=== PATIENT | female | born 1935 | race Caucasian/White ===

== ENCOUNTER → 2017-04-08 | Outpatient (CLI) | payer MEDICARE, BC ==
--- NOTE | 2017-04-08 15:00 | XR ---
EXAMINATION TYPE: 3 views left wrist 3 views left DATE OF EXAM: 04/08/2017 COMPARISON: NONE HISTORY: 81 year-old female left hand and wrist pain, swelling FINDINGS: Wrist: Prominent ulnar sided soft tissue swelling. Mild positive ulnar variance is noted. The radiocarpal an d distal radioulnar joint as well as the midcarpal compartment are intact. No acute fracture-dislocat ion. Hand: Small corticated ossific density dorsal carpus measuring 3 mm could represent a loose body or sequela of remote injury. Diffuse osteopenia. Scattered osteoarthritic changes within the DIP joints. No acu te fracture, subluxation, or dislocation. No marginal erosions. No soft tissue calcifications. IMPRESSION: 1. Wrist: Prominent ulnar sided soft tissue swelling could reflect ECU tendinopathy, injury to the TF CC, or injury to the ECU subsheath. 2. Wrist: Mild positive ulnar variance. No acute osseous evaluate seen. 3. Hand: Mild scattered osteoarthritic changes. Osteopenia without acute osseous abnormality seen.
== END | disposition home or self-care (01) ==
LOC: RADXRYALE 10:57
PROVIDERS: ATTEND Physician Assistant
DX: M19.042 Primary osteoarthritis, left hand (principal); M85.842 Other specified disorders of bone density and structure, left hand; M79.89 Other specified soft tissue disorders

== ENCOUNTER 2018-08-05 08:11 | Day surgery (SDC) | payer MEDICARE, BC ==
[2018-08-03 09:39] VITALS: BMI 26.6
[~2018-08-05 08:11] MED LIST: LACTATED RINGERS 1,000 ML IV SCH; LIDOCAINE 1% 20 ML VIAL (10MG/ML) FOR IV START INTRADERMA PRN; MOXIFLOXACIN HCL 0.5% DROPS 3 ML BTL OP ONE; ONDANSETRON 4 MG/2 ML VIAL IVP ONE; TETRACAINE 0.5% OPHTH (PF) DROPS 4 ML BTL OP ONE; TIMOLOL 0.5% OPHTH DROPS 5 ML BTL OP ONE
[2018-08-05 08:42] VITALS: RESP 16; TEMP 98.1
[2018-08-05] MEDS: PHENYLEPHRINE 2.5% OPHTH DRP 2ML OP NR ×3 (08:47→09:09)
[2018-08-05] MEDS: CYCLOPENTOLATE 1% OPHTH SOLN 2 ML BTL OP ONE ×3 (08:52→09:12)
[2018-08-05 08:59] LABS: Glucose,Whole Blood 126 mg/dL (75-99)
[2018-08-05] MEDS ORDERED: LIDOCAINE 1% (PF) 10MG/ML VIAL SQ ONE (09:26)
[2018-08-05] MEDS ORDERED: BALANCED SALT IRRIG SOLN COMB2 15 ML IRRIG.SOLN IRRIGATION ONE (09:26)
[2018-08-05] MEDS ORDERED: DUOVISC KIT (GREEN BOX) INTRAOCULA ONE (09:26)
[2018-08-05] MEDS ORDERED: TRYPAN BLUE 0.06% SYRINGE 0.5 ML SYRINGE INTRAOCULA ONE (09:26)
[2018-08-05] MEDS ORDERED: fentaNYL (PF) 50 MCG/ML 2 ML AMP ONE (09:27)
[2018-08-05] MEDS ORDERED: MIDAZOLAM 2 MG/2 ML VIAL ONE (09:27)
[2018-08-05] MEDS ORDERED: EPINEPHrine (PF) 0.3 ML in BALANCED SALT IRRIG SOLN COMB2 500 ML IRRIGATION ONE (09:49)
--- NOTE | 2018-08-05 10:04 | P.OP ---
Date of Procedure: 08/05/18 Preoperative Diagnosis: ns Postoperative Diagnosis: same Procedure(s) Performed: PIOL< OS Implants: PCB00 28.00 Anesthesia: MAC Surgeon: Gabriele Banuelos Estimated Blood Loss (ml): 0 Pathology: none sent Condition: stable Disposition: same day Indications for Procedure: Poor vision Operative Findings: No complications
[2018-08-05 10:09] VITALS: BP 182/83; PULSE 75
--- NOTE | 2018-08-05 18:50 | OP ---
OPERATIVE REPORT DATE OF SURGERY: August 05, 2018. PROCEDURE PERFORMED: Phacoemulsification of cataract and intraocular lens implant of the left eye. SURGEON: Gabriele Banuelos M.D. FLIGHT FOLLOWER:: PREOPERATIVE DIAGNOSIS:: Nuclear sclerosis. POSTOPERATIVE DIAGNOSIS:: Nuclear sclerosis. OPERATION:: Clear cornea phacoemulsification of cataract OS eye. ESTIMATED BLOOD LOSS:: Zero. SPECIMEN TAKEN:: None. NARRATIVE:: After obtaining the appropriate consent, the patient was brought to the Operating Room where the patient was placed under cardiac monitoring and prepped and draped in the usual sterile manner. At the 11 o'clock - position a 15 degree super sharp blade was used to create a paracentesis followed by instillation of 1% Xylocaine MPF 50:50 mix with BSS into the anterior chamber. This was followed by Duovisc to stabilize the anterior chamber. At the 9 o'clock position a self-sealing corneal flap incision was created using 2.8 mm ginna keratome. A cystatome was used to initiate a continuous tear capsulorrhexis which was completed with the Utrata forceps. A Binkhorst cannula was used to hydrodissect the lens nucleus followed by hydrodelineation. Phacoemulsification of the lens was performed utilizing phaco-chop in 40.54 seconds at 14% power. The remaining cortical material was removed using the irrigation aspiration mode followed by additional 1% Xylocaine MPF into the anterior chamber followed by viscoelastic to stabilize the capsular bag. An MARY PCB00 28.0 diopter posterior chamber lens was placed into the capsular bag without difficulty. The remaining viscoelastic material was removed from the anterior chamber with the irrigation/aspiration. Balanced salt solution was used to normalize the intraocular pressure. The incision was checked for watertight integrity. The patient then received two drops of 0.5% timolol followed by two drops Vigamox, was lightly patched and shielded in the usual manner. There were no complications from the procedure. The patient tolerated the procedure well and was returned to recovery in good condition. MMODL / IJN: [id number] / MTDD
== END 2018-08-05 10:36 | disposition home or self-care (01) ==
LOC: OR 08:11
PROVIDERS: ATTEND Ophthalmology
DX: E11.36 Type 2 diabetes mellitus with diabetic cataract (principal); I10 Essential (primary) hypertension; K21.9 Gastro-esophageal reflux disease without esophagitis; I25.10 Atherosclerotic heart disease of native coronary artery without angina pectoris; H40.009 Preglaucoma, unspecified, unspecified eye; Z79.82 Long term (current) use of aspirin; Z79.899 Other long term (current) drug therapy; Z79.84 Long term (current) use of oral hypoglycemic drugs; Z95.5 Presence of coronary angioplasty implant and graft; Z94.7 Corneal transplant status
CPT/HCPCS: 66984; C1780; J2250; J0171; J3010; J2001

== ENCOUNTER 2019-11-03 22:13 | Inpatient (IN) | payer MEDICARE, BC ==
--- NOTE | 2019-11-03 22:49 | ED ---
Chest Pain HPI - General Source: patient, family, RN notes reviewed Mode of arrival: ambulatory - History of Present Illness MD Complaint: chest pain <Vincent Lyle - Last Filed: 11/04/19 00:31> <Jose Robertson - Last Filed: 11/04/19 02:06> - General Chief Complaint: Chest Pain Stated Complaint: SOB,rapid HR Time Seen by Provider: 11/03/19 22:28 - History of Present Illness Initial Comments: This is a 84-year-old female history of prior cardiac disease with stents who states for the past several days she's had shortness of breath especially with exertion. No orthopnea no fevers chills nausea vomiting sweats no chest pain. She states she is concerned because her prior cardiac events had no chest pain associated with them. At rest she feels okay at this time. No complaints or modifying factors at this time (Vincent Lyle) - Related Data Home Medications Medication Instructions Recorded Confirmed Aspirin EC [Ecotrin] 81 mg PO DAILY 10/13/15 08/05/18 Omeprazole [PriLOSEC] 20 mg PO AC-BRKFST 10/14/15 08/05/18 metFORMIN HCL [Glucophage] 500 mg PO DAILY 10/14/15 08/05/18 amLODIPine [Norvasc] 5 mg PO BID 08/03/18 08/05/18 lisinopriL [Lisinopril] 20 mg PO BID 08/03/18 08/05/18 Previous Rx's Medication Instructions Recorded Metoprolol Tartrate [Lopressor] 12.5 mg PO BID #60 tab 10/16/15 Nitroglycerin Sl Tabs [Nitrostat] 0.4 mg SUBLINGUAL Q5M PRN #30 tab 10/16/15 Allergies Allergy/AdvReac Type Severity Reaction Status Date / Time No Known Allergies Allergy Verified 11/03/19 22:32 Review of Systems ROS Other: All systems not noted in ROS Statement are negative. <Vincent Lyle - Last Filed: 11/04/19 00:31> ROS Other: All systems not noted in ROS Statement are negative. <Jose Robertson - Last Filed: 11/04/19 02:06> ROS Statement: Those systems with pertinent positive or pertinent negative responses have been documented in the HPI. EKG Findings - EKG Results: EKG: interpreted by ERMD, sinus rhythm (Sinus rhythm 82. Interval 192 QRS duration 78 QT since QTC 372/4:30 for moderate voltage criteria for LVH nonspecific ST configuration this is compared with an EKG dated 10/14/15) <ValdoVincent Holly Filed: 11/04/19 00:31> Past Medical History Past Medical History: Coronary Artery Disease (CAD), Diabetes Mellitus, GERD/Reflux, Hypertension Additional Past Medical History / Comment(s): left cataracts,hiatal hernia History of Any Multi-Drug Resistant Organisms: None Reported Past Surgical History: Heart Catheterization With Stent Additional Past Surgical History / Comment(s): 3 stents with Cath. Lt hip femur bhaskar,cornea implant rt eye Past Anesthesia/Blood Transfusion Reactions: Postoperative Nausea & Vomiting (PONV) Date of Last Stent Placement:: 10/14/2015 Past Psychological History: No Psychological Hx Reported Smoking Status: Never smoker Past Alcohol Use History: None Reported Past Drug Use History: None Reported - Past Family History Mother Family Medical History: Diabetes Mellitus Father Family Medical History: Myocardial Infarction (HI) <ValdoVincent Murray Filed: 11/04/19 00:31> General Exam General appearance: alert, in no apparent distress Head exam: Present: atraumatic, normocephalic, normal inspection Eye exam: Present: normal appearance, PERRL, EOMI. Absent: scleral icterus, conjunctival injection, periorbital swelling ENT exam: Present: normal exam, mucous membranes moist Neck exam: Present: normal inspection. Absent: tenderness, meningismus, lym phadenopathy Respiratory exam: Present: normal lung sounds bilaterally. Absent: respiratory distress, wheezes, rales, rhonchi, stridor Cardiovascular Exam: Present: regular rate, normal rhythm, normal heart sounds. Absent: systolic murmur, diastolic murmur, rubs, gallop, clicks GI/Abdominal exam: Present: soft, normal bowel sounds. Absent: distended, tenderness, guarding, rebound, rigid Extremities exam: Present: normal inspection, full ROM, normal capillary refill. Absent: tenderness, pedal edema, joint swelling, calf tenderness Back exam: Present: normal inspection Neurological exam: Present: alert, oriented X3, CN II-XII intact Psychiatric exam: Present: normal affect, normal mood Skin exam: Present: warm, dry, intact, normal color. Absent: rash <Valdo,Vincent Murray Filed: 11/04/19 00:31> - General Exam Comments Initial Comments: This is a well-developed well-nourished awake alert oriented 3 female (Vincent Lyle) Course <Vincent Lyle - Last Filed: 11/04/19 00:31> Vital Signs 11/03/19 22:30 Temperature 98.3 F Pulse Rate 102 H Respiratory 16 Rate Blood Pressure 177/87 O2 Sat by Pulse 98 Oximetry - Reevaluation(s) Reevaluation #1: 11/04/19 00:31 The patient has been a difficult blood draw. It was just sent at this time. The case is endorsed to Dr. Robertson at our shift change. (Vincent Lyle) Chest Pain MDM <Jose Robertson - Last Filed: 11/04/19 02:06> - MDM I receive this patient has a sign out pending the results of some of her studies. The patient's workup does reveal minimally elevated troponin. The patient is however asymptomatic. Patient be admitted with cardiology consultation, serial cardiac enzymes and telemetry monitoring. (Jose Robertson) Critical Care Time Critical Care Time: Yes (30 minutes) <Jose Robertson - Last Filed: 11/04/19 02:06> Disposition <Vincent Lyle - Last Filed: 11/04/19 00:31> <Jose Robertson - Last Filed: 11/04/19 02:06> Clinical Impression: Acute non-ST elevation myocardial infarction (NSTEMI) Disposition: ADMITTED IP TO THIS [facility] Condition: Serious Referrals: Diomedes Akbar DO [Primary Care Provider] - 1-2 days
--- NOTE | 2019-11-04 00:42 | XR ---
EXAMINATION TYPE: XR chest 2V DATE OF EXAM: 11/04/2019 COMPARISON: 10/13/2015 HISTORY: Chest pain TECHNIQUE: FINDINGS: There is no heart failure nor confluent pneumonic infiltrate. Thoracic aorta is atheromatou s. There is no pleural effusion. There is some osteopenia and slight wedging of mid thoracic vertebra . IMPRESSION: No active cardiopulmonary disease. No significant change compared to old exam.
[2019-11-04 00:50] LABS: Albumin 4.4 g/dL (3.5-5.0); Calcium 10.1 mg/dL (8.4-10.2); Magnesium 1.9 mg/dL (1.6-2.3); Potassium 4.4 mmol/L (3.5-5.1); Total Bilirubin 0.3 mg/dL (0.2-1.3); Total Protein 7.7 g/dL (6.3-8.2)
[2019-11-04 00:51] LABS: Basophils # (A) 0.1 k/uL (0-0.2); Basophils % (A) 1 %; Eosinophils # (A) 0.2 k/uL (0-0.7); Eosinophils % (A) 2 %; HCT 42.5 % (34.0-46.0); HGB 12.9 gm/dL (11.4-16.0); Hypochromasia Moderate; Lymphocytes % (A) 19 %; MCH 25.6 pg (25.0-35.0); MCHC 30.5 g/dL (31.0-37.0); MCV 84.1 fL (80.0-100.0); Mean Platelet Volume 7.3; Monocytes # (A) 0.7 k/uL (0-1.0); Monocytes % (A) 6 %; Neutrophils # (A) 7.6 k/uL (1.3-7.7); Neutrophils % (A) 71 %; Platelet Count 421 k/uL (150-450); RBC 5.05 m/uL (3.80-5.40); RDW 13.7 % (11.5-15.5); WBC 10.7 k/uL (3.8-10.6)
[2019-11-04 00:54] LABS: INR 0.9 (<1.2); Prothrombin Time 9.7 sec (9.0-12.0)
[2019-11-04 01:05] LABS: D-Dimer 3.36 mg/L FEU (<0.60)
--- NOTE | 2019-11-04 01:38 | CT ---
EXAMINATION TYPE: CT chest angio for PE DATE OF EXAM: 11/04/2019 COMPARISON: HISTORY: SOB CT DLP: 276.4 mGycm Automated exposure control for dose reduction was used. CONTRAST: Performed with IV Contrast, patient injected with 62 mL of Isovue 370. Images were obtained from the thoracic inlet to the diaphragm with IV contrast and 3-D post processed images. FINDINGS: There is mild to moderate hiatal hernia. There is mild subsegmental atelectasis and interstitial dens ity at the lung bases. There is no evidence of a pulmonary mass. Thoracic aorta is intact. There is n o aneurysm or dissection. There is no mediastinal adenopathy. There are no hilar masses. There is nor mal contrast opacification of the pulmonary arteries. There are no filling defects. There is no pleural effusion. There is no pericardial effusion. There are some spondylotic changes in the lower thoracic spine. There is no significant compression deformity. Sternum appears intact. The ribs appear intact. There is calcified gallstone. IMPRESSION: No evidence of pulmonary embolism. Mild pulmonary fibrotic changes. Cholelithiasis.
[2019-11-04] MEDS ORDERED: HEPARIN SODIUM,PORCINE 5,000 UNIT/ML 1 ML VIAL IV PRN (01:58)
[2019-11-04] MEDS ORDERED: HEPARIN SODIUM,PORCINE 5,000 UNIT/ML 1 ML VIAL IV ONE (01:58)
[2019-11-04] MEDS ORDERED: NITROGLYCERIN SL TABS 0.4 MG TAB SUBLINGUAL PRN (02:02)
[2019-11-04] MEDS: HEPARIN SOD,PORK IN 0.45% NACL 25,000 UNIT in 0.45% NACL 1 250ML.BAG IV SCH (02:33)
[2019-11-04] MEDS ORDERED: metFORMIN 500 MG TAB PO SCH (09:00)
[2019-11-04] MEDS ORDERED: METOPROLOL TARTRATE 12.5 MG TAB PO SCH (09:00)
[2019-11-04] MEDS: ASPIRIN 81 MG PO SCH (09:03)
[2019-11-04] MEDS: amLODIPine 5 MG TAB PO SCH ×2 (09:03→20:36)
[2019-11-04] MEDS: PANTOPRAZOLE 40 MG TABLET PO SCH (09:04)
[2019-11-04] MEDS: lisinopriL 20 MG TAB PO SCH ×2 (09:04→20:36)
[2019-11-04 11:27] LABS: Glucose,Whole Blood 118 mg/dL (75-99)
[2019-11-04] MEDS: INSULIN ASPART (NovoLOG) 100 UNIT/ML VIAL SQ SCH ×3 (11:28→20:26)
[2019-11-04] MEDS ORDERED: ONDANSETRON 4 MG/2 ML VIAL IVP PRN (11:31)
[2019-11-04] MEDS ORDERED: METOPROLOL TARTRATE 12.5 MG TAB PO STA (14:24)
[2019-11-04] MEDS: NITROGLYCERIN OINT 1 INCH/GM PACKET TOPICAL SCH ×2 (14:38→20:26)
[2019-11-04] MEDS ORDERED: ATORVASTATIN 80 MG TAB PO STA (14:44)
--- NOTE | 2019-11-04 14:52 | P.HPIM ---
History of Present Illness This is a pleasant 84 years old female with past medical history of diabetes mellitus, hypertension, hyperlipidemia, coronary artery disease status post stent, hiatal hernia and osteoarthritis. She is a patient of Dr. Akbar and follow-up with Dr. Flores and outpatient setting Patient presents because of dyspnea of 3 days' duration, more with exertion. However she denies coughing or chest pain. She denies smoking, alcohol or illicit drugs Vital signs stable, blood pressure on the high side 183/84 and now is 163/82, afebrile. Labs showing mild leukocytosis of 10.7 K, rest of CBC is unremarkable, d-dimer is elevated at 3.3, BMP and liver enzymes unremarkable Troponin is elevated at 0.2, 0.32. EKG showing normal sinus rhythm at [address]-T changes. CT of the chest: No pulmonary embolism, no aneurysm or dissection In the emergency room patient was started on heparin drip Review of Systems CONSTITUTIONAL: No fever, no malaise, no fatigue. HEENT: No recent visual problems or hearing problems. Denied any sore throat. CARDIOVASCULAR: No orthopnea, PND, no palpitations, no syncope. PULMONARY: No shortness of breath, no cough, no hemoptysis. GASTROINTESTINAL: No diarrhea, no nausea, no vomiting, no abdominal pain. Normoactive bowel sounds. NEUROLOGICAL: No headaches, no weakness, no numbness. HEMATOLOGICAL: Denies any bleeding or petechiae. GENITOURINARY: Denies any burning micturition, frequency, or urgency. MUSCULOSKELETAL/RHEUMATOLOGICAL: Denies any joint pain, swelling, or any muscle pain. ENDOCRINE: Denies any polyuria or polydipsia. Past Medical History Past Medical History: Coronary Artery Disease (CAD), Diabetes Mellitus, Eye Disorder, GERD/Reflux, Hyperlipidemia, Hypertension, Myocardial Infarction (OR), Osteoarthritis (OA) Additional Past Medical History / Comment(s): NIDDM type II, R eye-sees shadows only, hiatal hernia, arthritis bilateral hands, insomnia. Last Myocardial Infarction Date:: 2015 History of Any Multi-Drug Resistant Organisms: None Reported Past Surgical History: Heart Catheterization With Stent, Orthopedic Surgery Additional Past Surgical History / Comment(s): PCIs with stents, L hip fracture with hemiarthroplasty, R foot fracture with bone graft, R eye corneal transplant, L eye cataract removal with lens implant. Past Anesthesia/Blood Transfusion Reactions: Postoperative Nausea & Vomiting (PONV) Date of Last Stent Placement:: 10/14/2015 Smoking Status: Never smoker - Past Family History Mother Family Medical History: Diabetes Mellitus Father Family Medical History: Myocardial Infarction (OR) Additional Family Medical History / Comment(s): Father from a OR at the age of 57yrs. Medications and Allergies Home Medications Medication Instructions Recorded Confirmed Type Aspirin EC [Ecotrin] 81 mg PO DAILY 10/13/15 11/04/19 History Omeprazole [PriLOSEC] 20 mg PO AC-BRKFST 10/14/15 11/04/19 History RX: metFORMIN HCL [Glucophage] 500 mg PO DAILY 10/14/15 11/04/19 History RX: Metoprolol Tartrate [Lopressor] 12.5 mg PO BID #60 tab 10/16/15 11/04/19 Rx RX: Nitroglycerin Sl Tabs 0.4 mg SUBLINGUAL Q5M PRN #30 tab 10/16/15 11/04/19 Rx [Nitrostat] RX: lisinopriL 20 mg PO BID 08/03/18 11/04/19 History amLODIPine [Norvasc] 5 mg PO BID 08/03/18 11/04/19 History Fluorometholone 0.1% Ophth Jazz 1 drop RIGHT EYE Q4H 11/04/19 11/04/19 History [Fml] Timolol 0.25% Ophth Soln [Timoptic 1 drop LEFT EYE BID 11/04/19 11/04/19 History 0.25% Ophth Soln] hydrALAZINE HCL [Apresoline] 25 mg PO BID 11/04/19 11/04/19 History Allergies Allergy/AdvReac Type Severity Reaction Status Date / Time No Known Allergies Allergy Verified 11/04/19 07:26 Physical Exam Vitals: Vital Signs Temp Pulse Pulse Resp BP BP Pulse Ox 11/04/19 13:06 163/82 11/04/19 11:29 97.9 F 88 20 183/84 94 L 11/04/19 08:00 97.8 F 88 20 179/84 97 11/04/19 05:30 82 17 149/90 97 11/04/19 04:15 96 17 189/91 97 11/04/19 03:05 100 18 167/80 97 11/03/19 22:30 98.3 F 102 H 16 177/87 98 Intake and Output 11/03/19 11/04/19 11/04/19 22:59 06:59 14:59 Other: Voiding Method Toilet # Voids 1 Weight 69.853 kg 69.853 kg GENERAL: The patient is alert and oriented x3, not in any acute distress. Well developed, well nourished. HEENT: Pupils are round and equally reacting to light. EOMI. No scleral icterus. No conjunctival pallor. Normocephalic, atraumatic. No pharyngeal erythema. No thyromegaly. CARDIOVASCULAR: S1 and S2 present. No murmurs, rubs, or gallops. PULMONARY: Chest is clear to auscultation, no wheezing or crackles. ABDOMEN: Soft, nontender, nondistended, normoactive bowel sounds. No palpable organomegaly. MUSCULOSKELETAL: No joint swelling or deformity. EXTREMITIES: No cyanosis, clubbing, or pedal edema. NEUROLOGICAL: Gross neurological examination did not reveal any focal deficits. SKIN: No rashes. No petechiae Results CBC & Chem 7: 11/04/19 00:20 11/04/19 00:20 Labs: Abnormal Lab Results - Last 24 Hours (Table) 11/04/19 11/04/19 11/04/19 Range/Units 00:20 00:20 00:20 WBC 10.7 H (3.8-10.6) k/uL MCHC 30.5 L (31.0-37.0) g/dL APTT (22.0-30.0) sec D-Dimer 3.36 H (<0.60) mg/L FEU Chloride 108 H (98-107) mmol/L Carbon Dioxide 21 L (22-30) mmol/L BUN 26 H (7-17) mg/dL Glucose 150 H (74-99) mg/dL POC Glucose (mg/dL) (75-99) mg/dL Troponin I (0.000-0.034) ng/mL 11/04/19 11/04/19 11/04/19 Range/Units 00:20 03:09 05:47 WBC (3.8-10.6) k/uL MCHC (31.0-37.0) g/dL APTT (22.0-30.0) sec D-Dimer (<0.60) mg/L FEU Chloride (98-107) mmol/L Carbon Dioxide (22-30) mmol/L BUN (7-17) mg/dL Glucose (74-99) mg/dL POC Glucose (mg/dL) (75-99) mg/dL Troponin I 0.264 H* 0.300 H* 0.314 H* (0.000-0.034) ng/mL 11/04/19 11/04/19 Range/Units 07:21 11:25 WBC (3.8-10.6) k/uL MCHC (31.0-37.0) g/dL APTT 45.8 H (22.0-30.0) sec D-Dimer (<0.60) mg/L FEU Chloride (98-107) mmol/L Carbon Dioxide (22-30) mmol/L BUN (7-17) mg/dL Glucose (74-99) mg/dL POC Glucose (mg/dL) 118 H (75-99) mg/dL Troponin I (0.000-0.034) ng/mL Thrombosis Risk Factor Assmnt - Choose All That Apply Any of the Below Risk Factors Present?: Yes Each Factor Represents 1 point: Acute OR, Obesity (BMI >25) Other Risk Factors: Yes Each Risk Factor Represents 3 Points: Age 75 years or older Other congenital or acquired thrombophilia - If yes, enter type in comment: No Thrombosis Risk Factor Assessment Total Risk Factor Score: 5 Thrombosis Risk Factor Assessment Level: High Risk Assessment and Plan Assessment: Elevated troponin suspicious for non-STEMI Diabetes mellitus Hypertension Hyperlipidemia Coronary artery disease status post stenting Osteoarthritis Hiatal hernia Plan: This is a pleasant 84 years old female who presents with non-STEMI. Continue with aspirin and heparin drip, cardiology consult Labs and medication were reviewed.. Continue same treatment. Continue with symptomatic treatment. Resume home medication. Monitor lytes and vitals. DVT and GI prophylaxis. Further recommendations of the clinical course of the patient DVT prophylaxis: heparin GI Prophylaxis: Pepcid PT/OT: Pending Prognosis is guarded
[2019-11-04] MEDS ORDERED: ASPIRIN 325 MG TAB PO STA (15:15)
[2019-11-04] MEDS ORDERED: ALPRAZolam 0.5 MG TAB PO PRN (15:15)
[2019-11-04] MEDS ORDERED: ALPRAZolam 0.25 MG TAB PO PRN (15:15)
[2019-11-04] MEDS ORDERED: SODIUM CHLORIDE 0.9% 1,000 ML in EMPTY BAG 1 BAG IV ONE (15:15)
--- NOTE | 2019-11-04 15:15 | P.CRDCN ---
History of Present Illness History of present illness: This is Melody Patel PA-C dictating a consult on this patient The patient was interviewed and examined by me as well as by Dr. Zhang Case discussed with Dr. Zhang and he agrees with the plan of care HPI Patient is an 84-year-old female with a history significant for CAD status post stenting, most recently stenting of the RCA and PLV in 2016, diabetes, hypertension, dyslipidemia who presented with complaints of dyspnea. She follows regularly with Dr. Flores in the office. She states that for the last few days she has been more short of breath and has been having chest tightness. It was initially exertional. It has become constant over the last day. She also notes diaphoresis and nausea. She did take 2 aspirins with some relief. Some symptoms reminded her of symptoms she had before previous stenting. Because the discomfort was ongoing and constant she came in for evaluation. EKG upon arrival shows sinus mechanism with PACs, nonspecific changes inferiorly. Chest x-ray showed no acute process. Chest CT showed no evidence of PE. Troponins are abnormal. Patient seen and examined in the emergency room. States she does not have any chest tightness currently but she does develop it with minimal exertion such as getting out of bed and taking a few steps. ROS: No fevers, chills or rigors, no cough, phlegm or expectoration, no nausea, vomiting or diarrhea, no hematuria, dysuria, no musculoskeletal complaints, no strokes or seizures, no skin lesions. EXAMINATION: Patient is afebrile, pulse in the 80s, respirations 20, blood pressure 183/84, oxygen saturation 94% on room air Patient seen and examined sitting in bed, in no acute distress Lungs are clear to auscultation bilaterally, no wheezing rhonchi or crackles Heart is regular, no audible murmurs No JVD No lower extremity edema Abdomen is soft and nontender to palpation REVIEW OF LABS, ECG & MEDICAL DATA WBC 10.7, hemoglobin 12.9, platelets 421, potassium 4.4, BUN 26, creatinine 1.04 Troponin 0.264, 0.3-0.314 Repeat EKG again demonstrates nonspecific ST segment changes inferiorly, unchanged from previous EKG IMPRESSION / ASSESSMENT: #1 exertional chest tightness and shortness of breath, abnormal troponins, likely non-Q-wave [place] #2 history of CAD status post stenting #3 hypertension #4 diabetes #5 dyslipidemia, history of statin intolerance PLAN: Increase metoprolol to 25 mg twice a day Start atorvastatin 80 mg Start Nitropaste Continue aspirin Dr. Zhang discussed the case with Dr. Flores, he will take the patient for cardiac catheterization Obtain 2-D echocardiogram and Doppler studies Past Medical History Past Medical History: Coronary Artery Disease (CAD), Diabetes Mellitus, Eye Disorder, GERD/Reflux, Hyperlipidemia, Hypertension, Myocardial Infarction (LA), Osteoarthritis (OA) Additional Past Medical History / Comment(s): NIDDM type II, R eye-sees shadows only, hiatal hernia, arthritis bilateral hands, insomnia. Last Myocardial Infarction Date:: 2015 History of Any Multi-Drug Resistant Organisms: None Reported Past Surgical History: Heart Catheterization With Stent, Orthopedic Surgery Additional Past Surgical History / Comment(s): PCIs with stents, L hip fracture with hemiarthroplasty, R foot fracture with bone graft, R eye corneal transplant, L eye cataract removal with lens implant. Past Anesthesia/Blood Transfusion Reactions: Postoperative Nausea & Vomiting (PONV) Date of Last Stent Placement:: 10/14/2015 Smoking Status: Never smoker - Past Family History Mother Family Medical History: Diabetes Mellitus Father Family Medical History: Myocardial Infarction (LA) Additional Family Medical History / Comment(s): Father from a LA at the age of 57yrs. Medications and Allergies Home Medications Medication Instructions Recorded Confirmed Type Aspirin EC [Ecotrin] 81 mg PO DAILY 10/13/15 11/04/19 History Omeprazole [PriLOSEC] 20 mg PO AC-BRKFST 10/14/15 11/04/19 History metFORMIN HCL [Glucophage] 500 mg PO DAILY 10/14/15 11/04/19 History Metoprolol Tartrate [Lopressor] 12.5 mg PO BID #60 tab 10/16/15 11/04/19 Rx Nitroglycerin Sl Tabs [Nitrostat] 0.4 mg SUBLINGUAL Q5M PRN #30 tab 10/16/15 11/04/19 Rx amLODIPine [Norvasc] 5 mg PO BID 08/03/18 11/04/19 History lisinopriL 20 mg PO BID 08/03/18 11/04/19 History Fluorometholone 0.1% Ophth Jazz 1 drop RIGHT EYE Q4H 11/04/19 11/04/19 History [Fml] Timolol 0.25% Ophth Soln [Timoptic 1 drop LEFT EYE BID 11/04/19 11/04/19 History 0.25% Ophth Soln] hydrALAZINE HCL [Apresoline] 25 mg PO BID 11/04/19 11/04/19 History Allergies Allergy/AdvReac Type Severity Reaction Status Date / Time No Known Allergies Allergy Verified 11/04/19 07:26 Physical Exam Vitals: Vital Signs Temp Pulse Pulse Resp BP BP Pulse Ox 11/04/19 13:06 163/82 11/04/19 11:29 97.9 F 88 20 183/84 94 L 11/04/19 08:00 97.8 F 88 20 179/84 97 11/04/19 05:30 82 17 149/90 97 11/04/19 04:15 96 17 189/91 97 11/04/19 03:05 100 18 167/80 97 11/03/19 22:30 98.3 F 102 H 16 177/87 98 Intake and Output 11/04/19 11/04/19 11/04/19 06:59 14:59 22:59 Other: Voiding Method Toilet # Voids 1 Weight 69.853 kg Results 11/04/19 00:20 11/04/19 00:20 Cardiac Enzymes 11/04/19 11/04/19 11/04/19 Range/Units 00:20 00:20 03:09 AST 24 (14-36) U/L Troponin I 0.264 H* 0.300 H* (0.000-0.034) ng/mL 11/04/19 Range/Units 05:47 AST (14-36) U/L Troponin I 0.314 H* (0.000-0.034) ng/mL Coagulation 11/04/19 11/04/19 Range/Units 00:20 07:21 PT 9.7 (9.0-12.0) sec APTT 24.0 45.8 H (22.0-30.0) sec CBC 11/04/19 Range/Units 00:20 WBC 10.7 H (3.8-10.6) k/uL RBC 5.05 (3.80-5.40) m/uL Hgb 12.9 (11.4-16.0) gm/dL Hct 42.5 (34.0-46.0) % Plt Count 421 (150-450) k/uL Comprehensive Metabolic Panel 11/04/19 Range/Units 00:20 Sodium 139 (137-145) mmol/L Potassium 4.4 (3.5-5.1) mmol/L Chloride 108 H (98-107) mmol/L Carbon Dioxide 21 L (22-30) mmol/L BUN 26 H (7-17) mg/dL Creatinine 1.04 (0.52-1.04) mg/dL Glucose 150 H (74-99) mg/dL Calcium 10.1 (8.4-10.2) mg/dL AST 24 (14-36) U/L ALT 16 (4-34) U/L Alkaline Phosphatase 114 (38-126) U/L Total Protein 7.7 (6.3-8.2) g/dL Albumin 4.4 (3.5-5.0) g/dL Current Medications Generic Name Dose Route Start Last Admin Trade Name Kulwinderq PRN Reason Stop Dose Admin Amlodipine Besylate 5 mg 11/04/19 09:00 11/04/19 09:03 Norvasc PO 5 mg BID [facility] Administration Aspirin 81 mg 11/04/19 09:00 11/04/19 09:03 Aspirin PO 81 mg DAILY [facility] Administration Atorvastatin Calcium 80 mg 11/04/19 21:00 Lipitor PO HS [facility] Famotidine 20 mg 11/04/19 21:00 Pepcid IV Q12HR [facility] Heparin Sodium (Porcine) 0 unit 11/04/19 01:58 Heparin IV PER PROTOCOL PRN Low PTT Protocol Heparin Sodium/Sodium Chloride 250 mls @ 8.382 mls/hr 11/04/19 02:00 11/04/19 02:33 25,000 unit/ Sodium Chloride IV 12 units/kg/hr .Q24H ELEANOR 8.382 mls/hr Administration Protocol 12 UNITS/KG/HR Insulin Aspart 0 unit 11/04/19 12:30 11/04/19 11:28 Novolog SQ Not Given ACHS [facility] Protocol Lisinopril 20 mg 11/04/19 09:00 11/04/19 09:04 Zestril PO 20 mg BID ELEANOR Administration Metformin HCl 500 mg 11/04/19 09:00 11/04/19 09:05 Glucophage PO Not Given DAILY [facility] Metoprolol Tartrate 25 mg 11/04/19 21:00 Lopressor PO BID ELEANOR Nitroglycerin 0.4 mg 11/04/19 02:02 Nitrostat SUBLINGUAL Q5M PRN Chest Pain Nitroglycerin 0.5 inch 11/04/19 14:45 11/04/19 14:38 Nitro-Bid Oint TOPICAL 0.5 inch Q6HR [facility] Administration Ondansetron HCl 4 mg 11/04/19 11:31 Zofran IVP Q6HR PRN Nausea And Vomiting Pantoprazole Sodium 40 mg 11/04/19 07:30 11/04/19 09:04 Protonix PO 40 mg AC-BRKFST [facility] Administration Intake and Output 11/04/19 11/04/19 11/04/19 06:59 14:59 22:59 Other: Voiding Method Toilet # Voids 1 Weight 69.853 kg Patient Weight 11/05/19 06:59 Weight 69.853 kg 11/04/19 00:20 11/04/19 00:20
[2019-11-04] MEDS ORDERED: fentaNYL (PF) 50 MCG/ML 2 ML AMP ONE (15:33)
[2019-11-04] MEDS ORDERED: VERAPAMIL 2.5 MG/ML 2 ML AMP ONE ×2 (15:33→18:21)
[2019-11-04] MEDS ORDERED: LIDOCAINE 1% INJ 10MG/ML (20 ML MDV) ONE (15:33)
[2019-11-04] MEDS ORDERED: HEPARIN SODIUM 1,000 UN/ML (10ML VL) ONE (15:33)
[2019-11-04] MEDS ORDERED: MIDAZOLAM 2 MG/2 ML VIAL IVP ONE (15:59)
[2019-11-04] MEDS ORDERED: IV FLUID CONTINUATION 250 ML IV ONE (15:59)
[2019-11-04] MEDS ORDERED: LIDOCAINE 1% INJ 10MG/ML (20 ML MDV) SQ ONE (15:59)
[2019-11-04] MEDS ORDERED: fentaNYL (PF) 50 MCG/ML 2 ML AMP IV ONE ×2 (15:59)
[2019-11-04] MEDS ORDERED: VERAPAMIL SYRINGE (5 MG/10 ML) INTRAARTER ONE (16:01)
[2019-11-04] MEDS ORDERED: HEPARIN SODIUM 1,000 UN/ML (10ML VL) IV ONE (16:04)
--- NOTE | 2019-11-04 16:22 | P.CARDCATH ---
Date of Procedure: 11/04/19 Preoperative Diagnosis: Unstable angina Postoperative Diagnosis: Critical lesion involving the RCA and also proximal LAD Description of Procedure: HISTORY: This is a 84-year-old female with history of hypertension, ischemic heart disease and previous multiple stent placements was admitted to the hospital with acute onset of chest pain with borderline positive troponins. Patient is advised to have cardiac catheterization for definite diagnosis CONSENT:I have discussed the risks, benefits and alternative therapies for the above-mentioned procedure and for both sedation/analgesia as well as necessary blood product administration, if indicated, as they pertain to this patient. The patient has indicated understanding and acceptance of the risks and procedures discussed. PROCEDURE: Patient was brought to the lab in a fasting state. Patient was given some IV sedation. The right wrist is infiltrated with lidocaine and right radial artery was entered using Seldinger technique. A 6-Upper Sorbian catheter was left in place and selective coronary arteriography was performed. Patient tolerated the procedure well. Patient is found to have critical lesion involving the RCA and also LAD. Waiting to have stent placement by Dr. WAI Martinez No immediate complications were noted . Conscious Sedation: Versed 1mg Fentanyl 25 g, 4000 of heparin Duration 16minutes HEMODYNAMICS: 125/75 SELECTIVE CORONARY ARTERIOGRAPHY: LEFT MAIN: Short and free of occlusive disease THE LEFT ANTERIOR DESCENDING CORONARY ARTERY:. This is a good caliber vessel with about 70% stenosis involving the proximal portion before the first diagonal branch. The rest of the LAD is free of any significant focal lesions THE LEFT CIRCUMFLEX AND IS CORONARY ARTERY:. This is a fair caliber vessel with mild to moderate disease involving the distal circumflex. No critical lesions THE RIGHT CORONARY ARTERY:. His is a good caliber vessel with a critical lesion of 95% involving the distal portion. There is also about 70-80% stenosis of the PLV branchat the previous stent placements site LEFT VENTRICULOGRAPHY: Not performed FINAL IMPRESSION: Critical lesion involving the RCA in the distal portion with moderate to severe disease involving the PLV branch and also proximal LAD PLAN: And placement of the distal RCA and also PLV branch. The stent placement of the LAD to be considered PROGNOSIS: Guarded
[2019-11-04] MEDS ORDERED: IOPAMIDOL-370 100ML BTL INJ ONE ×2 (16:48→19:20)
[2019-11-04] MEDS ORDERED: IV FLUID CONTINUATION 1,000 ML IV ONE (18:30)
[2019-11-04] MEDS ORDERED: BIVALIRUDIN BOLUS 250 MG/50 ML IV ONE (18:56)
[2019-11-04] MEDS ORDERED: BIVALIRUDIN 250 MG in SODIUM CHLORIDE 0.9% 50 ML IV ONE (18:57)
[2019-11-04] MEDS ORDERED: CLOPIDOGREL 75 MG TAB ONE (19:04)
[2019-11-04] MEDS ORDERED: NITROGLYCERIN 1000MCG/10ML SYRINGE INTRACORON ONE (19:08)
[2019-11-04] MEDS ORDERED: CLOPIDOGREL 75 MG TAB PO ONE (19:20)
[2019-11-04 20:29] LABS: Glucose,Whole Blood 139 mg/dL (75-99)
[2019-11-04] MEDS: FAMOTIDINE 20 MG/2 ML VIAL IV SCH (20:37)
[2019-11-04] MEDS: METOPROLOL TARTRATE 25 MG TAB PO SCH (20:37)
[2019-11-04] MEDS: SODIUM CHLORIDE 0.9% 1,000 ML IV SCH (21:45)
[2019-11-05] MEDS: NITROGLYCERIN OINT 1 INCH/GM PACKET TOPICAL SCH ×3 (01:06→12:04)
--- NOTE | 2019-11-05 02:51 | PTCA ---
PERCUTANEOUSTRANS CORORONARY ANGIOGRAPHY DATE OF SERVICE: 11/04/2019 PROCEDURE: PTCA and stenting of a dominant mid RCA 90% stenosis with a drug-eluting stent. PERFORMED BY: Dr. Amanda Martinez. CLINICAL INFORMATION: Mrs. Patino is an 84-year-old lady with a history of multivessel PCI. I performed stenting of a RCA stenosis in the setting of an acute inferior SC in 2015. She presented with chest pain and had a non-ST elevation SC. Her right coronary stent that was placed in 2016 was patent, but distal to the stent there was a new area of 95% stenosis. Additionally, there was progression of disease in LAD and diagonal. Circumflex had minor irregularities. She was advised PCI with was performed on the same day. She already had a sheath in her right radial artery. Moderate conscious sedation time was 31 minutes. Patient was administered Versed. Oxygen saturation, hemodynamics and EKG were monitored closely. PROCEDURE NOTE: The existing 6-Burkinan introducer in the right radial artery was used to perform procedure. There was a lot of tortuosity. I used a Glidewire and used a standard right Daniela guide catheter and I was able to cannulate the right coronary artery. A whisper straight wire was used to cross the lesion. A 3.0 caliber 12 mm NC Trek balloon was used to pre-dilate the lesion and I then deployed an 18 mm long 3.5 caliber Xience stent and this was deployed at 12 atmospheres. Patient had chest pain and inferior ST elevation. Proximal to it in the previous stent also, I used the same balloon and dilated it up to 12 atmospheres. Excellent angiographic result was achieved. I gave 150 mcg of intracoronary nitroglycerin. Patient became transiently hypotensive. Subsequently, the pressure came back to 118/70. Excellent angiographic result was achieved without complication. The sheath was taken out and TR band applied as per protocol. Results were discussed with the patient and family. She received Angiomax bolus and infusion and also 600 mg of Plavix orally. Excellent angiographic result without complication was achieved. I expect the patient should do well. She was sent to the room in a stable condition. MMODL / IJN: [id number] /
[2019-11-05] MEDS: HEPARIN SOD,PORK IN 0.45% NACL 25,000 UNIT in 0.45% NACL 1 250ML.BAG IV SCH (05:37)
[2019-11-05] MEDS: SODIUM CHLORIDE 0.9% 1,000 ML IV SCH (05:37)
[2019-11-05 06:07] LABS: Glucose,Whole Blood 101 mg/dL (75-99)
[2019-11-05] MEDS: INSULIN ASPART (NovoLOG) 100 UNIT/ML VIAL SQ SCH ×2 (06:16→12:05)
[2019-11-05] MEDS: PANTOPRAZOLE 40 MG TABLET PO SCH (06:23)
[2019-11-05 07:27] LABS: Calcium 9.4 mg/dL (8.4-10.2); Potassium 4.6 mmol/L (3.5-5.1)
[2019-11-05 07:37] LABS: Basophils % (A) 0 %; Eosinophils # (A) 0.1 k/uL (0-0.7); Eosinophils % (A) 2 %; HCT 37.8 % (34.0-46.0); HGB 11.5 gm/dL (11.4-16.0); Hypochromasia Slight; Lymphocytes # (A) 1.2 k/uL (1.0-4.8); Lymphocytes % (A) 16 %; MCH 24.9 pg (25.0-35.0); MCHC 30.3 g/dL (31.0-37.0); MCV 82.3 fL (80.0-100.0); Mean Platelet Volume 7.8; Monocytes # (A) 0.6 k/uL (0-1.0); Monocytes % (A) 8 %; Neutrophils # (A) 5.5 k/uL (1.3-7.7); Neutrophils % (A) 72 %; Platelet Count 369 k/uL (150-450); RDW 14.1 % (11.5-15.5); WBC 7.6 k/uL (3.8-10.6)
[2019-11-05] MEDS ORDERED: FLUOROMETHOLONE 0.1% OPHTH DROPS 5 ML BTL RIGHT EYE SCH (09:00)
[2019-11-05] MEDS ORDERED: TIMOLOL 0.25% OPHTH DROPS 5 ML BTL LEFT EYE SCH (09:00)
[2019-11-05] MEDS ORDERED: CLOPIDOGREL 75 MG TAB PO SCH (09:00)
[2019-11-05] MEDS ORDERED: ASPIRIN 325 MG TAB PO SCH (09:00)
[2019-11-05] MEDS: amLODIPine 5 MG TAB PO SCH (09:44)
[2019-11-05] MEDS: METOPROLOL TARTRATE 25 MG TAB PO SCH (09:44)
[2019-11-05] MEDS: ASPIRIN 81 MG PO SCH (09:44)
[2019-11-05] MEDS: FAMOTIDINE 20 MG/2 ML VIAL IV SCH (09:44)
[2019-11-05] MEDS: lisinopriL 20 MG TAB PO SCH (09:44)
--- NOTE | 2019-11-05 10:55 | ECHOF ---
Referral Reason:cp MEASUREMENTS -------- HEIGHT: 162.6 cm WEIGHT: 68.9 kg BP: IVSd: 1.4 cm (0.6 - 1.1) LVIDd: 4.1 cm (3.9 - 5.3) LVPWd: 1.4 cm (0.6 - 1.1) IVSs: 1.5 cm LVIDs: 3.3 cm LVPWs: 1.4 cm LA Diam: 4.8 cm (2.7 - 3.8) LAESV Index (A-L): 39.43 ml/m Ao Diam: 2.8 cm (2.0 - 3.7) AV Cusp: 1.4 cm (1.5 - 2.6) LA Diam: 4.1 cm (2.7 - 3.8) MV EXCURSION: 15.965 mm (> 18.000) MV EF SLOPE: 79 mm/s (70 - 150) EPSS: 0.3 cm MV E Shakeel: 0.70 m/s MV A Shakeel: 1.23 m/s MV E/A Ratio: 0.57 RAP: 5.00 mmHg RVSP: 33.57 mmHg FINDINGS -------- Sinus rhythm. This was a technically good study. The left ventricular size is normal. There is mild concentric left ventricular hypertrophy. Overa ll left ventricular systolic function is low-normal with, an EF between 50 - 55 %. The right ventricle is normal in size. The left atrium is moderately dilated. LA is moderately dilated 34-39 ml/m2 The right atrial size is normal. There is mild aortic valve sclerosis. There is no evidence of aortic regurgitation. Mild mitral annular calcification present. Mild mitral regurgitation is present. Mild tricuspid regurgitation present. Right ventricular systolic pressure is normal at < 35 mmHg. There is no pulmonic regurgitation present. The aortic root size is normal. There is no pericardial effusion. CONCLUSIONS -------- 1. Sinus rhythm. 2. This was a technically good study. 3. The left ventricular size is normal. 4. There is mild concentric left ventricular hypertrophy. 5. Overall left ventricular systolic function is low-normal with, an EF between 50 - 55 %. 6. The right ventricle is normal in size. 7. The left atrium is moderately dilated. 8. LA is moderately dilated 34-39 ml/m2 9. The right atrial size is normal. 10. There is mild aortic valve sclerosis. 11. Mild mitral annular calcification present. 12. Mild mitral regurgitation is present. 13. Mild tricuspid regurgitation present. 14. Right ventricular systolic pressure is normal at < 35 mmHg. [employer]: Aziza Chauhan RDCS
[2019-11-05 11:34] VITALS: BP 135/61; PULSE 84; RESP 18; TEMP 98
[2019-11-05 12:05] LABS: Glucose,Whole Blood 103 mg/dL (75-99)
[2019-11-05] MEDS ORDERED: METOPROLOL TARTRATE 25 MG TAB PO STA (12:14)
--- NOTE | 2019-11-05 16:50 | P.PN ---
Subjective This is Melody Patel PA-C dictating a progress note on this patient The patient was interviewed and examined by me as well as by Dr. Zhang Case discussed with Dr. Zhang and he agrees with the plan of care HPI/interval history Patient is an 84-year-old female with a history significant for CAD status post stenting, most recently stenting of the RCA and PLV in 2016, diabetes, hypertension, dyslipidemia who presented with complaints of dyspnea and chest tightness. She was found to have abnormal troponins and underwent coronary malika ogram showing patent stent to the RCA, 195% stenosis distal to the stent in the RCA, and progression of disease in the LAD and diagonal. She underwent PCI of the mid RCA. Patient seen and examined resting in bed. States her chest pain has resolved. Still has some exertional shortness of breath but has improved. No dizziness. EXAMINATION Patient is afebrile, pulse in the 80s, respirations 18, blood pressure 135/61, oxygen saturation 86% on room air Patient seen and examined resting in bed in no acute distress Lungs are clear to auscultation bilaterally Heart is regular, soft systolic murmur audible Right radial access site clean dry and intact, right radial pulse palpable, no palpable hematoma REVIEW OF LABS, ECG WBC 7.6, hemoglobin 11.5, platelets 369, potassium 4.6, BUN 23, creatinine 0.93 LDL 82 Echocardiogram shows EF 50-55% IMPRESSION / ASSESSMENT: #1 non-Q-wave [place] status post stenting to the RCA #2 history of CAD status post stenting #3 hypertension #4 diabetes #5 dyslipidemia, history of statin intolerance with statin myopathies PLAN: Increase metoprolol to 50 mg twice a day Try Pravachol 10 mg daily Discussed the importance of statins to prevent future heart attack and progression of CAD Continue Marc inhibitors and antihypertensive therapy Discussed the importance of dual antiplatelet therapy She will follow-up with Dr. Flores as an outpatient Objective - Vital Signs Vital signs: Vital Signs Temp 98.0 F 11/05/19 08:00 Pulse 84 11/05/19 11:35 Resp 18 11/05/19 11:35 BP 135/61 11/05/19 08:00 Pulse Ox 96 11/05/19 08:00 Intake & Output 11/04/19 11/05/19 11/05/19 18:59 06:59 18:59 Intake Total 273 222 480 Balance 273 222 480 Weight 69.853 kg 69 kg Intake: IV 273 Oral 222 480 Other: Voiding Method Toilet Toilet Toilet # Voids 1 2 1 - Labs CBC & Chem 7: 11/05/19 05:56 11/05/19 05:56 Labs: Abnormal Lab Results - Last 24 Hours (Table) 11/04/19 11/05/19 11/05/19 Range/Units 20:23 05:56 05:56 MCH 24.9 L (25.0-35.0) pg MCHC 30.3 L (31.0-37.0) g/dL Chloride 110 H (98-107) mmol/L Carbon Dioxide 21 L (22-30) mmol/L BUN 23 H (7-17) mg/dL POC Glucose (mg/dL) 139 H (75-99) mg/dL HDL Cholesterol 32 L (40-60) mg/dL 11/05/19 11/05/19 Range/Units 06:05 11:42 MCH (25.0-35.0) pg MCHC (31.0-37.0) g/dL Chloride (98-107) mmol/L Carbon Dioxide (22-30) mmol/L BUN (7-17) mg/dL POC Glucose (mg/dL) 101 H 103 H (75-99) mg/dL HDL Cholesterol (40-60) mg/dL
[2019-11-05] MEDS ORDERED: METOPROLOL TARTRATE 50 MG TAB PO SCH (21:00)
[2019-11-05] MEDS ORDERED: ATORVASTATIN 80 MG TAB PO SCH (21:00)
[2019-11-05] MEDS ORDERED: PRAVASTATIN SODIUM 20 MG TAB PO SCH (21:00)
[2019-11-06] MEDS ORDERED: FAMOTIDINE 20 MG/2 ML VIAL IV SCH (09:00)
--- NOTE | 2019-11-07 04:06 | P.DS ---
Providers Date of admission: 11/04/19 02:02 Attending physician: Saulo Degroot MD Consults: 11/04/19 02:02 Consult Physician Urgent Consulting Provider: Ned Flores Consult Reason/Comments: NSTEMI Do you want consulting provider notified?: Yes Primary care physician: Diomedes Akbar Hospital Course: Diagnoses: Elevated troponin suspicious for non-STEMI, status post stenting to the RCA Diabetes mellitus Hypertension Hyperlipidemia Coronary artery disease status post stenting Osteoarthritis Hiatal hernia Hospital course: This is a pleasant 84 years old female with past medical history of diabetes mellitus, hypertension, hyperlipidemia, coronary artery disease status post stent, hiatal hernia and osteoarthritis. She is a patient of Dr. Akbar and follow-up with Dr. Flores and outpatient setting Patient presents because of dyspnea of 3 days' duration, more with exertion. However she denies coughing or chest pain. Found to have elevated troponin, skiver sock linings evaluated the patient, she underwent cardiac cath and PCI with stent placement to the RCA. Postprocedure her dyspnea is completely resolved, no other symptoms CT of the chest: No pulmonary embolism, no aneurysm or dissection Patient was cleared for discharge by cardiology team Patient will be discharged on dual antiplatelet therapy and alert medication Problems and management plan were discussed with the patient and he verbalized understanding and acceptance Patient was found stable and can be discharged home however he needs follow-up as an outpatient. Patient was instructed to follow up with PCP within one week and patient agrees Gen: patient is a AAOx3, no distress CVS: S1-S2, RRR, no murmur Lungs: B/L CTA, no wheezing Abdomen: soft, no distention, no tenderness, positive bowel sounds Extremity: no leg edema or induration Time spent more than 35 minutes Patient Condition at Discharge: Serious Plan - Discharge Summary Discharge Rx Participant: No New Discharge Prescriptions: New Aspirin 81 mg PO DAILY #30 chew Nitroglycerin Sl Tabs [Nitrostat] 0.4 mg SUBLINGUAL Q5M PRN #20 tab PRN Reason: Chest Pain Clopidogrel [Plavix] 75 mg PO DAILY #30 tab Metoprolol Tartrate [Lopressor] 50 mg PO BID tab Pravastatin Sodium [Pravachol] 10 mg PO HS tab Continue Omeprazole [PriLOSEC] 20 mg PO AC-BRKFST Nitroglycerin Sl Tabs [Nitrostat] 0.4 mg SUBLINGUAL Q5M PRN #30 tab PRN Reason: Chest Pain amLODIPine [Norvasc] 5 mg PO BID lisinopriL 20 mg PO BID Timolol 0.25% Ophth Soln [Timoptic 0.25% Ophth Soln] 1 drop LEFT EYE BID Fluorometholone 0.1% Ophth Jazz [Fml] 1 drop RIGHT EYE Q4H hydrALAZINE HCL [Apresoline] 25 mg PO BID Discontinued Aspirin EC [Ecotrin] 81 mg PO DAILY metFORMIN HCL [Glucophage] 500 mg PO DAILY Metoprolol Tartrate [Lopressor] 12.5 mg PO BID #60 tab Discharge Medication List Omeprazole [PriLOSEC] 20 mg PO AC-BRKFST 10/14/15 [History] Nitroglycerin Sl Tabs [Nitrostat] 0.4 mg SUBLINGUAL Q5M PRN #30 tab 10/16/15 [Rx] amLODIPine [Norvasc] 5 mg PO BID 08/03/18 [History] lisinopriL 20 mg PO BID 08/03/18 [History] Fluorometholone 0.1% Ophth Jazz [Fml] 1 drop RIGHT EYE Q4H 11/04/19 [History] Timolol 0.25% Ophth Soln [Timoptic 0.25% Ophth Soln] 1 drop LEFT EYE BID 11/04/19 [History] hydrALAZINE HCL [Apresoline] 25 mg PO BID 11/04/19 [History] Aspirin 81 mg PO DAILY #30 chew 11/05/19 [Rx] Clopidogrel [Plavix] 75 mg PO DAILY #30 tab 11/05/19 [Rx] Metoprolol Tartrate [Lopressor] 50 mg PO BID tab 11/05/19 [Rx] Nitroglycerin Sl Tabs [Nitrostat] 0.4 mg SUBLINGUAL Q5M PRN #20 tab 11/05/19 [Rx] Pravastatin Sodium [Pravachol] 10 mg PO HS tab 11/05/19 [Rx] Follow up Appointment(s)/Referral(s): Ned Flores MD [STAFF PHYSICIAN] - 11/16/19 1:45 pm Diomedes Akbar DO [Primary Care Provider] - 11/10/19 10:05 am (Appointment with Kendra GONZALES) Patient Instructions/Handouts: Left Heart Catheterization (DC) Activity/Diet/Wound Care/Special Instructions: Cardiac diet Activity is limited till see your doctor Discharge Disposition: HOME SELF-CARE
== END 2019-11-05 15:46 | disposition home or self-care (01) | DRG 247 ==
LOC: EC 22:13 → 3SCARD 11-04 02:02
PROVIDERS: ADMIT Internal Medicine; ATTEND Internal Medicine
PROC: B2111ZZ Fluoroscopy of Multiple Coronary Arteries using Low Osmolar Contrast (ICD-10-PCS; 2019-11-04)
PROC: 027034Z Dilation of Coronary Artery, One Artery with Drug-eluting Intraluminal Device, Percutaneous Approach (ICD-10-PCS; principal; 2019-11-04 15:30)
DX: I21.4 Non-ST elevation (NSTEMI) myocardial infarction (principal); I25.10 Atherosclerotic heart disease of native coronary artery without angina pectoris; I10 Essential (primary) hypertension; E11.9 Type 2 diabetes mellitus without complications; K21.9 Gastro-esophageal reflux disease without esophagitis; K44.9 Diaphragmatic hernia without obstruction or gangrene; Z96.1 Presence of intraocular lens; E78.5 Hyperlipidemia, unspecified; M19.042 Primary osteoarthritis, left hand; M19.041 Primary osteoarthritis, right hand; G47.00 Insomnia, unspecified; Z11.59 Encounter for screening for other viral diseases; Z95.5 Presence of coronary angioplasty implant and graft; Z98.42 Cataract extraction status, left eye; Z79.82 Long term (current) use of aspirin; Z79.84 Long term (current) use of oral hypoglycemic drugs; Z79.899 Other long term (current) drug therapy; Z83.3 Family history of diabetes mellitus; Z82.49 Family history of ischemic heart disease and other diseases of the circulatory system; Z94.7 Corneal transplant status; I25.2 Old myocardial infarction
CPT/HCPCS: 36415; 71046; 71275; 80048; 80053; 80061; 82550; 83735; 83880; 84484; 85025; 85379; 85610; 85730; 93005; 93306; 93454; 96365; 96366; 96376; 99291

== ENCOUNTER 2020-01-04 07:14 | Day surgery (SDC) | payer MEDICARE, BC ==
[2019-12-30 15:09] VITALS: BMI 26.4
[~2020-01-04 07:14] MED LIST changes: +ALPRAZolam 0.25 MG TAB PO PRN; +ALPRAZolam 0.5 MG TAB PO PRN; +ASPIRIN 325 MG TAB PO STA; -LACTATED RINGERS 1,000 ML IV SCH; -LIDOCAINE 1% 20 ML VIAL (10MG/ML) FOR IV START INTRADERMA PRN; -MOXIFLOXACIN HCL 0.5% DROPS 3 ML BTL OP ONE; +NITROGLYCERIN SL TABS 0.4 MG TAB SUBLINGUAL PRN; -ONDANSETRON 4 MG/2 ML VIAL IVP ONE; +SODIUM CHLORIDE 0.9% 1,000 ML in EMPTY BAG 1 BAG IV ONE; -TETRACAINE 0.5% OPHTH (PF) DROPS 4 ML BTL OP ONE; -TIMOLOL 0.5% OPHTH DROPS 5 ML BTL OP ONE
[2020-01-04] MEDS ORDERED: ASPIRIN 81 MG ONE (07:24)
[2020-01-04] MEDS ORDERED: SODIUM CHLORIDE 0.9% 1,000 ML IV ONE (07:33)
[2020-01-04 07:40] LABS: Glucose,Whole Blood 122 mg/dL (75-99)
[2020-01-04 07:45] VITALS: BP 160/77; PULSE 68; RESP 16; TEMP 99.1
== END 2020-01-04 09:46 | disposition home or self-care (01) ==
LOC: CATHCVL 07:14
PROVIDERS: ATTEND Internal Medicine Interventional Cardiology
DX: I25.10 Atherosclerotic heart disease of native coronary artery without angina pectoris (principal); I10 Essential (primary) hypertension; E78.5 Hyperlipidemia, unspecified; Z95.5 Presence of coronary angioplasty implant and graft; E78.00 Pure hypercholesterolemia, unspecified; I25.2 Old myocardial infarction; R06.09 Other forms of dyspnea; Z79.84 Long term (current) use of oral hypoglycemic drugs; Z79.02 Long term (current) use of antithrombotics/antiplatelets; Z79.82 Long term (current) use of aspirin; Z79.899 Other long term (current) drug therapy; Z53.9 Procedure and treatment not carried out, unspecified reason

== ENCOUNTER 2020-01-06 06:44 | Day surgery (SDC) | payer MEDICARE, BC ==
[2020-01-05 09:37] VITALS: BMI 26.6
[~2020-01-06 06:44] MED LIST changes: +ATORVASTATIN 80 MG TAB PO STA
[2020-01-06] MEDS ORDERED: ASPIRIN 81 MG ONE (07:05)
[2020-01-06 07:22] LABS: Glucose,Whole Blood 127 mg/dL (75-99)
[2020-01-06] MEDS ORDERED: SODIUM CHLORIDE 0.9% 1,000 ML IV ONE (07:36)
[2020-01-06] MEDS: MIDAZOLAM 2 MG/2 ML VIAL IV ONE ×3 (11:16→13:15)
[2020-01-06] MEDS ORDERED: LIDOCAINE 1% INJ 10MG/ML (20 ML MDV) SQ ONE (11:23)
[2020-01-06] MEDS ORDERED: NITROGLYCERIN SL TABS 0.4 MG TAB SUBLINGUAL ONE (11:24)
[2020-01-06] MEDS ORDERED: NOREPINEPHRINE 4 MG in SODIUM CHLORIDE 0.9% 250 ML IV ONE (11:40)
[2020-01-06] MEDS ORDERED: BIVALIRUDIN 250 MG in SODIUM CHLORIDE 0.9% 50 ML IV ONE ×2 (11:47→13:13)
[2020-01-06] MEDS ORDERED: BIVALIRUDIN BOLUS 250 MG/50 ML IV ONE (11:49)
[2020-01-06] MEDS ORDERED: IOPAMIDOL-370 100ML BTL INJ ONE ×2 (11:54→13:26)
[2020-01-06] MEDS ORDERED: CLOPIDOGREL 75 MG TAB PO ONE (13:19)
[2020-01-06] MEDS ORDERED: NITROGLYCERIN 1000MCG/10ML SYRINGE INTRACORON ONE (13:27)
[2020-01-06] MEDS ORDERED: ATROPINE SULFATE 0.1 MG/ML 10ML SYRINGE IV PRN (13:44)
[2020-01-06] MEDS ORDERED: MAG HYDROX/AL HYDROX/SIMETH 30 ML CUP PO PRN (13:44)
[2020-01-06] MEDS ORDERED: ZOLPIDEM 5 MG TAB PO PRN (13:44)
[2020-01-06] MEDS ORDERED: RX INFO: IV CONTRAST WAS GIVEN 1 EACH MISC MISCELLANE PRN (13:44)
[2020-01-06] MEDS: SODIUM CHLORIDE 0.9% 1,000 ML IV SCH (14:29)
[2020-01-06 17:00] LABS: Glucose,Whole Blood 202 mg/dL (75-99)
[2020-01-06 20:21] LABS: Glucose,Whole Blood 150 mg/dL (75-99)
[2020-01-06] MEDS: hydrALAZINE HCL 25 MG TAB PO SCH (20:59)
[2020-01-06] MEDS: lisinopriL 20 MG TAB PO SCH (20:59)
[2020-01-06] MEDS ORDERED: ATORVASTATIN 40 MG TAB PO SCH (21:00)
[2020-01-06] MEDS: METOPROLOL TARTRATE 50 MG TAB PO SCH (21:00)
[2020-01-06] MEDS: amLODIPine 5 MG TAB PO SCH (21:01)
[2020-01-07] MEDS: SODIUM CHLORIDE 0.9% 1,000 ML IV SCH (06:12)
[2020-01-07 06:17] LABS: Glucose,Whole Blood 138 mg/dL (75-99)
[2020-01-07] MEDS ORDERED: PANTOPRAZOLE 40 MG TABLET PO SCH (07:30)
[2020-01-07 08:04] VITALS: BP 158/70; PULSE 89; RESP 20; TEMP 98.5
[2020-01-07] MEDS: lisinopriL 20 MG TAB PO SCH (08:19)
[2020-01-07] MEDS: amLODIPine 5 MG TAB PO SCH (08:19)
[2020-01-07] MEDS: METOPROLOL TARTRATE 50 MG TAB PO SCH (08:19)
[2020-01-07 08:20] LABS: Basophils % (A) 0 %; Eosinophils # (A) 0.1 k/uL (0-0.7); Eosinophils % (A) 1 %; HCT 36.6 % (34.0-46.0); HGB 11.1 gm/dL (11.4-16.0); Hypochromasia Moderate; Lymphocytes # (A) 1.6 k/uL (1.0-4.8); Lymphocytes % (A) 17 %; MCH 24.5 pg (25.0-35.0); MCHC 30.4 g/dL (31.0-37.0); MCV 80.6 fL (80.0-100.0); Mean Platelet Volume 7.5; Monocytes # (A) 0.6 k/uL (0-1.0); Monocytes % (A) 6 %; Neutrophils # (A) 6.8 k/uL (1.3-7.7); Neutrophils % (A) 74 %; Platelet Count 351 k/uL (150-450); RBC 4.54 m/uL (3.80-5.40); RDW 13.8 % (11.5-15.5); WBC 9.1 k/uL (3.8-10.6)
[2020-01-07] MEDS: hydrALAZINE HCL 25 MG TAB PO SCH (08:20)
[2020-01-07 08:34] LABS: Calcium 9.7 mg/dL (8.4-10.2); Potassium 4.2 mmol/L (3.5-5.1)
[2020-01-07] MEDS ORDERED: ASPIRIN 81 MG PO SCH (09:00)
[2020-01-07] MEDS ORDERED: TIMOLOL 0.25% OPHTH DROPS 5 ML BTL LEFT EYE SCH (09:00)
[2020-01-07] MEDS ORDERED: FLUOROMETHOLONE 0.1% OPHTH DROPS 5 ML BTL RIGHT EYE SCH (09:00)
--- NOTE | 2020-01-07 11:00 | CC ---
CARDIAC CATHETERIZATION REPORT PTCA PROCEDURE NOTE: DATE OF SERVICE: 01/06/2020 PROCEDURE: 1. PTCA and stenting of the proximal left anterior descending coronary artery at a bifurcation with a drug-eluting stent. 2. PTCA and stenting of a major diagonal branch of LAD, a bifurcation lesion. 3. A provisional stenting off both LAD and diagonal performed with crush technique and kissing balloon technique. PERFORMED BY: Dr. Amanda Martinez . Moderate conscious sedation time was 2 hours and 20 minutes. Patient was administered Versed. Oxygen saturation, hemodynamics and EKG were monitored closely. CLINICAL INFORMATION: Mrs. Gilda Patino is an 84-year-old lady with a known history of hypertension, hyperlipidemia and CAD. In 1993, she had stenting of RCA performed. In November of this year I performed restenting of this lesion which was an in-stent restenosis and also distal to it with a drug-eluting stent. Sometime in 2004, she presented with inferior IN and had stenting of proximal nondominant circumflex performed. She was found to have significant disease in the LAD and diagonal with a positive stress test. Was advised intervention of a bifurcation lesion which was thought to be quite high risk. I had a long discussion with the patient and family members and explained to them that this was a complex bifurcation lesion of the very dominant and large LAD and the lesion was located very proximally. The patient and family understood all details and wished to proceed with the procedure. PROCEDURE NOTE: Under local anesthesia and strict aseptic precautions, a 7-Gabonese introducer was placed in the right femoral artery. I used a JL3.5 guide catheter to cannulate the left coronary artery. Before this, I performed selective injection of the [place] RCA with a diagnostic right Daniela catheter and noted that the RCA was widely patent with remarkably good flow. This was stented about a month ago. For the left coronary artery, a 3.5 left Daniela guide catheter of 7-Gabonese caliber was used to cannulate the left coronary artery. I used a run-through wire and with this run-through wire, I advanced it into the major diagonal branch and kept it distally. This was a long run- through wire. I then took a long Whisper wire, with this I was able to advance and positioned in the distal LAD. I used a 2.25 caliber 12 mm NC balloon. With this I dilated the LAD into the diagonal and the LAD beyond the septal branch. Two separate inflations were given with high-pressure 2.25 caliber 12 mm NC Trek balloon. I then decided to deploy a stent in the diagonal, which was almost as large as the LAD. A 2.75 caliber 12 mm Xience stent was deployed into the major diagonal branch and the proximal end of the stent was kept at the ostium of the LAD. Excellent angiographic result was achieved. I then used a 2.0 12 mm balloon and with some difficulty, I went back over the Whisper wire into the LAD and crushed this stent at high pressures. I had some difficulty because of the calcification and tortuosity. I then advanced an 18 mm long 2.75 caliber Xience stent and deployed this across the diagonal stent and the distal end of this LAD stent was beyond the septal branch and proximal was just after the origin of the left main. Following this, I used an 8 mm long 3.25 caliber NC Trek balloon and did proximal vessel optimization with the distal end of this balloon kept right at the origin of the diagonal branch. I then used a new run-through wire and with this new run-through wire, I tried to advance into the diagonal branch. I had considerable difficulty, but after some manipulation, I was able to advance the wire and kept it distally. I tried to advance a 1.5 balloon with great difficulty into the diagonal vessel. However, I took it out since the balloon was buckling and switched over to a longer 12 mm long 1.5 mini trek balloon. With this, I was able to gain access into the diagonal and I gave high pressure inflation up to 13 atmospheres. I then went with a 2.0 NC balloon and gave another high-pressure inflation. At this point, I decided to use a new 12 mm long 2.5 balloon to advance into the diagonal branch. An NC 2.5 12 balloon was kept in the major diagonal branch distally and I then advanced another 2.75, 12 mm NC balloon into the LAD. Both the balloons were pulled back into the LAD and the distal end of each balloon extended well into the diagonal and LAD vessels respectively. A kissing balloon inflation was then performed at 12 atmospheres. The patient had chest pain and hypotension. Excellent angiographic result was achieved without complication. Final angiograms were performed. The sheath was taken out and a Perclose device used to secure hemostasis and she was sent to the room in a stable condition. She received Angiomax bolus and infusion as per protocol. She also received additional 300 mg of Plavix. She was already on aspirin and Plavix combination. Results were then discussed in detail with the patient as well as her family members. CAMI / DELBERT: [id number] /
--- NOTE | 2020-01-07 11:24 | DS ---
DISCHARGE SUMMARY DATE OF ADMISSION: 01/06/2020. DATE OF DISCHARGE: 01/07/2020 DIAGNOSES: 1. Unstable angina. 2. Hypertension. 3. Hypercholesterolemia. PROCEDURES PERFORMED: 1. Selective coronary angiography of right coronary artery to check patency. 2. PTCA and stenting of a complex calcified tortuous bifurcation lesion involving the LAD and diagonal with 2 drug-eluting stents. Mrs Gilda Patino was brought in the elective PCI after due discussion regarding risks, benefits, and options. Procedure was performed yesterday uneventfully a long procedure with excellent results. Her right groin is clean and dry, blood pressure is 140/70, pulse rate is 70 per minute. EKG is unremarkable. Labs are pending. Her right groin is clean and dry. S1, S2 heard normally short systolic murmur is audible at the base. Lungs are clear. Abdomen and lower extremity exam unchanged. The patient will be discharged today after she ambulates and we check her labs. She will be taking Lipitor 40 mg daily intro pravastatin. She will take aspirin and Plavix as advised and will see Dr. Flores at 2:15 p.m. on January 11, 2020, Friday. Discharge instructions regarding activity, diet, and medications were given. MMODL / IJN: [id number] /
[2020-01-07] MEDS ORDERED: CLOPIDOGREL 75 MG TAB PO SCH (13:46)
== END 2020-01-07 10:29 | disposition home or self-care (01) ==
LOC: CATHCVL 06:44 → 3SCARD 13:37 → CATHCVL 01-07 10:29
PROVIDERS: ATTEND Internal Medicine Interventional Cardiology
DX: I25.110 Atherosclerotic heart disease of native coronary artery with unstable angina pectoris (principal); I10 Essential (primary) hypertension; E78.00 Pure hypercholesterolemia, unspecified; Z79.899 Other long term (current) drug therapy; Z95.5 Presence of coronary angioplasty implant and graft
CPT/HCPCS: 94760; 80048; 85025; C9600; C9601; C1769 ×6; C1725 ×6; C1894; C1760; C1874; J2250; J2001; J0583; Q9967

== ENCOUNTER 2020-04-08 07:57 | Inpatient (IN) | payer MEDICARE, BC ==
[2020-04-08] MEDS ORDERED: ALBUTEROL HFA INHALER INHALATION STA (08:10)
--- NOTE | 2020-04-08 08:14 | ED ---
General Adult HPI - General Chief complaint: Shortness of Breath Stated complaint: YAHAIRA Time Seen by Provider: 04/08/20 08:01 Source: EMS, RN notes reviewed Mode of arrival: EMS Limitations: no limitations - History of Present Illness Initial comments: 84-year-old female with a past medical history of CAD with 2 stents placed 2 months ago, diabetes mellitus, GERD, hyperlipidemia, hypertension presents to the emergency room for a chief complaint of shortness of breath. Patient reports several days ago she had rib pain and went to her primary care doctor. States that that time they gave her pain pills for a pulled muscle and she did feel better. However the past couple days her shortness of breath has worsened to the point where she is having difficulty walking around at home. States she does have a slight dry cough. She denies fevers. Denies nausea vomiting diarrhea. Patient reports she lives at home. She does not have a history of COPD or asthma. She does not have a smoking history.Patient has no other complaints at this time including chest pain, abdominal pain, nausea or vomiting, headache, or visual changes. - Related Data Home Medications Medication Instructions Recorded Confirmed Omeprazole [PriLOSEC] 20 mg PO AC-BRKFST 10/14/15 01/06/20 amLODIPine [Norvasc] 5 mg PO BID 08/03/18 01/06/20 lisinopriL 40 mg PO BID 08/03/18 01/06/20 Fluorometholone 0.1% Ophth Jazz 1 drop RIGHT EYE DAILY 11/04/19 01/06/20 [Fml] Timolol 0.25% Ophth Soln [Timoptic 1 drop LEFT EYE DAILY 11/04/19 01/06/20 0.25% Ophth Soln] hydrALAZINE HCL [Apresoline] 25 mg PO BID 11/04/19 01/06/20 Pravastatin Sodium [Pravachol] 10 mg PO DAILY 12/30/19 01/06/20 metFORMIN HCL [Glucophage] 500 mg PO QAM 12/30/19 01/06/20 Previous Rx's Medication Instructions Recorded Aspirin 81 mg PO DAILY #30 chew 11/05/19 Clopidogrel [Plavix] 75 mg PO DAILY #30 tab 11/05/19 Metoprolol Tartrate [Lopressor] 50 mg PO BID tab 11/05/19 Nitroglycerin Sl Tabs [Nitrostat] 0.4 mg SUBLINGUAL Q5M PRN #20 tab 11/05/19 Allergies Allergy/AdvReac Type Severity Reaction Status Date / Time No Known Allergies Allergy Verified 01/06/20 10:44 Review of Systems ROS Statement: Those systems with pertinent positive or pertinent negative responses have been documented in the HPI. ROS Other: All systems not noted in ROS Statement are negative. Past Medical History Past Medical History: Coronary Artery Disease (CAD), Diabetes Mellitus, Eye Disorder, GERD/Reflux, Hyperlipidemia, Hypertension, Myocardial Infarction (PA), Osteoarthritis (OA) Additional Past Medical History / Comment(s): NIDDM type II, R eye-sees shadows only, hiatal hernia, arthritis bilateral hands, insomnia. Last Myocardial Infarction Date:: 2015 History of Any Multi-Drug Resistant Organisms: None Reported Past Surgical History: Heart Catheterization With Stent, Orthopedic Surgery Additional Past Surgical History / Comment(s): PCIs with stents, L hip fracture with hemiarthroplasty, R foot fracture with bone graft, R eye corneal transpla nt, L eye cataract removal with lens implant. Past Anesthesia/Blood Transfusion Reactions: Postoperative Nausea & Vomiting (PONV) Date of Last Stent Placement:: 10/14/2015 Past Psychological History: No Psychological Hx Reported Smoking Status: Never smoker Past Alcohol Use History: None Reported Past Drug Use History: None Reported - Past Family History Mother Family Medical History: Cancer Father Family Medical History: Myocardial Infarction (PA) Additional Family Medical History / Comment(s): Father from a PA at the age of 57yrs. General Exam Limitations: no limitations General appearance: alert, in no apparent distress Head exam: Present: atraumatic, normocephalic, normal inspection Eye exam: Present: normal appearance, PERRL, EOMI. Absent: scleral icterus, conjunctival injection, periorbital swelling ENT exam: Present: normal exam, mucous membranes moist Neck exam: Present: normal inspection, full ROM. Absent: tenderness, meningismus, lymphadenopathy Respiratory exam: Present: normal lung sounds bilaterally. Absent: respiratory distress, wheezes, rales, rhonchi, stridor Cardiovascular Exam: Present: regular rate, normal rhythm, normal heart sounds. Absent: systolic murmur, diastolic murmur, rubs, gallop, clicks GI/Abdominal exam: Present: soft, normal bowel sounds. Absent: distended, tenderness, guarding, rebound, rigid Neurological exam: Present: alert Course Vital Signs 04/08/20 04/08/20 04/08/20 07:59 08:03 08:04 Temperature 98.5 F Pulse Rate 76 Respiratory 18 26 H Rate Blood Pressure 186/86 O2 Sat by Pulse 91 L 96 Oximetry EKG Findings - EKG Comments: EKG Findings:: Normal sinus rhythm, ventricular rate 73, MS interval 162, QTc 427 Medical Decision Making - Medical Decision Making Patient presents slightly to With 91% O2 on room air. She was given 2 L oxygen nasal cannula which did increase her saturation to 96%. CBC shows minimal leukocytosis. CMP unremarkable possibly some slight dehydration. BNP is elevated at [address] did confirm early interstitial pulmonary edema consistent with patient's symptoms. D-dimer was elevated however no definite PE. Recommending follow-up scan given some nodularity. At this time patient remains short of breath. She was given Lasix. She will be admitted for CHF exacerbation. Dr. Hugo spoke with Dr. Nagy who accepts this admission - Lab Data Result diagrams: 04/08/20 08:21 04/08/20 08:21 Lab Results 04/08/20 04/08/20 04/08/20 Range/Units 08:21 08:21 08:21 WBC 13.2 H (3.8-10.6) k/uL RBC 4.97 (3.80-5.40) m/uL Hgb 11.9 (11.4-16.0) gm/dL Hct 37.6 (34.0-46.0) % MCV 75.7 L (80.0-100.0) fL MCH 24.0 L (25.0-35.0) pg MCHC 31.6 (31.0-37.0) g/dL RDW 14.7 (11.5-15.5) % Plt Count 390 (150-450) k/uL MPV 6.5 Neutrophils % 84 % Lymphocytes % 9 % Monocytes % 5 % Eosinophils % 0 % Basophils % 1 % Neutrophils # 11.1 H (1.3-7.7) k/uL Lymphocytes # 1.2 (1.0-4.8) k/uL Monocytes # 0.6 (0-1.0) k/uL Eosinophils # 0.0 (0-0.7) k/uL Basophils # 0.1 (0-0.2) k/uL Hypochromasia Moderate Microcytosis Slight PT 10.5 (9.0-12.0) sec INR 1.0 (<1.2) APTT 24.6 (22.0-30.0) sec D-Dimer 0.92 H (<0.60) mg/L FEU Sodium 137 (137-145) mmol/L Potassium 4.6 (3.5-5.1) mmol/L Chloride 105 (98-107) mmol/L Carbon Dioxide 21 L (22-30) mmol/L Anion Gap 11 mmol/L BUN 19 H (7-17) mg/dL Creatinine 0.91 (0.52-1.04) mg/dL Est GFR (CKD-EPI)AfAm 67 (>60 ml/min/1.73 sqM) Est GFR (CKD-EPI)NonAf 58 (>60 ml/min/1.73 sqM) Glucose 154 H (74-99) mg/dL Plasma Lactic Acid Spike (0.7-2.0) mmol/L Calcium 9.9 (8.4-10.2) mg/dL Total Bilirubin 1.1 (0.2-1.3) mg/dL AST 30 (14-36) U/L ALT 29 (4-34) U/L Alkaline Phosphatase 92 (38-126) U/L Troponin I (0.000-0.034) ng/mL NT-Pro-B Natriuret Pep pg/mL Total Protein 8.2 (6.3-8.2) g/dL Albumin 4.5 (3.5-5.0) g/dL Coronavirus (PCR) (Not Detectd) 04/08/20 04/08/20 04/08/20 Range/Units 08:21 08:21 08:21 WBC (3.8-10.6) k/uL RBC (3.80-5.40) m/uL Hgb (11.4-16.0) gm/dL Hct (34.0-46.0) % MCV (80.0-100.0) fL MCH (25.0-35.0) pg MCHC (31.0-37.0) g/dL RDW (11.5-15.5) % Plt Count (150-450) k/uL MPV Neutrophils % % Lymphocytes % % Monocytes % % Eosinophils % % Basophils % % Neutrophils # (1.3-7.7) k/uL Lymphocytes # (1.0-4.8) k/uL Monocytes # (0-1.0) k/uL Eosinophils # (0-0.7) k/uL Basophils # (0-0.2) k/uL Hypochromasia Microcytosis PT (9.0-12.0) sec INR (<1.2) APTT (22.0-30.0) sec D-Dimer (<0.60) mg/L FEU Sodium (137-145) mmol/L Potassium (3.5-5.1) mmol/L Chloride (98-107) mmol/L Carbon Dioxide (22-30) mmol/L Anion Gap mmol/L BUN (7-17) mg/dL Creatinine (0.52-1.04) mg/dL Est GFR (CKD-EPI)AfAm (>60 ml/min/1.73 sqM) Est GFR (CKD-EPI)NonAf (>60 ml/min/1.73 sqM) Glucose (74-99) mg/dL Plasma Lactic Acid Spike 1.6 (0.7-2.0) mmol/L Calcium (8.4-10.2) mg/dL Total Bilirubin (0.2-1.3) mg/dL AST (14-36) U/L ALT (4-34) U/L Alkaline Phosphatase (38-126) U/L Troponin I <0.012 (0.000-0.034) ng/mL NT-Pro-B Natriuret Pep 2090 pg/mL Total Protein (6.3-8.2) g/dL Albumin (3.5-5.0) g/dL Coronavirus (PCR) (Not Detectd) 04/08/20 Range/Units 08:21 WBC (3.8-10.6) k/uL RBC (3.80-5.40) m/uL Hgb (11.4-16.0) gm/dL Hct (34.0-46.0) % MCV (80.0-100.0) fL MCH (25.0-35.0) pg MCHC (31.0-37.0) g/dL RDW (11.5-15.5) % Plt Count (150-450) k/uL MPV Neutrophils % % Lymphocytes % % Monocytes % % Eosinophils % % Basophils % % Neutrophils # (1.3-7.7) k/uL Lymphocytes # (1.0-4.8) k/uL Monocytes # (0-1.0) k/uL Eosinophils # (0-0.7) k/uL Basophils # (0-0.2) k/uL Hypochromasia Microcytosis PT (9.0-12.0) sec INR (<1.2) APTT (22.0-30.0) sec D-Dimer (<0.60) mg/L FEU Sodium (137-145) mmol/L Potassium (3.5-5.1) mmol/L Chloride (98-107) mmol/L Carbon Dioxide (22-30) mmol/L Anion Gap mmol/L BUN (7-17) mg/dL Creatinine (0.52-1.04) mg/dL Est GFR (CKD-EPI)AfAm (>60 ml/min/1.73 sqM) Est GFR (CKD-EPI)NonAf (>60 ml/min/1.73 sqM) Glucose (74-99) mg/dL Plasma Lactic Acid Spike (0.7-2.0) mmol/L Calcium (8.4-10.2) mg/dL Total Bilirubin (0.2-1.3) mg/dL AST (14-36) U/L ALT (4-34) U/L Alkaline Phosphatase (38-126) U/L Troponin I (0.000-0.034) ng/mL NT-Pro-B Natriuret Pep pg/mL Total Protein (6.3-8.2) g/dL Albumin (3.5-5.0) g/dL Coronavirus (PCR) Not Detected (Not Detectd) Disposition Clinical Impression: Congestive heart failure Disposition: ADMITTED IP TO THIS HOSP Condition: Fair Is patient prescribed a controlled substance at d/c from ED?: No Referrals: Diomedes Akbar DO [Primary Care Provider] - 1-2 days Time of Disposition: 09:56
[2020-04-08 08:41] LABS: Basophils # (A) 0.1 k/uL (0-0.2); Basophils % (A) 1 %; Eosinophils % (A) 0 %; HCT 37.6 % (34.0-46.0); HGB 11.9 gm/dL (11.4-16.0); Hypochromasia Moderate; Lymphocytes # (A) 1.2 k/uL (1.0-4.8); Lymphocytes % (A) 9 %; MCHC 31.6 g/dL (31.0-37.0); MCV 75.7 fL (80.0-100.0); Mean Platelet Volume 6.5; Microcytosis Slight; Monocytes # (A) 0.6 k/uL (0-1.0); Monocytes % (A) 5 %; Neutrophils # (A) 11.1 k/uL (1.3-7.7); Neutrophils % (A) 84 %; Platelet Count 390 k/uL (150-450); RBC 4.97 m/uL (3.80-5.40); RDW 14.7 % (11.5-15.5); WBC 13.2 k/uL (3.8-10.6)
--- NOTE | 2020-04-08 08:49 | XR ---
EXAMINATION TYPE: XR chest 1V portable DATE OF EXAM: 04/08/2020 Comparison: 11/04/2019 Clinical History: 84-year-old female cough Findings: Heart mildly enlarged. Hyperinflation. Interstitial densities are new. No sizable effusion seen. Impression: Cardiomegaly with new interstitial opacities. Correlate for atypical pneumonia or mild CHF. Backgroun d of COPD.
[2020-04-08 08:56] LABS: Albumin 4.5 g/dL (3.5-5.0); Calcium 9.9 mg/dL (8.4-10.2); Potassium 4.6 mmol/L (3.5-5.1); Total Bilirubin 1.1 mg/dL (0.2-1.3); Total Protein 8.2 g/dL (6.3-8.2)
[2020-04-08 08:58] LABS: Partial Thromboplastin Time 24.6 sec (22.0-30.0); Prothrombin Time 10.5 sec (9.0-12.0)
[2020-04-08 09:01] LABS: D-Dimer 0.92 mg/L FEU (<0.60)
--- NOTE | 2020-04-08 09:37 | CT ---
EXAMINATION TYPE: CT chest angio for PE DATE OF EXAM: 04/08/2020 COMPARISON: 11/04/2019 HISTORY: 84-year-old female elevated d dimer TECHNIQUE: Contiguous axial scanning of the chest performed with IV Contrast, patient injected with 5 3 mL of Isovue 370. Coronal/sagittal MIP reconstructions performed. CT DLP: 321 mGycm Automated exposure control for dose reduction was used. FINDINGS: The heart is enlarged. Three-vessel coronary calcifications are present. No pleural effusion. No flat tening of the interventricular septum or reflux of contrast into the hepatic veins. Borderline ectatic ascending aorta 3.5 cm. Mild atherosclerotic arch calcifications. Bovine configura tion to the aortic arch. Scattered nonenlarged mediastinal lymph nodes measuring up to 7 mm in the right paratracheal region. While there is satisfactory opacification of the pulmonary arterial system, the patient is breathing during scanning no definite pulmonary embolus is seen at least to the segmental level. More distal ar terial branches are very limited. There are small bilateral pleural effusions with septal lines in the upper and lower lungs. Mild patc hy groundglass changes in the mid and lower lungs. Some scattered areas of nodularity suggested in th e left upper lobe measuring 1.2 cm. Findings are new from 11/04/2019. Small to moderate-sized hiatal hernia. Visualized upper abdomen otherwise shows no gross abnormality. Bones: Anterior endplate spondylosis mid to lower thoracic spine. Accentuated mid thoracic stenosis. IMPRESSION: 1. CARDIOMEGALY, CAD, SEPTAL LINES, AND PATCHY GROUNDGLASS. CORRELATE FOR CHF AND EARLY INTERSTITIAL PULMONARY EDEMA. 2. SOME NODULARITY IS ALSO NEW FROM 11/04/2019. THESE COULD REPRESENT AREAS OF EARLY DEVELOPING PULMON MAYELA EDEMA/INFILTRATE. THREE-MONTH FOLLOW-UP CT RECOMMENDED TO ENSURE CLEARANCE AND EXCLUDE UNDERLYING PULMONARY NODULES. 3. PATIENT IS BREATHING DURING THE SCAN. NO DEFINITE PULMONARY EMBOLISM, AT LEAST TO THE SEGMENTAL [place]. ASSESSMENT OF THE MORE DISTAL ARTERIAL BRANCHES IS VERY LIMITED. 4. SMALL TO MODERATE-SIZED HIATAL HERNIA.
[2020-04-08] MEDS ORDERED: FUROSEMIDE 10 MG/ML 4 ML VIAL IV STA (09:41)
[2020-04-08] MEDS: FUROSEMIDE 10 MG/ML 4 ML VIAL IV SCH ×2 (10:25→20:37)
[2020-04-08] MEDS ORDERED: NITROGLYCERIN SL TABS 0.4 MG TAB SUBLINGUAL PRN (11:20)
--- NOTE | 2020-04-08 11:32 | P.HPIM ---
History of Present Illness This is a pleasant 84 years old female with past medical history of hypertension, hyperlipidemia, coronary artery disease status post cardiac cath and stent placement of the complex artery about 2-3 months ago. He also has diabetes mellitus, GERD, bilateral hand arthritis, hiatal hernia. She is a patient of Dr. Akbar and she follow up with Dr. Martinez, and Dr. Flores. She presents because of dyspnea of 3 days' duration associated with mild dry cough but no chest pain or dizziness or palpitation. She denies abdominal pain, no nausea vomiting, no change in urine or bowel habits. No fever She denies smoking, alcohol or illicit drug On admission patient is been afebrile but tachypneic, her respiratory rate is around 24-26, blood pressure is elevated 176/76. She is saturating 91% on room air and 96-97 on 2 L oxygen. She has leukocytosis of 13.2 K. Test of CBC is unremarkable. INR is unremarkable, BMP is unremarkable and liver enzymes are within normal limits. Troponin is negative less than 0.012. And coronal versus not detected. D-dimer is slightly elevated at 0.2. ProBNP is elevated at 2090. EKG showing normal sinus rhythm with sinus arrhythmia at 73 with sinus arrhythmia. No significant ST-T changes. CTA of the chest showed cardiomegaly with patchy ground glass opacity correlate for interstitial pulmonary edema and CHF. Some nodularity is also new from 11/04/2019, this could represent areas of early developing pulmonary edema/infiltrate. 3 month follow-up CT recommended to ensure clearance and to exclude underlying pulmonary nodules. No pulmonary embolism Chest x-ray showed cardiomegaly with no interstitial opacity. Correlate for atypical pneumonia or normal CHF. With background COPD In the emergency room patient was started on Lasix Review of Systems CONSTITUTIONAL: No fever, no malaise, no fatigue. HEENT: No recent visual problems or hearing problems. Denied any sore throat. CARDIOVASCULAR: no palpitations, no syncope. PULMONARY: No chest wall tenderness, no hemoptysis. GASTROINTESTINAL: No diarrhea, no nausea, no vomiting, no abdominal pain. Normoactive bowel sounds. NEUROLOGICAL: No headaches, no weakness, no numbness. HEMATOLOGICAL: Denies any bleeding or petechiae. GENITOURINARY: Denies any burning micturition, frequency, or urgency. MUSCULOSKELETAL/RHEUMATOLOGICAL: Denies any joint pain, swelling, or any muscle pain. ENDOCRINE: Denies any polyuria or polydipsia. Past Medical History Past Medical History: Coronary Artery Disease (CAD), Diabetes Mellitus, Eye Disorder, GERD/Reflux, Hyperlipidemia, Hypertension, Myocardial Infarction ([place]), Osteoarthritis (OA) Additional Past Medical History / Comment(s): NIDDM type II, R eye-sees shadows only, hiatal hernia, arthritis bilateral hands, insomnia. Last Myocardial Infarction Date:: 2015 History of Any Multi-Drug Resistant Organisms: None Reported Past Surgical History: Heart Catheterization With Stent, Orthopedic Surgery Additional Past Surgical History / Comment(s): PCIs with stents, L hip fracture with hemiarthroplasty, R foot fracture with bone graft, R eye corneal transplant, L eye cataract removal with lens implant. Past Anesthesia/Blood Transfusion Reactions: Postoperative Nausea & Vomiting (PONV) Date of Last Stent Placement:: 10/14/2015 Past Psychological History: No Psychological Hx Reported Smoking Status: Never smoker Past Alcohol Use History: None Reported Past Drug Use History: None Reported - Past Family History Mother Family Medical History: Cancer Father Family Medical History: Myocardial Infarction ([place]) Additional Family Medical History / Comment(s): Father from a [place] at the age of 57yrs. Medications and Allergies Home Medications Medication Instructions Recorded Confirmed Type Omeprazole [PriLOSEC] 20 mg PO AC-BRKFST 10/14/15 04/08/20 History amLODIPine [Norvasc] 5 mg PO BID 08/03/18 04/08/20 History lisinopriL 20 mg PO BID 08/03/18 04/08/20 History Fluorometholone 0.1% Ophth Jazz 1 drop RIGHT EYE DAILY 11/04/19 04/08/20 History [Fml] Timolol 0.25% Ophth Soln [Timoptic 1 drop BOTH EYES DAILY 11/04/19 04/08/20 History 0.25% Ophth Soln] hydrALAZINE HCL [Apresoline] 25 mg PO BID 11/04/19 04/08/20 History Aspirin 81 mg PO DAILY #30 chew 11/05/19 04/08/20 Rx Clopidogrel [Plavix] 75 mg PO DAILY #30 tab 11/05/19 04/08/20 Rx Metoprolol Tartrate [Lopressor] 50 mg PO BID tab 11/05/19 04/08/20 Rx Nitroglycerin Sl Tabs [Nitrostat] 0.4 mg SUBLINGUAL Q5M PRN #20 tab 11/05/19 04/08/20 Rx metFORMIN HCL [Glucophage] 500 mg PO QAM 12/30/19 04/08/20 History Allergies Allergy/AdvReac Type Severity Reaction Status Date / Time No Known Allergies Allergy Verified 04/08/20 10:18 Physical Exam Vitals: Vital Signs Temp Pulse Resp BP Pulse Ox 04/08/20 10:25 98.4 F 75 24 176/76 97 04/08/20 08:04 96 04/08/20 08:03 26 H 04/08/20 07:59 98.5 F 76 18 186/86 91 L Intake and Output 04/07/20 04/08/20 04/08/20 22:59 06:59 14:59 Other: Weight 70.307 kg GENERAL: The patient is alert and oriented x3, not in any acute distress. Well developed, well nourished. HEENT: Pupils are round and equally reacting to light. EOMI. No scleral icterus. No conjunctival pallor. Normocephalic, atraumatic. No pharyngeal erythema. No thyromegaly. CARDIOVASCULAR: S1 and S2 present. No murmurs, rubs, or gallops. -PULMONARY: Chest is clear to auscultation, no wheezing. Bilateral basal crepitation ABDOMEN: Soft, nontender, nondistended, normoactive bowel sounds. No palpable organomegaly. MUSCULOSKELETAL: No joint swelling or deformity. EXTREMITIES: No cyanosis, clubbing, or pedal edema. NEUROLOGICAL: Gross neurological examination did not reveal any focal deficits. SKIN: No rashes. No petechiae Results CBC & Chem 7: 04/08/20 08:21 04/08/20 08:21 Labs: Abnormal Lab Results - Last 24 Hours (Table) 04/08/20 04/08/20 04/08/20 Range/Units 08:21 08:21 08:21 WBC 13.2 H (3.8-10.6) k/uL MCV 75.7 L (80.0-100.0) fL MCH 24.0 L (25.0-35.0) pg Neutrophils # 11.1 H (1.3-7.7) k/uL D-Dimer 0.92 H (<0.60) mg/L FEU Carbon Dioxide 21 L (22-30) mmol/L BUN 19 H (7-17) mg/dL Glucose 154 H (74-99) mg/dL Assessment and Plan Assessment: Acute CHF exacerbation Hypertension, with urgency Leukocytosis Hyperlipidemia Diabetes mellitus, type II History of coronary artery disease status post stent placement History of Bilateral hand arthritis Gastroesophageal reflux disease Plan: This is a pleasant 84 results female who presents with CHF and possible pulmonary nodule or atypical pneumonia. Continue with Lasix, consult cardiology service. Covid guess is negative. We'll check a pro-calcitonin Labs and medication were reviewed.. Continue same treatment. Continue with s ymptomatic treatment. Resume home medication. Monitor lytes and vitals. DVT and GI prophylaxis. Further recommendations depends on the clinical course of the patient DVT prophylaxis: Subcutaneous heparin GI Prophylaxis: Pepcid PT/OT: Pending Prognosis is guarded
[2020-04-08] MEDS: METOPROLOL TARTRATE 50 MG TAB PO SCH ×2 (14:00→20:36)
[2020-04-08] MEDS: amLODIPine 5 MG TAB PO SCH ×2 (14:00→20:36)
[2020-04-08 14:33] VITALS: BMI 26.6
[2020-04-08] MEDS: hydrALAZINE HCL 25 MG TAB PO SCH (20:36)
[2020-04-08] MEDS: lisinopriL 20 MG TAB PO SCH (20:36)
[2020-04-08] MEDS: HEPARIN SODIUM,PORCINE 5,000 UNIT/ML 1 ML VIAL SQ SCH (20:37)
[2020-04-08] MEDS: FAMOTIDINE 20 MG/2 ML VIAL IV SCH (20:37)
[2020-04-09] MEDS: FUROSEMIDE 10 MG/ML 4 ML VIAL IV SCH ×2 (07:17→21:49)
[2020-04-09] MEDS: HEPARIN SODIUM,PORCINE 5,000 UNIT/ML 1 ML VIAL SQ SCH (07:17)
[2020-04-09] MEDS: FAMOTIDINE 20 MG/2 ML VIAL IV SCH ×2 (07:17→20:14)
[2020-04-09] MEDS: METOPROLOL TARTRATE 50 MG TAB PO SCH ×2 (07:18→20:13)
[2020-04-09] MEDS: amLODIPine 5 MG TAB PO SCH ×2 (07:18→20:13)
[2020-04-09] MEDS: FLUOROMETHOLONE 0.1% OPHTH DROPS 5 ML BTL RIGHT EYE SCH (07:18)
[2020-04-09] MEDS: hydrALAZINE HCL 25 MG TAB PO SCH ×2 (07:18→20:13)
[2020-04-09] MEDS: CLOPIDOGREL 75 MG TAB PO SCH (07:18)
[2020-04-09] MEDS: TIMOLOL 0.25% OPHTH DROPS 5 ML BTL BOTH EYES SCH (07:18)
[2020-04-09] MEDS: lisinopriL 20 MG TAB PO SCH (07:18)
[2020-04-09] MEDS ORDERED: ASPIRIN 81 MG PO SCH (09:00)
[2020-04-09] MEDS ORDERED: metFORMIN 500 MG TAB PO SCH (09:00)
[2020-04-09 09:43] LABS: Glucose,Whole Blood 170 mg/dL (75-99)
[2020-04-09 12:00] LABS: Basophils # (A) 0.1 k/uL (0-0.2); Basophils % (A) 1 %; Eosinophils # (A) 0.2 k/uL (0-0.7); Eosinophils % (A) 2 %; HCT 41.1 % (34.0-46.0); HGB 12.3 gm/dL (11.4-16.0); Hypochromasia Marked; Lymphocytes # (A) 2.6 k/uL (1.0-4.8); Lymphocytes % (A) 26 %; MCH 22.8 pg (25.0-35.0); MCHC 29.8 g/dL (31.0-37.0); MCV 76.5 fL (80.0-100.0); Mean Platelet Volume 6.7; Microcytosis Slight; Monocytes # (A) 0.8 k/uL (0-1.0); Monocytes % (A) 8 %; Neutrophils # (A) 6.2 k/uL (1.3-7.7); Neutrophils % (A) 61 %; Platelet Count 433 k/uL (150-450); RBC 5.38 m/uL (3.80-5.40); RDW 14.8 % (11.5-15.5); WBC 10.2 k/uL (3.8-10.6)
[2020-04-09 12:17] LABS: Glucose,Whole Blood 96 mg/dL (75-99)
[2020-04-09 12:20] LABS: African American GFR (CKD) 36 (>60 ml/min/1.73 sqM); Anion Gap 11 mmol/L; Blood Urea Nitrogen 29 mg/dL (7-17); Calcium 10.1 mg/dL (8.4-10.2); Carbon Dioxide 27 mmol/L (22-30); Chloride 101 mmol/L (98-107); Glucose 97 mg/dL (74-99); Non-African American GFR(CKD) 31 (>60 ml/min/1.73 sqM); Potassium 4.5 mmol/L (3.5-5.1); Sodium 139 mmol/L (137-145)
--- NOTE | 2020-04-09 12:44 | P.PN ---
Subjective This is a pleasant 84 years old female with past medical history of hypertension, hyperlipidemia, coronary artery disease status post cardiac cath a nd stent placement of the complex artery about 2-3 months ago. He also has diabetes mellitus, GERD, bilateral hand arthritis, hiatal hernia. She is a patient of Dr. Akbar and she follow up with Dr. Martinez, and Dr. Flores. She presents because of dyspnea of 3 days' duration associated with mild dry cough but no chest pain or dizziness or palpitation. She denies abdominal pain, no nausea vomiting, no change in urine or bowel habits. No fever She denies smoking, alcohol or illicit drug On admission patient is been afebrile but tachypneic, her respiratory rate is around 24-26, blood pressure is elevated 176/76. She is saturating 91% on room air and 96-97 on 2 L oxygen. She has leukocytosis of 13.2 K. Test of CBC is unremarkable. INR is unremarkable, BMP is unremarkable and liver enzymes are within normal limits. Troponin is negative less than 0.012. And coronal versus not detected. D-dimer is slightly elevated at 0.2. ProBNP is elevated at 2090. EKG showing normal sinus rhythm with sinus arrhythmia at 73 with sinus arrhythmia. No significant ST-T changes. CTA of the chest showed cardiomegaly with patchy ground glass opacity correlate for interstitial pulmonary edema and CHF. Some nodularity is also new from 11/04/2019, this could represent areas of early developing pulmonary edema/infiltrate. 3 month follow-up CT recommended to ensure clearance and to exclude underlying pulmonary nodules. No pulmonary embolism Chest x-ray showed cardiomegaly with no interstitial opacity. Correlate for atypical pneumonia or normal CHF. With background COPD In the emergency room patient was started on Lasix 04/09/2020 Patient is awake and alert, she looks more pleasant and less distress although she still tachypneic however she states that her breathing is improving, she sitting at the bedside. With no chest pain. Vitals are stable but she still tachycardic, her heart rate is 121, he she is saturating 96% on 3 L oxygen via nasal cannula. Her creatinine went up to 1.5 today, follow patient is on Lasix however she got contrast yesterday in the emergency room when they ordered a CTA of the chest to rule out PE. We are going to consult nephrology service because of that. Especially she is on Lasix 40 mg twice daily for her heart failure. Hold metformin and lisinopril for now. She has no episodes of hypertension and she is currently also on hydralazine and metoprolol twice daily, also on Norvasc. Also she is on aspirin and Plavix Cardiology team were consulted . Echocardiogram showed ejection fraction of 50- 55% from 11/05/19. Also I informed the patient about her pulmonary nodules and need to follow up as an outpatient, risks including but not limited to cancer are explained and she verbalized understanding and acceptance Review of Systems CONSTITUTIONAL: No fever, no malaise, no fatigue. HEENT: No recent visual problems or hearing problems. Denied any sore throat. CARDIOVASCULAR: no palpitations, no syncope. PULMONARY: No chest wall tenderness, no hemoptysis. GASTROINTESTINAL: No diarrhea, no nausea, no vomiting, no abdominal pain. Nor moactive bowel sounds. NEUROLOGICAL: No headaches, no weakness, no numbness. Active Medications Generic Name Dose Route Start Last Admin Trade Name [id number] PRN Reason Stop Dose Admin Amlodipine Besylate 5 mg 04/08/20 11:20 04/09/20 07:18 Amlodipine 5 Mg Tab PO 5 mg BID ELEANOR Administration Aspirin 81 mg 04/09/20 09:00 04/09/20 07:18 Aspirin 81 Mg PO 81 mg DAILY ELEANOR Administration Clopidogrel Bisulfate 75 mg 04/09/20 09:00 04/09/20 07:18 Clopidogrel 75 Mg Tab PO 75 mg DAILY ELEANOR Administration Famotidine 20 mg 04/08/20 21:00 04/09/20 07:17 Famotidine 20 Mg/2 Ml Vial IV 20 mg Q12HR ELEANOR Administration Fluorometholone 1 drops 04/09/20 09:00 04/09/20 07:18 Fluorometholone 0.1% Ophth Drops 5 Ml Btl RIGHT EYE 1 drops DAILY ELEANOR Administration Furosemide 40 mg 04/08/20 10:00 04/09/20 07:17 Furosemide 10 Mg/Ml 4 Ml Vial IV 40 mg Q12H ELEANOR Administration Heparin Sodium (Porcine) 5,000 unit 04/08/20 21:00 04/09/20 07:17 Heparin Sodium,Porcine 5,000 Unit/Ml 1 Ml Vial SQ 5,000 unit Q12HR ELEANOR Administration Hydralazine HCl 25 mg 04/08/20 21:00 04/09/20 07:18 Hydralazine Hcl 25 Mg Tab PO 25 mg BID ELEANOR Administration Metoprolol Tartrate 50 mg 04/08/20 11:30 04/09/20 07:18 Metoprolol Tartrate 50 Mg Tab PO 50 mg BID ELEANOR Administration Nitroglycerin 0.4 mg 04/08/20 11:20 Nitroglycerin Sl Tabs 0.4 Mg Tab SUBLINGUAL Q5M PRN Chest Pain Timolol Maleate 1 drops 04/09/20 09:00 04/09/20 07:18 Timolol 0.25% Ophth Drops 5 Ml Btl BOTH EYES 1 drops DAILY ELEANOR Administration Objective - Vital Signs Vital signs: Vital Signs Temp 98.1 F 04/09/20 07:37 Pulse 121 H 04/09/20 07:37 Resp 20 04/09/20 07:37 BP 123/69 04/09/20 07:37 Pulse Ox 96 04/09/20 07:37 Intake & Output 04/08/20 04/09/20 04/09/20 18:59 06:59 18:59 Weight 70.307 kg 72.1 kg Other: # Voids 2 3 - Exam GENERAL: The patient is alert and oriented x3, not in any acute distress. Well developed, well nourished. HEENT: Pupils are round and equally reacting to light. EOMI. No scleral icterus. No conjunctival pallor. Normocephalic, atraumatic. No pharyngeal erythema. No thyromegaly. CARDIOVASCULAR: S1 and S2 present. No murmurs, rubs, or gallops. PULMONARY: Chest is clear to auscultation, no wheezing. Bilateral basal crepitation ABDOMEN: Soft, nontender, nondistended, normoactive bowel sounds. No palpable organomegaly. MUSCULOSKELETAL: No joint swelling or deformity. EXTREMITIES: No cyanosis, clubbing, or pedal edema. NEUROLOGICAL: Gross neurological examination did not reveal any focal deficits. SKIN: No rashes. no petechiae. - Labs CBC & Chem 7: 04/09/20 11:34 04/09/20 11:34 Labs: Abnormal Lab Results - Last 24 Hours (Table) 04/08/20 04/09/20 04/09/20 Range/Units 20:56 11:34 11:34 MCV 76.5 L (80.0-100.0) fL MCH 22.8 L (25.0-35.0) pg MCHC 29.8 L (31.0-37.0) g/dL BUN 29 H (7-17) mg/dL Creatinine 1.53 H (0.52-1.04) mg/dL POC Glucose (mg/dL) 170 H (75-99) mg/dL Assessment and Plan Assessment: Acute on chronic diastolic CHF exacerbation, ejection fraction 5055% Acute kidney injury Hypertension, with urgency Leukocytosis, back to normal Hyperlipidemia Diabetes mellitus, type II History of coronary artery disease status post stent placement History of Bilateral hand arthritis Gastroesophageal reflux disease Plan: This is a pleasant 84 results female who presents with CHF and possible pulmonary nodule or atypical pneumonia. Continue with Lasix, consult cardiology service. Covid guess is negative. Consult nephrology. Hold metformin and lisinopril Labs and medication were reviewed.. Continue same treatment. Continue with symptomatic treatment. Resume home medication. Monitor lytes and vitals. DVT and GI prophylaxis. Further recommendations depends on the clinical course of the patient DVT prophylaxis: Subcutaneous heparin GI Prophylaxis: Pepcid PT/OT: Pending Prognosis is guarded
[2020-04-09] MEDS ORDERED: METOPROLOL TARTRATE 25 MG TAB PO STA (13:26)
--- NOTE | 2020-04-09 14:08 | P.CRDCN ---
History of Present Illness History of present illness: HISTORY OF PRESENTING ILLNESS This is a pleasant 84-year-old female past medical history significant for hypertension, hyperlipidemia, coronary artery disease with prior PCI of the RCA, LAD and diagonal branch with kissing technique most recently in December 2019, GERD, arthritis, hiatal hernia. We have been asked to see in consultation for congestive heart failure. Patient states that since her stenting in December she has been feeling fairly well. Unfortunately she has not had any obvious angina with her prior stenting and the majority of her symptoms/angina feels like a diaphoresis without specific chest pain. She denies any recurrence of this. She had been doing fairly well up until the last few days. She states she suddenly got short of breath approximately 3 days ago. She states that initially when she called EMS she believes her blood pressure was up in the 200s and that she was feeling like her heart was racing. She had workup including a CTA which was unable to fully assess for pulmonary embolism however no specific PE noted. There was however some patchy groundglass opacities with early interstitial pulmonary edema with recommendations for CHF correlation. EKG initially showed normal sinus rhythm, normal axis without significant ST or T- wave abnormalities. She was given Lasix 40 mg IV twice a day and has urinated often per patient and she has been feeling mildly improved while at rest however still short of breath with exertion. She was noted to be tachycardic today during exam and therefore I asked them to perform an EKG which showed new onset of atrial fibrillation with mild RVR, heart rates 117. No prior history of A. fib. She denies any recent fevers, chills, cough or other infectious symptoms. Last echo from 11/05/2019 showed ejection fraction 50-55%, moderately dilated left atrium, no significant valvular disease. DIAGNOSTICS Laboratory reviewed, white blood cell count initially 13.2, improved to 10.2, hemoglobin 12.3, d-dimer 0.92, creatinine increased today from 0.9 up to 1.5, troponin negative , proBNP 2089. Current cardiac medications include aspirin 81 mg daily, amlodipine 5 mg twice a day, Plavix 75 mg daily, Lasix 40 mg IV twice a day, heparin 5000 units subcu every 12 hours, hydralazine 25 mg by mouth twice a day, Lopressor 50 mg by mouth twice a day. REVIEW OF SYSTEMS At the time of my exam: CONSTITUTIONAL: Denies fever or chills. CARDIOVASCULAR: Denies chest pain, +shortness of breath, no orthopnea, PND, + palpitations. RESPIRATORY: Denies cough. GASTROINTESTINAL: Denies abdominal pain, diarrhea, constipation, nausea or vomiting. MUSCULOSKELETAL: Denies myalgias. NEUROLOGIC: Denies numbness, tingling or weakness. ENDOCRINE: Denies fatigue, weight change, polydipsia or polyurina. GENITOURINARY: Denies burning, hematuria or urgency with micturation. HEMATOLOGIC: Denies history of anemia or bleeding. PHYSICAL EXAMINATION Blood pressure 123/69 heart rate 121 afebrile and maintaining oxygen saturation on 3 L nasal cannula. CONSTITUTIONAL: No apparent distress. HEENT: Head is normocephalic. Pupils are equal, round. Sclerae anicteric. Mucous membranes of the mouth are moist. No JVD. No carotid bruit. CHEST EXAMINATION: Lungs are clear to auscultation. No chest wall tenderness is noted on palpation or with deep breathing. HEART EXAMINATION: Irregularly irregular rate and rhythm. S1, S2 heard. No murmurs, gallops or rub. ABDOMEN: Soft, nontender. Positive bowel sounds. EXTREMITIES: 2+ peripheral pulses, no lower extremity edema and no calf tenderness. NEUROLOGIC EXAMINATION: Patient is awake, alert and oriented x3. ASSESSMENT 1. Acute on chronic diastolic heart failure, likely exacerbated by atrial fibrillation 2. New-onset atrial fibrillation, initially normal sinus rhythm on presentation 3. Stable coronary artery disease with prior history of PCI 4. Essential hypertension 5. Hyperlipidemia 6. Acute kidney injury, may be related to contrast nephropathy from recent CT PE protocol PLAN Patient denies any prior episodes of heart failure however appears that her blo od pressure was elevated and she was complaining of palpitations during her presentation. On presentation to the emergency department however she was noted be in sinus rhythm. Suspect paroxysmal atrial fibrillation with mild RVR contributing to her heart failure. New-onset of A. fib. We will increase her Lopressor to 75 mg twice a day, hopefully be able to titrate with oral medications. We will stop her aspirin and start Eliquis. Currently we will use the 2.5 mg twice a day dosing however likely increase to 5 mg twice a day if kidney function improves. Suspect HARRIET related to contrast. Continue with diuretics. Monitor creatinine closely. Further recommendations to follow. Past Medical History Past Medical History: Coronary Artery Disease (CAD), Diabetes Mellitus, Eye Disorder, GERD/Reflux, Hyperlipidemia, Hypertension, Myocardial Infarction ([place]), Osteoarthritis ([place]) Additional Past Medical History / Comment(s): NIDDM type II, R eye-sees shadows only, hiatal hernia, arthritis bilateral hands, insomnia. Last Myocardial Infarction Date:: 2015 History of Any Multi-Drug Resistant Organisms: None Reported Past Surgical History: Heart Catheterization With Stent, Orthopedic Surgery Additional Past Surgical History / Comment(s): PCIs with stents, L hip fracture with hemiarthroplasty, R foot fracture with bone graft, R eye corneal transplant, L eye cataract removal with lens implant. Past Anesthesia/Blood Transfusion Reactions: Postoperative Nausea & Vomiting (PONV) Date of Last Stent Placement:: 10/14/2015 Past Psychological History: No Psychological Hx Reported Additional Psychological History / Comment(s): Pt resides with her spouse. She is independent. She drives. Smoking Status: Never smoker Past Alcohol Use History: None Reported Past Drug Use History: None Reported - Past Family History Mother Family Medical History: Cancer Father Family Medical History: Myocardial Infarction ([place]) Additional Family Medical History / Comment(s): Father from a [place] at the age of 57yrs. Medications and Allergies Home Medications Medication Instructions Recorded Confirmed Type Omeprazole [PriLOSEC] 20 mg PO AC-BRKFST 10/14/15 04/08/20 History amLODIPine [Norvasc] 5 mg PO BID 08/03/18 04/08/20 History lisinopriL 20 mg PO BID 08/03/18 04/08/20 History Fluorometholone 0.1% Ophth Jazz 1 drop RIGHT EYE DAILY 11/04/19 04/08/20 History [Fml] Timolol 0.25% Ophth Soln [Timoptic 1 drop BOTH EYES DAILY 11/04/19 04/08/20 History 0.25% Ophth Soln] hydrALAZINE HCL [Apresoline] 25 mg PO BID 11/04/19 04/08/20 History Aspirin 81 mg PO DAILY #30 chew 11/05/19 04/08/20 Rx Clopidogrel [Plavix] 75 mg PO DAILY #30 tab 11/05/19 04/08/20 Rx Metoprolol Tartrate [Lopressor] 50 mg PO BID tab 07/24/20 12/26/20 Rx Nitroglycerin Sl Tabs [Nitrostat] 0.4 mg SUBLINGUAL Q5M PRN #20 tab 11/05/19 04/08/20 Rx metFORMIN HCL [Glucophage] 500 mg PO QAM 12/30/19 04/08/20 History Allergies Allergy/AdvReac Type Severity Reaction Status Date / Time No Known Allergies Allergy Verified 04/08/20 10:18 Physical Exam Vitals: Vital Signs Temp Pulse Resp BP Pulse Ox 04/09/20 07:37 98.1 F 121 H 20 123/69 96 04/09/20 02:50 98.0 F 107 H 16 116/62 96 04/08/20 20:00 98.4 F 103 H 16 118/70 96 04/08/20 15:38 98.3 F 116 H 18 137/71 95 Intake and Output 04/08/20 04/09/20 04/09/20 22:59 06:59 14:59 Other: # Voids 2 3 Weight 72.1 kg Results 04/09/20 11:34 04/09/20 11:34 CBC 04/09/20 Range/Units 11:34 WBC 10.2 (3.8-10.6) k/uL RBC 5.38 (3.80-5.40) m/uL Hgb 12.3 (11.4-16.0) gm/dL Hct 41.1 (34.0-46.0) % Plt Count 433 (150-450) k/uL Comprehensive Metabolic Panel 04/09/20 Range/Units 11:34 Sodium 139 (137-145) mmol/L Potassium 4.5 (3.5-5.1) mmol/L Chloride 101 (98-107) mmol/L Carbon Dioxide 27 (22-30) mmol/L BUN 29 H (7-17) mg/dL Creatinine 1.53 H (0.52-1.04) mg/dL Glucose 97 (74-99) mg/dL Calcium 10.1 (8.4-10.2) mg/dL Current Medications Generic Name Dose Route Start Last Admin Trade Name Freq PRN Reason Stop Dose Admin Amlodipine Besylate 5 mg 04/08/20 11:20 04/09/20 07:18 Amlodipine 5 Mg Tab PO 5 mg BID ELEANOR Administration Aspirin 81 mg 04/09/20 09:00 12/27/20 07:18 Aspirin 81 Mg PO 81 mg DAILY ELEANOR Administration Clopidogrel Bisulfate 75 mg 04/09/20 09:00 04/09/20 07:18 Clopidogrel 75 Mg Tab PO 75 mg DAILY ELEANOR Administration Famotidine 20 mg 04/08/20 21:00 04/09/20 07:17 Famotidine 20 Mg/2 Ml Vial IV 20 mg Q12HR ELEANOR Administration Fluorometholone 1 drops 04/09/20 09:00 04/09/20 07:18 Fluorometholone 0.1% Ophth Drops 5 Ml Btl RIGHT EYE 1 drops DAILY ELEANOR Administration Furosemide 40 mg 04/08/20 10:00 04/09/20 07:17 Furosemide 10 Mg/Ml 4 Ml Vial IV 40 mg Q12H ELEANOR Administration Heparin Sodium (Porcine) 5,000 unit 04/08/20 21:00 04/09/20 07:17 Heparin Sodium,Porcine 5,000 Unit/Ml 1 Ml Vial SQ 5,000 unit Q12HR ELEANOR Administration Hydralazine HCl 25 mg 04/08/20 21:00 04/09/20 07:18 Hydralazine Hcl 25 Mg Tab PO 25 mg BID ELEANOR Administration Metoprolol Tartrate 75 mg 04/09/20 21:00 Metoprolol Tartrate 50 Mg Tab PO BID ELEANOR Nitroglycerin 0.4 mg 04/08/20 11:20 Nitroglycerin Sl Tabs 0.4 Mg Tab SUBLINGUAL Q5M PRN Chest Pain Timolol Maleate 1 drops 04/09/20 09:00 04/09/20 07:18 Timolol 0.25% Ophth Drops 5 Ml Btl BOTH EYES 1 drops DAILY ELEANOR Administration Intake and Output 04/08/20 04/09/20 04/09/20 22:59 06:59 14:59 Other: # Voids 2 3 Weight 72.1 kg 04/09/20 11:34 04/09/20 11:34
[2020-04-09 15:30] LABS: Glucose,Whole Blood 140 mg/dL (75-99)
[2020-04-09 15:30] LABS: Glucose,Whole Blood 166 mg/dL (75-99)
[2020-04-09 15:30] LABS: Glucose,Whole Blood 133 mg/dL (75-99)
[2020-04-09 17:23] LABS: Glucose,Whole Blood 114 mg/dL (75-99)
[2020-04-09] MEDS: APIXABAN 2.5 MG TABLET PO SCH (20:13)
[2020-04-09 20:41] LABS: Glucose,Whole Blood 104 mg/dL (75-99)
[2020-04-09] MEDS ORDERED: METOPROLOL TARTRATE 50 MG TAB PO SCH (21:00)
[2020-04-10 07:10] LABS: Glucose,Whole Blood 123 mg/dL (75-99)
[2020-04-10] MEDS: METOPROLOL TARTRATE 50 MG TAB PO SCH ×2 (07:45→21:15)
[2020-04-10] MEDS: hydrALAZINE HCL 25 MG TAB PO SCH ×2 (07:45→21:14)
[2020-04-10] MEDS: CLOPIDOGREL 75 MG TAB PO SCH (07:45)
[2020-04-10] MEDS: FLUOROMETHOLONE 0.1% OPHTH DROPS 5 ML BTL RIGHT EYE SCH (07:46)
[2020-04-10] MEDS: FAMOTIDINE 20 MG/2 ML VIAL IV SCH (07:46)
[2020-04-10] MEDS: FUROSEMIDE 10 MG/ML 4 ML VIAL IV SCH ×2 (07:46→21:14)
[2020-04-10] MEDS: amLODIPine 5 MG TAB PO SCH (07:46)
[2020-04-10] MEDS: TIMOLOL 0.25% OPHTH DROPS 5 ML BTL BOTH EYES SCH (07:46)
[2020-04-10] MEDS: APIXABAN 2.5 MG TABLET PO SCH ×2 (07:46→21:16)
[2020-04-10 09:49] LABS: African American GFR (CKD) 31.5 (60.0-200.0); BUN/Creat Ratio 23.53 Ratio (12.00-20.00); Calcium 9.1 mg/dL (8.7-10.3); Magnesium 1.6 mg/dL (1.5-2.4); Non-African American GFR(CKD) 27.2 (60.0-200.0); Potassium 3.9 mmol/L (3.5-5.5)
--- NOTE | 2020-04-10 11:33 | P.PN ---
Subjective This is a pleasant 84 years old female with past medical history of hypertension, hyperlipidemia, coronary artery disease status post cardiac cath a nd stent placement of the complex artery about 2-3 months ago. He also has diabetes mellitus, GERD, bilateral hand arthritis, hiatal hernia. She is a patient of Dr. Akbar and she follow up with Dr. Martinez, and Dr. Flores. She presents because of dyspnea of 3 days' duration associated with mild dry cough but no chest pain or dizziness or palpitation. She denies abdominal pain, no nausea vomiting, no change in urine or bowel habits. No fever She denies smoking, alcohol or illicit drug On admission patient is been afebrile but tachypneic, her respiratory rate is around 24-26, blood pressure is elevated 176/76. She is saturating 91% on room air and 96-97 on 2 L oxygen. She has leukocytosis of 13.2 K. Test of CBC is unremarkable. INR is unremarkable, BMP is unremarkable and liver enzymes are within normal limits. Troponin is negative less than 0.012. And coronal versus not detected. D-dimer is slightly elevated at 0.2. ProBNP is elevated at 2090. EKG showing normal sinus rhythm with sinus arrhythmia at 73 with sinus arrhythmia. No significant ST-T changes. CTA of the chest showed cardiomegaly with patchy ground glass opacity correlate for interstitial pulmonary edema and CHF. Some nodularity is also new from 11/04/2019, this could represent areas of early developing pulmonary edema/infiltrate. 3 month follow-up CT recommended to ensure clearance and to exclude underlying pulmonary nodules. No pulmonary embolism Chest x-ray showed cardiomegaly with no interstitial opacity. Correlate for atypical pneumonia or normal CHF. With background COPD In the emergency room patient was started on Lasix 04/09/2020 Patient is awake and alert, she looks more pleasant and less distress although she still tachypneic however she states that her breathing is improving, she sitting at the bedside. With no chest pain. Vitals are stable but she still tachycardic, her heart rate is 121, he she is saturating 96% on 3 L oxygen via nasal cannula. Her creatinine went up to 1.5 today, follow patient is on Lasix however she got contrast yesterday in the emergency room when they ordered a CTA of the chest to rule out PE. We are going to consult nephrology service because of that. Especially she is on Lasix 40 mg twice daily for her heart failure. Hold metformin and lisinopril for now. She has no episodes of hypertension and she is currently also on hydralazine and metoprolol twice daily, also on Norvasc. Also she is on aspirin and Plavix Cardiology team were consulted . Echocardiogram showed ejection fraction of 50- 55% from 11/05/19. Also I informed the patient about her pulmonary nodules and need to follow up as an outpatient, risks including but not limited to cancer are explained and she verbalized understanding and acceptance 04/02/2020 This is a pleasant 84 years old female who presents with acute diastolic CHF, her ejection fraction is 50-55%. 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 Her rate is controlled this morning at 74. Blood pressure 110/50. Aspirin has been discontinued This morning her breathing is much better and she thinks is back to baseline however she still have some tachypnea. She saturating 97% on 2 L oxygen. So complaining from the lower back pain for the last 2 weeks, most likely musculoskeletal. No recent trauma. Also her creatinine was trending up 1.5 and today 1.7, mostly secondary to contrast nephropathy. Her lisinopril and metformin were held. She currently on Lasix 40 mg IV twice daily. We'll order lidocaine patch. And we will ask for PT/OT evaluation Review of Systems CONSTITUTIONAL: No fever, no malaise, no fatigue. HEENT: No recent visual problems or hearing problems. Denied any sore throat. CARDIOVASCULAR: no palpitations, no syncope. PULMONARY: No chest wall tenderness, no hemoptysis. GASTROINTESTINAL: No diarrhea, no nausea, no vomiting, no abdominal pain. Normoactive bowel sounds. NEUROLOGICAL: No headaches, no weakness, no numbness. Active Medications Generic Name Dose Route Start Last Admin Trade Name Freq PRN Reason Stop Dose Admin Amlodipine Besylate 5 mg 04/08/20 11:20 04/10/20 07:46 Amlodipine 5 Mg Tab PO 5 mg BID ELEANOR Administration Apixaban 2.5 mg 04/09/20 21:00 04/10/20 07:46 Apixaban 2.5 Mg Tablet PO 2.5 mg BID ELEANOR Administration Clopidogrel Bisulfate 75 mg 04/09/20 09:00 04/10/20 07:45 Clopidogrel 75 Mg Tab PO 75 mg DAILY ELEANOR Administration Famotidine 20 mg 04/08/20 21:00 04/10/20 07:46 Famotidine 20 Mg/2 Ml Vial IV 20 mg Q12HR ELEANOR Administration Fluorometholone 1 drops 04/09/20 09:00 04/10/20 07:46 Fluorometholone 0.1% Ophth Drops 5 Ml Btl RIGHT EYE 1 drops DAILY ELEANOR Administration Furosemide 40 mg 04/08/20 10:00 04/10/20 07:46 Furosemide 10 Mg/Ml 4 Ml Vial IV 40 mg Q12H ELEANOR Administration Hydralazine HCl 25 mg 04/08/20 21:00 04/10/20 07:45 Hydralazine Hcl 25 Mg Tab PO 25 mg BID ELEANOR Administration Lidocaine 1 patch 04/10/20 11:45 Lidocaine 5% Patch TOPICAL DAILY ELEANOR Metoprolol Tartrate 100 mg 04/09/20 21:00 04/10/20 07:45 Metoprolol Tartrate 50 Mg Tab PO 100 mg BID ELEANOR Administration Nitroglycerin 0.4 mg 04/08/20 11:20 Nitroglycerin Sl Tabs 0.4 Mg Tab SUBLINGUAL Q5M PRN Chest Pain Timolol Maleate 1 drops 04/09/20 09:00 04/10/20 07:46 Timolol 0.25% Ophth Drops 5 Ml Btl BOTH EYES 1 drops DAILY ELEANOR Administration Objective - Vital Signs Vital signs: Vital Signs Temp 97.4 F L 04/10/20 08:00 Pulse 74 04/10/20 08:00 Resp 16 04/10/20 08:00 BP 110/50 04/10/20 08:00 Pulse Ox 97 04/10/20 08:00 Intake & Output 04/09/20 04/10/20 04/10/20 18:59 06:59 18:59 Weight 72 kg Other: # Voids 2 4 - Exam GENERAL: The patient is alert and oriented x3, not in any acute distress. Well developed, well nourished. HEENT: Pupils are round and equally reacting to light. EOMI. No scleral icterus. No conjunctival pallor. Normocephalic, atraumatic. No pharyngeal erythema. No thyromegaly. CARDIOVASCULAR: S1 and S2 present. No murmurs, rubs, or gallops. PULMONARY: Chest is clear to auscultation, no wheezing. Bilateral basal cre pitation ABDOMEN: Soft, nontender, nondistended, normoactive bowel sounds. No palpable organomegaly. MUSCULOSKELETAL: No joint swelling or deformity. EXTREMITIES: No cyanosis, clubbing, or pedal edema. NEUROLOGICAL: Gross neurological examination did not reveal any focal deficits. SKIN: No rashes. no petechiae. - Labs CBC & Chem 7: 04/09/20 11:34 04/10/20 06:23 Labs: Abnormal Lab Results - Last 24 Hours (Table) 04/08/20 04/08/20 04/09/20 Range/Units 11:54 17:05 07:09 MCV (80.0-100.0) fL MCH (25.0-35.0) pg MCHC (31.0-37.0) g/dL BUN (7-17) mg/dL Creatinine (0.52-1.04) mg/dL Est GFR (CKD-EPI)AfAm (60.0-200.0) Est GFR (CKD-EPI)NonAf (60.0-200.0) BUN/Creatinine Ratio (12.00-20.00) Ratio Glucose (70-110) mg/dL POC Glucose (mg/dL) 166 H 133 H 140 H (75-99) mg/dL 04/09/20 04/09/20 04/09/20 Range/Units 11:34 11:34 17:20 MCV 76.5 L (80.0-100.0) fL MCH 22.8 L (25.0-35.0) pg MCHC 29.8 L (31.0-37.0) g/dL BUN 29 H (7-17) mg/dL Creatinine 1.53 H (0.52-1.04) mg/dL Est GFR (CKD-EPI)AfAm (60.0-200.0) Est GFR (CKD-EPI)NonAf (60.0-200.0) BUN/Creatinine Ratio (.00-.00) Ratio Glucose (70-110) mg/dL POC Glucose (mg/dL) 114 H (75-99) mg/dL 04/09/20 04/10/20 04/10/20 Range/Units 20:39 06:23 07:07 MCV (80.0-100.0) fL MCH (25.0-35.0) pg MCHC (31.0-37.0) g/dL BUN 40.0 H (7-17) mg/dL Creatinine 1.7 H (0.52-1.04) mg/dL Est GFR (CKD-EPI)AfAm 31.5 L (60.0-200.0) Est GFR (CKD-EPI)NonAf 27.2 L (60.0-200.0) BUN/Creatinine Ratio 23.53 H (12.00-20.00) Ratio Glucose 117 H (70-110) mg/dL POC Glucose (mg/dL) 104 H 123 H (75-99) mg/dL Assessment and Plan Assessment: Acute on chronic diastolic CHF exacerbation, ejection fraction 5055% Acute kidney injury bilateral pulmonary nodules, pulmonary team consulted Hypertension, with urgency on admission Leukocytosis, back to normal Hyperlipidemia Diabetes mellitus, type II History of coronary artery disease status post stent placement History of Bilateral hand arthritis Gastroesophageal reflux disease Plan: This is a pleasant 84 results female who presents with CHF and possible pulmonary nodule or atypical pneumonia. Continue with Lasix, follow-up mac mmendation by cardiology service.. Consult nephrology. Pulmonary team on the case for pulmonary nodules Hold metformin and lisinopril. Also we'll check for Eliquis co-pay. Discontinue aspirin Labs and medication were reviewed.. Continue same treatment. Continue with symptomatic treatment. Resume home medication. Monitor lytes and vitals. DVT and GI prophylaxis. Further recommendations depends on the clinical course of the patient DVT prophylaxis: Eliquis GI Prophylaxis: Pepcid PT/OT: Pending Prognosis is guarded
[2020-04-10 11:50] LABS: Glucose,Whole Blood 104 mg/dL (75-99)
[2020-04-10] MEDS: LIDOCAINE 5% PATCH TOPICAL SCH (12:20)
--- NOTE | 2020-04-10 14:15 | US ---
EXAMINATION TYPE: US kidneys/renal and bladder DATE OF EXAM: 04/10/2020 COMPARISON: None. CLINICAL HISTORY: RF. abnormal labs. No pain. Patient states just voiding before mri tech ca me into room. EXAM MEASUREMENTS: Right Kidney: 7.9 x 4.6 x 3.7 cm Left Kidney: 9.6 x 3.8 x 4.3 cm Right Kidney: Appears small in size. Multiple cystic appearing lesions seen. Largest measured. 1- mid, anterior pedunculated = 0.7 x 0.8 x 0.5 cm. 2- lower pole= 1.1 x 0.8 x 0.8 cm. Left Kidney: No hydronephrosis or masses seen Bladder: No visualized Bilateral Jets not visualized There is no evidence for hydronephrosis at this point in time. No nephrolithiasis is seen. A few tin y thin-walled cysts scattered throughout the visualized portion of right kidney noted. The urinary b ladder is decompressed. Bilateral ureteral jets are not seen. IMPRESSION: No hydronephrosis noted bilaterally.
--- NOTE | 2020-04-10 14:26 | CONS ---
CONSULTATION REASON FOR CONSULT: Renal failure. HISTORY OF PRESENT ILLNESS: The patient is an 84-year-old female who was admitted to the hospital with complaints of shortness of breath. She denies any previous history of kidney diseases. She is currently being diuresed for CHF. Serum creatinine was 0.9 on 04/08 and it has increased to 1.7 today. The patient did get IV contrast for CTA of the chest to rule out PE on 04/08/2020. The patient states she has been voiding, although she feels that she is not going as much as she was a few days ago. Blood pressure has been on the lower side with systolic noted to be as low as 95 mmHg today. The patient is maintained on hydralazine and Lopressor. PAST MEDICAL HISTORY: Significant for hypertension, coronary artery disease, type 2 diabetes, gastroesophageal reflux disease, hyperlipidemia, history of MS, osteoarthritis, hiatal hernia. PAST SURGICAL HISTORY: Cardiac catheterization, coronary stent placement, left hip fracture with hemiarthroplasty, left eye cataract removal, right eye corneal transplant, right foot fracture with bone graft. SOCIAL HISTORY: Negative for smoking, drug abuse or alcohol abuse. ALLERGIES: None. MEDICATIONS: Medications prior to admission included Prilosec, Norvasc, lisinopril, hydralazine, Pravachol, Glucophage, Plavix, aspirin, Lopressor. PHYSICAL EXAMINATION: Patient is comfortable, awake, not in any acute distress. Blood pressure is 110/50, heart rate 74 per minute. She is afebrile. EXAMINATION OF THE HEART: S1, S2. EXAMINATION OF THE LUNGS: Decreased breath sounds at bases. Abdomen is soft, nontender. Examination of lower extremities shows no significant edema. [employer] EXAM: Grossly intact. LABS: Labs show sodium 138, potassium 3.9, chloride 104, CO2 is 25, BUN 40, serum creatinine 1.7 mg/dL. UA is not available. COVID-19 test PCR was negative. ASSESSMENT: 1. Acute kidney injury, acute tubular necrosis, associated with recent IV contrast administration as well as a component of cardiorenal syndrome. Blood pressure has been on the lower side for the last day or so, which will also contribute to the acute kidney injury. Currently patient is not on any nephrotoxic agents. I will check a urinalysis and decrease hydralazine to avoid hypotension. A systolic blood pressure was 95 mmHg today. I will continue with the IV Lasix for now. Continue to hold off on EFRAIN inhibitors given the worsening renal function and low blood pressure. Check ultrasound of the kidneys as well. 2. Congestive heart failure, acute on top of chronic ejection fraction, not known at this time. Cardiology has been consulted. A previous echocardiogram done in October of 2019 showed ejection fraction of 50% to 55%. 3. Type 2 diabetes. 4. History of coronary artery disease and coronary artery stents. PLAN: Decrease Norvasc and add parameters for hydralazine. Repeat labs in a.m. Check urinalysis. Check ultrasound of the kidneys. Continue to avoid nephrotoxic agents. Repeat chest x-ray today. Thank you for this consultation. Will continue to follow the patient during her hospitalization. MMODL / IJN: [id number] /
[2020-04-10 16:50] LABS: Glucose,Whole Blood 113 mg/dL (75-99)
--- NOTE | 2020-04-10 17:30 | XR ---
EXAMINATION TYPE: XR chest 1V DATE OF EXAM: 04/10/2020 COMPARISON: 04/08/2020 HISTORY: Short of breath TECHNIQUE: FINDINGS: There is coarsening of interstitial markings. There are chest leads. Costophrenic angles ar e clear. Heart is borderline enlarged. IMPRESSION: Mild pulmonary interstitial infiltrates are significantly improved compared to recent exa m and consistent with resolving congestive heart failure. Mild cardiomegaly improved.
[2020-04-10 17:35] LABS: Appearance,Urine Clear (Clear); Bilirubin,Urine Negative (Negative); Blood,Urine Negative (Negative); Color,Urine Yellow; Glucose,Urine (UA) Negative (Negative); Hyaline Casts,Urine 25 /lpf (0-2); Ketones,Urine Negative (Negative); Leukocyte Esterase,Urine Moderate (Negative); Mucus,Urine Rare /hpf; Nitrite,Urine Negative (Negative); Protein,Urine Negative (Negative); RBC,Urine 1 /hpf (0-5); Squamous Epithelial Cell,Urine 2 /hpf (0-4); Urobilinogen,Urine <2.0 mg/dL (<2.0); WBC,Urine 6 /hpf (0-5)
[2020-04-10 21:11] LABS: Glucose,Whole Blood 128 mg/dL (75-99)
[2020-04-11 06:52] LABS: Glucose,Whole Blood 129 mg/dL (75-99)
[2020-04-11] MEDS: TIMOLOL 0.25% OPHTH DROPS 5 ML BTL BOTH EYES SCH (07:31)
[2020-04-11] MEDS: FLUOROMETHOLONE 0.1% OPHTH DROPS 5 ML BTL RIGHT EYE SCH (07:31)
[2020-04-11] MEDS: METOPROLOL TARTRATE 50 MG TAB PO SCH ×2 (07:31→20:36)
[2020-04-11] MEDS: hydrALAZINE HCL 25 MG TAB PO SCH ×2 (07:32→20:36)
[2020-04-11] MEDS: CLOPIDOGREL 75 MG TAB PO SCH (07:32)
[2020-04-11] MEDS: APIXABAN 2.5 MG TABLET PO SCH ×2 (07:32→20:36)
[2020-04-11] MEDS: FAMOTIDINE 20 MG TAB PO SCH (07:32)
[2020-04-11] MEDS: FUROSEMIDE 10 MG/ML 4 ML VIAL IV SCH (10:17)
[2020-04-11 10:59] LABS: African American GFR (CKD) 31.5 (60.0-200.0); Anion Gap 9.1 mmol/L (4.00-12.00); BUN/Creat Ratio 33.53 Ratio (12.00-20.00); Carbon Dioxide 25.9 mmol/L (21.6-31.8); Magnesium 1.8 mg/dL (1.5-2.4); Non-African American GFR(CKD) 27.2 (60.0-200.0)
[2020-04-11 11:44] LABS: Glucose,Whole Blood 147 mg/dL (75-99)
--- NOTE | 2020-04-11 11:47 | P.CNPUL ---
History of Present Illness Consult date: 04/09/20 Reason for consult: dyspnea, lung mass Chief complaint: Shortness of breath History of present illness: Patient is a 84-year-old female with multiple complex medical problems including coronary artery disease history of stent placement 2 months ago also has a history of dyslipidemia, GERD, diabetes mellitus hypertension hypertensive cardiovascular disease, patient has been having shortness of breath for 2-3 days along with some chest wall pain, patient was seen by primary care provider, thought to be pain related to muscle or musculoskeletal pain, therapy was prescribed without significant relief, patient continued to have pain also started having cough which is predominantly dry decided to come into the hospit al patient was found to be hypoxic mildly saturation was 99% on room air, patient underwent computed tomography scan of the chest, BNP was over 2000, CT was negative for pulmonary embolism however interstitial edema consistent with CHF noted, patient admitted, some leukocytosis present, Review of Systems All systems: negative Past Medical History Past Medical History: Coronary Artery Disease (CAD), Diabetes Mellitus, Eye Disorder, GERD/Reflux, Hyperlipidemia, Hypertension, Myocardial Infarction (NM), Osteoarthritis (OA) Additional Past Medical History / Comment(s): NIDDM type II, R eye-sees shadows only, hiatal hernia, arthritis bilateral hands, insomnia. Last Myocardial Infarction Date:: 2015 History of Any Multi-Drug Resistant Organisms: None Reported Past Surgical History: Heart Catheterization With Stent, Orthopedic Surgery Additional Past Surgical History / Comment(s): PCIs with stents, L hip fracture with hemiarthroplasty, R foot fracture with bone graft, R eye corneal ray splant, L eye cataract removal with lens implant. Past Anesthesia/Blood Transfusion Reactions: Postoperative Nausea & Vomiting (PONV) Date of Last Stent Placement:: 10/14/2015 Past Psychological History: No Psychological Hx Reported Additional Psychological History / Comment(s): Pt resides with her spouse. She is independent. She drives. Smoking Status: Never smoker Past Alcohol Use History: None Reported Past Drug Use History: None Reported - Past Family History Mother Family Medical History: Cancer Father Family Medical History: Myocardial Infarction (NM) Additional Family Medical History / Comment(s): Father from a NM at the age of 57yrs. Medications and Allergies Home Medications Medication Instructions Recorded Confirmed Type Omeprazole [PriLOSEC] 20 mg PO -BRKFST 10/14/15 04/08/20 History amLODIPine [Norvasc] 5 mg PO BID 08/03/18 04/08/20 History lisinopriL 20 mg PO BID 08/03/18 04/08/20 History Fluorometholone 0.1% Ophth Jazz 1 drop RIGHT EYE DAILY 11/04/19 04/08/20 History [Fml] Timolol 0.25% Ophth Soln [Timoptic 1 drop BOTH EYES DAILY 11/04/19 04/08/20 History 0.25% Ophth Soln] hydrALAZINE HCL [Apresoline] 25 mg PO BID 11/04/19 04/08/20 History Aspirin 81 mg PO DAILY #30 chew 11/05/19 04/08/20 Rx Clopidogrel [Plavix] 75 mg PO DAILY #30 tab 11/05/19 04/08/20 Rx Metoprolol Tartrate [Lopressor] 50 mg PO BID tab 11/05/19 04/08/20 Rx Nitroglycerin Sl Tabs [Nitrostat] 0.4 mg SUBLINGUAL Q5M PRN #20 tab 11/05/19 04/08/20 Rx metFORMIN HCL [Glucophage] 500 mg PO QAM 12/30/19 04/08/20 History Apixaban [Eliquis] 2.5 mg PO BID #60 tablet 04/10/20 Rx Allergies Allergy/AdvReac Type Severity Reaction Status Date / Time No Known Allergies Allergy Verified 04/08/20 10:18 Physical Exam Vitals: Vital Signs Temp Pulse Resp BP Pulse Ox 04/09/20 14:49 97.4 F L 106 H 18 122/76 94 L 04/09/20 07:37 98.1 F 121 H 20 123/69 96 04/09/20 02:50 98.0 F 107 H 16 116/62 96 04/08/20 20:00 98.4 F 103 H 16 118/70 96 Intake and Output 04/09/20 04/09/20 04/09/20 06:59 14:59 22:59 Other: # Voids 3 Weight 72.1 kg - Constitutional General appearance: average body habitus, disheveled - EENT Eyes: EOMI, PERRLA Ears: bilateral: normal - Neck Carotids: bilateral: upstroke normal Thyroid: bilateral: normal size - Respiratory Respiratory: bilateral: diminished, rales - Cardiovascular Rhythm: regular Heart sounds: normal: S1, S2 - Integumentary Integumentary: decreased turgor - Psychiatric Psychiatric: A&O x's 3, intact judgment & insight Results - Laboratory Findings CBC and BMP: 04/09/20 11:34 04/11/20 06:10 PT/INR, D-dimer PT 10.5 sec (9.0-12.0) 04/08/20 08:21 INR 1.0 (<1.2) 04/08/20 08:21 D-Dimer 0.92 mg/L FEU (<0.60) H 04/08/20 08:21 Abnormal lab findings: Abnormal Labs 04/08/20 04/08/20 04/08/20 08:21 08:21 08:21 WBC 13.2 H MCV 75.7 L MCH 24.0 L MCHC Neutrophils # 11.1 H D-Dimer 0.92 H Carbon Dioxide 21 L BUN 19 H Creatinine Glucose 154 H POC Glucose (mg/dL) 04/08/20 04/08/20 04/08/20 11:54 17:05 20:56 WBC MCV MCH MCHC Neutrophils # D-Dimer Carbon Dioxide BUN Creatinine Glucose POC Glucose (mg/dL) 166 H 133 H 170 H 04/09/20 04/09/20 04/09/20 07:09 11:34 11:34 WBC MCV 76.5 L MCH 22.8 L MCHC 29.8 L Neutrophils # D-Dimer Carbon Dioxide BUN 29 H Creatinine 1.53 H Glucose POC Glucose (mg/dL) 140 H - Diagnostic Findings Chest x-ray: report reviewed, image reviewed CT scan - chest: report reviewed, image reviewed (Ending as noted above) Assessment and Plan Assessment: Acute hypoxic respiratory failure Shortness of breath due to above and related to acute exacerbation of CHF likely acute on chronic diastolic heart failure New onset atrial fibrillation RA artery disease Hypertension hypertensive cardiovascular disease Sleep disorder breathing and sleep apnea Plan: Overall plan is to continue diuresis Continue to monitor renal functions closely Deep breathing exercises incentive spirometry We'll follow clinical course closely further recommendations pending will likely need a sleep study on outpatient basis Time with Patient: Greater than 30
--- NOTE | 2020-04-11 11:49 | P.PN ---
Subjective Progress Note Date: 04/10/20 Principal diagnosis: Acute hypoxic respiratory failure Shortness of breath due to above and related to acute exacerbation of CHF likely acute on chronic diastolic heart failure New onset atrial fibrillation Coronary artery disease Acute kidney injury Hypertension hypertensive cardiovascular disease Sleep disorder breathing and sleep apnea 04/10/2020, patient seen eval examined during the rounds labs reviewed medications reviewed oxygenation remains stable shortness of breath stable and improved, renal service is evaluating the increase renal function likely related to contrast-induced nephropathy Patient is a 84-year-old female with multiple complex medical problems including coronary artery disease history of stent placement 2 months ago also has a history of dyslipidemia, GERD, diabetes mellitus hypertension hypertensive cardiovascular disease, patient has been having shortness of breath for 2-3 days along with some chest wall pain, patient was seen by primary care provider, thought to be pain related to muscle or musculoskeletal pain, therapy was prescribed without significant relief, patient continued to have pain also started having cough which is predominantly dry decided to come into the hospital patient was found to be hypoxic mildly saturation was 99% on room air, patient underwent computed tomography scan of the chest, BNP was over 2000, CT was negative for pulmonary embolism however interstitial edema consistent with CHF noted, patient admitted, some leukocytosis present, Objective - Vital Signs Vital signs: Vital Signs Temp 97.4 F L 04/11/20 07:22 Pulse 128 H 04/11/20 07:22 Resp 18 04/11/20 07:22 BP 105/64 04/11/20 07:22 Pulse Ox 97 04/11/20 07:22 Intake & Output 04/10/20 04/11/20 04/11/20 18:59 06:59 18:59 Weight 69 kg Other: # Voids 4 2 - Exam - Constitutional General appearance: average body habitus, disheveled - EENT Eyes: EOMI, PERRLA Ears: bilateral: normal - Neck Carotids: bilateral: upstroke normal Thyroid: bilateral: normal size - Respiratory Respiratory: bilateral: diminished, rales - Cardiovascular Rhythm: regular Heart sounds: normal: S1, S2 - Integumentary Integumentary: decreased turgor - Psychiatric Psychiatric: A&O x's 3, intact judgment & insight - Labs CBC & Chem 7: 04/09/20 11:34 04/11/20 06:10 Labs: Abnormal Lab Results - Last 24 Hours (Table) 04/10/20 04/10/20 04/10/20 Range/Units 11:48 16:29 16:49 BUN (9.0-27.0) mg/dL Creatinine (0.6-1.5) mg/dL Est GFR (CKD-EPI)AfAm (60.0-200.0) Est GFR (CKD-EPI)NonAf (60.0-200.0) BUN/Creatinine Ratio (12.00-20.00) Ratio Glucose (70-110) mg/dL POC Glucose (mg/dL) 104 H 113 H (75-99) mg/dL Ur Leukocyte Esterase Moderate H (Negative) Urine WBC 6 H (0-5) /hpf Hyaline Casts 25 H (0-2) /lpf Urine Mucus Rare H (None) /hpf 04/10/20 04/11/20 04/11/20 Range/Units 21:10 06:10 06:50 BUN 57.0 H (9.0-27.0) mg/dL Creatinine 1.7 H (0.6-1.5) mg/dL Est GFR (CKD-EPI)AfAm 31.5 L (60.0-200.0) Est GFR (CKD-EPI)NonAf 27.2 L (60.0-200.0) BUN/Creatinine Ratio 33.53 H (12.00-20.00) Ratio Glucose 128 H (70-110) mg/dL POC Glucose (mg/dL) 128 H 129 H (75-99) mg/dL Ur Leukocyte Esterase (Negative) Urine WBC (0-5) /hpf Hyaline Casts (0-2) /lpf Urine Mucus (None) /hpf 04/11/20 Range/Units 11:42 BUN (9.0-27.0) mg/dL Creatinine (0.6-1.5) mg/dL Est GFR (CKD-EPI)AfAm (60.0-200.0) Est GFR (CKD-EPI)NonAf (60.0-200.0) BUN/Creatinine Ratio (12.00-20.00) Ratio Glucose (70-110) mg/dL POC Glucose (mg/dL) 147 H (75-99) mg/dL Ur Leukocyte Esterase (Negative) Urine WBC (0-5) /hpf Hyaline Casts (0-2) /lpf Urine Mucus (None) /hpf Assessment and Plan Assessment: Acute kidney injury Acute hypoxic respiratory failure Shortness of breath due to above and related to acute exacerbation of CHF likely acute on chronic diastolic heart failure New onset atrial fibrillation RA artery disease Hypertension hypertensive cardiovascular disease Sleep disorder breathing and sleep apnea Plan: Overall plan is to continue diuresis Lasix toes are being adjusted, Continue to monitor renal functions closely Deep breathing exercises incentive spirometry We'll follow clinical course closely further recommendations pending will likely need a sleep study on outpatient basis Time with Patient: Greater than 30
--- NOTE | 2020-04-11 11:52 | P.PN ---
Subjective Progress Note Date: 04/11/20 Principal diagnosis: Acute hypoxic respiratory failure Shortness of breath due to above and related to acute exacerbation of CHF likely acute on chronic diastolic heart failure New onset atrial fibrillation Coronary artery disease Acute kidney injury Hypertension hypertensive cardiovascular disease Sleep disorder breathing and sleep apnea 04/11/2020, patient seen eval examined during the rounds labs reviewed medications reviewed, remains afebrile patient is in A. fib with [facility] cardiovascular services following the patient, yesterday chest x-ray reviewed still have interstitial edema, urine creatinine 57 /1.7 continue to go up 04/10/2020, patient seen eval examined during the rounds labs reviewed medications reviewed oxygenation remains stable shortness of breath stable and improved, renal service is evaluating the increase renal function likely related to contrast-induced nephropathy Patient is a 84-year-old female with multiple complex medical problems including coronary artery disease history of stent placement 2 months ago also has a history of dyslipidemia, GERD, diabetes mellitus hypertension hypertensive cardiovascular disease, patient has been having shortness of breath for 2-3 days along with some chest wall pain, patient was seen by primary care provider, thought to be pain related to muscle or musculoskeletal pain, therapy was prescribed without significant relief, patient continued to have pain also started having cough which is predominantly dry decided to come into the hospital patient was found to be hypoxic mildly saturation was 99% on room air, patient underwent computed tomography scan of the chest, BNP was over 2000, CT was negative for pulmonary embolism however interstitial edema consistent with CHF noted, patient admitted, some leukocytosis present, Objective - Vital Signs Vital signs: Vital Signs Temp 97.4 F L 04/11/20 07:22 Pulse 128 H 04/11/20 07:22 Resp 18 04/11/20 07:22 BP 105/64 04/11/20 07:22 Pulse Ox 97 04/11/20 07:22 Intake & Output 04/10/20 04/11/20 04/11/20 18:59 06:59 18:59 Weight 69 kg Other: # Voids 4 2 - Exam - Constitutional General appearance: average body habitus, disheveled - EENT Eyes: EOMI, PERRLA Ears: bilateral: normal - Neck Carotids: bilateral: upstroke normal Thyroid: bilateral: normal size - Respiratory Respiratory: bilateral: diminished, rales - Cardiovascular Rhythm: regular Heart sounds: normal: S1, S2 - Integumentary Integumentary: decreased turgor - Psychiatric Psychiatric: A&O x's 3, intact judgment & insight - Labs CBC & Chem 7: 04/09/20 11:34 04/11/20 06:10 Labs: Abnormal Lab Results - Last 24 Hours (Table) 04/10/20 04/10/20 04/10/20 Range/Units 11:48 16:29 16:49 BUN (9.0-27.0) mg/dL Creatinine (0.6-1.5) mg/dL Est GFR (CKD-EPI)AfAm (60.0-200.0) Est GFR (CKD-EPI)NonAf (60.0-200.0) BUN/Creatinine Ratio (12.00-20.00) Ratio Glucose (70-110) mg/dL POC Glucose (mg/dL) 104 H 113 H (75-99) mg/dL Ur Leukocyte Esterase Moderate H (Negative) Urine WBC 6 H (0-5) /hpf Hyaline Casts 25 H (0-2) /lpf Urine Mucus Rare H (None) /hpf 04/10/20 04/11/20 04/11/20 Range/Units 21:10 06:10 06:50 BUN 57.0 H (9.0-27.0) mg/dL Creatinine 1.7 H (0.6-1.5) mg/dL Est GFR (CKD-EPI)AfAm 31.5 L (60.0-200.0) Est GFR (CKD-EPI)NonAf 27.2 L (60.0-200.0) BUN/Creatinine Ratio 33.53 H (12.00-20.00) Ratio Glucose 128 H (70-110) mg/dL POC Glucose (mg/dL) 128 H 129 H (75-99) mg/dL Ur Leukocyte Esterase (Negative) Urine WBC (0-5) /hpf Hyaline Casts (0-2) /lpf Urine Mucus (None) /hpf 04/11/20 Range/Units 11:42 BUN (9.0-27.0) mg/dL Creatinine (0.6-1.5) mg/dL Est GFR (CKD-EPI)AfAm (60.0-200.0) Est GFR (CKD-EPI)NonAf (60.0-200.0) BUN/Creatinine Ratio (12.00-20.00) Ratio Glucose (70-110) mg/dL POC Glucose (mg/dL) 147 H (75-99) mg/dL Ur Leukocyte Esterase (Negative) Urine WBC (0-5) /hpf Hyaline Casts (0-2) /lpf Urine Mucus (None) /hpf Assessment and Plan Assessment: Acute kidney injury Acute hypoxic respiratory failure Shortness of breath due to above and related to acute exacerbation of CHF likely acute on chronic diastolic heart failure New onset atrial fibrillation RA artery disease Hypertension hypertensive cardiovascular disease Sleep disorder breathing and sleep apnea Plan: Overall plan is to continue diuresis Lasix toes are being adjusted, Continue to monitor renal functions closely Deep breathing exercises incentive spirometry We'll follow clinical course closely further recommendations pending will likely need a sleep study on outpatient basis Time with Patient: Greater than 30
[2020-04-11] MEDS: LIDOCAINE 5% PATCH TOPICAL SCH (11:53)
[2020-04-11] MEDS: HYDROcodone/APAP 5-325MG 1 EACH TAB PO PRN (13:48)
--- NOTE | 2020-04-11 15:35 | PN ---
PROGRESS NOTE Patient is seen for followup for acute kidney injury. She was admitted to the hospital with CHF exacerbation and patient has been diuresed. However, her blood pressure was noted to be low as well. Her serum creatinine increased from 0.9 on initial admission to 1.7 yesterday and this morning it is again at 1.7 with no further increase. The patient's urine output has improved. She states overall her breathing has improved as well. PHYSICAL EXAMINATION: On examination today, blood pressure was 105/64, heart rate is elevated at 124 per minute. Patient is afebrile. EXAMINATION OF THE HEART: S1, S2. EXAMINATION OF THE LUNGS: Bilateral breath sounds are heard. Abdomen is soft, nontender. Examination Of lower extremities shows no evidence of edema. CARBONATOR exam is grossly intact. LABS: Labs show sodium 140, potassium 4.0, chloride 105, BUN of 57, serum creatinine 1.7. UA shows no evidence of blood or protein, WBCs only 6. Coronavirus PCR was negative. Chest x-ray from yesterday shows significant improvement in interstitial pulmonary infiltrates. ASSESSMENT: 1. Acute kidney injury associated with hypotension as well as cardiorenal syndrome. Blood pressure remains on the lower side. Volume status has improved. I will change the Lasix to p.o. The patient also has acute tubular necrosis secondary to contrast nephropathy. 2. Chronic kidney disease stage 3. Previous creatinine 0.9 mg/dL secondary to nephrosclerosis. No evidence of proteinuria. 3. Congestive heart failure acute on top of chronic, mostly diastolic, ejection fraction was not low in December. PLAN: Change Lasix to p.o. after this morning's dose. Possible discharge tomorrow if volume status continues to improve. Follow up as outpatient and continue to hold off on the EFRAIN inhibitors for the next few days. We can likely resume next week depending on her blood pressure. MMODL / IJN: [id number] /
--- NOTE | 2020-04-11 15:55 | PN ---
PROGRESS NOTE DATE OF SERVICE: 04/10/2020 This 84-year-old woman who was admitted with CHF, acute exacerbation, is being closely monitored. No chest pain. No palpitations. Patient also had acute kidney injury. Lasix dose has been adjusted. The creatinine has gone up to 1.7 at this time. Past medical history reviewed. PHYSICAL EXAMINATION: Patient is alert, oriented x3. Pulse is 128, blood pressure 105/64, respiration 18, temperature 97.4, pulse ox 97% on room air. HEENT: Conjunctivae normal. NECK: No jugular venous distention. CARDIOVASCULAR SYSTEM: S1, S2 muffled. RESPIRATORY SYSTEM: Breath sounds diminished at the bases. A few scattered rhonchi and crackles. ABDOMEN: Soft, non-tender. LEGS: No edema. No swelling. NERVOUS SYSTEM: No focal deficit. LABS: Labs at this time show WBC 10.2, hemoglobin 12.3. Other labs are noted. ASSESSMENT: 1. Congestive heart failure, acute exacerbation, with acute on chronic diastolic dysfunction, ejection fraction 50% to 55%. 2. Atrial fibrillation, new onset. 3. Acute kidney injury. 4. Bilateral pulmonary nodules. 5. Hypertension. 6. History of leukocytosis. 7. Hyperlipidemia. 8. Diabetes mellitus, type 2. 9. History of coronary artery disease, stent placement. 10.History of bilateral hand degenerative joint disease. 11.History of gastroesophageal reflux disease. RECOMMENDATIONS AND DISCUSSION: In this 84-year-old woman who presented with multiple complex medical issues, we will monitor the patient closely, continue the current medications, continue symptomatic treatment. Otherwise at this time monitor fluid/electrolyte balance closely. Repeat labs. Closely follow with multiple consultants. Prognosis guarded. Further recommendations to follow. MMODL / IJN: [id number] /
[2020-04-11] MEDS: FUROSEMIDE 40 MG TAB PO SCH (16:32)
[2020-04-11 17:14] LABS: Glucose,Whole Blood 118 mg/dL (75-99)
[2020-04-11] MEDS ORDERED: CALCIUM CARBONATE 500 MG CHEWABLE PO PRN (19:59)
[2020-04-11 22:24] LABS: Glucose,Whole Blood 111 mg/dL (75-99)
[2020-04-12 06:53] LABS: Basophils # (A) 0.1 k/uL (0-0.2); Basophils % (A) 1 %; Eosinophils # (A) 0.2 k/uL (0-0.7); Eosinophils % (A) 2 %; HCT 38.2 % (34.0-46.0); HGB 11.8 gm/dL (11.4-16.0); Hypochromasia Moderate; Lymphocytes # (A) 1.8 k/uL (1.0-4.8); Lymphocytes % (A) 23 %; MCH 23.6 pg (25.0-35.0); MCV 76.2 fL (80.0-100.0); Mean Platelet Volume 6.7; Microcytosis Slight; Monocytes # (A) 0.5 k/uL (0-1.0); Monocytes % (A) 6 %; Neutrophils # (A) 5.1 k/uL (1.3-7.7); Neutrophils % (A) 65 %; Platelet Count 393 k/uL (150-450); RBC 5.01 m/uL (3.80-5.40); RDW 14.7 % (11.5-15.5); WBC 7.9 k/uL (3.8-10.6)
[2020-04-12 06:59] LABS: Glucose,Whole Blood 155 mg/dL (75-99)
[2020-04-12] MEDS ORDERED: PANTOPRAZOLE 40 MG TABLET PO SCH (07:30)
[2020-04-12] MEDS: FLUOROMETHOLONE 0.1% OPHTH DROPS 5 ML BTL RIGHT EYE SCH (07:30)
[2020-04-12] MEDS: TIMOLOL 0.25% OPHTH DROPS 5 ML BTL BOTH EYES SCH (07:30)
[2020-04-12] MEDS: FAMOTIDINE 20 MG TAB PO SCH (07:31)
[2020-04-12] MEDS: METOPROLOL TARTRATE 50 MG TAB PO SCH (07:31)
[2020-04-12] MEDS: APIXABAN 2.5 MG TABLET PO SCH (07:31)
[2020-04-12] MEDS: FUROSEMIDE 40 MG TAB PO SCH (07:31)
[2020-04-12] MEDS: CLOPIDOGREL 75 MG TAB PO SCH (07:31)
[2020-04-12] MEDS: hydrALAZINE HCL 25 MG TAB PO SCH (07:31)
[2020-04-12 07:35] VITALS: BP 114/68; PULSE 105; RESP 18; TEMP 97.8
[2020-04-12 10:03] LABS: African American GFR (CKD) 33.9 (60.0-200.0); BUN/Creat Ratio 32.5 Ratio (12.00-20.00); C Reactive Protein 1.1 mg/dL (0.0-0.8); Calcium 9.6 mg/dL (8.7-10.3); Magnesium 1.8 mg/dL (1.5-2.4); Non-African American GFR(CKD) 29.3 (60.0-200.0); Potassium 4.3 mmol/L (3.5-5.5)
[2020-04-12] MEDS: LIDOCAINE 5% PATCH TOPICAL SCH (11:30)
[2020-04-12] MEDS: HYDROcodone/APAP 5-325MG 1 EACH TAB PO PRN (11:30)
[2020-04-12 11:37] LABS: Glucose,Whole Blood 102 mg/dL (75-99)
--- NOTE | 2020-04-12 13:09 | P.PN ---
Subjective Progress Note Date: 04/12/20 HISTORY OF PRESENT ILLNESS: Patient examined this more at the bedside. She denies chest pain or pressure. She denies shortness of breath. She remains in atrial fibrillation with controlled ventricular rate. She is currently on Eliquis for anticoagulation. She is hoping to be discharged home today. PHYSICAL EXAM: VITAL SIGNS: Reviewed. GENERAL: Well-developed in no acute distress. NECK: Supple. No JVD or thyromegaly LUNGS: Respirations even and unlabored. Lungs essentially clear to auscultation bilaterally. HEART: Irregular rate and rhythm. S1 and S2 heard. EXTREMITIES: Normal range of motion. No clubbing or cyanosis. Peripheral pulses intact. No lower extremity edema ASSESSMENT: Acute on chronic diastolic heart failure New-onset paroxysmal atrial fibrillation Coronary artery disease with previous PCI Hypertension Hyperlipidemia Acute kidney injury PLAN: Continue current cardiac medications Patient may be discharged home today from a cardiac standpoint. She is to follow up outpatient. Nurse practitioner note has been reviewed by physician. Signing provider agrees with the documented findings, assessment, and plan of care. Objective - Vital Signs Vital signs: Vital Signs Temp 97.8 F 04/12/20 07:35 Pulse 105 H 04/12/20 07:35 Resp 18 04/12/20 07:35 BP 114/68 04/12/20 07:35 Pulse Ox 96 04/12/20 07:35 Intake & Output 04/11/20 04/12/20 04/12/20 18:59 06:59 18:59 Weight 68.7 kg Other: # Voids 1 - Labs CBC & Chem 7: 04/12/20 06:23 04/12/20 06:23 Labs: Abnormal Lab Results - Last 24 Hours (Table) 04/11/20 04/11/20 04/12/20 Range/Units 17:10 22:22 06:23 MCV (80.0-100.0) fL MCH (25.0-35.0) pg Anion Gap 14.00 H (4.00-12.00) mmol/L BUN 52.0 H (9.0-27.0) mg/dL Creatinine 1.6 H (0.6-1.5) mg/dL Est GFR (CKD-EPI)AfAm 33.9 L (60.0-200.0) Est GFR (CKD-EPI)NonAf 29.3 L (60.0-200.0) BUN/Creatinine Ratio 32.50 H (12.00-20.00) Ratio Glucose 127 H (70-110) mg/dL POC Glucose (mg/dL) 118 H 111 H (75-99) mg/dL C-Reactive Protein 1.1 H (0.0-0.8) mg/dL 04/12/20 04/12/20 04/12/20 Range/Units 06:23 06:57 11:36 MCV 76.2 L (80.0-100.0) fL MCH 23.6 L (25.0-35.0) pg Anion Gap (4.00-12.00) mmol/L BUN (9.0-27.0) mg/dL Creatinine (0.6-1.5) mg/dL Est GFR (CKD-EPI)AfAm (60.0-200.0) Est GFR (CKD-EPI)NonAf (60.0-200.0) BUN/Creatinine Ratio (12.00-20.00) Ratio Glucose (70-110) mg/dL POC Glucose (mg/dL) 155 H 102 H (75-99) mg/dL C-Reactive Protein (0.0-0.8) mg/dL
--- NOTE | 2020-04-12 13:51 | PN ---
PROGRESS NOTE Patient is seen for followup for acute kidney injury. Her renal function has improved. Serum creatinine down to 1.6 from 1.7 yesterday. The patient's blood pressure remains slightly on the lower side with systolic around 117 to 114 mmHg. Lasix has been changed to p.o. yesterday. PHYSICAL EXAMINATION: On examination today, patient is comfortable. She wants to go home. Blood pressure is 114/68, heart rate 105 per minute. She is afebrile. EXAMINATION OF THE HEART: S1, S2. EXAMINATION OF THE LUNGS: Bilateral breath sounds are heard. Abdomen is soft, nontender. Examination of lower extremities shows no significant edema. GRAPE PRUNER exam is grossly intact. LABS: Labs show sodium 139, potassium 4.3, BUN 52, serum creatinine 1.6 mg/dL. ASSESSMENT: 1. Acute kidney injury associated with some degree of hypotension hypoperfusion and cardiorenal syndrome, somewhat improved. Lasix was changed to p.o. Patient could be discharged with plans to follow up as outpatient in 2-3 weeks time. 2. Congestive heart failure, acute on top of chronic, mostly diastolic. 3. Chronic kidney disease stage 3 previous creatinine 0.9, etiology nephrosclerosis, no evidence of proteinuria. PLAN: May continue with the Lasix. Okay for discharge. Followup as outpatient in 2-3 weeks. Continue to avoid NSAIDs post discharge. Continue Lasix b.i.d. on discharge. MMODL / IJN: [id number] /
--- NOTE | 2020-04-12 14:59 | P.DS ---
Providers Date of admission: 04/08/20 09:59 Expected date of discharge: 04/12/20 Attending physician: Tatiana Nagy Consults: 04/08/20 11:19 Consult Physician Urgent Consulting Provider: Kirk Orozco Consult Reason/Comments: chf Do you want consulting provider notified?: Yes 04/09/20 12:40 Consult Physician Urgent Consulting Provider: Tayo Martinez Consult Reason/Comments: [place] Do you want consulting provider notified?: Yes 04/09/20 13:42 Consult Physician Routine Consulting Provider: Bakari Leblanc Consult Reason/Comments: pulmonary nodules Do you want consulting provider notified?: Already Contacted [facility] Course: Final diagnosis Congestive heart failure, acute exacerbation with acute on chronic diastolic dysfunction, ejection fraction 50-55% Atrial fibrillation, new onset Acute kidney injury Bilateral pulmonary nodules Hypertension History of leukocytosis Hyperlipidemia Diabetes mellitus type 2 History of coronary artery disease, stent placement History of bilateral hand degenerative joint disease History of gastroesophageal reflux disease Full code Discharge disposition Patient is being discharged in a stable condition with guarded prognosis to home. Patient will follow-up with Dr. Davila in the outpatient setting upon discharge. Patient also instructed to follow-up with Dr. Leblanc pulmonary, Dr. Flores cardiology, and nephrology Dr. Gaspar as discussed and scheduled. Patient is to continue with Eliquis 5mg twice daily and provided a coupon per cardiology and will follow-up with cardiology. Total time taken is greater than 35 minutes. History of present illness This is an 84-year-old male who was recently admitted with congestive heart failure acute exacerbation and was being closely monitored. Cardiology along with nephrology following as patient also was found to have acute kidney injury. Most current creatinine is 1.6 with a BUN of 52. Patient will follow-up with nephrology in the outpatient setting for repeat labs. Recent is maintained on Lasix and dose has been adjusted. Patient's blood sugars have been on the lower side and patient does have a history of diabetes mellitus and takes metformin in the outpatient setting although metformin is currently being held until primary care follow-up. Patient instructed to continue to monitor blood sugars before meals at bedtime and to keep a diary of blood sugar readings for primary care follow-up. Patient will need a glucometer to monitor blood sugars closely in the outpatient setting along with testing supplies. Patient's blood pressures also slightly on the lower side and will continue to hold medications until primary care follow-up. Patient to continue with metoprolol 100 mg twice daily and again instructed to monitor blood pressure closely and keep a diary for primary care follow-up. Patient was also found to have atrial fibrillation with rapid ventricular rate and was seen and evaluated by cardiology. Patient was given a coupon for 1 month free of Eliquis and will follow up with cardiology within this month. If patient is unable to afford this medication cardiology will discuss with her at the follow-up appointment and may discuss the possibility of Coumadin as Eliquis is over $400 per month. Currently no reports of chest pain, shortness of breath, or palpitations. Patient is afebrile. No reports of nausea or vomiting and patient is tolerating diet. Patient will be discharged home today. On exam vital signs are stable. Temp is 97.8F, pulse is 105, respirations are 18, blood pressure is 114/68, oxygen saturation is 96% on room air. Cardio S1, S2 are muffled. Respiratory system shows diminished breath sounds at the bases with no wheezing or rhonchi noted. Abdomen is soft and nontender. Nervous system shows no focal deficits. Please refer to medication reconciliation sheet for a list of medications. Patient Condition at Discharge: Fair Plan - Discharge Summary Discharge Rx Participant: Yes New Discharge Prescriptions: New Apixaban [Eliquis] 2.5 mg PO BID #60 tablet Furosemide [Lasix] 40 mg PO BID@0900,1600 30 Days #60 tab Lidocaine 5% Patch [Lidoderm 5% Patch] 1 patch TOPICAL DAILY@1200 PRN #14 patch PRN Reason: Pain Metoprolol Tartrate [Lopressor] 100 mg PO BID 30 Days #120 tab HYDROcodone/APAP 5-325MG [Rumely 5-325] 1 each PO Q6HR PRN #12 tab PRN Reason: Pain Continue Omeprazole [PriLOSEC] 20 mg PO AC-BRKFST Timolol 0.25% Ophth Soln [Timoptic 0.25% Ophth Soln] 1 drop BOTH EYES DAILY Fluorometholone 0.1% Ophth Jazz [Fml] 1 drop RIGHT EYE DAILY hydrALAZINE HCL [Apresoline] 25 mg PO BID Nitroglycerin Sl Tabs [Nitrostat] 0.4 mg SUBLINGUAL Q5M PRN #20 tab PRN Reason: Chest Pain Clopidogrel [Plavix] 75 mg PO DAILY #30 tab Discontinued amLODIPine [Norvasc] 5 mg PO BID lisinopriL 20 mg PO BID Aspirin 81 mg PO DAILY #30 chew Metoprolol Tartrate [Lopressor] 50 mg PO BID tab metFORMIN HCL [Glucophage] 500 mg PO QAM Discharge Medication List Omeprazole [PriLOSEC] 20 mg PO AC-BRKFST 10/14/15 [History] Fluorometholone 0.1% Ophth Jazz [Fml] 1 drop RIGHT EYE DAILY 11/04/19 [History] Timolol 0.25% Ophth Soln [Timoptic 0.25% Ophth Soln] 1 drop BOTH EYES DAILY 11/04/19 [History] hydrALAZINE HCL [Apresoline] 25 mg PO BID 11/04/19 [History] Clopidogrel [Plavix] 75 mg PO DAILY #30 tab 11/05/19 [Rx] Nitroglycerin Sl Tabs [Nitrostat] 0.4 mg SUBLINGUAL Q5M PRN #20 tab 11/05/19 [Rx] Apixaban [Eliquis] 2.5 mg PO BID #60 tablet 04/10/20 [Rx] Furosemide [Lasix] 40 mg PO BID@0900,1600 30 Days #60 tab 04/12/20 [Rx] HYDROcodone/APAP 5-325MG [Rumely 5-325] 1 each PO Q6HR PRN #12 tab 04/12/20 [Rx] Lidocaine 5% Patch [Lidoderm 5% Patch] 1 patch TOPICAL DAILY@1200 PRN #14 patch 04/12/20 [Rx] Metoprolol Tartrate [Lopressor] 100 mg PO BID 30 Days #120 tab 04/12/20 [Rx] Follow up Appointment(s)/Referral(s): Victorina Gaspar MD [STAFF PHYSICIAN] - 05/08/20 10:20 am (This is a telephone appointment. The medical officer will call earlier in the morning to get you checked in for this appointment) Bakari Leblanc MD [STAFF PHYSICIAN] - 4 Weeks (Office closed at time of discharge please call April 13 to set up a follow up appointment) Ned Flores MD [STAFF PHYSICIAN] - 04/25/20 3:15 pm Diomedes Davila DO [Primary Care Provider] - 04/17/20 11:20 am (Please call from the parking lot when you arrive for this appointment. Face mask is required in the building.) Ambulatory/Diagnostic Orders: Basic Metabolic Panel [LAB.AMB] Time Frame: 2 Days, Location: None Selected Activity/Diet/Wound Care/Special Instructions: Activity Limited until follow-up Continue current diet Continue with Eliquis as discussed and prescribed by cardiology until follow-up with cardiology Continue to hold metformin and monitor blood sugars before meals at bedtime and keep a log for primary care follow-up Continue to monitor blood pressure and hold blood pressure medications until follow-up with primary care and cardiology Keep a log of blood pressure readings for follow-up Follow-up with primary care provider upon discharge Discharge Disposition: HOME SELF-CARE
--- NOTE | 2020-04-12 15:49 | P.PN ---
Subjective Progress Note Date: 04/12/20 Principal diagnosis: Acute hypoxic respiratory failure Shortness of breath due to above and related to acute exacerbation of CHF likely acute on chronic diastolic heart failure New onset atrial fibrillation Coronary artery disease Acute kidney injury Hypertension hypertensive cardiovascular disease Sleep disorder breathing and sleep apnea 04/12/2020, patient seen eval examined during the rounds labs reviewed medications reviewed patient sitting upright on the bed breathing comfortably denies any chest pain likely will be discharged later on today 04/11/2020, patient seen eval examined during the rounds labs reviewed medications reviewed, remains afebrile patient is in A. fib with [facility] cardiovascular services following the patient, yesterday chest x-ray reviewed st ill have interstitial edema, urine creatinine 57 /1.7 continue to go up 04/10/2020, patient seen eval examined during the rounds labs reviewed medications reviewed oxygenation remains stable shortness of breath stable and improved, renal service is evaluating the increase renal function likely related to contrast-induced nephropathy Patient is a 84-year-old female with multiple complex medical problems including coronary artery disease history of stent placement 2 months ago also has a history of dyslipidemia, GERD, diabetes mellitus hypertension hypertensive cardiovascular disease, patient has been having shortness of breath for 2-3 days along with some chest wall pain, patient was seen by primary care provider, thought to be pain related to muscle or musculoskeletal pain, therapy was p rescribed without significant relief, patient continued to have pain also started having cough which is predominantly dry decided to come into the hospital patient was found to be hypoxic mildly saturation was 99% on room air, patient underwent computed tomography scan of the chest, BNP was over 2000, CT was negative for pulmonary embolism however interstitial edema consistent with CHF noted, patient admitted, some leukocytosis present, Objective - Vital Signs Vital signs: Vital Signs Temp 97.8 F 04/12/20 07:35 Pulse 105 H 04/12/20 07:35 Resp 18 04/12/20 07:35 BP 114/68 04/12/20 07:35 Pulse Ox 96 04/12/20 07:35 Intake & Output 04/11/20 04/12/20 04/12/20 18:59 06:59 18:59 Weight 68.7 kg Other: # Voids 1 - Exam - Constitutional General appearance: average body habitus, disheveled - EENT Eyes: EOMI, PERRLA Ears: bilateral: normal - Neck Carotids: bilateral: upstroke normal Thyroid: bilateral: normal size - Respiratory Respiratory: bilateral: diminished, rales - Cardiovascular Rhythm: regular Heart sounds: normal: S1, S2 - Integumentary Integumentary: decreased turgor - Psychiatric Psychiatric: A&O x's 3, intact judgment & insight - Labs CBC & Chem 7: 04/12/20 06:23 04/12/20 06:23 Labs: Abnormal Lab Results - Last 24 Hours (Table) 04/11/20 04/11/20 04/12/20 Range/Units 17:10 22:22 06:23 MCV (80.0-100.0) fL MCH (25.0-35.0) pg Anion Gap 14.00 H (4.00-12.00) mmol/L BUN 52.0 H (9.0-27.0) mg/dL Creatinine 1.6 H (0.6-1.5) mg/dL Est GFR (CKD-EPI)AfAm 33.9 L (60.0-200.0) Est GFR (CKD-EPI)NonAf 29.3 L (60.0-200.0) BUN/Creatinine Ratio 32.50 H (12.00-20.00) Ratio Glucose 127 H (70-110) mg/dL POC Glucose (mg/dL) 118 H 111 H (75-99) mg/dL C-Reactive Protein 1.1 H (0.0-0.8) mg/dL 04/12/20 04/12/20 04/12/20 Range/Units 06:23 06:57 11:36 MCV 76.2 L (80.0-100.0) fL MCH 23.6 L (25.0-35.0) pg Anion Gap (4.00-12.00) mmol/L BUN (9.0-27.0) mg/dL Creatinine (0.6-1.5) mg/dL Est GFR (CKD-EPI)AfAm (60.0-200.0) Est GFR (CKD-EPI)NonAf (60.0-200.0) BUN/Creatinine Ratio (12.00-20.00) Ratio Glucose (70-110) mg/dL POC Glucose (mg/dL) 155 H 102 H (75-99) mg/dL C-Reactive Protein (0.0-0.8) mg/dL Assessment and Plan Assessment: Acute kidney injury Acute hypoxic respiratory failure Shortness of breath due to above and related to acute exacerbation of CHF likely acute on chronic diastolic heart failure New onset atrial fibrillation RA artery disease Hypertension hypertensive cardiovascular disease Sleep disorder breathing and sleep apnea Plan: Overall plan is to continue diuresis Lasix toes are being adjusted, Continue to monitor renal functions closely Deep breathing exercises incentive spirometry We'll follow clinical course closely further recommendations pending will likely need a sleep study on outpatient basis Time with Patient: Greater than 30
== END 2020-04-12 14:52 | disposition home or self-care (01) | DRG 291 ==
LOC: EC 07:57 → 4SSUR 09:59
PROVIDERS: ADMIT Internal Medicine; ATTEND Internal Medicine
DX: I13.0 Hypertensive heart and chronic kidney disease with heart failure and stage 1 through stage 4 chronic kidney disease, or unspecified chronic kidney disease (principal); I50.33 Acute on chronic diastolic (congestive) heart failure; J96.01 Acute respiratory failure with hypoxia; N17.0 Acute kidney failure with tubular necrosis; E11.22 Type 2 diabetes mellitus with diabetic chronic kidney disease; E78.5 Hyperlipidemia, unspecified; G47.30 Sleep apnea, unspecified; I25.10 Atherosclerotic heart disease of native coronary artery without angina pectoris; I48.0 Paroxysmal atrial fibrillation; Z96.1 Presence of intraocular lens; Z96.642 Presence of left artificial hip joint; T50.8X5A Adverse effect of diagnostic agents, initial encounter; Z20.828 Contact with and (suspected) exposure to other viral communicable diseases; K44.9 Diaphragmatic hernia without obstruction or gangrene; J44.9 Chronic obstructive pulmonary disease, unspecified; M19.041 Primary osteoarthritis, right hand; M19.042 Primary osteoarthritis, left hand; N18.30 Chronic kidney disease, stage 3 unspecified; K21.9 Gastro-esophageal reflux disease without esophagitis; Z79.02 Long term (current) use of antithrombotics/antiplatelets; Z79.82 Long term (current) use of aspirin; Z79.84 Long term (current) use of oral hypoglycemic drugs; I25.2 Old myocardial infarction; Z79.899 Other long term (current) drug therapy; Z79.01 Long term (current) use of anticoagulants; Z95.5 Presence of coronary angioplasty implant and graft; Z98.890 Other specified postprocedural states; Z98.42 Cataract extraction status, left eye; Z82.49 Family history of ischemic heart disease and other diseases of the circulatory system; Z94.7 Corneal transplant status; Z80.9 Family history of malignant neoplasm, unspecified
CPT/HCPCS: 36415; 71045; 71275; 76770; 80048; 80053; 81001; 83605; 83735; 83880; 84145; 84484; 85025; 85379; 85610; 85730; 86140; 87635; 93005; 94640; 96374; 99285

== ENCOUNTER → 2020-12-06 | Outpatient (CLI) | payer MEDICARE, BC ==
--- NOTE | 2020-12-06 15:40 | XR ---
EXAMINATION TYPE: XR toes LT DATE OF EXAM: 12/06/2020 COMPARISON: NONE HISTORY: [id number] LT FOOT PAIN COMPARISON: 07/14/2014 TECHNIQUE: 2 views of the left foot are submitted. FINDINGS: Again noted is moderate hallux valgus deformity involving the first metatarsal phalangeal j oint with a moderate joint space narrowing. Overall appearance is unchanged. Soft tissue swelling is noted. I do not see evidence for fracture or dislocation. IMPRESSION: As above
== END | disposition home or self-care (01) ==
LOC: RADXRYALE 15:21
PROVIDERS: ATTEND Physician Assistant
DX: M20.12 Hallux valgus (acquired), left foot (principal); M25.872 Other specified joint disorders, left ankle and foot

== ENCOUNTER → 2021-03-19 | Outpatient (CLI) | payer MEDICARE, BC ==
--- NOTE | 2021-03-19 14:36 | XR ---
EXAMINATION TYPE: XR abdomen 2V DATE OF EXAM: 03/19/2021 COMPARISON: NONE HISTORY: Pain TECHNIQUE: Single supine KUB image of the abdomen is obtained FINDINGS: Small bowel demonstrates no evidence for dilatation or air fluid levels. Gas and fecal material is seen in non-distended colon. No convincing evidence for pneumoperitoneum. No unusual calcifications. The lung bases are clear. The osseous structures are intact. IMPRESSION: 1. Overall nonobstructive bowel gas pattern.
== END | disposition home or self-care (01) ==
LOC: RADXRYALE 13:53
PROVIDERS: ATTEND Physician Assistant Medical
DX: R14.0 Abdominal distension (gaseous) (principal)
CPT/HCPCS: 74019

== ENCOUNTER → 2021-07-09 | Outpatient (CLI) | payer MEDICARE, BC ==
--- NOTE | 2021-07-09 15:48 | XR ---
EXAMINATION TYPE: XR thoracic spine 2V DATE OF EXAM: 07/09/2021 COMPARISON: NONE HISTORY: 86-year-old female [id number], thoracic pain TECHNIQUE: AP and lateral views FINDINGS: Exaggerated mid thoracic kyphosis. The patient is obliqued with a slight dextroconvex curvature along the upper thoracic spine. The curvature and oblique positioning limits adequate assessment of verteb ral body heights in the mid and lower thoracic spine. There appears to be mild anterior wedge deformi ties at a couple levels in the midthoracic spine. This may have been present on the patient's 020 CT.. Grade 1 retrolisthesis at the level in the lower thoracic spine. Suspect underlying-mid and lower thoracic spine. CT recommended for further evaluation with comparison to the patient's prior study. IMPRESSION: Given underlying DISH mid and lower thoracic spine with suggestion of mild anterior wedging of a coup le mid thoracic vertebral bodies, and a grade 1 retrolisthesis in the lower thoracic spine, recommend further CT evaluation to assess for any acute change compared to 04/08/2020.
== END | disposition home or self-care (01) ==
LOC: RADXRYALE 11:19
PROVIDERS: ATTEND Physician Assistant Medical
DX: M48.14 Ankylosing hyperostosis [Forestier], thoracic region (principal); M43.14 Spondylolisthesis, thoracic region
CPT/HCPCS: 72070

== ENCOUNTER 2021-08-25 16:33 | Emergency (ER) | payer MEDICARE, BC ==
[2021-08-25 16:54] VITALS: TEMP 98.2
--- NOTE | 2021-08-25 17:46 | ED ---
Back Pain HPI - General Chief Complaint: Back Pain/Injury Stated Complaint: Back Pain Time Seen by Provider: 08/25/21 17:38 Source: patient Limitations: no limitations - History of Present Illness Initial Comments: This is a pleasant 86-year-old female history of coronary artery disease, diabetes mellitus type 2, hypertension, previous myocardial infarction, and osteoarthritis. Patient states that she has been doing some yard work. Patient states she was laying on the ground 2 days ago and did some bleeding. She states that since then she has had pain in the center of her back. However, patient states that this pain seems to be fairly constant, she states when she goes to stand up or goes to do something she feels like she loses her breath. Patient states she is getting short of breath easily. Denies any cough. Denies any fever. Patient denying any chest pain. Pain might be slightly worsened with movement. No paresthesias. No headache, no fever or chills, no changes in vision or hearing, no sore throat or difficulty with speech, no neck pain, no chest pain or shortness of breath, no abdominal pain, no nausea or vomiting, no changes in urination or bowel movements, no numbness or tingling, no extremity pain, no skin rashes or le sions. - Related Data Home Medications Medication Instructions Recorded Confirmed Omeprazole [PriLOSEC] 20 mg PO AC-BRKFST 10/14/15 08/25/21 Timolol 0.25% Ophth Soln [Timoptic 1 drop BOTH EYES DAILY 11/04/19 08/25/21 0.25% Ophth Soln] Amiodarone [Cordarone] 200 mg PO DAILY 08/25/21 08/25/21 Aspirin EC [Ecotrin Low Dose] 81 mg PO DAILY 08/25/21 08/25/21 Furosemide [Lasix] 20 mg PO DAILY 08/25/21 08/25/21 Levothyroxine Sodium [Synthroid] 112.5 mcg PO DAILY 08/25/21 08/25/21 Metoprolol Tartrate [Lopressor] 100 mg PO BID 08/25/21 08/25/21 Prednisolone Acetate/Pf 1 drop RIGHT EYE DAILY 08/25/21 08/25/21 [Prednisolone Acet 1% Eye Drop] QUEtiapine [SEROquel] 25 mg PO HS 08/25/21 08/25/21 Warfarin [Coumadin] 1 mg PO SUMOTUTHFRSA 08/25/21 08/25/21 Warfarin [Coumadin] 2 mg PO WE 08/25/21 08/25/21 hydrALAZINE HCL [Apresoline] 100 mg PO BID 08/25/21 08/25/21 Previous Rx's Medication Instructions Recorded Acetaminophen [Tylenol] 500 mg PO Q4-6H PRN #24 tab 08/25/21 Cyclobenzaprine [Flexeril] 5 mg PO TID PRN #20 tablet 08/25/21 Allergies Allergy/AdvReac Type Severity Reaction Status Date / Time No Known Allergies Allergy Verified 08/25/21 19:48 Review of Systems ROS Statement: Those systems with pertinent positive or pertinent negative responses have been documented in the HPI. ROS Other: All systems not noted in ROS Statement are negative. Past Medical History Past Medical History: Coronary Artery Disease (CAD), Diabetes Mellitus, Eye Disorder, GERD/Reflux, Hyperlipidemia, Hypertension, Myocardial Infarction (DC), Osteoarthritis (OA) Additional Past Medical History / Comment(s): NIDDM type II, R eye-sees shadows only, hiatal hernia, arthritis bilateral hands, insomnia. Last Myocardial Infarction Date:: 2015 History of Any Multi-Drug Resistant Organisms: None Reported Past Surgical History: Heart Catheterization With Stent, Orthopedic Surgery Additional Past Surgical History / Comment(s): PCIs with stents, L hip fracture with hemiarthroplasty, R foot fracture with bone graft, R eye corneal tr ansplant, L eye cataract removal with lens implant. Past Anesthesia/Blood Transfusion Reactions: Postoperative Nausea & Vomiting (PONV) Date of Last Stent Placement:: 10/14/2015 Past Psychological History: No Psychological Hx Reported Smoking Status: Never smoker Past Alcohol Use History: None Reported Past Drug Use History: None Reported - Past Family History Mother Family Medical History: Cancer Father Family Medical History: Myocardial Infarction (DC) Additional Family Medical History / Comment(s): Father from a [place] at the age of 57yrs. General Exam Limitations: no limitations General appearance: alert, in no apparent distress Head exam: Present: atraumatic, normocephalic, normal inspection Eye exam: Present: normal appearance, PERRL, EOMI. Absent: scleral icterus, conjunctival injection, periorbital swelling ENT exam: Present: normal exam, normal oropharynx, mucous membranes moist. Absent: normal external ear exam Neck exam: Present: normal inspection, full ROM. Absent: tenderness, meningismus, lymphadenopathy Respiratory exam: Present: normal lung sounds bilaterally, rales (Possible mild scattered rale), chest wall tenderness (Patient has mild tenderness to the posterior chest wall. However this is not definitive. No midline tenderness.). Absent: respiratory distress, wheezes, rhonchi, stridor, accessory muscle use, decreased breath sounds, prolonged expiratory Cardiovascular Exam: Present: regular rate, normal rhythm, normal heart sounds. Absent: systolic murmur, diastolic murmur, rubs, gallop, clicks GI/Abdominal exam: Present: soft, normal bowel sounds. Absent: distended, tenderness, guarding, rebound, rigid Extremities exam: Present: normal inspection, full ROM, normal capillary refill. Absent: tenderness, pedal edema, joint swelling, calf tenderness Back exam: Present: normal inspection, full ROM (Full range of motion with mild increase of pain.), paraspinal tenderness (Minimal), other (No break in skin integrity. No rash. No erythema). Absent: tenderness, muscle spasm, vertebral tenderness, rash noted Neurological exam: Present: alert, oriented X3, CN II-XII intact Psychiatric exam: Present: normal affect, normal mood Skin exam: Present: warm, dry, intact, normal color. Absent: rash Course Vital Signs 08/25/21 08/25/21 08/25/21 16:49 19:45 20:39 Temperature 98.2 F Pulse Rate 66 60 Respiratory 18 16 Rate Blood Pressure 197/77 203/84 O2 Sat by Pulse 97 97 Oximetry - Reevaluation(s) Reevaluation #1: 08/25/21 21:35 Medical record is reviewed Symptoms are improved here in the emergency department Patient is informed of results and questions answered Patient in no distress Reevaluation #2: 08/25/21 21:39 Medical record is reviewed Patient improved after pain medication. Patient's INR was 3.5. Patient is informed of results and questions answered Patient in no distress Medical Decision Making - Medical Decision Making Patient presents with obscure central back pain for 2 days. Questionably increased with range of motion. Minimal thoracic paraspinal tenderness. However the patient is complaining of shortness of breath when she changes position. This does raise a suspicion of possible pulmonary embolism. No chest pain. Patient states the pain is been present for 2 days. Patient denying any recent immobilization. However she is 86 years old. Noted the patient is also on a beta ambrocio.This is likely [place] skeletal. However vascular etiology not ruled out. I think this less likely to be aortic pathology. Patient's renal function did not allow IV contrast with the computed tomography scan. However, patient is on Eliquis. Patient also has an INR of 3.5. I think this is unlikely that the patient would have any kind of blood clot. We'll or emre a noncontrast study. Patient's INR was elevated at 3.5. Patient informs me that she is on warfarin. I'm going to have her hold 1 dose and contact her regular physician for possible dosage adjustment. The case was discussed in detail with ED attending physician. Presentation, findings, treatment plan discussed in detail. Dr. Lyle supervising physician - Lab Data Result diagrams: 08/25/21 19:03 08/25/21 19:03 Lab Results 08/25/21 08/25/21 08/25/21 Range/Units 19:03 19:03 19:03 WBC 10.9 H (3.8-10.6) k/uL RBC 4.85 (3.80-5.40) m/uL Hgb 15.1 (11.4-16.0) gm/dL Hct 44.6 (34.0-46.0) % MCV 92.0 (80.0-100.0) fL MCH 31.1 (25.0-35.0) pg MCHC 33.8 (31.0-37.0) g/dL RDW 13.5 (11.5-15.5) % Plt Count 333 (150-450) k/uL MPV 7.7 Neutrophils % 77 % Lymphocytes % 15 % Monocytes % 5 % Eosinophils % 1 % Basophils % 0 % Neutrophils # 8.5 H (1.3-7.7) k/uL Lymphocytes # 1.6 (1.0-4.8) k/uL Monocytes # 0.6 (0-1.0) k/uL Eosinophils # 0.1 (0-0.7) k/uL Basophils # 0.0 (0-0.2) k/uL PT 35.2 H (9.0-12.0) sec INR 3.5 H (<1.2) APTT 36.4 H (22.0-30.0) sec Sodium 140 (137-145) mmol/L Potassium 3.9 (3.5-5.1) mmol/L Chloride 107 (98-107) mmol/L Carbon Dioxide 24 (22-30) mmol/L Anion Gap 9 mmol/L BUN 26 H (7-17) mg/dL Creatinine 1.42 H (0.52-1.04) mg/dL Est GFR (CKD-EPI)AfAm 39 (>60 ml/min/1.73 sqM) Est GFR (CKD-EPI)NonAf 34 (>60 ml/min/1.73 sqM) Glucose 145 H (74-99) mg/dL Calcium 9.3 (8.4-10.2) mg/dL Magnesium 2.2 (1.6-2.3) mg/dL Total Bilirubin 0.6 (0.2-1.3) mg/dL AST 44 H (14-36) U/L ALT 37 H (4-34) U/L Alkaline Phosphatase 125 (38-126) U/L Troponin I (0.000-0.034) ng/mL Total Protein 7.5 (6.3-8.2) g/dL Albumin 4.2 (3.5-5.0) g/dL 08/25/21 Range/Units 19:03 WBC (3.8-10.6) k/uL RBC (3.80-5.40) m/uL Hgb (11.4-16.0) gm/dL Hct (34.0-46.0) % MCV (80.0-100.0) fL MCH (25.0-35.0) pg MCHC (31.0-37.0) g/dL RDW (11.5-15.5) % Plt Count (150-450) k/uL MPV Neutrophils % % Lymphocytes % % Monocytes % % Eosinophils % % Basophils % % Neutrophils # (1.3-7.7) k/uL Lymphocytes # (1.0-4.8) k/uL Monocytes # (0-1.0) k/uL Eosinophils # (0-0.7) k/uL Basophils # (0-0.2) k/uL PT (9.0-12.0) sec INR (<1.2) APTT (22.0-30.0) sec Sodium (137-145) mmol/L Potassium (3.5-5.1) mmol/L Chloride (98-107) mmol/L Carbon Dioxide (22-30) mmol/L Anion Gap mmol/L BUN (7-17) mg/dL Creatinine (0.52-1.04) mg/dL Est GFR (CKD-EPI)AfAm (>60 ml/min/1.73 sqM) Est GFR (CKD-EPI)NonAf (>60 ml/min/1.73 sqM) Glucose (74-99) mg/dL Calcium (8.4-10.2) mg/dL Magnesium (1.6-2.3) mg/dL Total Bilirubin (0.2-1.3) mg/dL AST (14-36) U/L ALT (4-34) U/L Alkaline Phosphatase (38-126) U/L Troponin I <0.012 (0.000-0.034) ng/mL Total Protein (6.3-8.2) g/dL Albumin (3.5-5.0) g/dL - EKG Data EKG Comments: EKG done at 1902 revealed sinus bradycardia with a first-degree AV block. No e vidence of acute ST or T-wave changes. ME interval is 226 ms. Other intervals are normal. Left axis deviation. Poor R-wave progression noted Disposition Clinical Impression: Thoracic compression fracture, Hypertension, poor control, Warfarin-induced coagulopathy Disposition: HOME SELF-CARE Instructions (If sedation given, give patient instructions): Vertebral Compression Fracture (ED), Hypertension (ED), Back Pain (ED) Additional Instructions: Hold 1 dose of warfarin then resume her normal dosage and contact your regular physician on Friday for possible dosage adjustment. Tylenol 500 mg every 6 hours for pain control. Low-dose Flexeril 5 mg every 8 hours as needed. C aution, this might make you drowsy.Take your nighttime high blood pressure medications as soon as you get home. Follow-up with your regular physician as directed. Return to the ER immediately if any symptoms worsen, new symptoms arise, or any other problems develop. Prescriptions: Cyclobenzaprine [Flexeril] 5 mg PO TID PRN #20 tablet PRN Reason: Spasms Acetaminophen [Tylenol] 500 mg PO Q4-6H PRN #24 tab PRN Reason: Pain Is patient prescribed a controlled substance at d/c from ED?: No Referrals: Diomedes Akbar DO [Primary Care Provider] - 1-2 days
[2021-08-25] MEDS ORDERED: SODIUM CHLORIDE 0.9% 500 ML 500 ML IV STA (18:12)
[2021-08-25] MEDS ORDERED: ONDANSETRON 4 MG/2 ML VIAL IVP STA (18:15)
[2021-08-25] MEDS ORDERED: MORPHINE SULFATE 4 MG/ML SYRINGE IV STA (18:15)
[2021-08-25 19:24] LABS: Potassium 3.9 mmol/L (3.5-5.1)
[2021-08-25 19:25] LABS: Albumin 4.2 g/dL (3.5-5.0); Calcium 9.3 mg/dL (8.4-10.2); Magnesium 2.2 mg/dL (1.6-2.3); Total Bilirubin 0.6 mg/dL (0.2-1.3); Total Protein 7.5 g/dL (6.3-8.2)
[2021-08-25 19:26] LABS: INR 3.5 (<1.2); Partial Thromboplastin Time 36.4 sec (22.0-30.0); Prothrombin Time 35.2 sec (9.0-12.0)
[2021-08-25 19:32] LABS: HCT 44.6 % (34.0-46.0); HGB 15.1 gm/dL (11.4-16.0); MCH 31.1 pg (25.0-35.0); MCHC 33.8 g/dL (31.0-37.0); RBC 4.85 m/uL (3.80-5.40); WBC 10.9 k/uL (3.8-10.6)
[2021-08-25 19:33] LABS: Basophils % (A) 0 %; Eosinophils # (A) 0.1 k/uL (0-0.7); Eosinophils % (A) 1 %; Lymphocytes # (A) 1.6 k/uL (1.0-4.8); Lymphocytes % (A) 15 %; Mean Platelet Volume 7.7; Monocytes # (A) 0.6 k/uL (0-1.0); Monocytes % (A) 5 %; Neutrophils # (A) 8.5 k/uL (1.3-7.7); Neutrophils % (A) 77 %; Platelet Count 333 k/uL (150-450); RDW 13.5 % (11.5-15.5)
[2021-08-25 19:50] VITALS: PULSE 60; RESP 16
--- NOTE | 2021-08-25 20:25 | CT ---
EXAMINATION TYPE: CT chest wo con DATE OF EXAM: 08/25/2021 COMPARISON: 04/08/2020 HISTORY: posterior chest pain CT DLP: 357.6 mGycm Automated exposure control for dose reduction was used. Images obtained from the thoracic inlet to the diaphragm with no contrast. FINDINGS: There is some interstitial infiltrate in the lower lung kaminski bilaterally. No pulmonary mass. Heart is slightly enlarged. No pericardial effusion. No pleural effusion. There is a hiatal hernia. There a re no hilar masses. There is no mediastinal adenopathy. There is coronary artery calcification. Thora cic aorta is atheromatous. There is slight anterior wedging of several thoracic vertebral bodies. There is osteopenia. Sternum i s intact. There is a large calcified gallstone. IMPRESSION: Mild cardiomegaly. Hiatal hernia. There is clearing of the pleural effusions compared to old exam. Th ere is clearing of the pulmonary infiltrates to a large extent compared to old exam. No suspicious pu lmonary mass. Atheromatous aorta. No aneurysm.
[2021-08-25 20:43] VITALS: BP 203/84
[2021-08-25] MEDS ORDERED: ACETAMINOPHEN TAB 500 MG TAB PO STA (21:35)
[2021-08-25] MEDS ORDERED: CYCLOBENZAPRINE 10MG STARTER 3 TAB BTL PO STA (21:43)
== END 2021-08-25 21:51 | disposition home or self-care (01) ==
LOC: EC 16:33
DX: S22.009A Unspecified fracture of unspecified thoracic vertebra, initial encounter for closed fracture (principal); D68.9 Coagulation defect, unspecified; I10 Essential (primary) hypertension; I51.7 Cardiomegaly; E11.9 Type 2 diabetes mellitus without complications; I25.2 Old myocardial infarction; I25.10 Atherosclerotic heart disease of native coronary artery without angina pectoris; K21.9 Gastro-esophageal reflux disease without esophagitis; E78.5 Hyperlipidemia, unspecified; Z79.899 Other long term (current) drug therapy; Z79.01 Long term (current) use of anticoagulants; X58.XXXA Exposure to other specified factors, initial encounter
CPT/HCPCS: 36415; 93005; 80053; 83735; 84484; 85025; 85610; 85730; 71250; 99284; 96374; 96361; 96375; J2270; J2405

== ENCOUNTER 2021-08-26 08:14 | Observation (INO) | payer MEDICARE, BC ==
[2021-08-26] MEDS ORDERED: NITROGLYCERIN OINT 1 INCH/GM PACKET TOPICAL STA (08:38)
--- NOTE | 2021-08-26 08:42 | ED ---
General Adult HPI - General Chief complaint: Chest Pain Stated complaint: Chest pain Time Seen by Provider: 08/26/21 08:30 Source: patient, EMS, RN notes reviewed, old records reviewed Mode of arrival: EMS Limitations: no limitations - History of Present Illness Initial comments: This is an 86-year-old female who presents emergency Department complaining of chest pain. Patient states started about 2:00 morning she was very short of breath and diaphoretic. Patient states she's had multiple heart attacks in the past she also has high blood pressure high cholesterol. Patient states normally with her heart attack she has not had pain so this is a new presentation. Patient states the pain did not radiate anywhere but she was very sweaty. Patient denies any nausea. Patient denies abdominal pain. Patient denies any headache patient denies lightheadedness or dizziness. Patient denies any palpitations. Patient denies any recent fever chills or cough per patient denies any swelling to the legs or calf tenderness. - Related Data Home Medications Medication Instructions Recorded Confirmed Omeprazole [PriLOSEC] 20 mg PO AC-BRKFST 10/14/15 08/25/21 Timolol 0.25% Ophth Soln [Timoptic 1 drop BOTH EYES DAILY 11/04/19 08/25/21 0.25% Ophth Soln] Amiodarone [Cordarone] 200 mg PO DAILY 08/25/21 08/25/21 Aspirin EC [Ecotrin Low Dose] 81 mg PO DAILY 08/25/21 08/25/21 Furosemide [Lasix] 20 mg PO DAILY 08/25/21 08/25/21 Levothyroxine Sodium [Synthroid] 112.5 mcg PO DAILY 08/25/21 08/25/21 Metoprolol Tartrate [Lopressor] 100 mg PO BID 08/25/21 08/25/21 Prednisolone Acetate/Pf 1 drop RIGHT EYE DAILY 08/25/21 08/25/21 [Prednisolone Acet 1% Eye Drop] QUEtiapine [SEROquel] 25 mg PO HS 08/25/21 08/25/21 Warfarin [Coumadin] 1 mg PO SUMOTUTHFRSA 08/25/21 08/25/21 Warfarin [Coumadin] 2 mg PO WE 08/25/21 08/25/21 hydrALAZINE HCL [Apresoline] 100 mg PO BID 08/25/21 08/25/21 Previous Rx's Medication Instructions Recorded Acetaminophen [Tylenol] 500 mg PO Q4-6H PRN #24 tab 08/25/21 Cyclobenzaprine [Flexeril] 5 mg PO TID PRN #20 tablet 08/25/21 Allergies Allergy/AdvReac Type Severity Reaction Status Date / Time No Known Allergies Allergy Verified 08/26/21 08:30 Review of Systems ROS Statement: Those systems with pertinent positive or pertinent negative responses have been documented in the HPI. ROS Other: All systems not noted in ROS Statement are negative. Past Medical History Past Medical History: Coronary Artery Disease (CAD), Diabetes Mellitus, Eye Disorder, GERD/Reflux, Hyperlipidemia, Hypertension, Myocardial Infarction ([place]), Osteoarthritis (OA) Additional Past Medical History / Comment(s): NIDDM type II, R eye-sees shadows only, hiatal hernia, arthritis bilateral hands, insomnia. Last Myocardial Infarction Date:: 2015 History of Any Multi-Drug Resistant Organisms: None Reported Past Surgical History: Heart Catheterization With Stent, Orthopedic Surgery Additional Past Surgical History / Comment(s): PCIs with stents, L hip fracture with hemiarthroplasty, R foot fracture with bone graft, R eye corneal transplant, L eye cataract removal with lens implant. Past Anesthesia/Blood Transfusion Reactions: Postoperative Nausea & Vomiting (PONV) Date of Last Stent Placement:: 10/14/2015 Past Psychological History: No Psychological Hx Reported Smoking Status: Never smoker Past Alcohol Use History: None Reported Past Drug Use History: None Reported - Past Family History Mother Family Medical History: Cancer Father Family Medical History: Myocardial Infarction (GA) Additional Family Medical History / Comment(s): Father from a [place] at the age of 57yrs. General Exam - General Exam Comments Initial Comments: GENERAL: Patient is well-developed and well-nourished. Patient is nontoxic and well- hydrated and is in mild distress. ENT: Neck is soft and supple. No significant lymphadenopathy is noted. Oropharynx is clear. Moist mucous membranes. Neck has full range of motion without eliciting any pain. EYES: The sclera were anicteric and conjunctiva were pink and moist. Extraocular movements were intact and pupils were equal round and reactive to light. Eyelids were unremarkable. PULMONARY: Unlabored respirations. Good breath sounds bilaterally. No audible rales rhonchi or wheezing was noted. CARDIOVASCULAR: There is a regular rate and rhythm without any murmurs gallops or rubs. ABDOMEN: Soft and nontender with normal bowel sounds. SKIN: Skin is clear with no lesions or rashes and otherwise unremarkable. NEUROLOGIC: Patient is alert and oriented x3. Cranial nerves II through XII are grossly i ntact. Motor and sensory are also intact. Normal speech, volume and content. Symmetrical smile. MUSCULOSKELETAL: Normal extremities with adequate strength and full range of motion. LYMPHATICS: No significant lymphadenopathy is noted PSYCHIATRIC: Normal psychiatric evaluation. Limitations: no limitations Course Vital Signs 08/26/21 08/26/21 08:27 09:23 Temperature 98.2 F Pulse Rate 64 68 Respiratory 16 16 Rate Blood Pressure 139/71 149/89 O2 Sat by Pulse 95 95 Oximetry Medical Decision Making - Medical Decision Making EKG shows sinus rhythm at 66 bpm NH interval is 235 QRSs 85 QT interval 414 QTC is 428. Patient's EKG shows no ST segment elevation or depression. Chest x-ray shows no acute abnormality. I went back into the room and reevaluated the patient she was feeling better after the Nitropaste was placed and she stated the pain was there but only minimally. I spoke with sounds physician's agreed to admit the patient and the patient wrote admitting orders. - Lab Data Result diagrams: 08/26/21 08:40 08/26/21 08:40 Lab Results 08/26/21 08/26/21 08/26/21 Range/Units 08:40 08:40 08:40 WBC 10.3 (3.8-10.6) k/uL RBC 4.80 (3.80-5.40) m/uL Hgb 14.1 (11.4-16.0) gm/dL Hct 44.8 (34.0-46.0) % MCV 93.4 (80.0-100.0) fL MCH 29.3 (25.0-35.0) pg MCHC 31.3 (31.0-37.0) g/dL RDW 13.6 (11.5-15.5) % Plt Count 372 (150-450) k/uL MPV 7.0 Neutrophils % 85 % Lymphocytes % 9 % Monocytes % 4 % Eosinophils % 1 % Basophils % 0 % Neutrophils # 8.7 H (1.3-7.7) k/uL Lymphocytes # 0.9 L (1.0-4.8) k/uL Monocytes # 0.4 (0-1.0) k/uL Eosinophils # 0.1 (0-0.7) k/uL Basophils # 0.0 (0-0.2) k/uL PT 40.0 H (9.0-12.0) sec INR 4.0 H (<1.2) APTT 37.9 H (22.0-30.0) sec Sodium 140 (137-145) mmol/L Potassium 4.1 (3.5-5.1) mmol/L Chloride 108 H (98-107) mmol/L Carbon Dioxide 24 (22-30) mmol/L Anion Gap 8 mmol/L BUN 28 H (7-17) mg/dL Creatinine 1.53 H (0.52-1.04) mg/dL Est GFR (CKD-EPI)AfAm 35 (>60 ml/min/1.73 sqM) Est GFR (CKD-EPI)NonAf 31 (>60 ml/min/1.73 sqM) Glucose 166 H (74-99) mg/dL Calcium 8.9 (8.4-10.2) mg/dL Magnesium 2.1 (1.6-2.3) mg/dL Total Bilirubin 0.5 (0.2-1.3) mg/dL AST 36 (14-36) U/L ALT 32 (4-34) U/L Alkaline Phosphatase 114 (38-126) U/L Troponin I (0.000-0.034) ng/mL Total Protein 7.1 (6.3-8.2) g/dL Albumin 3.9 (3.5-5.0) g/dL 08/26/21 Range/Units 08:40 WBC (3.8-10.6) k/uL RBC (3.80-5.40) m/uL Hgb (11.4-16.0) gm/dL Hct (34.0-46.0) % MCV (80.0-100.0) fL MCH (25.0-35.0) pg MCHC (31.0-37.0) g/dL RDW (11.5-15.5) % Plt Count (150-450) k/uL MPV Neutrophils % % Lymphocytes % % Monocytes % % Eosinophils % % Basophils % % Neutrophils # (1.3-7.7) k/uL Lymphocytes # (1.0-4.8) k/uL Monocytes # (0-1.0) k/uL Eosinophils # (0-0.7) k/uL Basophils # (0-0.2) k/uL PT (9.0-12.0) sec INR (<1.2) APTT (22.0-30.0) sec Sodium (137-145) mmol/L Potassium (3.5-5.1) mmol/L Chloride (98-107) mmol/L Carbon Dioxide (22-30) mmol/L Anion Gap mmol/L BUN (7-17) mg/dL Creatinine (0.52-1.04) mg/dL Est GFR (CKD-EPI)AfAm (>60 ml/min/1.73 sqM) Est GFR (CKD-EPI)NonAf (>60 ml/min/1.73 sqM) Glucose (74-99) mg/dL Calcium (8.4-10.2) mg/dL Magnesium (1.6-2.3) mg/dL Total Bilirubin (0.2-1.3) mg/dL AST (14-36) U/L ALT (4-34) U/L Alkaline Phosphatase (38-126) U/L Troponin I <0.012 (0.000-0.034) ng/mL Total Protein (6.3-8.2) g/dL Albumin (3.5-5.0) g/dL Disposition Clinical Impression: Chest pain Disposition: ADMITTED IP TO THIS HOSP Referrals: Diomedes Akbar DO [Primary Care Provider] - 1-2 days Time of Disposition: 09:29
[2021-08-26 08:48] LABS: Basophils % (A) 0 %; Eosinophils # (A) 0.1 k/uL (0-0.7); Eosinophils % (A) 1 %; HCT 44.8 % (34.0-46.0); HGB 14.1 gm/dL (11.4-16.0); Lymphocytes # (A) 0.9 k/uL (1.0-4.8); Lymphocytes % (A) 9 %; MCH 29.3 pg (25.0-35.0); MCHC 31.3 g/dL (31.0-37.0); MCV 93.4 fL (80.0-100.0); Monocytes # (A) 0.4 k/uL (0-1.0); Monocytes % (A) 4 %; Neutrophils # (A) 8.7 k/uL (1.3-7.7); Neutrophils % (A) 85 %; Platelet Count 372 k/uL (150-450); RDW 13.6 % (11.5-15.5); WBC 10.3 k/uL (3.8-10.6)
[2021-08-26 09:00] LABS: Partial Thromboplastin Time 37.9 sec (22.0-30.0)
--- NOTE | 2021-08-26 09:00 | XR ---
EXAMINATION TYPE: XR chest 2V DATE OF EXAM: 08/26/2021 COMPARISON: 04/10/2020 HISTORY: 86-year-old female with chest pain TECHNIQUE: AP and lateral views FINDINGS: Heart mild to moderately enlarged. Diffuse interstitial and vascular prominence. No sizable pleural e ffusion. Strandy atelectasis left mid to lower lung. IMPRESSION: Ongoing cardiomegaly. Interstitial changes and vascular prominence. Correlate for possible mild CHF w ith pulmonary vascular congestion.
[2021-08-26 09:08] LABS: Albumin 3.9 g/dL (3.5-5.0); Calcium 8.9 mg/dL (8.4-10.2); Magnesium 2.1 mg/dL (1.6-2.3); Potassium 4.1 mmol/L (3.5-5.1); Total Bilirubin 0.5 mg/dL (0.2-1.3); Total Protein 7.1 g/dL (6.3-8.2)
[2021-08-26] MEDS ORDERED: NITROGLYCERIN SL TABS 0.4 MG TAB SUBLINGUAL PRN (09:53)
[2021-08-26] MEDS: NITROGLYCERIN OINT 1 INCH/GM PACKET TOPICAL SCH ×2 (13:09→17:21)
[2021-08-26] MEDS ORDERED: NALOXONE 0.4 MG/ML 1 ML VIAL IVP PRN (14:35)
--- NOTE | 2021-08-26 14:39 | P.HPIM ---
History of Present Illness H&P Date: 08/26/21 Chief Complaint: Chest pain 86-year-old woman with medical history of chronic kidney disease, stage III CAD, hyperlipidemia, hypertension, paroxysmal atrial fibrillation, mood disorder, glaucoma, hypothyroidism presented with chest pain. She says that her pain started 2:00 in the morning with radiation to the back, felt like it was pressure-like, substernal. No relationship to by mouth intake, exercise, position. She reports an episode of diaphoresis, shakes during her episode of pain. She states her pain is improved now but not gone. She denies fevers, chills, nausea, vomiting, palpitations, sick, presyncope, cough, dyspnea, abdominal pain, constipation, diarrhea, dysuria, dyschezia, numbness/weakness of extremities. In the emergency room, patient is afebrile, 139/71, heart rate 64, 95% on 2 L nasal cannula. CBC is unremarkable. Chemistry show BUN/creatinine of 28/1.53, which is her baseline. LFTs are unremarkable. Initial troponin was less than 0.012, repeat troponin was less than 0.012 BNP was 712. Chest x-ray shows cardiomegaly with interstitial changes and vascular prominence which correlates with mild congestive heart failure. EKG shows sinus rhythm with first-degree AV block and no ischemic changes. All Systems reviewed and pertinent positives and negatives noted in HPI, all other symptoms are negative Gen: awake, alert HEENT: normocephalic, atraumatic, good hearing acuity, moist mucous membranes Resp: good air exchange, breathing comfortably with no accessory muscle use CVS: good distal perfusion x 4, GI: soft, NTTP, ND : no SPT, no CVAT, eng catheter not present MSK: no pitting edema, no clubbing Neuro: non-focal, moving all extremities Psych: cooperative, euthymic mood Labs and imaging as above Assessment/plan: Chest pain, atypical History of CAD Paroxysmal atrial fibrillation -Admit to observation, telemetry -Cardiology consult -Aspirin, statin -Metoprolol -Continue amiodarone, Coumadin per pharmacy -Echo -Lipid panel, A1c, TSH Supratherapeutic INR -Hold coumadin for now -daily monitoring CKD, stage III Hypertension Hyperlipidemia Mood disorder Glaucoma Hypothyroidism -Home medications reviewed and reconciled Patient is full code DVT prophylaxis with heparin 3 times a day Past Medical History Past Medical History: Coronary Artery Disease (CAD), Diabetes Mellitus, Eye Disorder, GERD/Reflux, Hyperlipidemia, Hypertension, Myocardial Infarction (MS), Osteoarthritis (OA) Additional Past Medical History / Comment(s): NIDDM type II, R eye-sees shadows only, hiatal hernia, arthritis bilateral hands, insomnia. Last Myocardial Infarction Date:: 2015 History of Any Multi-Drug Resistant Organisms: None Reported Past Surgical History: Heart Catheterization With Stent, Orthopedic Surgery Additional Past Surgical History / Comment(s): PCIs with stents, L hip fracture with hemiarthroplasty, R foot fracture with bone graft, R eye corneal tr ansplant, L eye cataract removal with lens implant. Past Anesthesia/Blood Transfusion Reactions: Postoperative Nausea & Vomiting (PONV) Date of Last Stent Placement:: 10/14/2015 Past Psychological History: No Psychological Hx Reported Additional Psychological History / Comment(s): Pt resides with her spouse. She is independent. She drives. Smoking Status: Never smoker Past Alcohol Use History: None Reported Past Drug Use History: None Reported - Past Family History Mother Family Medical History: Cancer Father Family Medical History: Myocardial Infarction (MS) Additional Family Medical History / Comment(s): Father from a MS at the age of 57yrs. Medications and Allergies Home Medications Medication Instructions Recorded Confirmed Type Omeprazole [PriLOSEC] 20 mg PO AC-BRKFST 10/14/15 08/26/21 History Timolol 0.25% Ophth Soln [Timoptic 1 drop BOTH EYES DAILY 11/04/19 08/26/21 History 0.25% Ophth Soln] Acetaminophen [Tylenol] 500 mg PO Q4-6H PRN #24 tab 08/25/21 08/26/21 Rx Amiodarone [Cordarone] 200 mg PO DAILY 08/25/21 08/26/21 History Aspirin EC [Ecotrin Low Dose] 81 mg PO DAILY 08/25/21 08/26/21 History Cyclobenzaprine [Flexeril] 5 mg PO TID PRN #20 tablet 08/25/21 08/26/21 Rx Furosemide [Lasix] 20 mg PO DAILY 08/25/21 08/26/21 History Levothyroxine Sodium [Synthroid] 112.5 mcg PO DAILY 08/25/21 08/26/21 History Metoprolol Tartrate [Lopressor] 100 mg PO BID 08/25/21 08/26/21 History Prednisolone Acetate/Pf 1 drop RIGHT EYE DAILY 08/25/21 08/26/21 History [Prednisolone Acet 1% Eye Drop] QUEtiapine [SEROquel] 25 mg PO HS 08/25/21 08/26/21 History Warfarin [Coumadin] 1 mg PO SUMOTUTHFRSA 08/25/21 08/26/21 History Warfarin [Coumadin] 2 mg PO WE 08/25/21 08/26/21 History hydrALAZINE HCL [Apresoline] 100 mg PO BID 08/25/21 08/26/21 History Allergies Allergy/AdvReac Type Severity Reaction Status Date / Time No Known Allergies Allergy Verified 08/26/21 10:30 Physical Exam Osteopathic Statement: *. No significant issues noted on an osteopathic structural exam other than those noted in the History and Physical/Consult. Vitals: Vital Signs Temp Pulse Resp BP Pulse Ox 08/26/21 12:00 69 16 142/66 95 08/26/21 09:23 68 16 149/89 95 08/26/21 08:27 98.2 F 64 16 139/71 95 Intake and Output 08/25/21 08/26/21 08/26/21 22:59 06:59 14:59 Other: Voiding Method External Catheter Weight 77.111 kg Results CBC & Chem 7: 08/26/21 08:40 08/26/21 08:40 Labs: Abnormal Lab Results - Last 24 Hours (Table) 08/26/21 08/26/21 08/26/21 Range/Units 08:40 08:40 08:40 Neutrophils # 8.7 H (1.3-7.7) k/uL Lymphocytes # 0.9 L (1.0-4.8) k/uL PT 40.0 H (9.0-12.0) sec INR 4.0 H (<1.2) APTT 37.9 H (22.0-30.0) sec Chloride 108 H (98-107) mmol/L BUN 28 H (7-17) mg/dL Creatinine 1.53 H (0.52-1.04) mg/dL Glucose 166 H (74-99) mg/dL Thrombosis Risk Factor Assmnt - Choose All That Apply Each Risk Factor Represents 3 Points: Age 75 years or older Thrombosis Risk Factor Assessment Total Risk Factor Score: 3 Thrombosis Risk Factor Assessment Level: Moderate Risk
[2021-08-26] MEDS ORDERED: WARFARIN 2 MG TAB PO SCH (14:45)
[2021-08-26] MEDS: AMIODARONE 200 MG TAB PO SCH (15:52)
[2021-08-26] MEDS: HEPARIN SODIUM,PORCINE/PF 5,000 UNIT/0.5 ML SYRINGE SQ SCH (15:52)
[2021-08-26] MEDS: ACETAMINOPHEN TAB 325 MG TAB PO PRN (15:57)
[2021-08-26] MEDS ORDERED: BENZONATATE 100 MG CAP PO PRN (16:06)
[2021-08-26] MEDS: CYCLOBENZAPRINE 5 MG TAB PO PRN (16:34)
[2021-08-26] MEDS ORDERED: WARFARIN 0.5 MG TAB PO ONE (18:00)
[2021-08-26] MEDS: METOPROLOL TARTRATE 50 MG TAB PO SCH (20:46)
[2021-08-26] MEDS: hydrALAZINE HCL 50 MG TAB PO SCH (20:46)
[2021-08-26] MEDS ORDERED: ATORVASTATIN 80 MG TAB PO SCH (21:00)
[2021-08-26] MEDS ORDERED: QUEtiapine 25 MG TAB PO SCH (21:00)
[2021-08-26] MEDS ORDERED: METOPROLOL TARTRATE 12.5 MG TAB PO SCH (21:00)
[2021-08-27] MEDS: NITROGLYCERIN OINT 1 INCH/GM PACKET TOPICAL SCH ×2 (00:04→05:41)
[2021-08-27] MEDS: HEPARIN SODIUM,PORCINE/PF 5,000 UNIT/0.5 ML SYRINGE SQ SCH ×2 (00:04→09:07)
[2021-08-27 02:31] VITALS: RESP 18
[2021-08-27] MEDS: CYCLOBENZAPRINE 5 MG TAB PO PRN (03:07)
[2021-08-27] MEDS: ACETAMINOPHEN TAB 325 MG TAB PO PRN (05:47)
[2021-08-27] MEDS ORDERED: LEVOTHYROXINE 75 MCG TAB PO SCH (06:30)
[2021-08-27 06:50] LABS: Basophils # (A) 0.1 k/uL (0-0.2); Basophils % (A) 1 %; Eosinophils # (A) 0.1 k/uL (0-0.7); Eosinophils % (A) 1 %; HCT 42.3 % (34.0-46.0); HGB 12.9 gm/dL (11.4-16.0); Lymphocytes # (A) 1.2 k/uL (1.0-4.8); Lymphocytes % (A) 11 %; MCH 29.1 pg (25.0-35.0); MCHC 30.4 g/dL (31.0-37.0); MCV 95.6 fL (80.0-100.0); Monocytes # (A) 0.5 k/uL (0-1.0); Monocytes % (A) 5 %; Neutrophils # (A) 8.5 k/uL (1.3-7.7); Neutrophils % (A) 81 %; Platelet Count 319 k/uL (150-450); RBC 4.43 m/uL (3.80-5.40); RDW 12.9 % (11.5-15.5); WBC 10.4 k/uL (3.8-10.6)
[2021-08-27 07:05] LABS: African American GFR (CKD) 31 (>60 ml/min/1.73 sqM); Anion Gap 11 mmol/L; Blood Urea Nitrogen 30 mg/dL (7-17); Carbon Dioxide 23 mmol/L (22-30); Chloride 105 mmol/L (98-107); Glucose 142 mg/dL (74-99); Non-African American GFR(CKD) 27 (>60 ml/min/1.73 sqM); Potassium 4.1 mmol/L (3.5-5.1); Sodium 139 mmol/L (137-145)
[2021-08-27] MEDS ORDERED: PANTOPRAZOLE 40 MG TABLET PO SCH (07:30)
[2021-08-27 08:01] VITALS: BP 124/64; PULSE 54; TEMP 98.1
[2021-08-27] MEDS ORDERED: ASPIRIN 325 MG TAB PO SCH (09:00)
[2021-08-27] MEDS ORDERED: FUROSEMIDE 20 MG TAB PO SCH (09:00)
[2021-08-27] MEDS ORDERED: prednisoLONE ACETATE 1% OPHTH DROPS 5 ML BTL RIGHT EYE SCH (09:00)
[2021-08-27] MEDS ORDERED: TIMOLOL 0.25% OPHTH DROPS 5 ML BTL BOTH EYES SCH (09:00)
[2021-08-27] MEDS ORDERED: ISOSORBIDE MONONITRATE ER 30 MG TAB.ER.24H PO SCH (09:00)
[2021-08-27] MEDS ORDERED: ASPIRIN 81 MG PO SCH (09:00)
[2021-08-27] MEDS: METOPROLOL TARTRATE 50 MG TAB PO SCH (09:07)
[2021-08-27] MEDS: hydrALAZINE HCL 50 MG TAB PO SCH (09:08)
[2021-08-27] MEDS: AMIODARONE 200 MG TAB PO SCH (09:08)
--- NOTE | 2021-08-27 10:13 | P.CRDCN ---
History of Present Illness History of present illness: HISTORY OF PRESENTING ILLNESS This is a pleasant 86-year-old female past medical history significant for coronary artery disease status post PCI to the RCA in 1993, patient has a left circumflex in 2004, PCI to the proximal/mid RCA and PLV branch in 2015, PCI to the proximal LAD and major diagonal branch of LAD in 2019, hypertension, dyslipidemia, chronic kidney disease, paroxysmal atrial fibrillation on Coumadin, chronic heart failure with preserved ejection fraction. She follows in the office with Dr. Flores. We have been asked to see in consultation for chest pain. Patient presents emergency department with complaints of back pain and chest pain. She states she initially presented to the hospital on 08/25 was evaluated in the emergency department for her back pain. She was evaluated and discharged home. She states 08/25 overnight she was sleeping and having episodes of chest discomfort, described as someone sitting on her chest. It was non-radiating, non-exertional. She states she was diaphoretic. Some shortness of breath. She denies any nausea, lightheadedness or dizziness. She is unsure how long the pain lasted. Her symptoms have now resolved and she complains of back pain. DIAGNOSTICS EKG reveals sinus rhythm, heart rate 66, first degree AV block, slow R wave progression, non-specific ST-T wave abnormalities. Most recent echocardiogram 10/2019 revealed EF of 5055 percent, mild concentric LVH, mild mitral regurgitation, mild tricuspid regurgitation Last Cardiac Catheterization 12/2019 patient underwent PCI to the proximal LAD and major diagonal branch of LAD. Telemetry tracings indicate sinus mechanism, heart rate 6070s Chest xray cardiomegaly, diffuse interstitial and vascular prominence. Laboratory reviewed, troponin negative 3, proBNP 712, TSH within normal limits, CBC unremarkable, sodium 139, potassium 4.1, BUN 30, serum creatinine 1.6, magnesium 2.0 Current home medications include hydralazine 100 mg twice a day, Coumadin 2 mg Friday 1 mg other days of the week, metoprolol tartrate 100 mg twice a day, Lasix 20 mg daily, aspirin 80 mg daily, amiodarone 200 mg daily REVIEW OF SYSTEMS At the time of my exam: CONSTITUTIONAL: Denies fever or chills. CARDIOVASCULAR: Denies chest pain, shortness of breath, orthopnea, PND or palpi tations. RESPIRATORY: Denies cough. GASTROINTESTINAL: Denies abdominal pain, diarrhea, constipation, nausea or vomiting. MUSCULOSKELETAL: Reports back pain NEUROLOGIC: Denies numbness, tingling, headache or weakness. ENDOCRINE: Denies fatigue, weight change, polydipsia or polyurina. GENITOURINARY: Denies burning, hematuria or urgency with micturation. HEMATOLOGIC: Denies history of anemia or bleeding. PHYSICAL EXAMINATION Blood pressure 124/64, heart rate 65, afebrile, oxygen saturations 93% on room air CONSTITUTIONAL: No apparent distress. HEENT: Head is normocephalic. Pupils are equal, round. Sclerae anicteric. Mucous membranes of the mouth are moist. No JVD. No carotid bruit. CHEST EXAMINATION: Lungs are clear to auscultation. No chest wall tenderness is noted on palpation or with deep breathing. HEART EXAMINATION: Regular rate and rhythm. S1, S2 heard. No murmurs, gallops or rub. ABDOMEN: Soft, nontender. Positive bowel sounds. EXTREMITIES: 2+ peripheral pulses, no lower extremity edema and no calf tenderness. SKIN: Warm, dry NEUROLOGIC EXAMINATION: Patient is awake, alert and oriented x3. ASSESSMENT Chest pain, atypical, acute coronary syndrome has been ruled out Coronary artery disease status post PCI to the RCA in 1993, patient has a left circumflex in 2004, PCI to the proximal/mid RCA and PLV branch in 2015, PCI to the proximal LAD and major diagonal branch of LAD in 2020 Hypertension Dyslipidemia Chronic kidney disease Paroxysmal atrial fibrillation on Coumadin Chronic heart failure with preserved ejection fraction PLAN An acute coronary event has been ruled out with no EKG evidence of ischemia and negative cardiac enzymes. Obtain 2D echocardiogram and doppler study to assess cardiac structure and function. From a cardiology perspective we recommend medical therapy Start Imdur 30mg daily Continue home cardiac medications Increase patient's activity as tolerated, if doing well, ok to discharge later today from a cardiology perspective. Follow up outpatient with Dr. Flores Thank you kindly for this consultation. Nurse practitioner note has been reviewed by physician. Signing provider agrees with the documented findings, assessment, and plan of care. Past Medical History Past Medical History: Coronary Artery Disease (CAD), Diabetes Mellitus, Eye Disorder, GERD/Reflux, Hyperlipidemia, Hypertension, Myocardial Infarction (IN), Osteoarthritis (OA) Additional Past Medical History / Comment(s): NIDDM type II, R eye-sees shadows only, hiatal hernia, arthritis bilateral hands, insomnia. Last Myocardial Infarction Date:: 2015 History of Any Multi-Drug Resistant Organisms: None Reported Past Surgical History: Heart Catheterization With Stent, Orthopedic Surgery Additional Past Surgical History / Comment(s): PCIs with stents, L hip fracture with hemiarthroplasty, R foot fracture with bone graft, R eye corneal transplant, L eye cataract removal with lens implant. Past Anesthesia/Blood Transfusion Reactions: Postoperative Nausea & Vomiting (PONV) Date of Last Stent Placement:: 10/14/2015 Past Psychological History: No Psychological Hx Reported Additional Psychological History / Comment(s): Pt resides with her spouse. She is independent. She drives. Smoking Status: Never smoker Past Alcohol Use History: None Reported Past Drug Use History: None Reported - Past Family History Mother Family Medical History: Cancer Father Family Medical History: Myocardial Infarction (IN) Additional Family Medical History / Comment(s): Father from a IN at the age of 57yrs. Medications and Allergies Home Medications Medication Instructions Recorded Confirmed Type Omeprazole [PriLOSEC] 20 mg PO AC-BRKFST 10/14/15 08/26/21 History Timolol 0.25% Ophth Soln [Timoptic 1 drop BOTH EYES DAILY 11/04/19 08/26/21 History 0.25% Ophth Soln] Acetaminophen [Tylenol] 500 mg PO Q4-6H PRN #24 tab 08/25/21 08/26/21 Rx Amiodarone [Cordarone] 200 mg PO DAILY 08/25/21 08/26/21 History Aspirin EC [Ecotrin Low Dose] 81 mg PO DAILY 08/25/21 08/26/21 History Cyclobenzaprine [Flexeril] 5 mg PO TID PRN #20 tablet 08/25/21 08/26/21 Rx Furosemide [Lasix] 20 mg PO DAILY 08/25/21 08/26/21 History Levothyroxine Sodium [Synthroid] 112.5 mcg PO DAILY 08/25/21 08/26/21 History Metoprolol Tartrate [Lopressor] 100 mg PO BID 08/25/21 08/26/21 History Prednisolone Acetate/Pf 1 drop RIGHT EYE DAILY 08/25/21 08/26/21 History [Prednisolone Acet 1% Eye Drop] QUEtiapine [SEROquel] 25 mg PO HS 08/25/21 08/26/21 History Warfarin [Coumadin] 1 mg PO SUMOTUTHFRSA 08/25/21 08/26/21 History Warfarin [Coumadin] 2 mg PO WE 08/25/21 08/26/21 History hydrALAZINE HCL [Apresoline] 100 mg PO BID 08/25/21 08/26/21 History Allergies Allergy/AdvReac Type Severity Reaction Status Date / Time No Known Allergies Allergy Verified 08/26/21 10:30 Physical Exam Vitals: Vital Signs Temp Pulse Pulse Resp BP BP BP 08/27/21 01:40 98.2 F 65 18 135/61 08/26/21 21:05 16 08/26/21 21:00 08/26/21 19:32 58 L 18 08/26/21 19:25 98.0 F 57 L 18 146/57 08/26/21 14:54 98.2 F 58 L 18 190/60 08/26/21 12:00 69 16 142/66 08/26/21 09:23 68 16 149/89 08/26/21 08:27 98.2 F 64 16 139/71 Pulse Ox 08/27/21 01:40 94 L 08/26/21 21:05 96 08/26/21 21:00 87 L 08/26/21 19:32 08/26/21 19:25 96 08/26/21 14:54 98 08/26/21 12:00 95 08/26/21 09:23 95 08/26/21 08:27 95 Intake and Output 08/26/21 08/27/21 08/27/21 22:59 06:59 14:59 Intake Total 0 Balance 0 Intake: Oral 0 Other: Voiding Method Diaper Incontinent External Catheter # Voids 2 2 Results 08/27/21 06:06 08/27/21 06:06 Cardiac Enzymes 08/26/21 08/26/21 08/26/21 Range/Units 08:40 08:40 11:52 AST 36 (14-36) U/L Troponin I <0.012 <0.012 (0.000-0.034) ng/mL 08/26/21 08/26/21 Range/Units 15:12 17:46 AST (14-36) U/L Troponin I <0.012 <0.012 (0.000-0.034) ng/mL Coagulation 08/26/21 Range/Units 08:40 PT 40.0 H (9.0-12.0) sec APTT 37.9 H (22.0-30.0) sec CBC 08/26/21 08/27/21 Range/Units 08:40 06:06 WBC 10.3 10.4 (3.8-10.6) k/uL RBC 4.80 4.43 (3.80-5.40) m/uL Hgb 14.1 12.9 (11.4-16.0) gm/dL Hct 44.8 42.3 (34.0-46.0) % Plt Count 372 319 (150-450) k/uL Comprehensive Metabolic Panel 08/26/21 08/27/21 Range/Units 08:40 06:06 Sodium 140 139 (137-145) mmol/L Potassium 4.1 4.1 (3.5-5.1) mmol/L Chloride 108 H 105 (98-107) mmol/L Carbon Dioxide 24 23 (22-30) mmol/L BUN 28 H 30 H (7-17) mg/dL Creatinine 1.53 H 1.68 H (0.52-1.04) mg/dL Glucose 166 H 142 H (74-99) mg/dL Calcium 8.9 9.0 (8.4-10.2) mg/dL AST 36 (14-36) U/L ALT 32 (4-34) U/L Alkaline Phosphatase 114 (38-126) U/L Total Protein 7.1 (6.3-8.2) g/dL Albumin 3.9 (3.5-5.0) g/dL Current Medications Generic Name Dose Route Start Last Admin Trade Name Freq PRN Reason Stop Dose Admin Acetaminophen 650 mg 08/26/21 14:35 08/27/21 05:47 Acetaminophen Tab 325 Mg Tab PO 650 mg Q6HR PRN Administration Mild Pain or Fever > 100.5 Amiodarone HCl 200 mg 08/26/21 14:45 08/26/21 15:52 Amiodarone 200 Mg Tab PO Not Given DAILY [facility] Aspirin 81 mg 08/27/21 09:00 Aspirin 81 Mg PO DAILY [facility] Atorvastatin Calcium 80 mg 08/26/21 21:00 08/26/21 20:54 Atorvastatin 80 Mg Tab PO Not Given HS [facility] Benzonatate 200 mg 08/26/21 16:06 08/26/21 17:07 Benzonatate 100 Mg Cap PO 200 mg TID PRN Administration Cough Cyclobenzaprine HCl 5 mg 08/26/21 14:36 08/27/21 03:07 Cyclobenzaprine 5 Mg Tab PO 5 mg TID PRN Administration Spasms Furosemide 20 mg 08/27/21 09:00 Furosemide 20 Mg Tab PO DAILY [facility] Heparin Sodium (Porcine) 5,000 unit 08/26/21 16:00 08/27/21 00:04 Heparin Sodium,Porcine/Pf 5,000 Unit/0.5 Ml Syringe SQ 5,000 unit Q8HR [facility] Administration Hydralazine HCl 100 mg 08/26/21 21:00 08/26/21 20:46 Hydralazine Hcl 50 Mg Tab PO 100 mg BID [facility] Administration Levothyroxine Sodium 112.5 mcg 08/27/21 06:30 08/27/21 05:40 Levothyroxine 75 Mcg Tab PO 112.5 mcg DAILY@0630 [facility] Administration Metoprolol Tartrate 100 mg 08/26/21 21:00 08/26/21 20:46 Metoprolol Tartrate 50 Mg Tab PO 100 mg BID [facility] Administration Miscellaneous Information 1 each 08/26/21 14:38 Warfarin Per Pharmacy MISCELLANE DIRECTED PRN Per Protocol Protocol Naloxone HCl 0.2 mg 08/26/21 14:35 Naloxone 0.4 Mg/Ml 1 Ml Vial IVP Q2M PRN Opioid Reversal Nitroglycerin 0.4 mg 08/26/21 09:53 Nitroglycerin Sl Tabs 0.4 Mg Tab SUBLINGUAL Q5M PRN Chest Pain Nitroglycerin 1 inch 08/26/21 12:00 08/27/21 05:41 Nitroglycerin Oint 1 Inch/Gm Packet TOPICAL 1 inch Q6HR [facility] Administration Pantoprazole Sodium 40 mg 08/27/21 07:30 Pantoprazole 40 Mg Tablet PO AC-BRKFST [facility] Prednisolone Acetate 1 drops 08/27/21 09:00 Prednisolone Acetate 1% Ophth Drops 5 Ml Btl RIGHT EYE DAILY [facility] Quetiapine Fumarate 25 mg 08/26/21 21:00 08/26/21 20:46 Quetiapine 25 Mg Tab PO 25 mg HS [facility] Administration Timolol Maleate 1 drops 08/27/21 09:00 Timolol 0.25% Ophth Drops 5 Ml Btl BOTH EYES DAILY [facility] Intake and Output 08/26/21 08/27/21 08/27/21 22:59 06:59 14:59 Intake Total 0 Balance 0 Intake: Oral 0 Other: Voiding Method Diaper Incontinent External Catheter # Voids 2 2 08/27/21 06:06 08/27/21 06:06
--- NOTE | 2021-08-27 10:35 | CA ---
Transthoracic Echo Report Name: Gilda Patino Age: 86 Gender: F : 1935 Exam Date: 08/27/2021 08:10 Exam Location: [place] [facility] Ht (in): 64 Wt (lb): 170 Ordering Physician: David Villegas MD Attending/Referring Phys: Foreclosure Specialist Sofie Turner RDCS Procedure CPT: Indications: Chest Pain Cardiac Hx: Hx of mi and stent. Technical Quality: Good Contrast 1: Total Dose (mL): Contrast 2: Total Dose (mL): MEASUREMENTS (Male / Female) Normal Values 2D ECHO LV Diastolic Diameter PLAX 3.7 cm 4.2 - 5.9 / 3.9 - 5.3 cm LV Systolic Diameter PLAX 1.5 cm IVS Diastolic Thickness 1.5 cm 0.6 - 1.0 / 0.6 - 0.9 cm LVPW Diastolic Thickness 1.5 cm 0.6 - 1.0 / 0.6 - 0.9 cm LV Relative Wall Thickness 0.8 RV Internal Dim ED PLAX 2.1 cm M-MODE Aortic Root Diameter MM 2.9 cm LA Systolic Diameter MM 4.1 cm LA Ao Ratio MM 1.4 MV E Point Septal Separation 0.5 cm AV Cusp Separation MM 1.8 cm DOPPLER AV Peak Velocity 119.8 cm/s AV Peak Gradient 5.7 mmHg AI Peak Velocity 156.3 cm/s AI Peak Gradient 9.8 mmHg AI Pressure Half Time 888.9 ms MV Area PHT 2.5 cm??? MR Peak Velocity 150.0 cm/s MR Peak Gradient 9.0 mmHg Mitral E Point Velocity 94.4 cm/s Mitral A Point Velocity 86.0 cm/s Mitral E to A Ratio 1.1 MV Deceleration Time 303.5 ms MV E' Velocity 5.6 cm/s Mitral E to MV E' Ratio 16.7 TR Peak Velocity 225.0 cm/s TR Peak Gradient 20.3 mmHg Right Ventricular Systolic Press 23.4 mmHg PV Peak Velocity 106.0 cm/s PV Peak Gradient 4.5 mmHg PI Peak Gradient 20.0 mmHg FINDINGS Left Ventricle Left ventricular ejection fraction is estimated at 55-60 %. Left ventricular cavity size normal. Moderately increased septal wall thickness. Moderately increased posterior wall thickness. Right Ventricle The right ventricle is normal in size and function. Right Atrium The right atrium is normal in size. Left Atrium The left atrium is normal in size. Mitral Valve Structurally normal mitral valve without significant stenosis or prolapse. There is a trace mitral regurgitation .Mitral valve thickened. Aortic Valve Structurally normal aortic valve without significant sclerosis or stenosis. There is a trace aortic regurgitation. Tricuspid Valve Structurally normal tricuspid valve without significant stenosis. Pulmonary artery systolic pressure is normal. Trace tricuspid regurgitation. Pulmonic Valve Structurally normal pulmonic valve without significant stenosis. There is no pulmonic regurgitation. Pericardium Normal pericardium without effusion. Aorta Normal aortic root dimension. CONCLUSIONS Normal left ventricular dimension and systolic function Previewed by: Dr. Virgil Lemus MD (Electronically Signed) Final Date: 27 Aug 2021 09:53
[2021-08-27 10:38] LABS: INR 3.9 (0.90-1.11); Prothrombin Time 41.3 sec (9.9-11.9)
[2021-08-27 10:59] LABS: Chol/HDL Ratio 3.64 Ratio
--- NOTE | 2021-08-27 15:32 | P.DS ---
Providers Date of admission: 08/26/21 09:56 Expected date of discharge: 08/27/21 Attending physician: David Villegas MD Consults: 08/26/21 09:53 Consult Physician Urgent Consulting Provider: [facility] Consult Reason/Comments: Chest pain Do you want consulting provider notified?: Yes Primary care physician: [facility] Course: Chest pain, atypical History of CAD Paroxysmal atrial fibrillation Supratherapeutic INR CKD, stage III Hypertension Hyperlipidemia Mood disorder Glaucoma Hypothyroidism 86-year-old woman with medical history of chronic kidney disease, stage III CAD, hyperlipidemia, hypertension, paroxysmal atrial fibrillation, mood disorder, glaucoma, hypothyroidism presented with chest pain. In the emergency room, patient is afebrile, 139/71, heart rate 64, 95% on 2 L nasal cannula. CBC is unremarkable. Chemistry show BUN/creatinine of 28/1.53, which is her baseline. LFTs are unremarkable. Initial troponin was less than 0.012, repeat troponin was less than 0.012 BNP was 712. Chest x-ray shows cardiomegaly with interstitial changes and vascular prominence which correlates with mild congestive heart failure. EKG shows sinus rhythm with first-degree AV block and no ischemic changes. -Admitted to observation, telemetry. Cardiology consulted. Treated with aspirin, statin. Metoprolol, amiodarone, Coumadin per pharmacy -Echo showed appropriate EF, no WMA. Discharged home with new medications for imdur, aspirin, statin. Cardiology follow up in one week. Gen: awake, alert HEENT: normocephalic, atraumatic, good hearing acuity, moist mucous membranes Resp: good air exchange, breathing comfortably with no accessory muscle use CVS: good distal perfusion x 4, GI: soft, NTTP, ND : no SPT, no CVAT, eng catheter not present MSK: no pitting edema, no clubbing Neuro: non-focal, moving all extremities Psych: cooperative, euthymic mood Patient Condition at Discharge: Good Plan - Discharge Summary Discharge Rx Participant: No New Discharge Prescriptions: New Isosorbide Mononitrate ER [Imdur] 30 mg PO DAILY #30 tab Atorvastatin [Lipitor] 80 mg PO HS #30 tab Continue Omeprazole [PriLOSEC] 20 mg PO AC-BRKFST Timolol 0.25% Ophth Soln [Timoptic 0.25% Ophth Soln] 1 drop BOTH EYES DAILY Amiodarone [Cordarone] 200 mg PO DAILY Prednisolone Acetate/Pf [Prednisolone Acet 1% Eye Drop] 1 drop RIGHT EYE DAILY Levothyroxine Sodium [Synthroid] 112.5 mcg PO DAILY Acetaminophen [Tylenol] 500 mg PO Q4-6H PRN #24 tab PRN Reason: Pain QUEtiapine [SEROquel] 25 mg PO HS hydrALAZINE HCL [Apresoline] 100 mg PO BID Metoprolol Tartrate [Lopressor] 100 mg PO BID Warfarin [Coumadin] 1 mg PO SUMOTUTHFRSA Warfarin [Coumadin] 2 mg PO WE Aspirin EC [Ecotrin Low Dose] 81 mg PO DAILY Furosemide [Lasix] 20 mg PO DAILY Cyclobenzaprine [Flexeril] 5 mg PO TID PRN #20 tablet PRN Reason: Spasms Discharge Medication List Omeprazole [PriLOSEC] 20 mg PO AC-BRKFST 10/14/15 [History] Timolol 0.25% Ophth Soln [Timoptic 0.25% Ophth Soln] 1 drop BOTH EYES DAILY 11/04/19 [History] Acetaminophen [Tylenol] 500 mg PO Q4-6H PRN #24 tab 08/25/21 [Rx] Amiodarone [Cordarone] 200 mg PO DAILY 08/25/21 [History] Aspirin EC [Ecotrin Low Dose] 81 mg PO DAILY 08/25/21 [History] Cyclobenzaprine [Flexeril] 5 mg PO TID PRN #20 tablet 08/25/21 [Rx] Furosemide [Lasix] 20 mg PO DAILY 08/25/21 [History] Levothyroxine Sodium [Synthroid] 112.5 mcg PO DAILY 08/25/21 [History] Metoprolol Tartrate [Lopressor] 100 mg PO BID 08/25/21 [History] Prednisolone Acetate/Pf [Prednisolone Acet 1% Eye Drop] 1 drop RIGHT EYE DAILY 08/25/21 [History] QUEtiapine [SEROquel] 25 mg PO HS 08/25/21 [History] Warfarin [Coumadin] 1 mg PO SUMOTUTHFRSA 08/25/21 [History] Warfarin [Coumadin] 2 mg PO WE 08/25/21 [History] hydrALAZINE HCL [Apresoline] 100 mg PO BID 08/25/21 [History] Atorvastatin [Lipitor] 80 mg PO HS #30 tab 08/27/21 [Rx] Isosorbide Mononitrate ER [Imdur] 30 mg PO DAILY #30 tab 08/27/21 [Rx] Follow up Appointment(s)/Referral(s): Virgil Lemus MD [STAFF PHYSICIAN] - 09/13/21 8:30 am Diomedes Akbar DO [Primary Care Provider] - 1-2 days Patient Instructions/Handouts: Chest Pain (DC) Discharge Disposition: HOME SELF-CARE
[2021-08-27] MEDS ORDERED: WARFARIN 0.5 MG TAB PO ONE (18:00)
[2021-08-29] MEDS ORDERED: WARFARIN 2 MG TAB PO SCH (14:36)
== END 2021-08-27 13:15 | disposition home or self-care (01) ==
LOC: EC 08:14 → 6NMEDSUR 09:56
PROVIDERS: ADMIT Internal Medicine; ATTEND Internal Medicine
DX: R07.89 Other chest pain (principal); I25.10 Atherosclerotic heart disease of native coronary artery without angina pectoris; I48.0 Paroxysmal atrial fibrillation; R79.1 Abnormal coagulation profile; I13.0 Hypertensive heart and chronic kidney disease with heart failure and stage 1 through stage 4 chronic kidney disease, or unspecified chronic kidney disease; I50.32 Chronic diastolic (congestive) heart failure; N18.30 Chronic kidney disease, stage 3 unspecified; E11.22 Type 2 diabetes mellitus with diabetic chronic kidney disease; E78.5 Hyperlipidemia, unspecified; F39 Unspecified mood [affective] disorder; H40.9 Unspecified glaucoma; E03.9 Hypothyroidism, unspecified; E78.00 Pure hypercholesterolemia, unspecified; I25.2 Old myocardial infarction; I44.0 Atrioventricular block, first degree; M19.041 Primary osteoarthritis, right hand; M19.042 Primary osteoarthritis, left hand; G47.00 Insomnia, unspecified; H57.9 Unspecified disorder of eye and adnexa; K21.9 Gastro-esophageal reflux disease without esophagitis; K44.9 Diaphragmatic hernia without obstruction or gangrene; Z79.84 Long term (current) use of oral hypoglycemic drugs; Z79.01 Long term (current) use of anticoagulants; Z79.82 Long term (current) use of aspirin; Z79.890 Hormone replacement therapy; Z79.899 Other long term (current) drug therapy; Z98.42 Cataract extraction status, left eye; Z96.1 Presence of intraocular lens; Z94.7 Corneal transplant status; Z98.61 Coronary angioplasty status; Z82.49 Family history of ischemic heart disease and other diseases of the circulatory system
CPT/HCPCS: 99285; 96372 ×2; 36415; 93005; 93306; 83880; 80061; 80053; 80048; 84443; 83735 ×2; 84484; 85025 ×2; 85610 ×2; 85730; 83036; 71046; G0378 ×2; J1644 ×2

== ENCOUNTER 2021-09-09 05:51 | Inpatient (IN) | payer MEDICARE, BC ==
[2021-09-09] MEDS ORDERED: MORPHINE SULFATE 2 MG/ML SYRINGE IV STA (06:39)
--- NOTE | 2021-09-09 06:39 | ED ---
Back Pain HPI - General Chief Complaint: Back Pain/Injury Stated Complaint: Flank Pain Time Seen by Provider: 09/09/21 06:11 Source: patient, RN notes reviewed - History of Present Illness Initial Comments: Patient is a 86-year-old female presents to the emergency room via EMS with complaints of severe left flank pain radiating to her abdomen. She has past medical history significant for CAD, hypertension, paroxysmal atrial fibrillation, hypothyroidism, chronic kidney disease, and diabetes. She states that she has been having pain for approximately 3 weeks pain is worse with inspiration and movement. She states that her primary care provider had put her on pain medication but the medication is not helping her symptoms. She also notes that she has an increase in urinary frequency and urgency over this timeframe. She denies any dysuria or hematuria. She denies any other complaints or concerns at this time. - Related Data Home Medications Medication Instructions Recorded Confirmed Omeprazole [PriLOSEC] 20 mg PO AC-BRKFST 10/14/15 08/26/21 Timolol 0.25% Ophth Soln [Timoptic 1 drop BOTH EYES DAILY 11/04/19 08/26/21 0.25% Ophth Soln] Amiodarone [Cordarone] 200 mg PO DAILY 08/25/21 08/26/21 Aspirin EC [Ecotrin Low Dose] 81 mg PO DAILY 08/25/21 08/26/21 Furosemide [Lasix] 20 mg PO DAILY 08/25/21 08/26/21 Levothyroxine Sodium [Synthroid] 112.5 mcg PO DAILY 08/25/21 08/26/21 Metoprolol Tartrate [Lopressor] 100 mg PO BID 08/25/21 08/26/21 Prednisolone Acetate/Pf 1 drop RIGHT EYE DAILY 08/25/21 08/26/21 [Prednisolone Acet 1% Eye Drop] QUEtiapine [SEROquel] 25 mg PO HS 08/25/21 08/26/21 Warfarin [Coumadin] 1 mg PO SUMOTUTHFRSA 08/25/21 08/26/21 Warfarin [Coumadin] 2 mg PO WE 08/25/21 08/26/21 hydrALAZINE HCL [Apresoline] 100 mg PO BID 08/25/21 08/26/21 Previous Rx's Medication Instructions Recorded Acetaminophen [Tylenol] 500 mg PO Q4-6H PRN #24 tab 08/25/21 Cyclobenzaprine [Flexeril] 5 mg PO TID PRN #20 tablet 08/25/21 Atorvastatin [Lipitor] 80 mg PO HS #30 tab 08/27/21 Isosorbide Mononitrate ER [Imdur] 30 mg PO DAILY #30 tab 08/27/21 Allergies Allergy/AdvReac Type Severity Reaction Status Date / Time No Known Allergies Allergy Verified 08/26/21 10:30 Review of Systems ROS Statement: Those systems with pertinent positive or pertinent negative responses have been documented in the HPI. ROS Other: All systems not noted in ROS Statement are negative. Past Medical History Past Medical History: Coronary Artery Disease (CAD), Diabetes Mellitus, Eye Disorder, GERD/Reflux, Hyperlipidemia, Hypertension, Myocardial Infarction ([place]), Osteoarthritis (OA) Additional Past Medical History / Comment(s): NIDDM type II, R eye-sees shadows only, hiatal hernia, arthritis bilateral hands, insomnia. Last Myocardial Infarction Date:: 2015 History of Any Multi-Drug Resistant Organisms: None Reported Past Surgical History: Heart Catheterization With Stent, Orthopedic Surgery Additional Past Surgical History / Comment(s): PCIs with stents, L hip fracture with hemiarthroplasty, R foot fracture with bone graft, R eye corneal transplant, L eye cataract removal with lens implant. Past Anesthesia/Blood Transfusion Reactions: Postoperative Nausea & Vomiting (PONV) Date of Last Stent Placement:: 10/14/2015 Past Psychological History: No Psychological Hx Reported Smoking Status: Never smoker Past Alcohol Use History: None Reported Past Drug Use History: None Reported - Past Family History Mother Family Medical History: Cancer Father Family Medical History: Myocardial Infarction ([place]) Additional Family Medical History / Comment(s): Father from a [place] at the age of 57yrs. General Exam General appearance: alert, in no apparent distress Head exam: Present: atraumatic, normocephalic, normal inspection Eye exam: Present: normal appearance, PERRL, EOMI. Absent: scleral icterus, conjunctival injection, periorbital swelling Respiratory exam: Present: normal lung sounds bilaterally. Absent: respiratory distress, wheezes, rales, rhonchi, stridor Cardiovascular Exam: Present: regular rate, normal rhythm, normal heart sounds. Absent: systolic murmur, diastolic murmur, rubs, gallop, clicks GI/Abdominal exam: Present: soft, distended, normal bowel sounds. Absent: gua rding, rebound Extremities exam: Present: normal inspection, full ROM, normal capillary refill. Absent: tenderness, pedal edema, joint swelling, calf tenderness Back exam: Present: tenderness (left flank and back mid to lower), paraspinal tenderness. Absent: CVA tenderness (R), CVA tenderness (L), muscle spasm Neurological exam: Present: alert, oriented X3, CN II-XII intact Psychiatric exam: Present: normal affect, normal mood Skin exam: Present: warm, dry, intact, normal color. Absent: rash Course Vital Signs 09/09/21 05:58 Temperature 97.9 F Pulse Rate 63 Respiratory 18 Rate Blood Pressure 151/86 O2 Sat by Pulse 97 Oximetry Medical Decision Making - Medical Decision Making Urinalysis negative for infection. CT of the abdomen revealed cholelithiasis and right renal cysts however no indication for left flank pain. Morphine given with minimal control of pain symptoms. Repeat dose mophine given, still with mild-moderate pain. CMP revealed mild HARRIET on chronic kidney disease stage III. Pain remains intractable with HARRIET noted; IVF started and IV pain medications continued. Dr. Jack with [facility] physicians contacted for observation admission and accepted. - Lab Data Result diagrams: 09/09/21 07:34 09/09/21 07:34 Lab Results 09/09/21 09/09/21 09/09/21 Range/Units 07:34 07:34 07:34 WBC 15.8 H (3.8-10.6) k/uL RBC 4.70 (3.80-5.40) m/uL Hgb 13.6 (11.4-16.0) gm/dL Hct 44.2 (34.0-46.0) % MCV 93.9 (80.0-100.0) fL MCH 28.9 (25.0-35.0) pg MCHC 30.8 L (31.0-37.0) g/dL RDW 13.2 (11.5-15.5) % Plt Count 365 (150-450) k/uL MPV 7.4 Neutrophils % 86 % Lymphocytes % 7 % Monocytes % 5 % Eosinophils % 1 % Basophils % 0 % Neutrophils # 13.7 H (1.3-7.7) k/uL Lymphocytes # 1.2 (1.0-4.8) k/uL Monocytes # 0.7 (0-1.0) k/uL Eosinophils # 0.1 (0-0.7) k/uL Basophils # 0.1 (0-0.2) k/uL Sodium 138 (137-145) mmol/L Potassium 4.7 (3.5-5.1) mmol/L Chloride 105 (98-107) mmol/L Carbon Dioxide 23 (22-30) mmol/L Anion Gap 10 mmol/L BUN 59 H (7-17) mg/dL Creatinine 1.86 H (0.52-1.04) mg/dL Est GFR (CKD-EPI)AfAm 28 (>60 ml/min/1.73 sqM) Est GFR (CKD-EPI)NonAf 24 (>60 ml/min/1.73 sqM) Glucose 160 H (74-99) mg/dL Calcium 9.2 (8.4-10.2) mg/dL Total Bilirubin 0.7 (0.2-1.3) mg/dL AST 31 (14-36) U/L ALT 28 (4-34) U/L Alkaline Phosphatase 120 (38-126) U/L Total Protein 6.7 (6.3-8.2) g/dL Albumin 3.7 (3.5-5.0) g/dL Urine Color Yellow Urine Appearance Clear (Clear) Urine pH 6.0 (5.0-8.0) Ur Specific [place] 1.012 (1.001-1.035) Urine Protein Negative (Negative) Urine Glucose (UA) Negative (Negative) Urine Ketones Negative (Negative) Urine Blood Negative (Negative) Urine Nitrite Negative (Negative) Urine Bilirubin Negative (Negative) Urine Urobilinogen <2.0 (<2.0) mg/dL Ur Leukocyte Esterase Negative (Negative) - Radiology Data Radiology results: report reviewed, image reviewed Disposition Clinical Impression: Acute renal failure, Left flank pain Disposition: ADMITTED IP TO THIS [facility] Condition: Fair Referrals: Diomedes Akbar DO [Primary Care Provider] - 1-2 days Time of Disposition: 09:05 Decision to Admit Reason: Admit from EC
[2021-09-09 07:47] LABS: Basophils # (A) 0.1 k/uL (0-0.2); Basophils % (A) 0 %; Eosinophils # (A) 0.1 k/uL (0-0.7); Eosinophils % (A) 1 %; HCT 44.2 % (34.0-46.0); HGB 13.6 gm/dL (11.4-16.0); Lymphocytes # (A) 1.2 k/uL (1.0-4.8); Lymphocytes % (A) 7 %; MCH 28.9 pg (25.0-35.0); MCHC 30.8 g/dL (31.0-37.0); MCV 93.9 fL (80.0-100.0); Mean Platelet Volume 7.4; Monocytes # (A) 0.7 k/uL (0-1.0); Monocytes % (A) 5 %; Neutrophils # (A) 13.7 k/uL (1.3-7.7); Neutrophils % (A) 86 %; Platelet Count 365 k/uL (150-450); RDW 13.2 % (11.5-15.5); WBC 15.8 k/uL (3.8-10.6)
[2021-09-09 07:50] LABS: Appearance,Urine Clear (Clear); Bilirubin,Urine Negative (Negative); Blood,Urine Negative (Negative); Color,Urine Yellow; Glucose,Urine (UA) Negative (Negative); Ketones,Urine Negative (Negative); Leukocyte Esterase,Urine Negative (Negative); Nitrite,Urine Negative (Negative); Protein,Urine Negative (Negative); Specific Gravity,Urine 1.012 (1.001-1.035); Urobilinogen,Urine <2.0 mg/dL (<2.0)
[2021-09-09] MEDS ORDERED: MORPHINE SULFATE 2 MG/ML SYRINGE IVP STA (08:21)
[2021-09-09 08:22] LABS: Albumin 3.7 g/dL (3.5-5.0); Calcium 9.2 mg/dL (8.4-10.2); Potassium 4.7 mmol/L (3.5-5.1); Total Bilirubin 0.7 mg/dL (0.2-1.3); Total Protein 6.7 g/dL (6.3-8.2)
--- NOTE | 2021-09-09 08:26 | CT ---
EXAMINATION TYPE: CT abdomen pelvis wo con DATE OF EXAM: 09/09/2021 COMPARISON: None INDICATION: Right flank pain DLP: 519.7 mGycm, Automated exposure control for dose reduction was used. CONTRAST: 0 mL of Isovue 300. Study performed without Oral Contrast TECHNIQUE: Axial images were obtained from above the diaphragm to the pubic rami in the axial plane a t 5 mm thick sections. Reconstructed images are reviewed on the computer in the coronal plane. FINDINGS: Limited CT sections are obtained the lung bases. The lung bases are clear. Small to moderate sized hiatal hernia is present. CT ABDOMEN: Liver: Normal Spleen: Normal Pancreas: Normal Adrenal glands: The adrenal glands are normal. Gallbladder: Gallstone is present. Kidneys: 0.6 and a 1.5 cm hyperdense exophytic cortical lesion is present at the mid level of the rig ht kidney.. No hydronephrosis is present. There is a 1.3 cm cyst in the lateral upper pole right ki dney. A 1.3 cm cyst on the lateral mid right kidney. On the coronal plane images similar hyperdense l esion is at the inferior tip of the left kidney measuring 0.7 cm. Delayed images were obtained throug h the kidneys, which remain unremarkable. No hydroureter is evident. Aorta: Vascular calcification is within the aorta. Inferior vena cava: Somewhat flattened which can be related to the patient's volume status CT PELVIS: Loops of bowel within the abdomen and pelvis are normal. The study is without oral contrast mater ial in bowel evaluation. Appendix: Not identified. No dilated tubular structure or inflammatory change is evident. Urinary bladder: Unremarkable as visualized. There is limitation due to beam hardening artifact from a left hip prosthesis. Genitourinary structures: Uterus and ovaries are not identified. Osseous structures: No suspicious lytic or sclerotic lesions. Spondylolysis of L5 is evident IMPRESSIONS: 1. Right renal cysts. 2. Small hyperdense lesions are on the inferior pole bilateral kidneys. Consider follow-up ultrasound . 3. No suspicious abnormalities to account for right flank pain. 4. Cholelithiasis
[2021-09-09] MEDS ORDERED: NALOXONE 0.4 MG/ML 1 ML VIAL IV PRN (08:59)
[2021-09-09] MEDS: SODIUM CHLORIDE 0.9% 1,000 ML IV SCH ×2 (09:11→21:15)
[2021-09-09] MEDS: HYDROmorphone 1 MG/ML 1 ML SYRINGE IVP PRN ×3 (12:05→22:44)
--- NOTE | 2021-09-09 14:05 | P.HPIM ---
History of Present Illness H&P Date: 09/09/21 Chief Complaint: Flank pain She is a 86-year-old female with a medical history of CAD, hypertension, paroxysmal atrial fibrillation, hypothyroidism, chronic kidney di sease, diabetes, she comes into the hospital with chief complaint of left-sided flank pain which she states radiates to her back. Patient reports that the pain has been going on for the past 3 weeks and describes the pain intermittent worse with movement. Patient states that she has followed up with her primary care physician regarding this pain and was prescribed pain medication however states that they are not working for her. Patient was just recently hospitalized under observation stay on 08/26/2021 due to chest pain. Patient's chest pain workup was negative. Patient denies any complaints of dysuria denies any hematuria denies any nausea or vomiting no fevers no chills. Patient denies any trauma to the left side of her body. She denies any rashes or lesions. Review of Systems Full complete 12 point review of system was performed and pertinent positives and negatives noted in HPI Past Medical History Past Medical History: Coronary Artery Disease (CAD), Diabetes Mellitus, Eye Disorder, GERD/Reflux, Hyperlipidemia, Hypertension, Myocardial Infarction ([place]), Osteoarthritis (OA) Additional Past Medical History / Comment(s): NIDDM type II, R eye-sees shadows only, hiatal hernia, arthritis bilateral hands, insomnia. Last Myocardial Infarction Date:: 2015 History of Any Multi-Drug Resistant Organisms: None Reported Past Surgical History: Heart Catheterization With Stent, Orthopedic Surgery Additional Past Surgical History / Comment(s): PCIs with stents, L hip fracture with hemiarthroplasty, R foot fracture with bone graft, R eye corneal transplant, L eye cataract removal with lens implant. Past Anesthesia/Blood Transfusion Reactions: Postoperative Nausea & Vomiting (PONV) Date of Last Stent Placement:: 10/14/2015 Past Psychological History: No Psychological Hx Reported Smoking Status: Never smoker Past Alcohol Use History: None Reported Past Drug Use History: None Reported - Past Family History Mother Family Medical History: Cancer Father Family Medical History: Myocardial Infarction ([place]) Additional Family Medical History / Comment(s): Father from a [place] at the age of 57yrs. Medications and Allergies Home Medications Medication Instructions Recorded Confirmed Type Omeprazole [PriLOSEC] 20 mg PO -BRKFST 10/14/15 09/09/21 History Timolol 0.25% Ophth Soln [Timoptic 1 drop BOTH EYES DAILY 11/04/19 09/09/21 History 0.25% Ophth Soln] Acetaminophen [Tylenol] 500 mg PO Q4-6H PRN #24 tab 08/25/21 09/09/21 Rx Amiodarone [Cordarone] 200 mg PO DAILY 08/25/21 09/09/21 History Aspirin EC [Ecotrin Low Dose] 81 mg PO DAILY 08/25/21 09/09/21 History Cyclobenzaprine [Flexeril] 5 mg PO TID PRN #20 tablet 08/25/21 09/09/21 Rx Furosemide [Lasix] 20 mg PO DAILY 08/25/21 09/09/21 History Levothyroxine Sodium [Synthroid] 112.5 mcg PO DAILY 08/25/21 09/09/21 History Metoprolol Tartrate [Lopressor] 100 mg PO BID 08/25/21 09/09/21 History Prednisolone Acetate/Pf 1 drop RIGHT EYE DAILY 08/25/21 09/09/21 History [Prednisolone Acet 1% Eye Drop] QUEtiapine [SEROquel] 25 mg PO HS 08/25/21 09/09/21 History Warfarin [Coumadin] 1 mg PO SUMOTUTHFRSA 08/25/21 09/09/21 History Warfarin [Coumadin] 2 mg PO WE 08/25/21 09/09/21 History hydrALAZINE HCL [Apresoline] 100 mg PO BID 08/25/21 09/09/21 History Atorvastatin [Lipitor] 80 mg PO HS #30 tab 08/27/21 09/09/21 Rx Isosorbide Mononitrate ER [Imdur] 30 mg PO DAILY #30 tab 08/27/21 09/09/21 Rx Acetaminophen-Codeine 300-30mg 1 tab PO Q6H PRN 09/09/21 09/09/21 History [Tylenol w/codeine #3] HYDROcodone/APAP 5-325MG [[place] 1 tab PO TID 09/09/21 09/09/21 History 5-325] Allergies Allergy/AdvReac Type Severity Reaction Status Date / Time No Known Allergies Allergy Verified 09/09/21 13:17 Physical Exam Osteopathic Statement: *. No significant issues noted on an osteopathic structu ral exam other than those noted in the History and Physical/Consult. Vitals: Vital Signs Temp Pulse Resp BP Pulse Ox 09/09/21 12:11 52 L 18 153/67 94 L 09/09/21 10:35 54 L 20 145/61 95 09/09/21 09:14 61 18 162/73 98 09/09/21 05:58 97.9 F 63 18 151/86 97 Intake and Output 09/08/21 09/09/21 09/09/21 22:59 06:59 14:59 Other: Weight 70.307 kg - Constitutional General appearance: average body habitus, no acute distress - EENT Eyes: PERRLA Ears: bilateral: normal - Respiratory Respiratory: bilateral: CTA - Cardiovascular Heart sounds: normal: S1, S2 - Gastrointestinal General gastrointestinal: normal bowel sounds - Neurologic Neurologic: CNII-XII intact - Musculoskeletal Musculoskeletal: gait normal - Psychiatric Psychiatric: A&O x's 3 Results CBC & Chem 7: 09/09/21 07:34 09/09/21 07:34 Labs: Abnormal Lab Results - Last 24 Hours (Table) 09/09/21 09/09/21 Range/Units 07:34 07:34 WBC 15.8 H (3.8-10.6) k/uL MCHC 30.8 L (31.0-37.0) g/dL Neutrophils # 13.7 H (1.3-7.7) k/uL BUN 59 H (7-17) mg/dL Creatinine 1.86 H (0.52-1.04) mg/dL Glucose 160 H (74-99) mg/dL Assessment and Plan (1) Left flank pain Current Visit: Yes Status: Acute Code(s): R10.9 - UNSPECIFIED ABDOMINAL PAIN SNOMED Code(s): 893299113 Plan: Left-sided flank pain -Appears to be musculoskeletal in origin. Patient had a computed tomography scan performed which did not reveal any acute process to explain patient's left- sided flank pain -UA was performed negative -Patient received 2 doses of IV morphine without any response for her pain. Patient reports that IV Dilaudid improved pain Chronic kidney disease stage III -Patient appears to be near baseline renal function Hypertension -Stable continue with patient's home medications including metoprolol Hypothyroidism -Continue with levothyroxine Paroxysmal atrial fibrillation -Patient's heart rate is currently controlled on metoprolol, amiodarone. Continue with Coumadin therapy pharmacy to dose Debility -Patient reports she is having a difficult time performing her ADLs secondary to this chief complaint of musculoskeletal point involving her left side of her flank. We'll consult PTOT for further recommendations. This time we'll continue with her current pain control DVT prophylaxis: Coumadin GI prophylaxis: PPI
[2021-09-09] MEDS ORDERED: ACETAMINOPHEN TAB 325 MG TAB PO PRN (14:08)
[2021-09-09] MEDS ORDERED: HEPARIN SODIUM,PORCINE/PF 5,000 UNIT/0.5 ML SYRINGE SQ SCH (16:00)
[2021-09-09 16:25] LABS: Prothrombin Time >130.0 sec (9.0-12.0)
[2021-09-09 16:31] LABS: INR >10.0 (<1.2)
[2021-09-09] MEDS ORDERED: PHYTONADIONE ORAL 5 MG/5 ML ORAL.SYRG PO ONE (17:00)
[2021-09-09] MEDS ORDERED: WARFARIN 0.5 MG TAB PO ONE (18:00)
[2021-09-09] MEDS: METOPROLOL TARTRATE 50 MG TAB PO SCH (21:14)
[2021-09-09] MEDS: ATORVASTATIN 80 MG TAB PO SCH (21:14)
[2021-09-09] MEDS: hydrALAZINE HCL 50 MG TAB PO SCH (21:14)
[2021-09-09] MEDS: QUEtiapine 25 MG TAB PO SCH (21:14)
[2021-09-09] MEDS: BACLOFEN 10 MG TAB PO PRN (22:44)
[2021-09-10] MEDS: HYDROmorphone 1 MG/ML 1 ML SYRINGE IVP PRN ×3 (06:24→21:49)
[2021-09-10] MEDS: LEVOTHYROXINE 75 MCG TAB PO SCH (06:25)
[2021-09-10] MEDS: hydrALAZINE HCL 50 MG TAB PO SCH ×2 (08:01→20:14)
[2021-09-10] MEDS: PANTOPRAZOLE 40 MG TABLET PO SCH (08:02)
[2021-09-10] MEDS: HYDROcodone/APAP 5-325MG 1 EACH TAB PO PRN ×2 (08:02→19:20)
[2021-09-10] MEDS: ISOSORBIDE MONONITRATE ER 30 MG TAB.ER.24H PO SCH (08:02)
[2021-09-10] MEDS: BACLOFEN 10 MG TAB PO PRN (08:02)
[2021-09-10] MEDS: FUROSEMIDE 20 MG TAB PO SCH (08:03)
[2021-09-10] MEDS: TIMOLOL 0.25% OPHTH DROPS 5 ML BTL BOTH EYES SCH (08:03)
[2021-09-10] MEDS: ASPIRIN 81 MG PO SCH (08:03)
[2021-09-10] MEDS: AMIODARONE 200 MG TAB PO SCH (08:03)
[2021-09-10] MEDS: prednisoLONE ACETATE 1% OPHTH DROPS 5 ML BTL RIGHT EYE SCH (08:03)
[2021-09-10] MEDS: METOPROLOL TARTRATE 50 MG TAB PO SCH ×2 (08:03→20:13)
[2021-09-10 10:45] LABS: Basophils # (A) 0.03 X 10*3/uL (0.00-0.10); Basophils % (A) 0.3 %; Eosinophils # (A) 0.06 X 10*3/uL (0.04-0.35); Eosinophils % (A) 0.5 %; HCT 42.4 % (37.2-46.3); HGB 12.7 g/dL (12.0-15.0); Immature Grans, Automated 0.7 %; Lymphocytes # (A) 1.35 X 10*3/uL (0.90-5.00); Lymphocytes % (A) 12.4 %; MCH 28.6 pg (27.0-32.0); MCV 95.5 fL (80.0-97.0); Mean Platelet Volume 10.6 fL (9.5-12.2); Monocytes # (A) 0.89 X 10*3/uL (0.20-1.00); Monocytes % (A) 8.2 %; NRBC Per 100 WBC 0 /100 WBCS (0.0-0.0); Neutrophils % (A) 77.9 %; Platelet Count 315 X 10*3/uL (140-440); RBC 4.44 X 10*6/uL (4.10-5.20); RDW 13.8 % (11.5-14.5); WBC 10.91 X 10*3/uL (4.50-10.00)
[2021-09-10 11:13] LABS: African American GFR (CKD) 37.4 (60.0-200.0); Albumin 3.6 g/dL (3.8-4.9); Albumin/Globulin Ratio 1.37 (1.60-3.17); Anion Gap 13.2 mmol/L (10.00-18.00); BUN/Creat Ratio 26.37 Ratio (12.00-20.00); Blood Urea Nitrogen 38.5 mg/dL (9.0-27.0); Calcium 9.1 mg/dL (8.7-10.3); Carbon Dioxide 19.5 mmol/L (20.0-27.5); Globulin 2.6 g/dL (1.6-3.3); Non-African American GFR(CKD) 32.3 (60.0-200.0); Potassium 4.6 mmol/L (3.5-5.5); Total Bilirubin 0.5 mg/dL (0.30-1.20); Total Protein 6.1 g/dL (6.2-8.2)
--- NOTE | 2021-09-10 11:31 | P.PN ---
Subjective Patient was examined at bedside today still complains of intractable thoracic/lumbar pain. Patient states that she was diagnosed in the past with s ome issues with her spine possibly fracture? Unsure this. Patient denies any falls or injuries recently. Objective - Vital Signs Vital signs: Vital Signs Temp 97.4 F L 09/10/21 07:00 Pulse 57 L 09/10/21 07:00 Resp 18 09/10/21 07:00 BP 188/74 09/10/21 07:00 Pulse Ox 97 09/10/21 07:00 FiO2 Intake & Output 09/09/21 09/10/21 09/10/21 18:59 06:59 18:59 Intake Total 100 50 Output Total 700 Balance 100 -700 50 Weight 70.307 kg Intake: Oral 100 50 Output: Urine 700 Other: Voiding Method Toilet Toilet External Catheter External Catheter - Exam - Constitutional General appearance: average body habitus, no acute distress - EENT Eyes: PERRLA Ears: bilateral: normal - Respiratory Respiratory: bilateral: CTA - Cardiovascular Heart sounds: normal: S1, S2 - Gastrointestinal General gastrointestinal: normal bowel sounds - Neurologic Neurologic: CNII-XII intact - Musculoskeletal Musculoskeletal: Tenderness noted in the thoracic lower region on deep palpation and lumbar. - Psychiatric Psychiatric: A&O x's 3 - Labs CBC & Chem 7: 09/10/21 05:36 09/10/21 05:36 Labs: Abnormal Lab Results - Last 24 Hours (Table) 09/09/21 09/10/21 09/10/21 Range/Units 15:27 05:36 05:36 WBC 10.91 H (4.50-10.00) X 10*3/uL MCHC 30.0 L (32.0-37.0) g/dL Immature Gran # 0.08 H (0.00-0.04) X 10*3/uL Neutrophils # 8.50 H (1.80-7.70) X 10*3/uL PT >130.0 H (9.0-12.0) sec INR >10.0 H* (<1.2) Carbon Dioxide 19.5 L (20.0-27.5) mmol/L BUN 38.5 H (9.0-27.0) mg/dL Est GFR (CKD-EPI)AfAm 37.4 L (60.0-200.0) Est GFR (CKD-EPI)NonAf 32.3 L (60.0-200.0) BUN/Creatinine Ratio 26.37 H (12.00-20.00) Ratio Glucose 139 H (70-110) mg/dL Total Protein 6.1 L (6.2-8.2) g/dL Albumin 3.6 L (3.8-4.9) g/dL Albumin/Globulin Ratio 1.37 L (1.60-3.17) g/dL Assessment and Plan Assessment: Left-sided flank pain -Appears to be musculoskeletal in origin. Patient had a computed tomography scan performed which did not reveal any acute process to explain patient's left- sided flank pain -UA was performed negative -Patient received 2 doses of IV morphine without any response for her pain. Patient reports that IV Dilaudid improved pain -We'll obtain thoracic and lumbar x-ray to evaluate for any fractures. Patient states that she did have some issues in the spine previously however unable to explain clearly. Chronic kidney disease stage III -Patient appears to be near baseline renal function Hypertension -Stable continue with patient's home medications including metoprolol Hypothyroidism -Continue with levothyroxine Paroxysmal atrial fibrillation -Patient's heart rate is currently controlled on metoprolol, amiodarone. Hold Coumadin dose. Debility -Patient reports she is having a difficult time performing her ADLs secondary to this chief complaint of musculoskeletal point involving her left side of her flank. We'll consult PTOT for further recommendations. This time we'll continue with her current pain control Super therapeutic INR -Repeat INR pending DVT prophylaxis: Coumadin hold secondary to supratherapeutic INR GI prophylaxis: PPI
[2021-09-10 11:34] LABS: INR 5.79 (0.90-1.11); Prothrombin Time 58.6 sec (9.9-11.9)
--- NOTE | 2021-09-10 13:29 | XR ---
EXAMINATION TYPE: XR thoracic spine 2V DATE OF EXAM: 09/10/2021 COMPARISON: 07/09/2021 HISTORY: Fracture, back pain x1 month TECHNIQUE: Three-view thoracic spine FINDINGS: Some chronic compression deformities within the mid to lower thoracic spine are again evide nt. Findings appear stable. There are 12 thoracic type vertebral bodies. The pedicles are intact. Mil d scoliosis is present in the frontal projection. There is some exaggeration of the thoracic kyphosis . IMPRESSION: 1. Stable appearance of the thoracic spine with mild compression deformities unchanged from comparis on. 2. No acute osseous abnormality radiographically evident.
--- NOTE | 2021-09-10 13:31 | XR ---
EXAMINATION TYPE: XR lumbar spine 2 or 3V DATE OF EXAM: 09/10/2021 COMPARISON: None HISTORY: Fracture low back pain TECHNIQUE: Three-view lumbar spine FINDINGS: There are 5 lumbar-type vertebral bodies. Pedicles are intact. Vertebral body heights are p reserved. Disc heights are preserved. Structures appear somewhat osteopenic. Vascular calcifications within the aorta. IMPRESSION: 1. No acute osseous abnormality lumbar spine
[2021-09-10] MEDS ORDERED: WARFARIN 0.5 MG TAB PO ONE (18:00)
[2021-09-10] MEDS: SODIUM CHLORIDE 0.9% 1,000 ML IV SCH (18:03)
[2021-09-10] MEDS: ATORVASTATIN 80 MG TAB PO SCH (20:13)
[2021-09-10] MEDS: QUEtiapine 25 MG TAB PO SCH (20:14)
[2021-09-11] MEDS: HYDROmorphone 1 MG/ML 1 ML SYRINGE IVP PRN ×3 (01:25→20:52)
[2021-09-11] MEDS: SODIUM CHLORIDE 0.9% 1,000 ML IV SCH ×2 (04:42→17:46)
[2021-09-11] MEDS: LEVOTHYROXINE 75 MCG TAB PO SCH (05:45)
[2021-09-11] MEDS: prednisoLONE ACETATE 1% OPHTH DROPS 5 ML BTL RIGHT EYE SCH (08:15)
[2021-09-11] MEDS: TIMOLOL 0.25% OPHTH DROPS 5 ML BTL BOTH EYES SCH (08:15)
[2021-09-11] MEDS: hydrALAZINE HCL 50 MG TAB PO SCH ×2 (08:15→20:54)
[2021-09-11] MEDS: PANTOPRAZOLE 40 MG TABLET PO SCH (08:16)
[2021-09-11] MEDS: ISOSORBIDE MONONITRATE ER 30 MG TAB.ER.24H PO SCH (08:16)
[2021-09-11] MEDS: AMIODARONE 200 MG TAB PO SCH (08:16)
[2021-09-11] MEDS: ASPIRIN 81 MG PO SCH (08:16)
[2021-09-11] MEDS: METOPROLOL TARTRATE 50 MG TAB PO SCH ×2 (08:16→20:54)
[2021-09-11] MEDS: FUROSEMIDE 20 MG TAB PO SCH (08:16)
[2021-09-11 08:32] LABS: Basophils # (A) 0.1 k/uL (0-0.2); Basophils % (A) 1 %; Eosinophils # (A) 0.1 k/uL (0-0.7); Eosinophils % (A) 1 %; HCT 46.2 % (34.0-46.0); HGB 13.4 gm/dL (11.4-16.0); Hypochromasia Marked; Lymphocytes # (A) 1.1 k/uL (1.0-4.8); Lymphocytes % (A) 8 %; MCH 28.8 pg (25.0-35.0); Mean Platelet Volume 7.7; Monocytes # (A) 0.8 k/uL (0-1.0); Monocytes % (A) 6 %; Neutrophils # (A) 11.8 k/uL (1.3-7.7); Neutrophils % (A) 84 %; Platelet Count 275 k/uL (150-450); RBC 4.65 m/uL (3.80-5.40); RDW 13.3 % (11.5-15.5); WBC 14.1 k/uL (3.8-10.6)
[2021-09-11 08:33] LABS: MCV 99.4 fL (80.0-100.0)
[2021-09-11] MEDS: BACLOFEN 10 MG TAB PO PRN (11:30)
[2021-09-11] MEDS: HYDROcodone/APAP 5-325MG 1 EACH TAB PO PRN (11:30)
[2021-09-11 11:57] LABS: African American GFR (CKD) 51 (>60 ml/min/1.73 sqM); Anion Gap 10 mmol/L; Blood Urea Nitrogen 31 mg/dL (7-17); Calcium 9.1 mg/dL (8.4-10.2); Carbon Dioxide 21 mmol/L (22-30); Chloride 109 mmol/L (98-107); Glucose 141 mg/dL (74-99); Non-African American GFR(CKD) 44 (>60 ml/min/1.73 sqM); Potassium 4.4 mmol/L (3.5-5.1); Sodium 140 mmol/L (137-145)
[2021-09-11 12:56] LABS: INR 2.59 (0.90-1.11); Prothrombin Time 27.2 sec (9.9-11.9)
--- NOTE | 2021-09-11 13:33 | P.HPOR ---
History of Present Illness H&P Date: 09/11/21 Chief Complaint: back pain radiating to left flank area History of Presenting Illness Patient is a pleasant 86-year-old female who presents with back pain that radiates to the left flank area. Patient denies any injury or trauma. Her spouse is at bedside, and states patient was laying on the ground for approximately 3 hours on her left side weeding her flower beds. Patient states after her gardening the pain began mid back and radiating to left flank area. Patient states she saw her primary care physician and received [place] 5/325, which she states is not providing any relief. She states that the current medication regimen is providing relief. Patient has full range of motion of bilateral upper and lower extremities. Mrs. Patino expresses that she is aware of chronic compression fractures in the thoracic region. Patient denies any numbness or tingling to all extremities. She denies any loss of bowel or bladder. Review of Systems Pertinent postivites and negatives as dicussed in HPI, a complete review of systems was performed and all other sysytems are negative. Physical Examination General: The patient is awake and alert, in no acute distress Skin: Skin is warm and dry with no obvious rashes or lesions. Hairy patches absent, no dorsal skin dimples, no cafe au lait spots, and no surgical incisions. Eye: Pupils are equal, round and reactive to light, extra-ocular movements are intact; there is normal conjunctiva bilaterally. Neck: The neck is supple, there is no tenderness and ROM intact. Cardiovascular: There is a regular rate and rhythm. No murmur, rub or gallop is appreciated. Respiratory: Lungs are clear to auscultation, respirations are non-labored, breath sounds are equal. Gastrointestinal: Soft, non-distended, non-tender abdomen. Back: There is slight tenderness to palpation in the paralumbar region. There is no obvious deformity. Musculoskeletal: ROM limited secondary to pain and stiffness. Shoulder abduction 5/5, elbow flexors 5/5, wrist dorsiflexors 5/5. finger abductor 5/5, centerless grinder tender 5/5, hip flexor 5/5, knee flexor 5/5, ankle dorsiflexor 5/5, ankle plantarflexion 5/5 and extensor hallucis 5/5. Neurological: CN 2-12 intact. There are no obvious motor or sensory deficits. Movement and coordination equal and intact. Sensory exam to light touch intact C5-T1 and intact from L2-S1. Reflexes 2/4 in bilateral upper and lower extremities. Negative Hoffmans, babinski, and clonus signs. Psychiatric: Cooperative, appropriate mood & affect, normal judgment. Assessment and Plan -Thoracic and lumbar x-rays reviewed: Thoracic spine is stable with chronic mild decompression deformities. Lumbar spine is stable with no acute osseous abnorma lities. 1. mechanical back pain -Continue with current medication regimen -Use alternatives pain management therapies: Ice and heat packs -Encourage physical therapy Mrs. Patino may follow up in our office outpatient as needed. Thank you for consult, we will continue to follow patient as needed while she is in hospital. I reviewed and discussed this case with my attending Dr. Sands, whom has reviewed this chart and films and is in agreement with assessment and plan of care as outlined above. I have personally seen and examined the patient, performed the documentation and the assessment and plan as written. Number of minutes spent on the visit: 20m. Past Medical History Past Medical History: Coronary Artery Disease (CAD), Diabetes Mellitus, Eye Disorder, GERD/Reflux, Hyperlipidemia, Hypertension, Myocardial Infarction (ID), Osteoarthritis (OA) Additional Past Medical History / Comment(s): NIDDM type II, R eye-sees shadows only, hiatal hernia, arthritis bilateral hands, insomnia. Last Myocardial Infarction Date:: 2015 History of Any Multi-Drug Resistant Organisms: None Reported Past Surgical History: Heart Catheterization With Stent, Orthopedic Surgery Additional Past Surgical History / Comment(s): PCIs with stents, L hip fracture with hemiarthroplasty, R foot fracture with bone graft, R eye corneal transplant, L eye cataract removal with lens implant. Past Anesthesia/Blood Transfusion Reactions: Postoperative Nausea & Vomiting (PONV) Date of Last Stent Placement:: 10/14/2015 Past Psychological History: No Psychological Hx Reported Additional Psychological History / Comment(s): Pt resides with her spouse. She is independent. She drives. Smoking Status: Never smoker Past Alcohol Use History: None Reported Past Drug Use History: None Reported - Past Family History Mother Family Medical History: Cancer Father Family Medical History: Myocardial Infarction (ID) Additional Family Medical History / Comment(s): Father from a ID at the age of 57yrs. Medications and Allergies Home Medications Medication Instructions Recorded Confirmed Type Omeprazole [PriLOSEC] 20 mg PO AC-BRKFST 10/14/15 09/09/21 History Timolol 0.25% Ophth Soln [Timoptic 1 drop BOTH EYES DAILY 11/04/19 09/09/21 History 0.25% Ophth Soln] Acetaminophen [Tylenol] 500 mg PO Q4-6H PRN #24 tab 08/25/21 09/09/21 Rx Amiodarone [Cordarone] 200 mg PO DAILY 08/25/21 09/09/21 History Aspirin EC [Ecotrin Low Dose] 81 mg PO DAILY 08/25/21 09/09/21 History Cyclobenzaprine [Flexeril] 5 mg PO TID PRN #20 tablet 08/25/21 09/09/21 Rx Furosemide [Lasix] 20 mg PO DAILY 08/25/21 09/09/21 History Levothyroxine Sodium [Synthroid] 112.5 mcg PO DAILY 08/25/21 09/09/21 History Metoprolol Tartrate [Lopressor] 100 mg PO BID 08/25/21 09/09/21 History Prednisolone Acetate/Pf 1 drop RIGHT EYE DAILY 08/25/21 09/09/21 History [Prednisolone Acet 1% Eye Drop] QUEtiapine [SEROquel] 25 mg PO HS 08/25/21 09/09/21 History Warfarin [Coumadin] 1 mg PO SUMOTUTHFRSA 08/25/21 09/09/21 History Warfarin [Coumadin] 2 mg PO WE 08/25/21 09/09/21 History hydrALAZINE HCL [Apresoline] 100 mg PO BID 08/25/21 09/09/21 History Atorvastatin [Lipitor] 80 mg PO HS #30 tab 08/27/21 09/09/21 Rx Isosorbide Mononitrate ER [Imdur] 30 mg PO DAILY #30 tab 08/27/21 09/09/21 Rx Acetaminophen-Codeine 300-30mg 1 tab PO Q6H PRN 09/09/21 09/09/21 History [Tylenol w/codeine #3] HYDROcodone/APAP 5-325MG [[place] 1 tab PO TID 09/09/21 09/09/21 History 5-325] Allergies Allergy/AdvReac Type Severity Reaction Status Date / Time No Known Allergies Allergy Verified 09/09/21 15:54 Results - Labs Labs: Abnormal Lab Results - Last 24 Hours (Table) 09/11/21 09/11/21 09/11/21 Range/Units 07:39 07:39 11:29 WBC 14.1 H (3.8-10.6) k/uL Hct 46.2 H (34.0-46.0) % MCHC 29.0 L (31.0-37.0) g/dL Neutrophils # 11.8 H (1.3-7.7) k/uL PT 27.2 H (9.9-11.9) sec INR 2.59 H (0.90-1.11) Chloride 109 H (98-107) mmol/L Carbon Dioxide 21 L (22-30) mmol/L BUN 31 H (7-17) mg/dL Creatinine 1.14 H (0.52-1.04) mg/dL Glucose 141 H (74-99) mg/dL H & H 09/09/21 09/10/21 09/11/21 Range/Units 07:34 05:36 07:39 Hgb 13.6 12.7 13.4 (11.4-16.0) gm/dL Hct 44.2 42.4 46.2 H (34.0-46.0) % Coagulation 09/09/21 09/10/21 09/11/21 Range/Units 15:27 05:36 07:39 INR >10.0 H* 5.79 H* 2.59 H (<1.2) Result Diagrams: 09/11/21 07:39 09/11/21 11:29
--- NOTE | 2021-09-11 15:38 | P.PN ---
Subjective Patient was examined at bedside today still continues complain of intractable pain radiating in rate 10 out of 10. Patient was waiting to be evaluated by orthopedic service their documentation recommendations have been reviewed. Objective - Vital Signs Vital signs: Vital Signs Temp 98.0 F 09/11/21 15:00 Pulse 52 L 09/11/21 15:00 Resp 18 09/11/21 15:00 BP 138/61 09/11/21 15:00 Pulse Ox 96 09/11/21 15:00 FiO2 Intake & Output 09/10/21 09/11/21 09/11/21 18:59 06:59 18:59 Intake Total 50 240 Output Total 200 900 800 Balance -150 900 -560 Intake: Oral 50 240 Output: Urine 200 900 800 Other: Voiding Method External Catheter External Catheter # Voids 2 2 1 - Exam - Constitutional General appearance: average body habitus, no acute distress - EENT Eyes: PERRLA Ears: bilateral: normal - Respiratory Respiratory: bilateral: CTA - Cardiovascular Heart sounds: normal: S1, S2 - Gastrointestinal General gastrointestinal: normal bowel sounds - Neurologic Neurologic: CNII-XII intact - Musculoskeletal Musculoskeletal: Tenderness noted in the thoracic lower region on deep palpation and lumbar. - Psychiatric Psychiatric: A&O x's 3 - Labs CBC & Chem 7: 09/11/21 07:39 09/11/21 11:29 Labs: Abnormal Lab Results - Last 24 Hours (Table) 09/11/21 09/11/21 09/11/21 Range/Units 07:39 07:39 11:29 WBC 14.1 H (3.8-10.6) k/uL Hct 46.2 H (34.0-46.0) % MCHC 29.0 L (31.0-37.0) g/dL Neutrophils # 11.8 H (1.3-7.7) k/uL PT 27.2 H (9.9-11.9) sec INR 2.59 H (0.90-1.11) Chloride 109 H (98-107) mmol/L Carbon Dioxide 21 L (22-30) mmol/L BUN 31 H (7-17) mg/dL Creatinine 1.14 H (0.52-1.04) mg/dL Glucose 141 H (74-99) mg/dL Assessment and Plan Assessment: Left-sided flank pain/thoracic region -Appears to be musculoskeletal in origin. Patient had a computed tomography scan performed which did not reveal any acute process to explain patient's left- sided flank pain -UA was performed negative -Patient received 2 doses of IV morphine without any response for her pain. Patient reports that IV Dilaudid improved pain -Thoracic and lumbar x-ray reviewed, conservative management as per orthopedic service. -We'll give a trial of Flexeril Chronic kidney disease stage III -Patient appears to be near baseline renal function Hypertension -Stable continue with patient's home medications including metoprolol Hypothyroidism -Continue with levothyroxine Paroxysmal atrial fibrillation -Patient's heart rate is currently controlled on metoprolol, amiodarone. Hold Coumadin dose. Debility -Patient reports she is having a difficult time performing her ADLs secondary to this chief complaint of musculoskeletal point involving her left side of her flank. We'll consult PTOT for further recommendations. This time we'll cont inue with her current pain control Super therapeutic INR -Repeat INR between 2-3 DVT prophylaxis: Coumadin hold secondary to supratherapeutic INR GI prophylaxis: PPI
[2021-09-11] MEDS ORDERED: WARFARIN 0.5 MG TAB PO ONE (18:00)
[2021-09-11] MEDS: QUEtiapine 25 MG TAB PO SCH (20:54)
[2021-09-11] MEDS: ATORVASTATIN 80 MG TAB PO SCH (20:55)
[2021-09-12] MEDS: HYDROcodone/APAP 5-325MG 1 EACH TAB PO PRN ×2 (00:23→14:41)
[2021-09-12] MEDS: BACLOFEN 10 MG TAB PO PRN ×2 (00:24→14:41)
[2021-09-12] MEDS: HYDROmorphone 1 MG/ML 1 ML SYRINGE IVP PRN ×2 (02:09→05:28)
[2021-09-12] MEDS: SODIUM CHLORIDE 0.9% 1,000 ML IV SCH ×2 (04:43→17:40)
[2021-09-12] MEDS: LEVOTHYROXINE 75 MCG TAB PO SCH (05:22)
[2021-09-12] MEDS: METOPROLOL TARTRATE 50 MG TAB PO SCH ×2 (08:45→20:30)
[2021-09-12] MEDS: ASPIRIN 81 MG PO SCH (08:45)
[2021-09-12] MEDS: ISOSORBIDE MONONITRATE ER 30 MG TAB.ER.24H PO SCH (08:45)
[2021-09-12] MEDS: PANTOPRAZOLE 40 MG TABLET PO SCH (08:45)
[2021-09-12] MEDS: AMIODARONE 200 MG TAB PO SCH (08:45)
[2021-09-12] MEDS: FUROSEMIDE 20 MG TAB PO SCH (08:45)
[2021-09-12] MEDS: TIMOLOL 0.25% OPHTH DROPS 5 ML BTL BOTH EYES SCH (08:46)
[2021-09-12] MEDS: prednisoLONE ACETATE 1% OPHTH DROPS 5 ML BTL RIGHT EYE SCH (08:46)
[2021-09-12] MEDS: hydrALAZINE HCL 50 MG TAB PO SCH ×2 (08:46→20:30)
--- NOTE | 2021-09-12 09:28 | P.PN ---
Subjective Progress Note Date: 09/12/21 Principal diagnosis: Back pain radiating to left flank area Seen and examined at bedside today. Patient still reports pain but states she is feeling better. She is tolerating activity to and from restroom. Patient denies any numbness or tingling to her lower extremities. Expressed to the patient that this is muscular in nature and to continue with her current medication regimen. Patient is requesting discharge at this point, informed patient she is clear from our standpoint and needs to speak with medicine. Patient has been afebrile, denies nausea/vomiting, or chest pain. Objective - Vital Signs Vital signs: Vital Signs Temp 98.0 F 09/12/21 07:00 Pulse 56 L 09/12/21 07:00 Resp 16 09/12/21 07:00 BP 191/74 09/12/21 07:00 Pulse Ox 95 09/12/21 07:00 FiO2 Intake & Output 09/11/21 09/12/21 09/12/21 18:59 06:59 18:59 Intake Total 240 100 Output Total 1300 600 Balance -1060 -600 100 Intake: Oral 240 100 Output: Urine 1300 600 Other: Voiding Method External Catheter External Catheter # Voids 1 1 - Exam Physical Examination General: The patient is awake and alert, in no acute distress Skin: Skin is warm and dry with no obvious rashes or lesions. Hairy patches absent, no dorsal skin dimples, no cafe au lait spots, and no surgical incis ions. Eye: Pupils are equal, round and reactive to light, extra-ocular movements are intact; there is normal conjunctiva bilaterally. Neck: The neck is supple, there is no tenderness and ROM intact. Cardiovascular: There is a regular rate and rhythm. No murmur, rub or gallop is appreciated. Respiratory: Lungs are clear to auscultation, respirations are non-labored, breath sounds are equal. Gastrointestinal: Soft, non-distended, non-tender abdomen . Back: There is slight tenderness to palpation in the paralumbar region. There is no obvious deformity . Musculoskeletal: ROM limited secondary to pain and stiffness. Shoulder abduction 5/5, elbow flexors 5/5, wrist dorsiflexors 5/5. finger abductor 5/5, reconciling clerk 5/5, hip flexor 4/5, knee flexor 4/5, ankle dorsiflexor 4/5, ankle plantarflexion 4/5 and extensor hallucis 4/5. Neurological: CN 2-12 intact. There are no obvious motor or sensory deficits. Movement and coordination equal and intact. Sensory exam to light touch intact C5-T1 and intact from L2-S1. Reflexes 2/4 in bilateral upper and lower extremities. Negative Hoffmans, babinski, and clonus signs. Psychiatric: Cooperative, appropriate mood & affect, normal judgment. - Labs CBC & Chem 7: 09/11/21 07:39 09/11/21 11:29 Labs: Abnormal Lab Results - Last 24 Hours (Table) 09/11/21 09/11/21 Range/Units 07:39 11:29 PT 27.2 H (9.9-11.9) sec INR 2.59 H (0.90-1.11) Chloride 109 H (98-107) mmol/L Carbon Dioxide 21 L (22-30) mmol/L BUN 31 H (7-17) mg/dL Creatinine 1.14 H (0.52-1.04) mg/dL Glucose 141 H (74-99) mg/dL Assessment and Plan Assessment: mechanical back pain Plan: -Continue with current medication regimen -Use alternatives pain management therapies: Ice and heat packs -Encourage physical therapy -Cleared from orthopedic standpoint at this time, May follow up in office outpa tient as needed
[2021-09-12 11:02] LABS: African American GFR (CKD) 51.5 (60.0-200.0); Anion Gap 10.5 mmol/L (10.00-18.00); BUN/Creat Ratio 19.64 Ratio (12.00-20.00); Calcium 9.3 mg/dL (8.7-10.3); Carbon Dioxide 21.1 mmol/L (20.0-27.5); Non-African American GFR(CKD) 44.4 (60.0-200.0); Potassium 3.9 mmol/L (3.5-5.5)
[2021-09-12 11:54] LABS: INR 2.95 (0.90-1.11); Prothrombin Time 30.8 sec (9.9-11.9)
[2021-09-12 12:27] LABS: Basophils # (A) 0.07 X 10*3/uL (0.00-0.10); Basophils % (A) 0.5 %; Eosinophils # (A) 0.24 X 10*3/uL (0.04-0.35); Eosinophils % (A) 1.8 %; HCT 42.1 % (37.2-46.3); Immature Grans, Automated 0.6 %; Lymphocytes # (A) 1.23 X 10*3/uL (0.90-5.00); Lymphocytes % (A) 9.3 %; MCH 29.7 pg (27.0-32.0); MCHC 30.9 g/dL (32.0-37.0); MCV 96.1 fL (80.0-97.0); Mean Platelet Volume 10.3 fL (9.5-12.2); Monocytes # (A) 0.92 X 10*3/uL (0.20-1.00); Monocytes % (A) 6.9 %; NRBC Per 100 WBC 0 /100 WBCS (0.0-0.0); Neutrophils # (A) 10.72 X 10*3/uL (1.80-7.70); Neutrophils % (A) 80.9 %; Platelet Count 322 X 10*3/uL (140-440); RBC 4.38 X 10*6/uL (4.10-5.20); RDW 13.6 % (11.5-14.5); WBC 13.26 X 10*3/uL (4.50-10.00)
--- NOTE | 2021-09-12 14:25 | P.PN ---
Subjective Patient examined at bedside Continues to complain of discomfort in the back slightly improving PT/OT Objective - Vital Signs Vital signs: Vital Signs Temp 97.7 F 09/12/21 14:17 Pulse 59 L 09/12/21 14:17 Resp 18 09/12/21 14:17 BP 115/67 09/12/21 14:17 Pulse Ox 94 L 09/12/21 14:17 FiO2 Intake & Output 09/11/21 09/12/21 09/12/21 18:59 06:59 18:59 Intake Total 240 100 Output Total 1300 600 Balance -1060 -600 100 Intake: Oral 240 100 Output: Urine 1300 600 Other: Voiding Method External Catheter External Catheter External Catheter # Voids 1 1 2 - Exam - Constitutional General appearance: average body habitus, no acute distress - EENT Eyes: PERRLA Ears: bilateral: normal - Respiratory Respiratory: bilateral: CTA - Cardiovascular Heart sounds: normal: S1, S2 - Gastrointestinal General gastrointestinal: normal bowel sounds - Neurologic Neurologic: CNII-XII intact - Musculoskeletal Musculoskeletal: Tenderness noted in the thoracic lower region on deep palpation and lumbar. - Psychiatric Psychiatric: A&O x's 3 - Labs CBC & Chem 7: 09/12/21 07:16 09/12/21 07:16 Labs: Abnormal Lab Results - Last 24 Hours (Table) 09/12/21 09/12/21 09/12/21 Range/Units 07:16 07:16 07:16 WBC 13.26 H (4.50-10.00) X 10*3/uL MCHC 30.9 L (32.0-37.0) g/dL Immature Gran # 0.08 H (0.00-0.04) X 10*3/uL Neutrophils # 10.72 H (1.80-7.70) X 10*3/uL PT 30.8 H (9.9-11.9) sec INR 2.95 H (0.90-1.11) Est GFR (CKD-EPI)AfAm 51.5 L (60.0-200.0) Est GFR (CKD-EPI)NonAf 44.4 L (60.0-200.0) Glucose 121 H (70-110) mg/dL Assessment and Plan Assessment: Left-sided flank pain/thoracic region -Appears to be musculoskeletal in origin. -UA was performed negative -Thoracic and lumbar x-ray reviewed, conservative management as per orthopedic service. Chronic kidney disease stage III -Patient appears to be near baseline renal function Hypertension -Stable continue with patient's home medications including metoprolol Hypothyroidism -Continue with levothyroxine Paroxysmal atrial fibrillation -Patient's heart rate is currently controlled on metoprolol, amiodarone. Hold Coumadin dose. Debility -Patient reports she is having a difficult time performing her ADLs secondary to this chief complaint of musculoskeletal point involving her left side of her flank. We'll consult PTOT for further recommendations. This time we'll continue with her current pain control Super therapeutic INR -Repeat INR between 2-3 DVT prophylaxis: Coumadin GI prophylaxis: PPI
[2021-09-12] MEDS ORDERED: WARFARIN 0.5 MG TAB PO ONE (18:00)
[2021-09-12] MEDS: QUEtiapine 25 MG TAB PO SCH (20:30)
[2021-09-12] MEDS: ATORVASTATIN 80 MG TAB PO SCH (20:30)
[2021-09-13] MEDS: HYDROcodone/APAP 5-325MG 1 EACH TAB PO PRN (05:57)
[2021-09-13] MEDS: LEVOTHYROXINE 75 MCG TAB PO SCH (05:58)
[2021-09-13 07:27] LABS: INR 3.7 (<1.2); Prothrombin Time 36.9 sec (9.0-12.0)
[2021-09-13 07:36] VITALS: BP 149/69; PULSE 56; RESP 18; TEMP 97.6
[2021-09-13] MEDS: prednisoLONE ACETATE 1% OPHTH DROPS 5 ML BTL RIGHT EYE SCH (09:41)
[2021-09-13] MEDS: TIMOLOL 0.25% OPHTH DROPS 5 ML BTL BOTH EYES SCH (09:41)
[2021-09-13] MEDS: ISOSORBIDE MONONITRATE ER 30 MG TAB.ER.24H PO SCH (09:42)
[2021-09-13] MEDS: FUROSEMIDE 20 MG TAB PO SCH (09:42)
[2021-09-13] MEDS: hydrALAZINE HCL 50 MG TAB PO SCH (09:42)
[2021-09-13] MEDS: PANTOPRAZOLE 40 MG TABLET PO SCH (09:42)
[2021-09-13] MEDS: AMIODARONE 200 MG TAB PO SCH (09:42)
[2021-09-13] MEDS: ASPIRIN 81 MG PO SCH (09:42)
[2021-09-13] MEDS: METOPROLOL TARTRATE 50 MG TAB PO SCH (09:43)
--- NOTE | 2021-09-13 13:39 | P.DS ---
Providers Date of admission: 09/11/21 12:24 Attending physician: Rasheed Jack MD Consults: 09/11/21 07:54 Consult Physician Routine Consulting Provider: Juan Diego Sands Consult Reason/Comments: eval for possible thoracic fracture patient states has a hx, increase pain Do you want consulting provider notified?: Yes Primary care physician: [facility] Course: She is a 86-year-old female with a medical history of CAD, hypertension, paroxysmal atrial fibrillation, hypothyroidism, chronic kidney disease, diabetes, she comes into the hospital with chief complaint of left- sided flank pain which she states radiates to her back. Patient reports that the pain has been going on for the past 3 weeks and describes the pain intermittent worse with movement. Patient states that she has followed up with her primary care physician regarding this pain and was prescribed pain medication however states that they are not working for her. Patient was just recently hospitalized under observation stay on 08/26/2021 due to chest pain. Patient's chest pain workup was negative. Patient denies any complaints of dysuria denies any hematuria denies any nausea or vomiting no fevers no chills. Patient denies any trauma to the left side of her body. She denies any rashes or lesions. Patient was examined at bedside she was also evaluated by orthopedic service. I did obtain a thoracic and lumbar x-ray. This was also reviewed by the service. The recommending conservative management including pain control, PT/OT. I advised the patient the benefits of subacute rehab however there declining including her present at bedside. Patient states that she had a home. Pain is better controlled today not complaining of any worsening symptoms today or any weakness in her lower legs. Patient's INR levels are very elevated and we have made adjustments to her Coumadin dose. I spoke to the pharmacist Aarti and on discharge we will be decreasing her Coumadin dose to hold coumadin, on coumadin 0.5 mg daily. follow up in INR within 2 days. Patient states that she will follow up with her INR clinic. I've advised the patient, and RN regarding this. I also spoke with pharmacy that dose the Coumadin on discharge to 0.5 mg daily. We will hold dose today did not administer Coumadin. Patient Condition at Discharge: Fair Plan - Discharge Summary New Discharge Prescriptions: New Warfarin [Coumadin] 0.5 mg PO DAILY 30 Days #30 tab Continue Omeprazole [PriLOSEC] 20 mg PO -[facility] Timolol 0.25% Ophth Soln [Timoptic 0.25% Ophth Soln] 1 drop BOTH EYES DAILY Amiodarone [Cordarone] 200 mg PO DAILY Prednisolone Acetate/Pf [Prednisolone Acet 1% Eye Drop] 1 drop RIGHT EYE DAILY Levothyroxine Sodium [Synthroid] 112.5 mcg PO DAILY Acetaminophen [Tylenol] 500 mg PO Q4-6H PRN #24 tab PRN Reason: Pain Cyclobenzaprine [Flexeril] 5 mg PO TID PRN 3 Days #9 tablet PRN Reason: Spasms QUEtiapine [SEROquel] 25 mg PO HS hydrALAZINE HCL [Apresoline] 100 mg PO BID Metoprolol Tartrate [Lopressor] 100 mg PO BID Aspirin EC [Ecotrin Low Dose] 81 mg PO DAILY Furosemide [Lasix] 20 mg PO DAILY Isosorbide Mononitrate ER [Imdur] 30 mg PO DAILY #30 tab Atorvastatin [Lipitor] 80 mg PO HS #30 tab Acetaminophen-Codeine 300-30mg [Tylenol w/codeine #3] 1 tab PO Q6H PRN PRN Reason: Pain HYDROcodone/APAP 5-325MG [[place] 5-325] 1 tab PO TID Discontinued Warfarin [Coumadin] 1 mg PO SUMOTUTHFRSA Warfarin [Coumadin] 2 mg PO WE Discharge Medication List Omeprazole [PriLOSEC] 20 mg PO -BRKFST 10/14/15 [History] Timolol 0.25% Ophth Soln [Timoptic 0.25% Ophth Soln] 1 drop BOTH EYES DAILY 11/04/19 [History] Acetaminophen [Tylenol] 500 mg PO Q4-6H PRN #24 tab 08/25/21 [Rx] Amiodarone [Cordarone] 200 mg PO DAILY 08/25/21 [History] Aspirin EC [Ecotrin Low Dose] 81 mg PO DAILY 08/25/21 [History] Furosemide [Lasix] 20 mg PO DAILY 08/25/21 [History] Levothyroxine Sodium [Synthroid] 112.5 mcg PO DAILY 08/25/21 [History] Metoprolol Tartrate [Lopressor] 100 mg PO BID 08/25/21 [History] Prednisolone Acetate/Pf [Prednisolone Acet 1% Eye Drop] 1 drop RIGHT EYE DAILY 08/25/21 [History] QUEtiapine [SEROquel] 25 mg PO HS 08/25/21 [History] hydrALAZINE HCL [Apresoline] 100 mg PO BID 08/25/21 [History] Atorvastatin [Lipitor] 80 mg PO HS #30 tab 08/27/21 [Rx] Isosorbide Mononitrate ER [Imdur] 30 mg PO DAILY #30 tab 08/27/21 [Rx] Acetaminophen-Codeine 300-30mg [Tylenol w/codeine #3] 1 tab PO Q6H PRN 09/09/21 [History] HYDROcodone/APAP 5-325MG [[place] 5-325] 1 tab PO TID 09/09/21 [History] Cyclobenzaprine [Flexeril] 5 mg PO TID PRN 3 Days #9 tablet 09/13/21 [Rx] Warfarin [Coumadin] 0.5 mg PO DAILY 30 Days #30 tab 09/13/21 [Rx] Follow up Appointment(s)/Referral(s): Diomedes Akbar DO [Primary Care Provider] - 1-2 days Ambulatory/Diagnostic Orders: Prothrombin Time INR [LAB.AMB] Location: None Selected Activity/Diet/Wound Care/Special Instructions: [place] ind[place] funds needed Please follow-up with INR clinic within 24-48 hours. Hold Coumadin dose today 09/13/2021. Coumadin dose decreased to 0.5 mg daily. Discharge Disposition: HOME WITH HOME HEALTH SERVICES
[2021-09-13] MEDS: SODIUM CHLORIDE 0.9% 1,000 ML IV SCH (14:26)
[2021-09-13] MEDS ORDERED: WARFARIN 0.5 MG TAB PO ONE (18:00)
== END 2021-09-13 15:00 | disposition home health service (06) | DRG 392 ==
LOC: EC 05:51 → 6NMEDSUR 09:20 → OBSVTOIN 09-11 12:24
PROVIDERS: ADMIT Internal Medicine; ATTEND Internal Medicine
DX: R10.31 Right lower quadrant pain (principal); M48.50XA Collapsed vertebra, not elsewhere classified, site unspecified, initial encounter for fracture; N17.9 Acute kidney failure, unspecified; E78.5 Hyperlipidemia, unspecified; I12.9 Hypertensive chronic kidney disease with stage 1 through stage 4 chronic kidney disease, or unspecified chronic kidney disease; E03.9 Hypothyroidism, unspecified; E11.22 Type 2 diabetes mellitus with diabetic chronic kidney disease; I25.10 Atherosclerotic heart disease of native coronary artery without angina pectoris; I25.2 Old myocardial infarction; I48.0 Paroxysmal atrial fibrillation; K80.20 Calculus of gallbladder without cholecystitis without obstruction; M85.80 Other specified disorders of bone density and structure, unspecified site; M19.041 Primary osteoarthritis, right hand; M19.042 Primary osteoarthritis, left hand; N18.30 Chronic kidney disease, stage 3 unspecified; N28.1 Cyst of kidney, acquired; R79.1 Abnormal coagulation profile; Z79.01 Long term (current) use of anticoagulants; Z79.82 Long term (current) use of aspirin; Z79.890 Hormone replacement therapy; Z79.899 Other long term (current) drug therapy; Z82.49 Family history of ischemic heart disease and other diseases of the circulatory system; Z94.7 Corneal transplant status; Z98.42 Cataract extraction status, left eye; Z96.642 Presence of left artificial hip joint; Z96.1 Presence of intraocular lens; Z28.21 Immunization not carried out because of patient refusal; Z98.890 Other specified postprocedural states
CPT/HCPCS: 36415; 72070; 72100; 74176; 80048; 80053; 81003; 85025; 85610; 96361; 96374; 96376; 99285

== ENCOUNTER 2021-09-22 09:35 | Emergency (ER) | payer MEDICARE, BC ==
[2021-09-22 10:20] LABS: Basophils % (A) 0 %; Eosinophils # (A) 0.1 k/uL (0-0.7); Eosinophils % (A) 1 %; HCT 43.7 % (34.0-46.0); Lymphocytes % (A) 9 %; MCH 29.6 pg (25.0-35.0); MCHC 32.1 g/dL (31.0-37.0); Mean Platelet Volume 7.5; Monocytes # (A) 0.6 k/uL (0-1.0); Monocytes % (A) 5 %; Neutrophils # (A) 9.3 k/uL (1.3-7.7); Neutrophils % (A) 84 %; Platelet Count 384 k/uL (150-450); RBC 4.73 m/uL (3.80-5.40); RDW 13.6 % (11.5-15.5); WBC 11.1 k/uL (3.8-10.6)
[2021-09-22 10:28] LABS: Appearance,Urine Cloudy (Clear); Bilirubin,Urine Negative (Negative); Blood,Urine Negative (Negative); Color,Urine Yellow; Glucose,Urine (UA) Negative (Negative); Hyaline Casts,Urine 3 /lpf (0-2); Ketones,Urine Negative (Negative); Leukocyte Esterase,Urine Moderate (Negative); Mucus,Urine Few /hpf; Nitrite,Urine Negative (Negative); PH, Urine 5.5 (5.0-8.0); Protein,Urine Trace (Negative); Specific Gravity,Urine 1.021 (1.001-1.035); Squamous Epithelial Cell,Urine 2 /hpf (0-4); WBC,Urine 11 /hpf (0-5)
[2021-09-22 10:31] LABS: Albumin 3.6 g/dL (3.5-5.0); Calcium 9.5 mg/dL (8.4-10.2); INR 2.6 (<1.2); Partial Thromboplastin Time 32.6 sec (22.0-30.0); Prothrombin Time 26.4 sec (9.0-12.0); Total Bilirubin 0.7 mg/dL (0.2-1.3); Total Protein 6.6 g/dL (6.3-8.2)
[2021-09-22 10:46] LABS: MCV 92.4 fL (80.0-100.0)
[2021-09-22] MEDS ORDERED: MORPHINE SULFATE 4 MG/ML SYRINGE IV STA (11:11)
--- NOTE | 2021-09-22 11:13 | ED ---
General Adult HPI - General Chief complaint: Extremity Injury, Lower Stated complaint: Abdominal pain Time Seen by Provider: 09/22/21 09:48 Source: patient, family Mode of arrival: wheelchair Limitations: no limitations - History of Present Illness Initial comments: Dictation was produced using [employer] dictation software. please excuse any grammatical, word or spelling errors. Chief Complaint: 86-year-old female presents with left Nery pain History of Present Illness: Is a 86-year-old female presents emergency Department with left lower extremity pain. She states the pain is in her hip and left thigh area. Patient states that the pain radiates to her suprapubic area. Denies any nausea or vomiting. No history of diarrhea. Patient states hurts when she stands. No numbness and paresthesias to the distal left lower extremity. Patient was admitted to the hospital late last month for similar issue. She was told that she was having musculoskeletal issues. She is prescribed medications for treatment of her symptoms. States that her symptoms are so bad that she is unable to perform her activities of daily living. Patient has any fever, chills or night sweats. The ROS documented in this emergency department record has been reviewed and confirmed by me. Those systems with pertinent positive or negative responses have been documented in the HPI. All other systems are other negative and/or noncontributory. PHYSICAL EXAM: General Impression: Alert and oriented x3, acute distress secondary to pain HEENT: Normocephalic atraumatic, extra-ocular movements intact, pupils equal and reactive to light bilaterally, mucous membranes moist. Cardiovascular: Heart regular rate and rhythm Chest: Able to complete full sentences, no retractions, no tachypnea Abdomen: abdomen soft, non-tender, non-distended, no organomegaly Musculoskeletal: Pulses present and equal in all extremities, no peripheral edema, palpatory tenderness to the left thigh and left greater trochanter Motor: no focal deficits noted Neurological: CN II-XII grossly intact, no focal motor or sensory deficits noted Skin: Intact with no visualized rashes Psych: Normal affect and mood ED course: 86-year-old female presents to the emergency Department with left lower extremity pain signs upon arrival are within acceptable limits. According to triage note it states that patient has abdominal pain. Patient has a soft abdomen. Denies any abdominal symptoms. She states that her pain is from her left hip and leg Laboratory evaluation obtained. CBC, coag panel was within acceptable limits. Metabolic panel is within acceptable limits. Urinalysis shows 11 white blood cells. Patient have any urine symptoms however there is concern of UTI. Hip x- ray shows no acute processes. Patient reevaluated at bedside at 12:50 PM she is resting comfortably watching TV with her family. Family had several questions regarding patient's clinical status and how to treat patient's symptoms going forward. They are strongly advised to follow-up with the primary care doctor. Patient given [place]. Discussed with family that she would likely benefit from painter rough. At the bedside patient's not having any abdominal pain suprapubic pain. She still has palpable side pain. EKG interpretation: Ventricular rate 66, sinus rhythm,. Interval 97, QS 101, QTC 344. No DC prolongation, no QTC prolongation, no ST or T-wave changes noted. EKG compared to 08/26/2021 showing no changes. Overall, this EKG is unremarkable - Related Data Home Medications Medication Instructions Recorded Confirmed Omeprazole [PriLOSEC] 20 mg PO AC-BRKFST 10/14/15 09/09/21 Timolol 0.25% Ophth Soln [Timoptic 1 drop BOTH EYES DAILY 11/04/19 09/09/21 0.25% Ophth Soln] Amiodarone [Cordarone] 200 mg PO DAILY 08/25/21 09/09/21 Aspirin EC [Ecotrin Low Dose] 81 mg PO DAILY 08/25/21 09/09/21 Furosemide [Lasix] 20 mg PO DAILY 08/25/21 09/09/21 Levothyroxine Sodium [Synthroid] 112.5 mcg PO DAILY 08/25/21 09/09/21 Metoprolol Tartrate [Lopressor] 100 mg PO BID 08/25/21 09/09/21 Prednisolone Acetate/Pf 1 drop RIGHT EYE DAILY 08/25/21 09/09/21 [Prednisolone Acet 1% Eye Drop] QUEtiapine [SEROquel] 25 mg PO HS 08/25/21 09/09/21 hydrALAZINE HCL [Apresoline] 100 mg PO BID 08/25/21 09/09/21 Acetaminophen-Codeine 300-30mg 1 tab PO Q6H PRN 09/09/21 09/09/21 [Tylenol w/codeine #3] HYDROcodone/APAP 5-325MG [[place] 1 tab PO TID 09/09/21 09/09/21 5-325] Previous Rx's Medication Instructions Recorded Acetaminophen [Tylenol] 500 mg PO Q4-6H PRN #24 tab 08/25/21 Atorvastatin [Lipitor] 80 mg PO HS #30 tab 08/27/21 Isosorbide Mononitrate ER [Imdur] 30 mg PO DAILY #30 tab 08/27/21 Cyclobenzaprine [Flexeril] 5 mg PO TID PRN 3 Days #9 tablet 09/13/21 Warfarin [Coumadin] 0.5 mg PO DAILY 30 Days #30 tab 09/13/21 Cephalexin [Keflex] 250 mg PO Q6HR 5 Days #20 cap 09/22/21 HYDROcodone/APAP 5-325MG [[place] 1 tab PO Q6HR PRN 3 Days #12 tab 09/22/21 5-325] Allergies Allergy/AdvReac Type Severity Reaction Status Date / Time No Known Allergies Allergy Verified 09/22/21 09:46 Review of Systems ROS Statement: Those systems with pertinent positive or pertinent negative responses have been documented in the HPI. ROS Other: All systems not noted in ROS Statement are negative. Past Medical History Past Medical History: Coronary Artery Disease (CAD), Diabetes Mellitus, Eye Disorder, GERD/Reflux, Hyperlipidemia, Hypertension, Myocardial Infarction (NM), Osteoarthritis (OA) Additional Past Medical History / Comment(s): NIDDM type II, R eye-sees shadows only, hiatal hernia, arthritis bilateral hands, insomnia. Last Myocardial Infarction Date:: 2015 History of Any Multi-Drug Resistant Organisms: None Reported Past Surgical History: Heart Catheterization With Stent, Orthopedic Surgery Additional Past Surgical History / Comment(s): PCIs with stents, L hip fracture with hemiarthroplasty, R foot fracture with bone graft, R eye corneal transplant, L eye cataract removal with lens implant. Past Anesthesia/Blood Transfusion Reactions: Postoperative Nausea & Vomiting (PONV) Date of Last Stent Placement:: 10/14/2015 Past Psychological History: No Psychological Hx Reported Smoking Status: Never smoker Past Alcohol Use History: None Reported Past Drug Use History: None Reported - Past Family History Mother Family Medical History: Cancer Father Family Medical History: Myocardial Infarction (NM) Additional Family Medical History / Comment(s): Father from a NM at the age of 57yrs. General Exam Limitations: no limitations Course Vital Signs 09/22/21 09/22/21 09/22/21 09:42 10:39 11:23 Temperature 97.4 F L Pulse Rate 70 68 67 Respiratory 20 16 18 Rate Blood Pressure 111/60 138/69 122/58 O2 Sat by Pulse 96 95 95 Oximetry Medical Decision Making - Lab Data Result diagrams: 09/22/21 10:11 09/22/21 10:11 Lab Results 09/22/21 09/22/21 09/22/21 Range/Units 10:11 10:11 10:11 WBC 11.1 H (3.8-10.6) k/uL RBC 4.73 (3.80-5.40) m/uL Hgb 14.0 (11.4-16.0) gm/dL Hct 43.7 (34.0-46.0) % MCV 92.4 D (80.0-100.0) fL MCH 29.6 (25.0-35.0) pg MCHC 32.1 (31.0-37.0) g/dL RDW 13.6 (11.5-15.5) % Plt Count 384 (150-450) k/uL MPV 7.5 Neutrophils % 84 % Lymphocytes % 9 % Monocytes % 5 % Eosinophils % 1 % Basophils % 0 % Neutrophils # 9.3 H (1.3-7.7) k/uL Lymphocytes # 1.0 (1.0-4.8) k/uL Monocytes # 0.6 (0-1.0) k/uL Eosinophils # 0.1 (0-0.7) k/uL Basophils # 0.0 (0-0.2) k/uL PT 26.4 H (9.0-12.0) sec INR 2.6 H (<1.2) APTT 32.6 H (22.0-30.0) sec Sodium (137-145) mmol/L Potassium (3.5-5.1) mmol/L Chloride (98-107) mmol/L Carbon Dioxide (22-30) mmol/L Anion Gap mmol/L BUN (7-17) mg/dL Creatinine (0.52-1.04) mg/dL Est GFR (CKD-EPI)AfAm (>60 ml/min/1.73 sqM) Est GFR (CKD-EPI)NonAf (>60 ml/min/1.73 sqM) Glucose (74-99) mg/dL Calcium (8.4-10.2) mg/dL Total Bilirubin (0.2-1.3) mg/dL AST (14-36) U/L ALT (4-34) U/L Alkaline Phosphatase (38-126) U/L Troponin I (0.000-0.034) ng/mL Total Protein (6.3-8.2) g/dL Albumin (3.5-5.0) g/dL Lipase (23-300) U/L Urine Color Yellow Urine Appearance Cloudy H (Clear) Urine pH 5.5 (5.0-8.0) Ur Specific [place] 1.021 (1.001-1.035) Urine Protein Trace H (Negative) Urine Glucose (UA) Negative (Negative) Urine Ketones Negative (Negative) Urine Blood Negative (Negative) Urine Nitrite Negative (Negative) Urine Bilirubin Negative (Negative) Urine Urobilinogen 2.0 (<2.0) mg/dL Ur Leukocyte Esterase Moderate H (Negative) Urine WBC 11 H (0-5) /hpf Ur Squamous Epith Cells 2 (0-4) /hpf Hyaline Casts 3 H (0-2) /lpf Urine Mucus Few H (None) /hpf 09/22/21 09/22/21 Range/Units 10:11 10:11 WBC (3.8-10.6) k/uL RBC (3.80-5.40) m/uL Hgb (11.4-16.0) gm/dL Hct (34.0-46.0) % MCV (80.0-100.0) fL MCH (25.0-35.0) pg MCHC (31.0-37.0) g/dL RDW (11.5-15.5) % Plt Count (150-450) k/uL MPV Neutrophils % % Lymphocytes % % Monocytes % % Eosinophils % % Basophils % % Neutrophils # (1.3-7.7) k/uL Lymphocytes # (1.0-4.8) k/uL Monocytes # (0-1.0) k/uL Eosinophils # (0-0.7) k/uL Basophils # (0-0.2) k/uL PT (9.0-12.0) sec INR (<1.2) APTT (22.0-30.0) sec Sodium 139 (137-145) mmol/L Potassium 4.0 (3.5-5.1) mmol/L Chloride 106 (98-107) mmol/L Carbon Dioxide 20 L (22-30) mmol/L Anion Gap 13 mmol/L BUN 39 H (7-17) mg/dL Creatinine 1.56 H (0.52-1.04) mg/dL Est GFR (CKD-EPI)AfAm 35 (>60 ml/min/1.73 sqM) Est GFR (CKD-EPI)NonAf 30 (>60 ml/min/1.73 sqM) Glucose 143 H (74-99) mg/dL Calcium 9.5 (8.4-10.2) mg/dL Total Bilirubin 0.7 (0.2-1.3) mg/dL AST 27 (14-36) U/L ALT 29 (4-34) U/L Alkaline Phosphatase 124 (38-126) U/L Troponin I <0.012 (0.000-0.034) ng/mL Total Protein 6.6 (6.3-8.2) g/dL Albumin 3.6 (3.5-5.0) g/dL Lipase 251 (23-300) U/L Urine Color Urine Appearance (Clear) Urine pH (5.0-8.0) Ur Specific [place] (1.001-1.035) Urine Protein (Negative) Urine Glucose (UA) (Negative) Urine Ketones (Negative) Urine Blood (Negative) Urine Nitrite (Negative) Urine Bilirubin (Negative) Urine Urobilinogen (<2.0) mg/dL Ur Leukocyte Esterase (Negative) Urine WBC (0-5) /hpf Ur Squamous Epith Cells (0-4) /hpf Hyaline Casts (0-2) /lpf Urine Mucus (None) /hpf Disposition Clinical Impression: Leg pain Disposition: HOME SELF-CARE Condition: Fair Instructions (If sedation given, give patient instructions): Musculoskeletal Pain (ED) Additional Instructions: Please follow up with her primary care doctor. Prescriptions: Cephalexin [Keflex] 250 mg PO Q6HR 5 Days #20 cap HYDROcodone/APAP 5-325MG [[place] 5-325] 1 tab PO Q6HR PRN 3 Days #12 tab PRN Reason: Severe Pain Is patient prescribed a controlled substance at d/c from ED?: Yes If prescribed controlled substance>3 days was MAPS reviewed?: Prescribed <3 Days Referrals: Diomedes Akbar DO [Primary Care Provider] - 1-2 days Time of Disposition: 12:59
--- NOTE | 2021-09-22 11:24 | XR ---
Left hip. HISTORY: Total left hip. Pain COMPARISON: None TECHNIQUE: 2 views left hip were obtained. There is a total left hip replacement. There is no acute fracture or dislocation. The left hemipelvis is intact. IMPRESSION: Total left hip replacement with no significant abnormality seen.
[2021-09-22 11:26] VITALS: PULSE 67
[2021-09-22] MEDS ORDERED: cefTRIAXone IN SWFI 1,000 MG/10 ML SYRINGE IVP STA (12:21)
[2021-09-22 13:03] VITALS: BP 126/63; RESP 15
[2021-09-22 13:04] VITALS: TEMP 97.8
== END 2021-09-22 13:18 | disposition home or self-care (01) ==
LOC: EC 09:35
DX: M25.552 Pain in left hip (principal); M79.652 Pain in left thigh; E11.9 Type 2 diabetes mellitus without complications; I10 Essential (primary) hypertension; I25.2 Old myocardial infarction; I25.10 Atherosclerotic heart disease of native coronary artery without angina pectoris; E78.5 Hyperlipidemia, unspecified; K21.9 Gastro-esophageal reflux disease without esophagitis; M19.90 Unspecified osteoarthritis, unspecified site; Z79.01 Long term (current) use of anticoagulants; Z79.82 Long term (current) use of aspirin; Z79.890 Hormone replacement therapy; Z79.899 Other long term (current) drug therapy
CPT/HCPCS: 36415; 93005; 80053; 83690; 84484; 85025; 85610; 85730; 81001; 87086; 73502; 99284; 96374; 96375; J2270; J0696

== ENCOUNTER → 2021-10-03 | Outpatient (CLI) | payer MEDICARE, BC ==
--- NOTE | 2021-10-03 20:57 | CT ---
EXAMINATION TYPE: CT thoracic spine wo con DATE OF EXAM: 10/03/2021 COMPARISON: CT dated 08/25/2021 HISTORY: upper back pain CT DLP: 950.70 mGycm Automated exposure control for dose reduction was used. TECHNIQUE: Multiplanar CT scan of the thoracic spine without IV contrast administration. FINDINGS: Interval complete collapse of T6 vertebral body (vertebral plana) with sclerotic changes and small re tropulsion into the spinal canal. This is associated with gibbus deformity and exaggerated dorsal kyp hosis. Suspected nondisplaced fracture of the spinous process of T6. Paraspinal hematoma and fat stra nding are seen surrounding the collapsed T11. Severe osteopenia. Anterolisthesis of C3 over C4 and C4 over C5 with degenerative changes of the lowe r cervical spine. Minimal upper endplate depression of T3 vertebral body with mild anterior wedging o f T8 vertebral body. No other definite vertebral body collapse or acute displaced fracture. Degenerat soila changes of the thoracic spine. Bilateral T6-7 severe neuroforaminal stenosis. No other significant central spinal canal stenosis or neuroforaminal stenosis in the thoracic spine. No significant thoracic disc herniation or protrusion. Bilateral lower lobe subsegmental pulmonary atelectasis. Arterial atherosclerotic calcifications. Small sliding hiatal hernia. Suspected right renal cysts wit h questionable hemorrhagic/proteinaceous cysts versus solid lesions, for further ultrasound assessmen t. No gross paraspinal lesion. IMPRESSION: Interval complete collapse of T6 vertebral body as detailed above, possibly acute or chronic, with gi bbus deformity and exaggerated dorsal kyphosis. Recommend spine surgery consultation. Other findings as described above.
== END | disposition home or self-care (01) ==
LOC: RADCTMAIN 15:32
PROVIDERS: ATTEND Family Medicine
DX: M48.54XA Collapsed vertebra, not elsewhere classified, thoracic region, initial encounter for fracture (principal)
CPT/HCPCS: 72128

== ENCOUNTER → 2021-10-05 | Outpatient (CLI) | payer MEDICARE, BC ==
[2021-10-05 20:18] LABS: INR 6.97 (0.90-1.11); Prothrombin Time 69.9 sec (9.9-11.9)
== END | disposition home or self-care (01) ==
LOC: LABWHC1 11:53
PROVIDERS: ATTEND Internal Medicine Cardiovascular Disease
DX: I49.9 Cardiac arrhythmia, unspecified (principal)
CPT/HCPCS: 36415; 85610

== ENCOUNTER 2021-11-14 09:38 | Inpatient (IN) | payer MEDICARE, BC ==
[2021-11-14] MEDS ORDERED: SODIUM CHLORIDE 0.9% 1,000 ML IV STA (10:28)
[2021-11-14 13:36] LABS: Basophils % (A) 1 %; Eosinophils # (A) 0.1 k/uL (0-0.7); Eosinophils % (A) 2 %; HCT 42.7 % (34.0-46.0); HGB 13.2 gm/dL (11.4-16.0); Hypochromasia Slight; Lymphocytes # (A) 2.1 k/uL (1.0-4.8); Lymphocytes % (A) 30 %; MCH 29.5 pg (25.0-35.0); MCHC 30.9 g/dL (31.0-37.0); MCV 95.6 fL (80.0-100.0); Mean Platelet Volume 7.7; Monocytes # (A) 0.6 k/uL (0-1.0); Monocytes % (A) 8 %; Neutrophils % (A) 58 %; Platelet Count 261 k/uL (150-450); RBC 4.47 m/uL (3.80-5.40); RDW 13.3 % (11.5-15.5); WBC 6.9 k/uL (3.8-10.6)
[2021-11-14 13:45] LABS: Albumin 3.4 g/dL (3.5-5.0); Calcium 8.9 mg/dL (8.4-10.2); Total Bilirubin 0.8 mg/dL (0.2-1.3); Total Protein 6.1 g/dL (6.3-8.2)
[2021-11-14 13:54] LABS: Amorphous Sediment,Urine Few /hpf; Appearance,Urine Turbid (Clear); Bacteria,Urine Rare /hpf; Bilirubin,Urine Negative (Negative); Blood,Urine Negative (Negative); Color,Urine Yellow; Glucose,Urine (UA) Negative (Negative); Ketones,Urine Negative (Negative); Leukocyte Esterase,Urine Small (Negative); Mucus,Urine Rare /hpf; Nitrite,Urine Negative (Negative); PH, Urine 7.5 (5.0-8.0); Protein,Urine 1+ (Negative); Specific Gravity,Urine 1.017 (1.001-1.035); Squamous Epithelial Cell,Urine 1 /hpf (0-4); Urobilinogen,Urine <2.0 mg/dL (<2.0); WBC,Urine 12 /hpf (0-5)
--- NOTE | 2021-11-14 14:14 | CT ---
EXAMINATION TYPE: CT abdomen pelvis wo con DATE OF EXAM: 11/14/2021 COMPARISON: 08/31/2021 HISTORY: 86-year-old female LLQ Abdominal pain CT DLP: 495.7 mGycm. Automated exposure control for dose reduction was used. TECHNIQUE: Contiguous axial scanning of the abdomen and pelvis without IV contrast. Coronal and sagit denise reconstructions performed. FINDINGS: Heart upper limits of normal in size without pericardial effusion. Extensive coronary artery calcific ations are noted. Small to moderate-sized hiatal hernia. Strandy and patchy bibasilar opacities, likely either scarring or atelectasis. Noncontrast appearance of the liver, adrenal glands, spleen, and pancreas within normal limits. 2.7 cm diverticulum of the second portion of the duodenum. Numerous bilateral renal cortical lesions, largest measuring 1.2 cm on the right. These show varying degrees of attenuation suggesting combination of complicated cysts. Overall unchanged from 09/09/2021. No hydronephrosis. Moderate atherosclerotic calcifications abdominal aorta. Ectasia upper abdominal aorta 2.6 cm. No dilated small bowel, free fluid, or free air. No mesenteric or retroperitoneal lymphadenopathy. Mild overall stool burden. There is left-sided colonic diverticulosis. Possible mild fat stranding ad jacent to the distal sigmoid colon. Streak and beam hardening artifact from patient's left hip replac ement limits visualization of this region. Bladder distended. Uterus surgically absent. Neither ovary is identified. Mild cul-de-sac free fluid. Numerous pelvic phleboliths. No pelvic lymphadenopathy seen. Bones: Left total hip orthoplasty. Bilateral L5 pars defects with grade 1 anterolisthesis at L5-S1. O steopenia. IMPRESSION: 1. There is left-sided colonic diverticulosis. Extensive artifact from the patient's left hip replac ement limits visualization of the pelvis. There may be some mild inflammation along the distal sigmoi d colon and a mild acute diverticulitis is difficult to exclude given the artifact. There is mild pel vashti free fluid also present which could be reactive to underlying inflammation. No abscess or free ai r seen. 2. Small to moderate-sized hiatal hernia. 3. Numerous renal cortical lesions measuring up to 1.2 cm. Suspect cysts with varying degrees of int ernal hemorrhagic or proteinaceous debris. Recommend an annual surveillance follow-up. 4. Gallstone.
--- NOTE | 2021-11-14 14:30 | ED ---
Abdominal Pain HPI - General Chief Complaint: Abdominal Pain Stated Complaint: ABD Pain Time Seen by Provider: 11/14/21 10:23 Source: patient, family, RN notes reviewed Mode of arrival: ambulatory Limitations: no limitations - History of Present Illness Initial Comments: This is an 86-year-old female who presents to the emergency department for epigastric pain, right upper back pain, and left lower quadrant pain. States that she has had back problems for several weeks, however it is slightly worse. Also notes a pulsating sensation in the lower back. The epigastric pain is new within the last 1-2 days. Also states that the left lower quadrant pain has only been present for the last couple of days. Denies any associated nausea or vomiting, but states that she has been very constipated despite use of milk of magnesia. Denies any fevers, chills, sore throat, cough, dyspnea, chest pain, palpitations, nausea, vomiting, diarrhea, or headaches. MD Complaint: abdominal pain, other (back pain) Onset/Timin -: days(s) Location: [facility] - Related Data Home Medications Medication Instructions Recorded Confirmed Omeprazole [PriLOSEC] 20 mg PO [id number] 10/14/15 09/09/21 Timolol 0.25% Ophth Soln [Timoptic 1 drop BOTH EYES DAILY 11/04/19 09/09/21 0.25% Ophth Soln] Amiodarone [Cordarone] 200 mg PO DAILY 08/25/21 09/09/21 Aspirin EC [Ecotrin Low Dose] 81 mg PO DAILY 08/25/21 09/09/21 Furosemide [Lasix] 20 mg PO DAILY 08/25/21 09/09/21 Levothyroxine Sodium [Synthroid] 112.5 mcg PO DAILY 08/25/21 09/09/21 Metoprolol Tartrate [Lopressor] 100 mg PO BID 08/25/21 09/09/21 Prednisolone Acetate/Pf 1 drop RIGHT EYE DAILY 08/25/21 09/09/21 [Prednisolone Acet 1% Eye Drop] QUEtiapine [SEROquel] 25 mg PO HS 08/25/21 09/09/21 hydrALAZINE HCL [Apresoline] 100 mg PO BID 08/25/21 09/09/21 Acetaminophen-Codeine 300-30mg 1 tab PO Q6H PRN 09/09/21 09/09/21 [Tylenol w/codeine #3] HYDROcodone/APAP 5-325MG [[place] 1 tab PO TID 09/09/21 09/09/21 5-325] Previous Rx's Medication Instructions Recorded Acetaminophen [Tylenol] 500 mg PO Q4-6H PRN #24 tab 08/25/21 Atorvastatin [Lipitor] 80 mg PO HS #30 tab 08/27/21 Isosorbide Mononitrate ER [Imdur] 30 mg PO DAILY #30 tab 08/27/21 Cyclobenzaprine [Flexeril] 5 mg PO TID PRN 3 Days #9 tablet 09/13/21 Warfarin [Coumadin] 0.5 mg PO DAILY 30 Days #30 tab 09/13/21 Cephalexin [Keflex] 250 mg PO Q6HR 5 Days #20 cap 09/22/21 HYDROcodone/APAP 5-325MG [[place] 1 tab PO Q6HR PRN 3 Days #12 tab 09/22/21 5-325] Allergies Allergy/AdvReac Type Severity Reaction Status Date / Time No Known Allergies Allergy Verified 11/14/21 10:22 Review of Systems ROS Statement: Those systems with pertinent positive or pertinent negative responses have been documented in the HPI. ROS Other: All systems not noted in ROS Statement are negative. Past Medical History Past Medical History: Coronary Artery Disease (CAD), Diabetes Mellitus, Eye D isorder, GERD/Reflux, Hyperlipidemia, Hypertension, Myocardial Infarction ([place]), Osteoarthritis (OA), Thyroid Disorder Additional Past Medical History / Comment(s): NIDDM type II, R eye-sees shadows only, hiatal hernia, arthritis bilateral hands, insomnia. Last Myocardial Infarction Date:: 2015 History of Any Multi-Drug Resistant Organisms: None Reported Past Surgical History: Heart Catheterization With Stent, Orthopedic Surgery Additional Past Surgical History / Comment(s): PCIs with stents, L hip fracture with hemiarthroplasty, R foot fracture with bone graft, R eye corneal transplant, L eye cataract removal with lens implant. Past Anesthesia/Blood Transfusion Reactions: Postoperative Nausea & Vomiting (PONV) Date of Last Stent Placement:: 10/14/2015 Past Psychological History: No Psychological Hx Reported Smoking Status: Never smoker Past Alcohol Use History: None Reported Past Drug Use History: None Reported - Past Family History Mother Family Medical History: Cancer Father Family Medical History: Myocardial Infarction ([place]) Additional Family Medical History / Comment(s): Father from a [facility] at the age of 57yrs. General Exam Limitations: no limitations General appearance: alert, in no apparent distress Head exam: Present: atraumatic, normocephalic, normal inspection Respiratory exam: Present: normal lung sounds bilaterally. Absent: respiratory distress, wheezes, rales, rhonchi, stridor Cardiovascular Exam: Present: regular rate, normal rhythm, normal heart sounds. Absent: systolic murmur, diastolic murmur, rubs, gallop, clicks GI/Abdominal exam: Present: soft, tenderness (LLQ), normal bowel sounds. Absent: distended, guarding, rebound, rigid Neurological exam: Present: alert, oriented X3, CN II-XII intact Psychiatric exam: Present: normal affect, normal mood Skin exam: Present: warm, dry, intact, normal color. Absent: rash Course Vital Signs 11/14/21 11/14/21 11/14/21 10:19 13:00 13:04 Temperature 97.6 F Pulse Rate 53 L 53 L 50 L Respiratory 16 24 18 Rate Blood Pressure 161/77 176/68 176/78 O2 Sat by Pulse 97 95 95 Oximetry 11/14/21 15:05 Temperature Pulse Rate 55 L Respiratory 16 Rate Blood Pressure 160/100 O2 Sat by Pulse 94 L Oximetry Medical Decision Making - Medical Decision Making This is an 86-year-old female who presents to the emergency department for epigastric pain, back pain, and left lower quadrant pain. Lab work reveals an elevated troponin and was otherwise nonactionable. Computed tomography scan of the abdomen and pelvis was obtained, this revealed left lower quadrant diverticulosis but was unable to exclude a diverticulitis. Patient has been afebrile and has no leukocytosis, however the persistent pain and history of constipation support a diagnosis of diverticulitis. Given that the patient has a history of MIs and has required multiple stents, we'll plan to admit her to trend the troponin levels and start treatment for possible diverticulitis. This case was discussed in detail with the attending ED physician. Presentation, findings, and treatment plan discussed in detail as well. - Lab Data Result diagrams: 11/14/21 12:50 11/14/21 12:50 Lab Results 11/14/21 11/14/21 11/14/21 Range/Units 12:50 12:50 12:50 WBC 6.9 (3.8-10.6) k/uL RBC 4.47 (3.80-5.40) m/uL Hgb 13.2 (11.4-16.0) gm/dL Hct 42.7 (34.0-46.0) % MCV 95.6 (80.0-100.0) fL MCH 29.5 (25.0-35.0) pg MCHC 30.9 L (31.0-37.0) g/dL RDW 13.3 (11.5-15.5) % Plt Count 261 (150-450) k/uL MPV 7.7 Neutrophils % 58 % Lymphocytes % 30 % Monocytes % 8 % Eosinophils % 2 % Basophils % 1 % Neutrophils # 4.0 (1.3-7.7) k/uL Lymphocytes # 2.1 (1.0-4.8) k/uL Monocytes # 0.6 (0-1.0) k/uL Eosinophils # 0.1 (0-0.7) k/uL Basophils # 0.0 (0-0.2) k/uL Hypochromasia Slight Sodium 138 (137-145) mmol/L Potassium 4.0 (3.5-5.1) mmol/L Chloride 104 (98-107) mmol/L Carbon Dioxide 29 (22-30) mmol/L Anion Gap 5 mmol/L BUN 20 H (7-17) mg/dL Creatinine 1.42 H (0.52-1.04) mg/dL Est GFR (CKD-EPI)AfAm 39 (>60 ml/min/1.73 sqM) Est GFR (CKD-EPI)NonAf 34 (>60 ml/min/1.73 sqM) Glucose 100 H (74-99) mg/dL Calcium 8.9 (8.4-10.2) mg/dL Total Bilirubin 0.8 (0.2-1.3) mg/dL AST 41 H (14-36) U/L ALT 23 (4-34) U/L Alkaline Phosphatase 99 (38-126) U/L Troponin I (0.000-0.034) ng/mL Total Protein 6.1 L (6.3-8.2) g/dL Albumin 3.4 L (3.5-5.0) g/dL Amylase 106 (30-110) U/L Lipase 285 (23-300) U/L Urine Color Yellow Urine Appearance Turbid H (Clear) Urine pH 7.5 (5.0-8.0) Ur Specific [place] 1.017 (1.001-1.035) Urine Protein 1+ H (Negative) Urine Glucose (UA) Negative (Negative) Urine Ketones Negative (Negative) Urine Blood Negative (Negative) Urine Nitrite Negative (Negative) Urine Bilirubin Negative (Negative) Urine Urobilinogen <2.0 (<2.0) mg/dL Ur Leukocyte Esterase Small H (Negative) Urine WBC 12 H (0-5) /hpf Ur Squamous Epith Cells 1 (0-4) /hpf Amorphous Sediment Few H (None) /hpf Urine Bacteria Rare H (None) /hpf Urine Mucus Rare H (None) /hpf 11/14/21 Range/Units 12:50 WBC (3.8-10.6) k/uL RBC (3.80-5.40) m/uL Hgb (11.4-16.0) gm/dL Hct (34.0-46.0) % MCV (80.0-100.0) fL MCH (25.0-35.0) pg MCHC (31.0-37.0) g/dL RDW (11.5-15.5) % Plt Count (150-450) k/uL MPV Neutrophils % % Lymphocytes % % Monocytes % % Eosinophils % % Basophils % % Neutrophils # (1.3-7.7) k/uL Lymphocytes # (1.0-4.8) k/uL Monocytes # (0-1.0) k/uL Eosinophils # (0-0.7) k/uL Basophils # (0-0.2) k/uL Hypochromasia Sodium (137-145) mmol/L Potassium (3.5-5.1) mmol/L Chloride (98-107) mmol/L Carbon Dioxide (22-30) mmol/L Anion Gap mmol/L BUN (7-17) mg/dL Creatinine (0.52-1.04) mg/dL Est GFR (CKD-EPI)AfAm (>60 ml/min/1.73 sqM) Est GFR (CKD-EPI)NonAf (>60 ml/min/1.73 sqM) Glucose (74-99) mg/dL Calcium (8.4-10.2) mg/dL Total Bilirubin (0.2-1.3) mg/dL AST (14-36) U/L ALT (4-34) U/L Alkaline Phosphatase (38-126) U/L Troponin I 0.081 H* (0.000-0.034) ng/mL Total Protein (6.3-8.2) g/dL Albumin (3.5-5.0) g/dL Amylase (30-110) U/L Lipase (23-300) U/L Urine Color Urine Appearance (Clear) Urine pH (5.0-8.0) Ur Specific [place] (1.001-1.035) Urine Protein (Negative) Urine Glucose (UA) (Negative) Urine Ketones (Negative) Urine Blood (Negative) Urine Nitrite (Negative) Urine Bilirubin (Negative) Urine Urobilinogen (<2.0) mg/dL Ur Leukocyte Esterase (Negative) Urine WBC (0-5) /hpf Ur Squamous Epith Cells (0-4) /hpf Amorphous Sediment (None) /hpf Urine Bacteria (None) /hpf Urine Mucus (None) /hpf - Radiology Data Radiology results: report reviewed, image reviewed Disposition Clinical Impression: Epigastric pain, Elevated troponin, Diverticulitis Disposition: ADMITTED IP TO THIS HOSP
[2021-11-14] MEDS ORDERED: NALOXONE 0.4 MG/ML 1 ML VIAL IV PRN (15:38)
[2021-11-14] MEDS ORDERED: ACETAMINOPHEN TAB 325 MG TAB PO PRN (15:38)
--- NOTE | 2021-11-14 15:48 | XR ---
EXAMINATION TYPE: XR chest 2V DATE OF EXAM: 11/14/2021 COMPARISON: 08/26/[address] 10/03/2021. HISTORY: 86-year-old female with epigastric pain TECHNIQUE: PA and lateral views FINDINGS: Heart mildly enlarged. Hyperinflation. Interstitial prominence. No madelin consolidation or pleural eff usion. Osteopeniawith T6 vertebral compression collapse and accentuated mid thoracic kyphosis. IMPRESSION: Mild cardiomegaly and chronic diffuse interstitial changes, possibly on the basis of bronchitis or ch ronic asthma. Known T6 vertebral compression collapse and secondary accentuated mid thoracic kyphosis .
[2021-11-14] MEDS ORDERED: hydrALAZINE HCL 20 MG/ML 1 ML VIAL IVP STA (17:45)
[2021-11-14] MEDS: AMOXIC-POT CLAV 875-125MG 1 EACH TAB PO SCH (18:12)
[2021-11-14] MEDS: ISOSORBIDE MONONITRATE ER 30 MG TAB.ER.24H PO SCH (18:12)
--- NOTE | 2021-11-14 18:12 | P.GSCN ---
History of Present Illness Consult date: 11/14/21 History of present illness: REASON FOR CONSULTATION: Abdominal pain HISTORY OF PRESENT ILLNESS: The patient is a 86 year old female who she reports developing severe right upper quadrant abdominal pain yesterday afternoon which radiated to the left upper quadrant belt-like in fashion. She reports her sharp abdominal pain pain radiates from her right upper quadrant to her right upper back as well. She has past history of kidney stones. She denies any known history of gallstones. She denies any lower abdominal pain. PAST MEDICAL HISTORY: See list and reviewed PAST SURGICAL HISTORY: See list and reviewed MEDICATIONS: See list and reviewed ALLERGIES: See list and reviewed SOCIAL HISTORY: See list and reviewed FAMILY HISTORY: See list and reviewed REVIEW OF ORGAN SYSTEMS: CONSTITUTIONAL: No fevers or chills. No recent weight loss. EYES: Glaucoma. HEENT: No difficulties with hearing. No nosebleeds. No difficulty swallowing. RESPIRATORY: Denies pneumonia. Denies any troubles with breathing or dyspnea on exertion. CARDIOVASCULAR: Coronary artery disease. Hyperlipidemia. Hypertensive heart disease with congestive heart failure. Has cardiac catheterization. Past myocardial infarction. GASTROINTESTINAL: Gastroesophageal reflux disease. GENITOURINARY: Denies any blood in urine or increased urinary frequency. History of kidney stones. NEUROLOGICAL: Denies any numbness or tingling along the distal extremities. No seizure disorders or headaches. MUSCULOSKELETAL: Has back pain, stiffness or joint arthritis. SKIN: No current skin cancer. No rash. PSYCHIATRIC: Denies current depression or suicidal thoughts. ENDOCRINE: Hypothyroidism. Has diabetes type 2. HEME/LYMPHATIC: Denies any lumps and bumps around the neck. No recent deep venous thrombosis. Chronic anticoagulation. ALLERGY/IMMUNOLOGY: No immunoglobulin therapy. No immune deficiencies. BREAST: Denies current breast lumps, pain or nipple discharge. PHYSICAL EXAM: VITALS: Reviewed CONSTITUTIONAL: Well developed and in no acute distress. EYES: Conjuctivae without sclera icterus. Extraocular movements grossly intact. HEAD, EARS, NOSE, THROAT: Moist buccal mucosa. Head is atraumatic, normocephalic. Hears conversational speech. No nasal drainage. NECK: Supple. No JV distention. No thyroidomegaly. RESPIRATORY: Non-labored respirations and equal bilateral excursions. CARDIOVASCULAR: Palpable 2+ radial pulses. ABDOMEN: Tender right upper quadrant. No peritonitis. LYMPH: No neck lymphadenopathy. MUSCULOSKELETAL: No clubbing cyanosis. SKIN: Warm and well perfused with good skin turgor. NEUROLOGIC: Cranial nerves II through XII grossly intact. No focal or lateralizing signs. PSYCH: Appropriate affect. Alert and oriented to person, place and time. Displays appropriate insight. CLINCAL LABS: Reviewed. WBC normal 6.9. Troponin mildly elevated 0.081. AST elevated IMAGING: Independently reviewed. Computed tomography scan review demonstrates a large over 1 cm gallstone. Diverticulosis without diverticulitis. RADIOLOGY: Report reviewed CT abdomen and pelvis demonstrates hiatal hernia, diverticulosis without acute diverticulitis. Large gallstone. EKG: Incomplete right bundle branch block. Prolonged QT interval. Sinus bra dycardia. ASSESSMENT: 1. Gallstone 2. Right upper quadrant abdominal pain 3. Sigmoid diverticulosis 4. Ischemic cardiomyopathy PLAN: 1. Patient has significant cardiac history. Recommend cardiac assessment. 2. HIDA scan ordered to exclude acute cholecystitis. 3. Nothing by mouth tomorrow for HIDA scan and/ultrasound ADVANCE DIRECTIVE: Thank you for this kind consultation. Past Medical History Past Medical History: Coronary Artery Disease (CAD), Diabetes Mellitus, Eye Disorder, GERD/Reflux, Hyperlipidemia, Hypertension, [place]ocardial [place]ction ([place]), Osteoarthritis (OA), Thyroid Disorder Additional Past Medical History / Comment(s): NIDDM type II, R eye-sees shadows only, hiatal hernia, arthritis bilateral hands, insomnia. Last Myocardial Infarction Date:: 2015 History of Any Multi-Drug Resistant Organisms: None Reported Past Surgical History: Heart Catheterization With Stent, Orthopedic Surgery Additional Past Surgical History / Comment(s): PCIs with stents, L hip fracture with hemiarthroplasty, R foot fracture with bone graft, R eye corneal transplant, L eye cataract removal with lens implant. Past Anesthesia/Blood Transfusion Reactions: Postoperative Nausea & Vomiting ( PONV) Date of Last Stent Placement:: 10/14/2015 Past Psychological History: No Psychological Hx Reported Smoking Status: Never smoker Past Alcohol Use History: None Reported Past Drug Use History: None Reported - Past Family History Mother Family Medical History: Cancer Father Family Medical History: Myocardial Infarction ([place]) Additional Family Medical History / Comment(s): Father from a [facility] at the age of 57yrs. Medications and Allergies Home Medications Medication Instructions Recorded Confirmed Type Timolol 0.25% Ophth Soln [Timoptic 1 drop BOTH EYES DAILY 11/04/19 11/14/21 History 0.25% Ophth Soln] Aspirin EC [Ecotrin Low Dose] 81 mg PO DAILY 08/25/21 11/14/21 History Furosemide [Lasix] 20 mg PO DAILY 08/25/21 11/14/21 History Levothyroxine Sodium [Synthroid] 75 mcg PO DAILY 08/25/21 11/14/21 History Metoprolol Tartrate [Lopressor] 100 mg PO BID 08/25/21 11/14/21 History Prednisolone Acetate/Pf 1 drop RIGHT EYE DAILY 08/25/21 11/14/21 History [Prednisolone Acet 1% Eye Drop] hydrALAZINE HCL [Apresoline] 100 mg PO BID 08/25/21 11/14/21 History Isosorbide Mononitrate ER [Imdur] 30 mg PO DAILY #30 tab 08/27/21 11/14/21 Rx Ferrous Sulfate [Feosol] 325 mg PO DAILY 11/14/21 11/14/21 History Magnesium Hydroxide [Milk of 2,400 mg PO DAILY 11/14/21 11/14/21 History Magnesia] Morphine Sulfate [Morphine Sulfate 15 mg PO BID 11/14/21 11/14/21 History ER] Warfarin [Coumadin] 0.5 mg PO SUTUTHSA 11/14/21 11/14/21 History Allergies Allergy/AdvReac Type Severity Reaction Status Date / Time No Known Allergies Allergy Verified 11/14/21 16:54 Surgical - Exam Vital Signs Temp Pulse Resp BP Pulse Ox 97.6 F 53 L 16 161/77 97 11/14/21 10:19 11/14/21 10:19 11/14/21 10:19 11/14/21 10:19 11/14/21 10:19 Results - Labs 11/14/21 12:50 11/14/21 12:50 Abnormal Lab Results - Last 24 Hours (Table) 11/14/21 11/14/21 11/14/21 Range/Units 12:50 12:50 12:50 MCHC 30.9 L (31.0-37.0) g/dL BUN 20 H (7-17) mg/dL Creatinine 1.42 H (0.52-1.04) mg/dL Glucose 100 H (74-99) mg/dL AST 41 H (14-36) U/L Troponin I (0.000-0.034) ng/mL Total Protein 6.1 L (6.3-8.2) g/dL Albumin 3.4 L (3.5-5.0) g/dL Urine Appearance Turbid H (Clear) Urine Protein 1+ H (Negative) Ur Leukocyte Esterase Small H (Negative) Urine WBC 12 H (0-5) /hpf Amorphous Sediment Few H (None) /hpf Urine Bacteria Rare H (None) /hpf Urine Mucus Rare H (None) /hpf 11/14/21 Range/Units 12:50 MCHC (31.0-37.0) g/dL BUN (7-17) mg/dL Creatinine (0.52-1.04) mg/dL Glucose (74-99) mg/dL AST (14-36) U/L Troponin I 0.081 H* (0.000-0.034) ng/mL Total Protein (6.3-8.2) g/dL Albumin (3.5-5.0) g/dL Urine Appearance (Clear) Urine Protein (Negative) Ur Leukocyte Esterase (Negative) Urine WBC (0-5) /hpf Amorphous Sediment (None) /hpf Urine Bacteria (None) /hpf Urine Mucus (None) /hpf Diabetes panel 11/14/21 Range/Units 12:50 Sodium 138 (137-145) mmol/L Potassium 4.0 (3.5-5.1) mmol/L Chloride 104 (98-107) mmol/L Carbon Dioxide 29 (22-30) mmol/L BUN 20 H (7-17) mg/dL Creatinine 1.42 H (0.52-1.04) mg/dL Glucose 100 H (74-99) mg/dL Calcium 8.9 (8.4-10.2) mg/dL AST 41 H (14-36) U/L ALT 23 (4-34) U/L Alkaline Phosphatase 99 (38-126) U/L Total Protein 6.1 L (6.3-8.2) g/dL Albumin 3.4 L (3.5-5.0) g/dL Calcium panel 11/14/21 Range/Units 12:50 Calcium 8.9 (8.4-10.2) mg/dL Albumin 3.4 L (3.5-5.0) g/dL Pituitary panel 11/14/21 Range/Units 12:50 Sodium 138 (137-145) mmol/L Potassium 4.0 (3.5-5.1) mmol/L Chloride 104 (98-107) mmol/L Carbon Dioxide 29 (22-30) mmol/L BUN 20 H (7-17) mg/dL Creatinine 1.42 H (0.52-1.04) mg/dL Glucose 100 H (74-99) mg/dL Calcium 8.9 (8.4-10.2) mg/dL Adrenal panel 11/14/21 Range/Units 12:50 Sodium 138 (137-145) mmol/L Potassium 4.0 (3.5-5.1) mmol/L Chloride 104 (98-107) mmol/L Carbon Dioxide 29 (22-30) mmol/L BUN 20 H (7-17) mg/dL Creatinine 1.42 H (0.52-1.04) mg/dL Glucose 100 H (74-99) mg/dL Calcium 8.9 (8.4-10.2) mg/dL Total Bilirubin 0.8 (0.2-1.3) mg/dL AST 41 H (14-36) U/L ALT 23 (4-34) U/L Alkaline Phosphatase 99 (38-126) U/L Total Protein 6.1 L (6.3-8.2) g/dL Albumin 3.4 L (3.5-5.0) g/dL
[2021-11-14] MEDS: HYDROmorphone 0.5 MG/0.5 ML SYRINGE IVP PRN (18:13)
[2021-11-14] MEDS ORDERED: SODIUM CHLORIDE 0.9% 1,000 ML IV SCH (19:00)
[2021-11-14] MEDS: hydrALAZINE HCL 50 MG TAB PO SCH (20:19)
--- NOTE | 2021-11-14 20:25 | US ---
EXAMINATION TYPE: US gallbladder DATE OF EXAM: 11/14/2021 COMPARISON: CT: 11/14/21 CLINICAL HISTORY: Right upper quadrant pain. RUQ pain TECHNIQUE: Multiple sonographic images of the right upper quadrant are obtained. FINDINGS: EXAM MEASUREMENTS: Liver Length: 15.3 cm Gallbladder Wall: 0.21 cm CBD: 0.52 cm Right Kidney: 8.7 x 4.3 x 3.9 cm CLAIMS COORDINATOR NOTES: Pancreas: Partially obscured by gas. Parts seen wnl Liver: wnl Gallbladder: Large gallstone seen measuring 2.0 x 1.9 x 1.3 cm. Possible sludgeball seen adjacent to gallstone Evidence for sonographic Haskins's sign: No CBD: wnl Right Kidney: Multiple cysts visualized. Largest = 1.4 x 1.3 x 1.2 cm IMPRESSION: There is cholelithiasis. There is echogenic bile. No dilated ducts. No discrete liver mass.
[2021-11-15] MEDS: AMOXIC-POT CLAV 875-125MG 1 EACH TAB PO SCH ×3 (00:01→20:40)
[2021-11-15] MEDS: METOPROLOL TARTRATE 50 MG TAB PO SCH ×2 (00:04→09:55)
[2021-11-15] MEDS: HYDROmorphone 0.5 MG/0.5 ML SYRINGE IVP PRN (01:36)
[2021-11-15] MEDS: LEVOTHYROXINE 75 MCG TAB PO SCH (06:36)
--- NOTE | 2021-11-15 09:44 | NM ---
EXAMINATION TYPE: NM hepatobiliary wo EF DATE OF EXAM: 11/15/2021 COMPARISON: Ultrasound 11/14/2021 HISTORY: 86-year-old female with pain, assess for cholecystitis TECHNIQUE: After the intravenous administration of 4.8 mCi Tc 99m Mebrofenin hepatobiliary scintigrap hy is performed. Immediate images post injection. FINDINGS: Satisfactory initial uptake of tracer by the liver. Gallbladder visualized at 12 minutes. Small bowel visualized at 24 minutes. Ejection fraction was not assessed. IMPRESSION: No scintigraphic evidence for acute cholecystitis.
[2021-11-15] MEDS: hydrALAZINE HCL 50 MG TAB PO SCH (09:55)
[2021-11-15] MEDS: ISOSORBIDE MONONITRATE ER 30 MG TAB.ER.24H PO SCH (09:55)
[2021-11-15] MEDS: TIMOLOL 0.25% OPHTH DROPS 5 ML BTL BOTH EYES SCH (09:55)
[2021-11-15] MEDS: ONDANSETRON 4 MG/2 ML VIAL IVP PRN (09:56)
--- NOTE | 2021-11-15 10:57 | P.HPIM ---
History of Present Illness Patient was in the [id number] female came in with the complaints of back pain and right upper quadrant abdominal pain found to have cholelithiasis on ultrasound that did not reveal any cholecystitis patient had a CT of the abdomen as well which showed diverticulitis as well as cholelithiasis. Patient had a HIDA scan which did not reveal any cholecystitis patient doesn't have any significant tenderness at this time although patient has multiple hospitalizations in the past for similar pain at one point of time she was diag nosed with the back pain and was treated for that but she can use to have symptoms patient denied any nausea vomiting. Her pain a is a bandlike and crampy in nature. REVIEW OF SYSTEMS: CONSTITUTIONAL: No fever, no malaise, no fatigue. HEENT: No recent visual problems or hearing problems. Denied any sore throat. CARDIOVASCULAR: No chest pain, orthopnea, PND, no palpitations, no syncope. PULMONARY: No shortness of breath, no cough, no hemoptysis. GASTROINTESTINAL: No diarrhea. NEUROLOGICAL: No headaches, no weakness, no numbness. HEMATOLOGICAL: Denies any bleeding or petechiae. GENITOURINARY: Denies any burning micturition, frequency, or urgency. MUSCULOSKELETAL/RHEUMATOLOGICAL: Denies any joint pain, swelling, or any muscle pain. ENDOCRINE: Denies any polyuria or polydipsia. The rest of the 14-point review of systems is negative. PHYSICAL EXAMINATION: GENERAL: The patient is alert and oriented x3, not in any acute distress. Well developed, well nourished. HEENT: Pupils are round and equally reacting to light. EOMI. No scleral icterus. No conjunctival pallor. Normocephalic, atraumatic. No pharyngeal erythema. No thyromegaly. CARDIOVASCULAR: S1 and S2 present. No murmurs, rubs, or gallops. PULMONARY: Chest is clear to auscultation, no wheezing or crackles. ABDOMEN: Soft, nontender, nondistended, normoactive bowel sounds. No palpable organomegaly. MUSCULOSKELETAL: No joint swelling or deformity. EXTREMITIES: No cyanosis, clubbing, or pedal edema. NEUROLOGICAL: Gross neurological examination did not reveal any focal deficits. SKIN: No rashes. Assessment and plan Abdominal pain secondary to cholelithiasis: The patient IV fluids at this can you concerning her heart failure history patient had heart failure with preserved ejection fraction. On tried on empiric Augmentin by surgery -Chronic kidney disease stage III -Artery disease extent-gastroesophageal reflux disease -Hypothyroidism -History of the possibly atrial fibrillation presently sinus rhythm patient is on Coumadin which is being held will obtain an INR level. DVT prophylaxis: Was on Coumadin which is being held and INR is being obtained Past Medical History Past Medical History: Coronary Artery Disease (CAD), Diabetes Mellitus, Eye Disorder, GERD/Reflux, Hyperlipidemia, Hypertension, Myocardial Infarction ([place]), Osteoarthritis ([place]), Thyroid Disorder Additional Past Medical History / Comment(s): NIDDM type II, R eye-sees shadows only, hiatal hernia, arthritis bilateral hands, insomnia. Last Myocardial Infarction Date:: 2015 History of Any Multi-Drug Resistant Organisms: None Reported Past Surgical History: Heart Catheterization With Stent, Orthopedic Surgery Additional Past Surgical History / Comment(s): PCIs with stents, L hip fracture with hemiarthroplasty, R foot fracture with bone graft, R eye corneal transplant, L eye cataract removal with lens implant. Past Anesthesia/Blood Transfusion Reactions: Postoperative Nausea & Vomiting (PONV) Date of Last Stent Placement:: 10/14/2015 Past Psychological History: No Psychological Hx Reported Smoking Status: Never smoker Past Alcohol Use History: None Reported Past Drug Use History: None Reported - Past Family History Mother Family Medical History: Cancer Father Family Medical History: Myocardial Infarction ([place]) Additional Family Medical History / Comment(s): Father from a [place] at the age of 57yrs. Medications and Allergies Home Medications Medication Instructions Recorded Confirmed Type Timolol 0.25% Ophth Soln [Timoptic 1 drop BOTH EYES DAILY 11/04/19 11/14/21 History 0.25% Ophth Soln] Aspirin EC [Ecotrin Low Dose] 81 mg PO DAILY 08/25/21 11/14/21 History Furosemide [Lasix] 20 mg PO DAILY 08/25/21 11/14/21 History Levothyroxine Sodium [Synthroid] 75 mcg PO DAILY 08/25/21 11/14/21 History Metoprolol Tartrate [Lopressor] 100 mg PO BID 08/25/21 11/14/21 History Prednisolone Acetate/Pf 1 drop RIGHT EYE DAILY 08/25/21 11/14/21 History [Prednisolone Acet 1% Eye Drop] hydrALAZINE HCL [Apresoline] 100 mg PO BID 08/25/21 11/14/21 History Isosorbide Mononitrate ER [Imdur] 30 mg PO DAILY #30 tab 08/27/21 11/14/21 Rx Ferrous Sulfate [Feosol] 325 mg PO DAILY 11/14/21 11/14/21 History Magnesium Hydroxide [Milk of 2,400 mg PO DAILY 11/14/21 11/14/21 History Magnesia] Morphine Sulfate [Morphine Sulfate 15 mg PO BID 11/14/21 11/14/21 History ER] Warfarin [Coumadin] 0.5 mg PO SUTUTHSA 11/14/21 11/14/21 History Allergies Allergy/AdvReac Type Severity Reaction Status Date / Time No Known Allergies Allergy Verified 11/14/21 16:54 Physical Exam Vitals: Vital Signs Temp Pulse Pulse Resp BP BP Pulse Ox 11/15/21 09:53 98.0 F 60 16 146/61 98 11/15/21 07:17 98.2 F 52 L 21 126/49 11/15/21 04:00 98.2 F 62 19 93/46 95 11/14/21 23:57 98.5 F 61 18 100/48 96 11/14/21 20:00 97.6 F 54 L 18 138/64 96 11/14/21 17:31 97.4 F L 58 L 20 195/75 97 11/14/21 15:05 55 L 16 160/100 94 L 11/14/21 13:04 50 L 18 176/78 95 11/14/21 13:00 53 L 24 176/68 95 Intake and Output 11/14/21 11/15/21 11/15/21 22:59 06:59 14:59 Other: Voiding Method Toilet Toilet # Voids 2 1 Weight 62.596 kg 61.1 kg Results CBC & Chem 7: 11/14/21 12:50 11/14/21 12:50 Labs: Abnormal Lab Results - Last 24 Hours (Table) 11/14/21 11/14/21 11/14/21 Range/Units 12:50 12:50 12:50 MCHC 30.9 L (31.0-37.0) g/dL BUN 20 H (7-17) mg/dL Creatinine 1.42 H (0.52-1.04) mg/dL Glucose 100 H (74-99) mg/dL AST 41 H (14-36) U/L Troponin I (0.000-0.034) ng/mL Total Protein 6.1 L (6.3-8.2) g/dL Albumin 3.4 L (3.5-5.0) g/dL Urine Appearance Turbid H (Clear) Urine Protein 1+ H (Negative) Ur Leukocyte Esterase Small H (Negative) Urine WBC 12 H (0-5) /hpf Amorphous Sediment Few H (None) /hpf Urine Bacteria Rare H (None) /hpf Urine Mucus Rare H (None) /hpf 11/14/21 11/14/21 11/14/21 Range/Units 12:50 17:50 20:44 MCHC (31.0-37.0) g/dL BUN (7-17) mg/dL Creatinine (0.52-1.04) mg/dL Glucose (74-99) mg/dL AST (14-36) U/L Troponin I 0.081 H* 0.077 H* 0.084 H* (0.000-0.034) ng/mL Total Protein (6.3-8.2) g/dL Albumin (3.5-5.0) g/dL Urine Appearance (Clear) Urine Protein (Negative) Ur Leukocyte Esterase (Negative) Urine WBC (0-5) /hpf Amorphous Sediment (None) /hpf Urine Bacteria (None) /hpf Urine Mucus (None) /hpf Microbiology - Last 24 Hours (Table) 11/14/21 12:50 Urine Culture - Preliminary Urine,Voided Thrombosis Risk Factor Assmnt - Choose All That Apply Any of the Below Risk Factors Present?: No Each Risk Factor Represents 3 Points: Age 75 years or older Other congenital or acquired thrombophilia - If yes, enter type in comment: No Thrombosis Risk Factor Assessment Total Risk Factor Score: 3 Thrombosis Risk Factor Assessment Level: Moderate Risk
--- NOTE | 2021-11-15 11:11 | P.PN ---
Subjective Progress Note Date: 11/15/21 CHIEF COMPLAINT: Abdominal pain HISTORY OF PRESENT ILLNESS: The patient is a 86 year old female who she reports developing severe right upper quadrant abdominal pain yesterday afternoon which radiated to the left upper quadrant belt-like in fashion. She reports her sharp abdominal pain pain radiates from her right upper quadrant to her right upper back as well. Patient abdominal pain has improved. She is complaining more of back pain. She does have chronic back pain with previous spinal fracture per patient patient does report nausea that improved with Zofran this morning. She is hungry and requesting diet. HIDA scan shows no evidence of acute cholecystitis. Afebrile. Troponin 0.084. Patient started on Augmentin in ER for possible diverticulitis. Patient has no lower abdominal pain. PT INR for today is pending PHYSICAL EXAM: VITAL SIGNS: Reviewed GENERAL: Well-developed in no acute distress. HEENT: No sclera icterus. Extraocular movements grossly intact. Moist buccal mucosa. Head is atraumatic, normocephalic. Hears conversational speech. No nasal drainage. NECK: Supple without lymphadenopathy. CHEST: Non-labored respirations and equal bilateral excursions. CARDIOVASCULAR: Palpable 2+ radial pulses. ABDOMEN: Soft. Nondistended. tenderness with palpation of right upper quadrant MUSCULOSKELETAL: No clubbing or cyanosis. NEUROLOGIC: No focal or lateralizing signs. Cranial nerves II through XII grossly intact. PSYCH: Appropriate affect. Alert and oriented to person, place and time. SKIN: Well perfused. Good skin turgor. ASSESSMENT: 1. Gallstone. No evidence of acute cholecystitis on HIDA scan 2. Right upper quadrant abdominal pain 3. Sigmoid diverticulosis 4. History of coronary disease with cardiac stents and prior myocardial infarction 5. History of atrial fibrillation anticoagulated with Coumadin at home PLAN: -Recommend Robotic Cholecystectomy outpatient -Start low-fat diet -Consult cardiology for cardiac risk assessment -Check PT/INR -Consult dietitian for low-fat diet education -Consult PT OT to ambulate patient -Continue antiemetics as needed Physician [employer] Appliance Mechanic note has been reviewed by physician. Signing provider agrees with the documented findings, assessment, and plan of care. CHIEF COMPLAINT: Abdominal pain HISTORY OF PRESENT ILLNESS: The patient is a 86 year old female admitted with abdominal pain. Patient reports around the right upper quadrant abdominal pain. Additional diagnostic studies include an HIDA scan and ultrasound the gallbladder obtained. Patient reports pain has been ongoing for several months. She has no leukocytosis due to ongoing antibiotics. REVIEW OF ORGAN SYSTEMS: CARDIOVASCULAR: Coronary artery disease. Hyperlipidemia. Hypertensive heart disease with congestive heart failure. Has cardiac catheterization. Past myocardial infarction. GASTROINTESTINAL: Gastroesophageal reflux disease. MUSCULOSKELETAL: Has back pain, stiffness or joint arthritis. ENDOCRINE: Hypothyroidism. Has diabetes type 2. HEME/LYMPHATIC: Denies any lumps and bumps around the neck. No recent deep venous thrombosis. Chronic anticoagulation. PHYSICAL EXAM: VITALS: Reviewed CONSTITUTIONAL: Well developed and in no acute distress. EYES: Conjuctivae without sclera icterus. Extraocular movements grossly intact. HEAD, EARS, NOSE, THROAT: Moist buccal mucosa. Head is atraumatic, n ormocephalic. Hears conversational speech. No nasal drainage. RESPIRATORY: Non-labored respirations and equal bilateral excursions. CARDIOVASCULAR: Palpable 2+ radial pulses. ABDOMEN: Tender right upper quadrant. No peritonitis. MUSCULOSKELETAL: No clubbing cyanosis. SKIN: Warm and well perfused with good skin turgor. NEUROLOGIC: Cranial nerves II through XII grossly intact. No focal or lateralizing signs. PSYCH: Appropriate affect. Alert and oriented to person, place and time. Disp lays appropriate insight. CLINCAL LABS: Reviewed. Troponin elevation. INR elevated 1.7 IMAGING: Independently reviewed. Ultrasound of the gallbladder larger 1 cm gallstone. RADIOLOGY: HIDA scan report demonstrates no acute cholecystitis. ASSESSMENT: 1. Gallstone 2. Right upper quadrant abdominal pain 3. Sigmoid diverticulosis 4. Ischemic cardiomyopathy 5. Spinal fracture. PLAN: 1. Patient has multiple cardiac comorbidities and recommend cardiac risk assessment. 2. Recommend hold Coumadin in the interim for surgical intervention 3. Due to patient's severity of pain, inpatient hospitalization reviewed versus outpatient management. 4. Overall, patient is high risk for surgical intervention with current comorbidities Objective - Vital Signs Vital signs: Vital Signs Temp 98.0 F 11/15/21 09:53 Pulse 60 11/15/21 09:53 Resp 16 11/15/21 09:53 BP 146/61 11/15/21 09:53 Pulse Ox 98 11/15/21 09:53 FiO2 Intake & Output 11/14/21 11/15/21 11/15/21 18:59 06:59 18:59 Weight 62.596 kg 61.1 kg Other: Voiding Method Toilet # Voids 2 1 - Labs CBC & Chem 7: 11/14/21 12:50 11/14/21 12:50 Labs: Abnormal Lab Results - Last 24 Hours (Table) 11/14/21 11/14/21 11/14/21 Range/Units 12:50 12:50 12:50 MCHC 30.9 L (31.0-37.0) g/dL BUN 20 H (7-17) mg/dL Creatinine 1.42 H (0.52-1.04) mg/dL Glucose 100 H (74-99) mg/dL AST 41 H (14-36) U/L Troponin I (0.000-0.034) ng/mL Total Protein 6.1 L (6.3-8.2) g/dL Albumin 3.4 L (3.5-5.0) g/dL Urine Appearance Turbid H (Clear) Urine Protein 1+ H (Negative) Ur Leukocyte Esterase Small H (Negative) Urine WBC 12 H (0-5) /hpf Amorphous Sediment Few H (None) /hpf Urine Bacteria Rare H (None) /hpf Urine Mucus Rare H (None) /hpf 11/14/21 11/14/21 11/14/21 Range/Units 12:50 17:50 20:44 MCHC (31.0-37.0) g/dL BUN (7-17) mg/dL Creatinine (0.52-1.04) mg/dL Glucose (74-99) mg/dL AST (14-36) U/L Troponin I 0.081 H* 0.077 H* 0.084 H* (0.000-0.034) ng/mL Total Protein (6.3-8.2) g/dL Albumin (3.5-5.0) g/dL Urine Appearance (Clear) Urine Protein (Negative) Ur Leukocyte Esterase (Negative) Urine WBC (0-5) /hpf Amorphous Sediment (None) /hpf Urine Bacteria (None) /hpf Urine Mucus (None) /hpf Microbiology - Last 24 Hours (Table) 11/14/21 12:50 Urine Culture - Preliminary Urine,Voided
[2021-11-15 11:55] LABS: INR 1.7 (<1.2); Prothrombin Time 17.5 sec (9.0-12.0)
[2021-11-15 14:18] VITALS: BMI 23.1
[2021-11-15] MEDS: MORPHINE SULFATE ER 15 MG TABLET PO PRN (20:40)
[2021-11-15] MEDS: FAMOTIDINE 20 MG TAB PO SCH (20:40)
[2021-11-16] MEDS: METOPROLOL TARTRATE 50 MG TAB PO SCH ×3 (04:36→19:55)
[2021-11-16] MEDS: hydrALAZINE HCL 50 MG TAB PO SCH ×3 (04:36→19:55)
[2021-11-16] MEDS: LEVOTHYROXINE 75 MCG TAB PO SCH (05:42)
[2021-11-16] MEDS: AMOXIC-POT CLAV 875-125MG 1 EACH TAB PO SCH ×2 (08:36→19:55)
[2021-11-16] MEDS: ISOSORBIDE MONONITRATE ER 30 MG TAB.ER.24H PO SCH (08:36)
[2021-11-16] MEDS: TIMOLOL 0.25% OPHTH DROPS 5 ML BTL BOTH EYES SCH (08:36)
[2021-11-16] MEDS: FAMOTIDINE 20 MG TAB PO SCH (08:37)
[2021-11-16] MEDS: prednisoLONE ACETATE 1% OPHTH DROPS 5 ML BTL RIGHT EYE SCH (08:38)
--- NOTE | 2021-11-16 11:42 | P.CRDCN ---
History of Present Illness History of present illness: This is a pleasant 86-year-old female past medical history significant for coronary artery disease status post PCI to the RCA in 1993, patient has a left circumflex in 2004, PCI to the proximal/mid RCA and PLV branch in 2015, PCI to the proximal LAD and major diagonal branch of LAD in 2019, hypertension, dyslipidemia, chronic kidney disease, paroxysmal atrial fibrillation on Coumadin, chronic heart failure with preserved ejection fraction. She followed in the office with Dr. Flores, and going to follow up with Dr. Oorzco in the office currently. We have been asked to see in consultation for cardiac risk assessment. Patient presented to the ER on 11/14/2021 with complaints of e pigastric, right upper back pain and left lower quadrant abdominal pain. Ultrasound the gallbladder revealed cholelithiasis, echogenic bile. Plan for patient to undergo Robotic cholecystectomy on 11/19/[address] Roy. DIAGNOSTICS * EKG reveals sinus bradycardia, heart rate 55, incomplete right bundle-branch block, nonspecific T-wave abnormalities. No acute ischemia noted. * Most recent echocardiogram 08/2021 revealed EF of 5560 percent, mildly increased septal wall thickness, mildly increased posterior wall thickness. Trace aortic regurgitation, trace mitral and tricuspid regurgitation. * Last Cardiac Catheterization 12/2019 patient underwent PCI to the proximal LAD and major diagonal branch of LAD. * Telemetry tracings indicate sinus mechanism * Laboratory reviewed, troponin 0.08, 0.07, 0.28, WBC 6.9, hemoglobin 13.2, platelets 261, sodium 138, potassium 4.0, BUN 20, serum creatinine 1.42, INR 1.7 * Current home medications include metoprolol titrate 100 mg by mouth daily, Imd ur 30 mg daily, hydralazine 100 mg twice a day, Coumadin 0.5 mg Friday and Friday, aspirin 81 mg daily REVIEW OF SYSTEMS At the time of my exam: CONSTITUTIONAL: Denies fever or chills. CARDIOVASCULAR: Denies chest pain, shortness of breath, orthopnea, PND or palpitations. RESPIRATORY: Denies cough. GASTROINTESTINAL: Reports abdominal pain, Denies diarrhea, constipation, nausea or vomiting. MUSCULOSKELETAL: Reports back pain NEUROLOGIC: Denies numbness, tingling, headache or weakness. ENDOCRINE: Denies fatigue, weight change, polydipsia or polyurina. GENITOURINARY: Denies burning, hematuria or urgency with micturation. HEMATOLOGIC: Denies history of anemia or bleeding. PHYSICAL EXAMINATION Vitals reviewed CONSTITUTIONAL: No apparent distress. HEENT: Head is normocephalic. Pupils are equal, round. Sclerae anicteric. Mucous membranes of the mouth are moist. No JVD. No carotid bruit. CHEST EXAMINATION: Lungs are clear to auscultation. No chest wall tenderness is noted on palpation or with deep breathing. HEART EXAMINATION: Regular rate and rhythm. S1, S2 heard. No murmurs, gallops or rub. ABDOMEN: Soft, nontender. Positive bowel sounds. EXTREMITIES: 2+ peripheral pulses, no lower extremity edema and no calf tenderness. SKIN: Warm, dry NEUROLOGIC EXAMINATION: Patient is awake, alert and oriented x3. ASSESSMENT Abdominal pain Cholelithiasis Subtherapeutic INR, coumadin was held Coronary artery disease status post PCI to the RCA in 1993, patient has a left circumflex in 2004, PCI to the proximal/mid RCA and PLV branch in 2015, PCI to the proximal LAD and major diagonal branch of LAD in 2019 Hypertension Dyslipidemia Chronic kidney disease Paroxysmal atrial fibrillation on Coumadin Chronic heart failure with preserved ejection fraction PLAN Plan for robotic cholecystectomy on Friday11/19/2021 From a cardiology perspective, patient is stable for surgery without any further inpatient cardiac testing. She has no symptoms of chest pain or shortness of breath, she is clinically euvolemic. Benefits of the surgery, outweighs risk at this time. Please call with questions Coumadin currently on hold for surgery, recommend restarting or IV heparin per surgery recommendation Continue home cardiac medications Patient to follow up in the office with Dr. Orozco, patient with an appointment on 12/07/2021. Nurse practitioner note has been reviewed by physician. Signing provider agrees with the documented findings, assessment, and plan of care. Past Medical History Past Medical History: Coronary Artery Disease (CAD), Diabetes Mellitus, Eye Disorder, GERD/Reflux, Hyperlipidemia, Hypertension, Myocardial Infarction ([place]), Osteoarthritis (OA), Thyroid Disorder Additional Past Medical History / Comment(s): NIDDM type II, R eye-sees shadows only, hiatal hernia, arthritis bilateral hands, insomnia. Last Myocardial Infarction Date:: 2015 History of Any Multi-Drug Resistant Organisms: None Reported Past Surgical History: Heart Catheterization With Stent, Orthopedic Surgery Additional Past Surgical History / Comment(s): PCIs with stents, L hip fracture with hemiarthroplasty, R foot fracture with bone graft, R eye corneal transplant, L eye cataract removal with lens implant. Past Anesthesia/Blood Transfusion Reactions: Postoperative Nausea & Vomiting (PONV) Date of Last Stent Placement:: 10/14/2015 Past Psychological History: No Psychological Hx Reported Smoking Status: Never smoker Past Alcohol Use History: None Reported Past Drug Use History: None Reported - Past Family History Mother Family Medical History: Cancer Father Family Medical History: Myocardial Infarction ([place]) Additional Family Medical History / Comment(s): Father from a [place] at the age of 57yrs. Medications and Allergies Home Medications Medication Instructions Recorded Confirmed Type Timolol 0.25% Ophth Soln [Timoptic 1 drop BOTH EYES DAILY 11/04/19 11/14/21 History 0.25% Ophth Soln] Aspirin EC [Ecotrin Low Dose] 81 mg PO DAILY 08/25/21 11/14/21 History Furosemide [Lasix] 20 mg PO DAILY 08/25/21 11/14/21 History Levothyroxine Sodium [Synthroid] 75 mcg PO DAILY 08/25/21 11/14/21 History Metoprolol Tartrate [Lopressor] 100 mg PO BID 08/25/21 11/14/21 History Prednisolone Acetate/Pf 1 drop RIGHT EYE DAILY 08/25/21 11/14/21 History [Prednisolone Acet 1% Eye Drop] hydrALAZINE HCL [Apresoline] 100 mg PO BID 08/25/21 11/14/21 History Isosorbide Mononitrate ER [Imdur] 30 mg PO DAILY #30 tab 08/27/21 11/14/21 Rx Ferrous Sulfate [Feosol] 325 mg PO DAILY 11/14/21 11/14/21 History Magnesium Hydroxide [Milk of 2,400 mg PO DAILY 11/14/21 11/14/21 History Magnesia] Morphine Sulfate [Morphine Sulfate 15 mg PO BID 11/14/21 11/14/21 History ER] Warfarin [Coumadin] 0.5 mg PO SUTUTHSA 11/14/21 11/14/21 History Allergies Allergy/AdvReac Type Severity Reaction Status Date / Time No Known Allergies Allergy Verified 11/14/21 16:54 Physical Exam Vitals: Vital Signs Temp Pulse Resp BP Pulse Ox 11/16/21 07:06 97.3 F L 52 L 19 108/45 96 11/16/21 03:42 98.2 F 51 L 19 109/43 93 L 11/16/21 00:00 98.2 F 52 L 18 102/53 92 L 11/15/21 20:00 98.1 F 65 18 100/50 93 L 11/15/21 16:43 64 16 135/66 94 L 11/15/21 14:05 70 16 101/50 96 11/15/21 11:12 97.4 F L 60 20 114/62 95 11/15/21 09:53 98.0 F 60 16 146/61 98 Intake and Output 11/15/21 11/16/21 11/16/21 22:59 06:59 14:59 Intake Total 118 Balance 118 Intake: Oral 118 Other: Voiding Method Toilet Toilet # Voids 1 Weight 61.1 kg Results 11/14/21 12:50 11/14/21 12:50 Coagulation 11/15/21 Range/Units 11:04 PT 17.5 H (9.0-12.0) sec Current Medications Generic Name Dose Route Start Last Admin Trade Name Freq PRN Reason Stop Dose Admin Acetaminophen 650 mg 11/14/21 15:38 Acetaminophen Tab 325 Mg Tab PO Q6HR PRN Mild Pain or Fever > 100.5 Amoxicillin/Clavulanate Potassium 1 each 11/14/21 16:00 11/15/21 20:40 Amoxic-Pot Clav 875-125mg 1 Each Tab PO 1 each BID ELEANOR Administration Protocol Famotidine 20 mg 11/15/21 21:00 11/15/21 20:40 Famotidine 20 Mg Tab PO 20 mg BID ELEANOR Administration Hydralazine HCl 100 mg 11/14/21 21:00 11/16/21 04:36 Hydralazine Hcl 50 Mg Tab PO Not Given BID ELEANOR Isosorbide Mononitrate 30 mg 11/14/21 18:00 11/15/21 09:55 Isosorbide Mononitrate Er 30 Mg Tab.Er.24h PO 30 mg DAILY ELEANOR Administration Levothyroxine Sodium 75 mcg 11/15/21 06:30 11/16/21 05:42 Levothyroxine 75 Mcg Tab PO 75 mcg DAILY@0630 ELEANOR Administration Metoprolol Tartrate 100 mg 11/14/21 21:00 11/16/21 04:36 Metoprolol Tartrate 50 Mg Tab PO Not Given BID ELEANOR Morphine Sulfate 15 mg 11/15/21 15:20 11/15/21 20:40 Morphine Sulfate Er 15 Mg Tablet PO 15 mg BID PRN Administration Pain Protocol Naloxone HCl 0.2 mg 11/14/21 15:38 Naloxone 0.4 Mg/Ml 1 Ml Vial IV Q2M PRN Opioid Reversal Ondansetron HCl 4 mg 11/14/21 15:38 11/15/21 09:56 Ondansetron 4 Mg/2 Ml Vial IVP 4 mg Q8HR PRN Administration Nausea And Vomiting Prednisolone Acetate 1 drops 11/16/21 09:00 Prednisolone Acetate 1% Ophth Drops 5 Ml Btl RIGHT EYE DAILY [facility] Timolol Maleate 1 drops 11/15/21 09:00 11/15/21 09:55 Timolol 0.25% Ophth Drops 5 Ml Btl BOTH EYES 1 drops DAILY ELEANOR Administration Intake and Output 11/15/21 11/16/21 11/16/21 22:59 06:59 14:59 Intake Total 118 Balance 118 Intake: Oral 118 Other: Voiding Method Toilet Toilet # Voids 1 Weight 61.1 kg 11/14/21 12:50 11/14/21 12:50
--- NOTE | 2021-11-16 11:46 | P.PN ---
Subjective CHIEF COMPLAINT: Abdominal pain HISTORY OF PRESENT ILLNESS: The patient is a 86 year old female admitted with abdominal pain. Diagnostic studies demonstrated a large gallstone. Patient still reports intermittent right upper quadrant abdominal pain. Due to her extensive cardiac history, cardiac consultation is requested. Patient is also on Coumadin for anticoagulation. Her is at bedside. REVIEW OF ORGAN SYSTEMS: CARDIOVASCULAR: Coronary artery disease. Hyperlipidemia. Hypertensive heart disease with congestive heart failure. Has cardiac catheterization. Past myocardial infarction. GASTROINTESTINAL: Gastroesophageal reflux disease. MUSCULOSKELETAL: Has back pain, stiffness or joint arthritis. ENDOCRINE: Hypothyroidism. Has diabetes type 2. HEME/LYMPHATIC: Denies any lumps and bumps around the neck. No recent deep ve nous thrombosis. Chronic anticoagulation. PHYSICAL EXAM: VITALS: Reviewed CONSTITUTIONAL: Well developed and in no acute distress. EYES: Conjuctivae without sclera icterus. Extraocular movements grossly intact. HEAD, EARS, NOSE, THROAT: Moist buccal mucosa. Head is atraumatic, normocephalic. Hears conversational speech. No nasal drainage. RESPIRATORY: Non-labored respirations and equal bilateral excursions. CARDIOVASCULAR: Palpable 2+ radial pulses. ABDOMEN: Tender right upper quadrant. MUSCULOSKELETAL: No clubbing cyanosis. SKIN: Warm and well perfused with good skin turgor. NEUROLOGIC: Cranial nerves II through XII grossly intact. No focal or lateralizing signs. PSYCH: Appropriate affect. Alert and oriented to person, place and time. Displays appropriate insight. CLINCAL LABS: Reviewed. INR elevated 1.7. IMAGING: Independently reviewed. Ultrasound of the gallbladder larger 1 cm gallstone. RADIOLOGY: HIDA scan report demonstrates no acute cholecystitis. ASSESSMENT: 1. Gallstone, symptomatic 2. Right upper quadrant abdominal pain 3. Sigmoid diverticulosis 4. Ischemic cardiomyopathy 5. Spinal fracture. PLAN: 1. Patient reports being seen by cardiology today. At this time pending cardiac risk assessment 2. Recommend continue holding all anticoagulation for surgical intervention while inpatient. Patient scheduled for Friday. 3. Repeat PT/INR. 4. Repeat CBC and CMP 5. Low fat diet advised Objective - Vital Signs Vital signs: Vital Signs Temp 97.3 F L 11/16/21 07:06 Pulse 52 L 11/16/21 07:06 Resp 19 11/16/21 07:06 BP 108/45 11/16/21 07:06 Pulse Ox 96 11/16/21 07:06 FiO2 Intake & Output 11/15/21 11/16/21 11/16/21 18:59 06:59 18:59 Intake Total 236 118 Balance 236 118 Weight 61.1 kg 61.1 kg Intake: Oral 236 118 Other: Voiding Method Toilet # Voids 1 1 - Labs CBC & Chem 7: 11/14/21 12:50 11/14/21 12:50 Labs: Abnormal Lab Results - Last 24 Hours (Table) 11/15/21 Range/Units 11:04 PT 17.5 H (9.0-12.0) sec INR 1.7 H (<1.2) Microbiology - Last 24 Hours (Table) 11/14/21 12:50 Urine Culture - Final Urine,Voided
[2021-11-16 12:01] LABS: HCT 41.4 % (34.0-46.0); HGB 12.6 gm/dL (11.4-16.0); Hypochromasia Moderate; MCH 29.8 pg (25.0-35.0); MCHC 30.4 g/dL (31.0-37.0); MCV 97.9 fL (80.0-100.0); Mean Platelet Volume 9.2; Platelet Count 245 k/uL (150-450); RBC 4.23 m/uL (3.80-5.40); RDW 13.4 % (11.5-15.5); WBC 7.4 k/uL (3.8-10.6)
[2021-11-16 12:12] LABS: Calcium 8.5 mg/dL (8.4-10.2); Total Bilirubin 0.8 mg/dL (0.2-1.3)
[2021-11-16 12:19] LABS: Albumin 3.1 g/dL (3.5-5.0); Potassium 4.6 mmol/L (3.5-5.1); Total Protein 5.9 g/dL (6.3-8.2)
--- NOTE | 2021-11-16 16:08 | P.PN ---
Subjective Progress Note Date: 11/16/21 Patient was in the [id number] female came in with the complaints of back pain and right upper quadrant abdominal pain found to have cholelithiasis on ultrasound that did not reveal any cholecystitis patient had a CT of the abdomen as well which showed diverticulitis as well as cholelithiasis. Patient had a HIDA scan which did not reveal any cholecystitis patient doesn't have any significant tenderness at this time although patient has multiple hospitalizations in the past for similar pain at one point of time she was diagnosed with the back pain and was treated for that but she can use to have symptoms patient denied any nausea vomiting. Her pain a is a bandlike and crampy in nature. 11/16/2021 Patient resting in bed with at bedside. Main complaint today is pain in mid lumbar spine which is chronic. She was evaluated by surgery and plan is for gall bladder removal on Friday. Continues on low fat diet in mean time. Patient has been cleared by cardiology and medicine for surgery. Cardiology recommending IV heparin if okay with primary as coumadin will be held for pending surgery. INR today 1.7, BUN 18, creatinine 1.34, liver enzymes stable. Urine culture pending denies dysuria. Pt remains afebrile, blood pressure on the lower side 99/54. Review of Systems Constitutional: Denied any fatigue denied any fever. Cardio vascular: denied any chest pain, palpitations Gastrointestinal: denied any nausea, vomiting, diarrhea, mild RUQ abdomainal pain Pulmonary: Denied any shortness of breath cough Neurologic denied any new focal deficits All inpatient medications were reviewed and appropriate changes in these medications as dictated in the interval history and assessment and plan. PHYSICAL EXAMINATION: GENERAL: The patient is alert and oriented x3, not in any acute distress. Well developed, well nourished. HEENT: Pupils are round and equally reacting to light. EOMI. No scleral icterus. No conjunctival pallor. Normocephalic, atraumatic. No pharyngeal erythema. No thyromegaly. CARDIOVASCULAR: S1 and S2 present. No murmurs, rubs, or gallops. PULMONARY: Chest is clear to auscultation, no wheezing or crackles. ABDOMEN: Soft, nontender, nondistended, normoactive bowel sounds. No palpable organomegaly. MUSCULOSKELETAL: No joint swelling or deformity. EXTREMITIES: No cyanosis, clubbing, or pedal edema. NEUROLOGICAL: Gross neurological examination did not reveal any focal deficits. SKIN: No rashes. Assessment and plan Abdominal pain secondary to cholelithiasis: plan for robotic cholecystectomy friday with Dr Roy. Liver enzymes stable. Patient continues on empiric coverage with augmentin. -Chronic kidney disease stage III -Coronary Artery Disease post PCI in the past -Chronic Heart Failure with preserved EF -Gastroesophageal reflux disease -Hypothyroidism -History of paroxysmal atrial fibrillation maintained on coumadin outpatient -Hypertension currently low normal blood pressure -Hyperlipidemia -Asymptomatic bacteriurea DVT prophylaxis: Was on Coumadin which is being held, cardiology recommending IV heparin if ok with cardiology GI Prophylaxis: Pepcid Full Code The impression and plan of care has been dictated by Norma Szymanski, Nurse Practitioner as directed. Dr. Yakov MD I have performed a history and physical examination and medical decision making of this patient, discussed the same with the dictator, and agree with the dictators assessment and plan as written, documented as a scribe. Based on total visit time, I have performed more than 50% of this visit. Objective - Vital Signs Vital signs: Vital Signs Temp 97.7 F 11/16/21 12:23 Pulse 55 L 11/16/21 12:23 Resp 20 11/16/21 12:23 BP 99/54 11/16/21 12:23 Pulse Ox 97 11/16/21 12:23 FiO2 Intake & Output 11/15/21 11/16/21 11/16/21 18:59 06:59 18:59 Intake Total 236 236 Balance 236 236 Weight 61.1 kg 61.1 kg Intake: Oral 236 236 Other: Voiding Method Toilet # Voids 1 1 # Bowel Movements 0 - Labs CBC & Chem 7: 11/16/21 10:57 11/16/21 10:50 Labs: Abnormal Lab Results - Last 24 Hours (Table) 11/16/21 11/16/21 Range/Units 10:50 10:57 MCHC 30.4 L (31.0-37.0) g/dL Chloride 109 H (98-107) mmol/L BUN 18 H (7-17) mg/dL Creatinine 1.34 H (0.52-1.04) mg/dL Glucose 100 H (74-99) mg/dL AST 41 H (14-36) U/L Total Protein 5.9 L (6.3-8.2) g/dL Albumin 3.1 L (3.5-5.0) g/dL Microbiology - Last 24 Hours (Table) 11/14/21 12:50 Urine Culture - Final Urine,Voided Assessment and Plan Time with Patient: Less than 30
[2021-11-17] MEDS: LEVOTHYROXINE 75 MCG TAB PO SCH (06:10)
[2021-11-17] MEDS: FAMOTIDINE 20 MG TAB PO SCH (09:32)
[2021-11-17] MEDS: AMOXIC-POT CLAV 875-125MG 1 EACH TAB PO SCH (09:32)
[2021-11-17] MEDS: MORPHINE SULFATE ER 15 MG TABLET PO PRN (09:32)
[2021-11-17] MEDS: METOPROLOL TARTRATE 50 MG TAB PO SCH ×2 (09:32→19:52)
[2021-11-17] MEDS: ISOSORBIDE MONONITRATE ER 30 MG TAB.ER.24H PO SCH (09:32)
[2021-11-17] MEDS: TIMOLOL 0.25% OPHTH DROPS 5 ML BTL BOTH EYES SCH (09:33)
[2021-11-17] MEDS: prednisoLONE ACETATE 1% OPHTH DROPS 5 ML BTL RIGHT EYE SCH (09:33)
[2021-11-17] MEDS: hydrALAZINE HCL 50 MG TAB PO SCH ×2 (09:33→19:52)
--- NOTE | 2021-11-17 10:22 | P.PN ---
Subjective Progress Note Date: 11/17/21 Principal diagnosis: Cholecystitis Patient doing well today. She is complaining of mid back pain. Denies nausea or vomiting. Appetite is diminished. Labs are pending. Objective - Vital Signs Vital signs: Vital Signs Temp 97.9 F 11/17/21 03:41 Pulse 54 L 11/17/21 03:41 Resp 19 11/17/21 03:41 BP 102/50 11/17/21 03:41 Pulse Ox 95 11/17/21 03:41 FiO2 Intake & Output 11/16/21 11/17/21 11/17/21 18:59 06:59 18:59 Intake Total 457 237 118 Balance 457 237 118 Weight 61.7 kg Intake: Oral 457 237 118 Other: Voiding Method Toilet # Voids 1 # Bowel Movements 0 - Exam Abdomen: Soft, nontender, nondistended - Labs CBC & Chem 7: 11/16/21 10:57 11/16/21 10:50 Labs: Abnormal Lab Results - Last 24 Hours (Table) 11/16/21 11/16/21 Range/Units 10:50 10:57 MCHC 30.4 L (31.0-37.0) g/dL Chloride 109 H (98-107) mmol/L BUN 18 H (7-17) mg/dL Creatinine 1.34 H (0.52-1.04) mg/dL Glucose 100 H (74-99) mg/dL AST 41 H (14-36) U/L Total Protein 5.9 L (6.3-8.2) g/dL Albumin 3.1 L (3.5-5.0) g/dL Assessment and Plan (1) Cholecystitis Narrative/Plan: 86-year-old female with suspected acute cholecystitis continuing to the patient's mid back pain. Check morning labs. Continue diet. Patient tentatively scheduled for surgery on Friday. Current Visit: Yes Status: Acute Code(s): K81.9 - CHOLECYSTITIS, UNSPECIFIED SNOMED Code(s): 94489335
[2021-11-17 10:28] LABS: INR 1.6 (<1.2); Prothrombin Time 16.1 sec (9.0-12.0)
--- NOTE | 2021-11-18 04:54 | P.PN ---
Subjective Progress Note Date: 11/17/21 Subjective Progress Note Date: 11/16/21 Patient was in the [id number] female came in with the complaints of back pain and right upper quadrant abdominal pain found to have cholelithiasis on ultrasound that did not reveal any cholecystitis patient had a CT of the abdomen as well which showed diverticulitis as well as cholelithiasis. Patient had a HIDA scan which did not reveal any cholecystitis patient doesn't have any significant tenderness at this time although patient has multiple hospitalizations in the past for similar pain at one point of time she was diagnosed with the back pain and was treated for that but she can use to have symptoms patient denied any nausea vomiting. Her pain a is a bandlike and crampy in nature. 11/16/2021 Patient resting in bed with at bedside. Main complaint today is pain in mid lumbar spine which is chronic. She was evaluated by surgery and plan is for gall bladder removal on Friday. Continues on low fat diet in mean time. Patient has been cleared by cardiology and medicine for surgery. Cardiology recommending IV heparin if okay with primary as coumadin will be held for pending surgery. INR today 1.7, BUN 18, creatinine 1.34, liver enzymes stable. Urine culture pending denies dysuria. Pt remains afebrile, blood pressure on the lower side 99/54. 11/17/2021 Patient is seen in follow-up this morning with no acute overnight issues noted. Patient with cardiology following for surgical clearance and plan is for cholecystectomy on Friday. Patient continues to report lower back pain, but reports is being managed with pain meds and heating pad on her back. Encouraged increased activity as tolerated and will follow up with repeat am labs. Patient is afebrile and denies chest pain or shortness of breath. Review of Systems Constitutional: Denied any fatigue denied any fever. Cardio vascular: denied any chest pain, palpitations Gastrointestinal: denied any nausea, vomiting, diarrhea, mild RUQ abdomainal pain Pulmonary: Denied any shortness of breath cough Neurologic denied any new focal deficits, reports lower back pain All inpatient medications were reviewed and appropriate changes in these medications as dictated in the interval history and assessment and plan. PHYSICAL EXAMINATION: GENERAL: The patient is alert and oriented x3, not in any acute distress. Well developed, well nourished. HEENT: Pupils are round and equally reacting to light. EOMI. No scleral icterus. No conjunctival pallor. Normocephalic, atraumatic. No pharyngeal erythema. No thyromegaly. CARDIOVASCULAR: S1 and S2 present. No murmurs, rubs, or gallops. PULMONARY: Chest is clear to auscultation, no wheezing or crackles. ABDOMEN: Soft, nontender, nondistended, normoactive bowel sounds. No palpable organomegaly. MUSCULOSKELETAL: No joint swelling or deformity. EXTREMITIES: No cyanosis, clubbing, or pedal edema. NEUROLOGICAL: Gross neurological examination did not reveal any focal deficits. SKIN: No rashes. Assessment and plan: -Abdominal pain secondary to cholelithiasis: plan for robotic cholecystectomy friday with Dr Roy. Liver enzymes stable. -Chronic kidney disease stage III -Coronary Artery Disease post PCI in the past -Chronic Heart Failure with preserved EF -Gastroesophageal reflux disease -Hypothyroidism -History of paroxysmal atrial fibrillation maintained on coumadin outpatient -Hypertension currently low normal blood pressure -Hyperlipidemia -Asymptomatic bacteriurea -DVT prophylaxis: Was on Coumadin which is being held, cardiology recommending IV heparin if ok with surgery -GI Prophylaxis: Pepcid -Full Code The impression and plan of care has been dictated by Ashli Rosales, Nurse Practitioner as directed. Dr. Yakov MD I have performed a history and examination and MDM of this patient, discussed the same with the dictator, and agree with the dictator's assessment and plan as written ,documented as a scribe. Based on total visit time, I have performed more than 50% of the visit. Objective - Vital Signs Vital signs: Vital Signs Temp 97.9 F 11/17/21 03:41 Pulse 54 L 11/17/21 03:41 Resp 19 11/17/21 03:41 BP 102/50 11/17/21 03:41 Pulse Ox 95 11/17/21 03:41 FiO2 Intake & Output 11/16/21 11/17/21 11/17/21 18:59 06:59 18:59 Intake Total 457 237 Balance 457 237 Weight 61.7 kg Intake: Oral 457 237 Other: Voiding Method Toilet # Voids 1 # Bowel Movements 0 - Labs CBC & Chem 7: 11/16/21 10:57 11/16/21 10:50 Labs: Abnormal Lab Results - Last 24 Hours (Table) 11/16/21 11/16/21 Range/Units 10:50 10:57 MCHC 30.4 L (31.0-37.0) g/dL Chloride 109 H (98-107) mmol/L BUN 18 H (7-17) mg/dL Creatinine 1.34 H (0.52-1.04) mg/dL Glucose 100 H (74-99) mg/dL AST 41 H (14-36) U/L Total Protein 5.9 L (6.3-8.2) g/dL Albumin 3.1 L (3.5-5.0) g/dL
[2021-11-18] MEDS: MORPHINE SULFATE ER 15 MG TABLET PO PRN ×2 (06:45→20:38)
[2021-11-18] MEDS: LEVOTHYROXINE 75 MCG TAB PO SCH (06:45)
[2021-11-18] MEDS: FAMOTIDINE 20 MG TAB PO SCH (09:19)
[2021-11-18] MEDS: TIMOLOL 0.25% OPHTH DROPS 5 ML BTL BOTH EYES SCH (09:19)
[2021-11-18] MEDS: METOPROLOL TARTRATE 50 MG TAB PO SCH ×2 (09:19→20:32)
[2021-11-18] MEDS: hydrALAZINE HCL 50 MG TAB PO SCH ×2 (09:19→23:30)
[2021-11-18] MEDS: prednisoLONE ACETATE 1% OPHTH DROPS 5 ML BTL RIGHT EYE SCH (09:19)
[2021-11-18] MEDS: ISOSORBIDE MONONITRATE ER 30 MG TAB.ER.24H PO SCH (09:19)
[2021-11-18 09:41] LABS: Basophils % (A) 1 %; Eosinophils # (A) 0.1 k/uL (0-0.7); Eosinophils % (A) 2 %; HCT 38.5 % (34.0-46.0); HGB 11.5 gm/dL (11.4-16.0); Hypochromasia Slight; Lymphocytes # (A) 1.3 k/uL (1.0-4.8); Lymphocytes % (A) 24 %; MCV 96.9 fL (80.0-100.0); Mean Platelet Volume 7.8; Monocytes # (A) 0.4 k/uL (0-1.0); Monocytes % (A) 6 %; Neutrophils # (A) 3.7 k/uL (1.3-7.7); Neutrophils % (A) 66 %; Platelet Count 236 k/uL (150-450); RBC 3.98 m/uL (3.80-5.40); RDW 13.2 % (11.5-15.5); WBC 5.6 k/uL (3.8-10.6)
[2021-11-18 09:52] LABS: Albumin 2.7 g/dL (3.5-5.0); Calcium 8.7 mg/dL (8.4-10.2); Potassium 3.9 mmol/L (3.5-5.1); Total Bilirubin 0.4 mg/dL (0.2-1.3); Total Protein 5.2 g/dL (6.3-8.2)
[2021-11-18 09:56] LABS: INR 1.4 (<1.2); Prothrombin Time 14.7 sec (9.0-12.0)
[2021-11-18] MEDS ORDERED: MAGNESIUM CITRATE 296 ML BOTTLE PO ONE (10:03)
--- NOTE | 2021-11-18 10:03 | P.PN ---
Subjective Progress Note Date: 11/18/21 Principal diagnosis: Cholecystitis Patient doing about the same today. Still complaining of some back pain. She feels somewhat constipated. No nausea or vomiting. Labs noted. Objective - Vital Signs Vital signs: Vital Signs Temp 97.5 F L 11/18/21 04:00 Pulse 63 11/18/21 04:00 Resp 18 11/18/21 04:00 BP 102/54 11/18/21 04:00 Pulse Ox 89 L 11/18/21 04:00 FiO2 Intake & Output 11/17/21 11/18/21 11/18/21 18:59 06:59 18:59 Intake Total 468 237 Balance 468 237 Weight 61.6 kg Intake: Oral 468 237 Other: Voiding Method Toilet Toilet # Voids 2 1 - Exam Abdomen: Soft, nontender, nondistended - Labs CBC & Chem 7: 11/18/21 08:54 11/18/21 08:54 Labs: Abnormal Lab Results - Last 24 Hours (Table) 11/17/21 11/18/21 11/18/21 Range/Units 09:07 08:54 08:54 MCHC 30.0 L (31.0-37.0) g/dL PT 16.1 H 14.7 H (9.0-12.0) sec INR 1.6 H 1.4 H (<1.2) Creatinine (0.52-1.04) mg/dL Glucose (74-99) mg/dL Total Protein (6.3-8.2) g/dL Albumin (3.5-5.0) g/dL 11/18/21 Range/Units 08:54 MCHC (31.0-37.0) g/dL PT (9.0-12.0) sec INR (<1.2) Creatinine 1.14 H (0.52-1.04) mg/dL Glucose 125 H (74-99) mg/dL Total Protein 5.2 L (6.3-8.2) g/dL Albumin 2.7 L (3.5-5.0) g/dL Assessment and Plan (1) Cholecystitis Narrative/Plan: Patient scheduled for laparoscopic cholecystectomy tomorrow. Nothing by mouth after midnight. We'll give one bottle magnesium citrate today. Current Visit: Yes Status: Acute Code(s): K81.9 - CHOLECYSTITIS, UNSPECIFIED SNOMED Code(s): 44899178
--- NOTE | 2021-11-18 13:42 | P.PN ---
Subjective Progress Note Date: 11/18/21 Subjective Progress Note Date: 11/16/21 Patient was in the [id number] female came in with the complaints of back pain and right upper quadrant abdominal pain found to have cholelithiasis on ultrasound that did not reveal any cholecystitis patient had a CT of the abdomen as well which showed diverticulitis as well as cholelithiasis. Patient had a HIDA scan which did not reveal any cholecystitis patient doesn't have any significant tenderness at this time although patient has multiple hospitalizations in the past for similar pain at one point of time she was diagnosed with the back pain and was treated for that but she can use to have symptoms patient denied any nausea vomiting. Her pain a is a bandlike and crampy in nature. 11/16/2021 Patient resting in bed with at bedside. Main complaint today is pain in mid lumbar spine which is chronic. She was evaluated by surgery and plan is for gall bladder removal on Friday. Continues on low fat diet in mean time. Patient has been cleared by cardiology and medicine for surgery. Cardiology recommending IV heparin if okay with primary as coumadin will be held for pending surgery. INR today 1.7, BUN 18, creatinine 1.34, liver enzymes stable. Urine culture pending denies dysuria. Pt remains afebrile, blood pressure on the lower side 99/54. 11/17/2021 Patient is seen in follow-up this morning with no acute overnight issues noted. Patient with cardiology following for surgical clearance and plan is for cholecystectomy on Friday. Patient continues to report lower back pain, but reports is being managed with pain meds and heating pad on her back. Encouraged increased activity as tolerated and will follow up with repeat am labs. Patient is afebrile and denies chest pain or shortness of breath. 11/18/2021 Patient is seen and evaluated in follow-up this morning with no acute issues n oted. Patient continues to have some lower back pain she reports is chronic. Patient is currently maintained on low-fat diet and tolerating and will be nothing by mouth at midnight and recommend repeat labs as patient is scheduled to undergo cholecystectomy in the morning. Patient is afebrile denies chest pain or shortness of breath. WBC is 5.6 with a hemoglobin of 11.5, platelets are 236, INR is 1.4 with a sodium of 138 potassium is 3.9, BUN is 17 and creatinine slightly improving at 1.14. Patient with some low oxygen saturations all denies shortness of breath. Recommend supplemental oxygen support at 2 L and will add incentive spirometer. Obtain chest x-ray. Patient also with no re ported documented bowel movement and was given mag citrate today. Review of Systems Constitutional: Denied any fatigue denied any fever. Cardio vascular: denied any chest pain, palpitations Gastrointestinal: denied any nausea, vomiting, diarrhea, mild RUQ abdomainal tenderness Pulmonary: Denied any shortness of breath cough Neurologic denied any new focal deficits, reports lower back pain All inpatient medications were reviewed and appropriate changes in these medications as dictated in the interval history and assessment and plan. PHYSICAL EXAMINATION: GENERAL: The patient is alert and oriented x3, not in any acute distress. Well developed, well nourished. HEENT: Pupils are round and equally reacting to light. EOMI. No scleral icterus. No conjunctival pallor. Normocephalic, atraumatic. No pharyngeal erythema. No thyromegaly. CARDIOVASCULAR: S1 and S2 present. No murmurs, rubs, or gallops. PULMONARY: Diminished breath sounds bilaterally otherwise Chest is clear to auscultation, no wheezing or crackles. ABDOMEN: Soft, mildly tender on palpation, nondistended, normoactive bowel sounds. No palpable organomegaly. MUSCULOSKELETAL: No joint swelling or deformity. EXTREMITIES: No cyanosis, clubbing, or pedal edema. NEUROLOGICAL: Gross neurological examination did not reveal any focal deficits. SKIN: No rashes. Assessment: -Abdominal pain secondary to cholelithiasis: plan for robotic cholecystectomy friday with Dr Roy. Liver enzymes stable. -Chronic kidney disease stage III -Coronary Artery Disease post PCI in the past -Chronic Heart Failure with preserved EF -Gastroesophageal reflux disease -Hypothyroidism -History of paroxysmal atrial fibrillation maintained on coumadin outpatient -Hypertension currently low normal blood pressure -Hyperlipidemia -Asymptomatic bacteriurea, antibiotics discontinued -DVT prophylaxis: Was on Coumadin which is being held, cardiology recommending IV heparin if ok with surgery -GI Prophylaxis: Pepcid -Full Code Plan: Recommend continue with current medications with cardiology and surgery following Patient with no documented bowel movement giving citrate of magnesia Patient with some low pulse ox readings although denies shortness of breath will obtain a chest x-ray which is currently pending Page is not currently on any anticoagulation and is scheduled to undergo laparoscopic cholecystectomy in the a.m. which general surgery Recommend a.m. labs and replace electrolytes per protocol Continue to hold blood pressure medications as patient's blood pressures have been on the lower side and will monitor closely for any postoperative hypotension Added incentive spirometer and recommended encourage the patient to continue using at least 10 times every hour while awake The impression and plan of care has been dictated by Ashli Rosales, Nurse Practitioner as directed. Dr. Yakov MD I have performed a history and examination and MDM of this patient, discussed the same with the dictator, and agree with the dictator's assessment and plan as written ,documented as a scribe. Based on total visit time, I have performed more than 50% of the visit. Objective - Vital Signs Vital signs: Vital Signs Temp 97.5 F L 11/18/21 04:00 Pulse 63 11/18/21 04:00 Resp 18 11/18/21 04:00 BP 102/54 11/18/21 04:00 Pulse Ox 89 L 11/18/21 04:00 FiO2 Intake & Output 11/17/21 11/18/21 11/18/21 18:59 06:59 18:59 Intake Total 468 237 Balance 468 237 Weight 61.6 kg Intake: Oral 468 237 Other: Voiding Method Toilet Toilet # Voids 2 1 - Labs CBC & Chem 7: 11/18/21 08:54 11/18/21 08:54 Labs: Abnormal Lab Results - Last 24 Hours (Table) 11/17/21 Range/Units 09:07 PT 16.1 H (9.0-12.0) sec INR 1.6 H (<1.2)
--- NOTE | 2021-11-18 13:59 | XR ---
EXAMINATION TYPE: XR chest 1V portable DATE OF EXAM: 11/18/2021 1:54 PM COMPARISON: Chest radiographs from 11/14/2021 TECHNIQUE: XR chest 1V portable Portable AP radiograph of the chest. CLINICAL INDICATION:Female, 86 years old with history of shortness of breath; FINDINGS: Lungs/Pleura: There is no evidence of pleural effusion, focal consolidation, or pneumothorax. Pulmonary vascularity: Unremarkable. Heart/mediastinum: Cardiomediastinal silhouette is enlarged and stable. Atherosclerotic calcificatio ns are seen in the aorta. Musculoskeletal: No acute osseous pathology. IMPRESSION: No significant change without evidence for acute process. Stable cardiomegaly
[2021-11-19] MEDS: LEVOTHYROXINE 75 MCG TAB PO SCH (06:35)
[2021-11-19 07:37] LABS: Basophils % (A) 1 %; Eosinophils # (A) 0.1 k/uL (0-0.7); Eosinophils % (A) 2 %; HCT 38.4 % (34.0-46.0); HGB 11.8 gm/dL (11.4-16.0); Hypochromasia Moderate; Lymphocytes # (A) 1.7 k/uL (1.0-4.8); Lymphocytes % (A) 34 %; MCH 29.9 pg (25.0-35.0); MCHC 30.7 g/dL (31.0-37.0); MCV 97.6 fL (80.0-100.0); Mean Platelet Volume 7.6; Monocytes # (A) 0.4 k/uL (0-1.0); Monocytes % (A) 7 %; Neutrophils # (A) 2.7 k/uL (1.3-7.7); Neutrophils % (A) 53 %; Platelet Count 231 k/uL (150-450); RBC 3.93 m/uL (3.80-5.40); RDW 13.4 % (11.5-15.5); WBC 5.1 k/uL (3.8-10.6)
[2021-11-19 07:45] LABS: INR 1.3 (<1.2); Prothrombin Time 13.8 sec (9.0-12.0)
[2021-11-19 07:54] LABS: Albumin 2.6 g/dL (3.5-5.0); Calcium 8.6 mg/dL (8.4-10.2); Potassium 3.9 mmol/L (3.5-5.1); Total Bilirubin 0.4 mg/dL (0.2-1.3); Total Protein 5.1 g/dL (6.3-8.2)
[2021-11-19] MEDS ORDERED: INDOCYANINE GREEN 25 MG VIAL IV STA (07:58)
--- NOTE | 2021-11-19 07:59 | P.HPADDEND ---
H&P Addendum H&P Addendum Date: 11/19/21 PT PTT and INR obtained this morning. INR less than 1.5. Patient at elevated risk for bleeding. Benefits and risks of robotic cholecystectomy reviewed.
[2021-11-19] MEDS: prednisoLONE ACETATE 1% OPHTH DROPS 5 ML BTL RIGHT EYE SCH (09:47)
[2021-11-19] MEDS: TIMOLOL 0.25% OPHTH DROPS 5 ML BTL BOTH EYES SCH (09:47)
[2021-11-19] MEDS: ISOSORBIDE MONONITRATE ER 30 MG TAB.ER.24H PO SCH (09:48)
[2021-11-19] MEDS: FAMOTIDINE 20 MG TAB PO SCH (09:48)
[2021-11-19] MEDS: METOPROLOL TARTRATE 50 MG TAB PO SCH ×2 (09:48→19:58)
[2021-11-19] MEDS: MORPHINE SULFATE ER 15 MG TABLET PO PRN (10:32)
--- NOTE | 2021-11-19 12:55 | P.PN ---
Subjective Progress Note Date: 11/19/21 Patient was in the [id number] female came in with the complaints of back pain and right upper quadrant abdominal pain found to have cholelithiasis on ultrasound that did not reveal any cholecystitis patient had a CT of the abdomen as well which showed diverticulitis as well as cholelithiasis. Patient had a HIDA scan which did not reveal any cholecystitis patient doesn't have any significant tenderness at this time although patient has multiple hospitalizations in the past for similar pain at one point of time she was diagnosed with the back pain and was treated for that but she can use to have symptoms patient denied any nausea vomiting. Her pain a is a bandlike and crampy in nature. 11/16/2021 Patient resting in bed with at bedside. Main complaint today is pain in mid lumbar spine which is chronic. She was evaluated by surgery and plan is for gall bladder removal on Friday. Continues on low fat diet in mean time. Patient has been cleared by cardiology and medicine for surgery. Cardiology recommending IV heparin if okay with primary as coumadin will be held for pending surgery. INR today 1.7, BUN 18, creatinine 1.34, liver enzymes stable. Urine culture pending denies dysuria. Pt remains afebrile, blood pressure on the lower side 99/54. 11/17/2021 Patient is seen in follow-up this morning with no acute overnight issues noted. Patient with cardiology following for surgical clearance and plan is for cholecystectomy on Friday. Patient continues to report lower back pain, but reports is being managed with pain meds and heating pad on her back. Encouraged increased activity as tolerated and will follow up with repeat am labs. Patient is afebrile and denies chest pain or shortness of breath. 11/18/2021 Patient is seen and evaluated in follow-up this morning with no acute issues noted. Patient continues to have some lower back pain she reports is chronic. Patient is currently maintained on low-fat diet and tolerating and will be nothing by mouth at midnight and recommend repeat labs as patient is scheduled to undergo cholecystectomy in the morning. Patient is afebrile denies chest pain or shortness of breath. WBC is 5.6 with a hemoglobin of 11.5, platelets are 236, INR is 1.4 with a sodium of 138 potassium is 3.9, BUN is 17 and creatinine slightly improving at 1.14. Patient with some low oxygen saturations all denies shortness of breath. Recommend supplemental oxygen support at 2 L and will add incentive spirometer. Obtain chest x-ray. Patient also with no reported documented bowel movement and was given mag citrate today. 11/19/2021 Patient sitting up in chair today, no acute events overnight. Pending robotic assissted cholecystectomy this afternoon with Dr oRy. States her back pain is okay she is using heat pads and as needed medication. Had an isolated elevated blood pressure today 160s systolic, will continue to monitor. Continue to hold hydralazine to avoid postoperative hypotension. Labs today showing white count 5.1, hgb 11.8, sodium 139, potassium 3.9, BUN 15, creatinine 1.05. Liver enzymes have normalized. Chest xray yesterday shows no acute process, she did have good size brown soft BM yesterday. No shortness of breath, no chest pain. Review of Systems Constitutional: Denied any fatigue denied any fever. Cardio vascular: denied any chest pain, palpitations Gastrointestinal: denied any nausea, vomiting, diarrhea, mild RUQ abdomainal pain Pulmonary: Denied any shortness of breath cough Neurologic denied any new focal deficits All inpatient medications were reviewed and appropriate changes in these me dications as dictated in the interval history and assessment and plan. PHYSICAL EXAMINATION: GENERAL: The patient is alert and oriented x3, not in any acute distress. Well developed, well nourished. HEENT: Pupils are round and equally reacting to light. EOMI. No scleral icterus. No conjunctival pallor. Normocephalic, atraumatic. No pharyngeal erythema. No thyromegaly. CARDIOVASCULAR: S1 and S2 present. No murmurs, rubs, or gallops. PULMONARY: Chest is clear to auscultation, no wheezing or crackles. ABDOMEN: Soft, nontender, nondistended, normoactive bowel sounds. No palpable organomegaly. MUSCULOSKELETAL: No joint swelling or deformity. EXTREMITIES: No cyanosis, clubbing, or pedal edema. NEUROLOGICAL: Gross neurological examination did not reveal any focal deficits. SKIN: No rashes. Assessment and plan Abdominal pain secondary to cholelithiasis: plan for robotic cholecystectomy friday with Dr Roy. Liver enzymes stable. Patient continues on empiric coverage with augmentin. -Chronic kidney disease stage III -Coronary Artery Disease post PCI in the past -Chronic Heart Failure with preserved EF -Gastroesophageal reflux disease -Hypothyroidism -History of paroxysmal atrial fibrillation maintained on coumadin outpatient -Hypertension currently low normal blood pressure -Hyperlipidemia -Asymptomatic bacteriurea DVT prophylaxis: Was on Coumadin which is being held, cardiology recommending IV heparin if ok with cardiology, INR today 1.3 GI Prophylaxis: Pepcid Full Code Plan Continue current medications, hold hydralazine and repeat blood pressure before surgery Continue to encourage incentive spirometry Resume anticoagulation as soon as possible after surgery when cleared by primary, most likely will need lovenox bridge The impression and plan of care has been dictated by Norma Szymanski, Nurse Practitioner as directed. Dr. Yakov MD I have performed a history and physical examination and medical decision making of this patient, discussed the same with the dictator, and agree with the dictators assessment and plan as written, documented as a scribe. Based on total visit time, I have performed more than 50% of this visit. Objective - Vital Signs Vital signs: Vital Signs Temp 98.2 F 11/19/21 04:00 Pulse 58 L 11/19/21 04:00 Resp 19 11/19/21 04:00 BP 95/48 11/19/21 04:00 Pulse Ox 95 11/19/21 04:00 FiO2 Intake & Output 11/18/21 11/19/21 11/19/21 18:59 06:59 18:59 Intake Total 354 Balance 354 Weight 61.8 kg Intake: Oral 354 Other: Voiding Method Toilet Toilet # Voids 2 1 - Labs CBC & Chem 7: 11/19/21 07:04 11/19/21 07:04 Labs: Abnormal Lab Results - Last 24 Hours (Table) 11/18/21 11/18/21 11/18/21 Range/Units 08:54 08:54 08:54 MCHC 30.0 L (31.0-37.0) g/dL PT 14.7 H (9.0-12.0) sec INR 1.4 H (<1.2) Chloride (98-107) mmol/L Creatinine 1.14 H (0.52-1.04) mg/dL Glucose 125 H (74-99) mg/dL Total Protein 5.2 L (6.3-8.2) g/dL Albumin 2.7 L (3.5-5.0) g/dL 11/19/21 11/19/21 11/19/21 Range/Units 07:04 07:04 07:04 MCHC 30.7 L (31.0-37.0) g/dL PT 13.8 H (9.0-12.0) sec INR 1.3 H (<1.2) Chloride 110 H (98-107) mmol/L Creatinine 1.05 H (0.52-1.04) mg/dL Glucose (74-99) mg/dL Total Protein 5.1 L (6.3-8.2) g/dL Albumin 2.6 L (3.5-5.0) g/dL Assessment and Plan Time with Patient: Less than 30
[2021-11-19] MEDS ORDERED: LACTATED RINGERS 1,000 ML IV ONE ×2 (14:16)
[2021-11-19] MEDS ORDERED: HEPARIN SODIUM,PORCINE/PF 5,000 UNIT/0.5 ML SYRINGE SQ ONE (14:17)
[2021-11-19] MEDS: ONDANSETRON 4 MG/2 ML VIAL IVP PRN (14:17)
[2021-11-19] MEDS ORDERED: BUPIVACAIN-EPI 0.25%-1:200,000 30 ML VIAL SQ ONE (15:04)
[2021-11-19] MEDS ORDERED: hydrALAZINE HCL 25 MG TAB PO STA (15:21)
[2021-11-19] MEDS ORDERED: HYDROmorphone 1 MG/ML 1 ML SYRINGE IVP PRN (15:45)
--- NOTE | 2021-11-19 15:55 | P.OP ---
Date of Procedure: 11/19/21 Description of Procedure: SURGEON: HOLLY BRIAN MD PREOPERATIVE DIAGNOSES: 1. Chronic cholecystitis 2. Congestive heart failure 3. Chronic anticoagulant use 4. Hypertensive heart disease with stage III chronic kidney disease 5. Glaucoma 6. Hypothyroidism 7. Chronic back pain 8. Gastroesophageal reflux disease POSTOPERATIVE DIAGNOSES: 1. Acute on chronic cholecystitis due to gallstones 2. Congestive heart failure 3. Chronic anticoagulant use 4. Hypertensive heart disease with stage III chronic kidney disease 5. Glaucoma 6. Hypothyroidism 7. Chronic back pain 8. Gastroesophageal reflux disease OPERATION: Robotic-assisted da Anam Xi laparoscopic cholecystectomy, multiport with FIREFLY ESTIMATED BLOOD LOSS: 5 mL. SPECIMENS REMOVED: Gallbladder. COMPLICATIONS: None. OPERATIVE FINDINGS: 1. Large 1-2 cm gallstone with acute cholecystitis and gallbladder wall thickening INDICATIONS: The patient is a 86-year-old female who presents with acute on chronic cholecystitis. Robotic assisted laparoscopic approach was described. Benefits and risks of the procedure including but not limited to bleeding, infection, injury to the biliary tree was described. Informed consent was obtained. DESCRIPTION OF PROCEDURE: Patient was brought to the operating room, placed in supine position. After general induction, the abdomen had been prepped and draped in standard sterile fashion. The robotic da Anam XI system was primed. After a timeout protocol was performed, the patient had been prepped and draped in standard sterile fashion. The patient was injected with indocyanine green. A 5 mm 0 degrees laparoscopic trocar entry was performed along the left upper quadrant. The abdomen insufflated to 15 mmHg pressure which was tolerated well. Diagnostic laparoscopy demonstrated no injury to bowel viscera or mesentery. The liver surface was unremarkable. Next, two 8 mm robotic ports were placed along the right upper abdomen. The camera 8-mm port was maintained along the epigastrium. Another 8 mm port was placed along the left upper abdominal wall after exchanging the 5 mm port. Please note that the ports were placed at least 10 to 15 cm away from the target anatomy of the gallbladder. The robot was docked along the left lateral abdomen. The patient was repositioned in reverse Trendelenburg position. Using a grasper for arm 3, a grasper for arm 4, including hook cautery for arm 1, the robotic system was docked and primed as described. Instruments were interchanged by the assistant analyst including hook cautery, Bovie cautery and clip appliers. I had sat at the console. The gallbladder was scarred with peritoneal adhesions. Lysis of adhesions was performed to free the gallbladder from the surrounding tissues. Next attention was brought to the infundibulum and cystic structures. The infundibulum and cystic duct were dissected free from surrounding tissues. The cystic duct was isolated. FIREFLY was used to identify the cystic artery and cystic structures. A critical view of safety was obtained. Large PLASTIC clips were used throughout the entire case. Using a clip valet manager, 2 clips were placed at the junction of the infundibulum and cystic duct. The cystic duct was divided between clips. Next, the cystic artery was cauterized. A total of 2 clips were placed at the hepatic fossa. Electro-Bovie cautery was used to remove the gallbladder from the hepatic fossa. Hemostasis was checked and found to be adequate. The robot was undocked. I re-scrubbed into the case. Using a 10 mm Endo Catch bag via the left upper quadrant incision, the specimen was removed from the abdominal cavity. All pneumoperitoneum instruments were evacuated from the abdominal cavity. The incisions were reapproximated using 4-0 Monocryl in an interrupted subcuticular fashion. Fascial defects were less than 8 mm in size. Please note along the trocar sites, local anesthetic was placed as a field block prior to insertion of all instruments. Liquid glue was applied to the skin. At the end of the procedure needle, sponge, and instrument count had been verified correct by the surgical aide. The patient was transferred to postanesthesia care unit in stable condition. Intraoperative films were shared with the patient's family.
[2021-11-19] MEDS: HEPARIN SODIUM,PORCINE/PF 5,000 UNIT/0.5 ML SYRINGE SQ SCH (19:58)
[2021-11-19] MEDS: hydrALAZINE HCL 50 MG TAB PO SCH (23:17)
[2021-11-20] MEDS: LEVOTHYROXINE 75 MCG TAB PO SCH (06:33)
[2021-11-20 09:08] LABS: Basophils % (A) 0 %; Eosinophils # (A) 0.1 k/uL (0-0.7); Eosinophils % (A) 1 %; HCT 41.2 % (34.0-46.0); HGB 12.6 gm/dL (11.4-16.0); Hypochromasia Slight; Lymphocytes # (A) 1.2 k/uL (1.0-4.8); Lymphocytes % (A) 16 %; MCH 29.7 pg (25.0-35.0); MCHC 30.7 g/dL (31.0-37.0); MCV 96.9 fL (80.0-100.0); Mean Platelet Volume 8.2; Monocytes # (A) 0.5 k/uL (0-1.0); Monocytes % (A) 6 %; Neutrophils # (A) 5.7 k/uL (1.3-7.7); Neutrophils % (A) 76 %; Platelet Count 241 k/uL (150-450); RBC 4.25 m/uL (3.80-5.40); RDW 13.5 % (11.5-15.5); WBC 7.5 k/uL (3.8-10.6)
[2021-11-20 09:37] LABS: Calcium 8.9 mg/dL (8.4-10.2); Potassium 4.6 mmol/L (3.5-5.1); Total Bilirubin 0.6 mg/dL (0.2-1.3); Total Protein 5.7 g/dL (6.3-8.2)
[2021-11-20] MEDS: FAMOTIDINE 20 MG TAB PO SCH (09:41)
[2021-11-20] MEDS: ISOSORBIDE MONONITRATE ER 30 MG TAB.ER.24H PO SCH (09:41)
[2021-11-20] MEDS: HEPARIN SODIUM,PORCINE/PF 5,000 UNIT/0.5 ML SYRINGE SQ SCH (09:41)
[2021-11-20] MEDS: METOPROLOL TARTRATE 50 MG TAB PO SCH (09:41)
[2021-11-20] MEDS: TIMOLOL 0.25% OPHTH DROPS 5 ML BTL BOTH EYES SCH (09:42)
[2021-11-20] MEDS: prednisoLONE ACETATE 1% OPHTH DROPS 5 ML BTL RIGHT EYE SCH (09:42)
[2021-11-20 11:47] LABS: INR 1.5 (<1.2); Prothrombin Time 15.5 sec (9.0-12.0)
--- NOTE | 2021-11-20 11:52 | P.PN ---
Subjective Progress Note Date: 11/20/21 CHIEF COMPLAINT: Abdominal pain HISTORY OF PRESENT ILLNESS: Patient is postop day #1 status post robotic- assisted cholecystectomy. Patient is tolerating diet. Patient denies any abdominal pain or back pain. Denies any nausea or vomiting. Afebrile. WBC 7.5 hemoglobin 12.6 platelets 241 INR 1.5 sodium 136 potassium 4.6 creatinine 1.03 AST 57 ALT 27 total bili 0.6 PHYSICAL EXAM: VITAL SIGNS: Reviewed GENERAL: Well-developed in no acute distress. HEENT: No sclera icterus. Extraocular movements grossly intact. Moist buccal mucosa. Head is atraumatic, normocephalic. Hears conversational speech. No nasal drainage. NECK: Supple without lymphadenopathy. CHEST: Non-labored respirations and equal bilateral excursions. CARDIOVASCULAR: Palpable 2+ radial pulses. ABDOMEN: Soft. Nondistended. MUSCULOSKELETAL: No clubbing or cyanosis. NEUROLOGIC: No focal or lateralizing signs. Cranial nerves II through XII grossly intact. PSYCH: Appropriate affect. Alert and oriented to person, place and time. SKIN: Well perfused. Good skin turgor. ASSESSMENT: 1. Acute on chronic cholecystitis due to gallstones. Her acute cholecystitis was masked because of chronic antibiotic use 2. Congestive heart failure 3. Chronic anticoagulant use 4. Hypertensive heart disease with stage III chronic kidney disease 5. Glaucoma 6. Hypothyroidism 7. Chronic back pain 8. Gastroesophageal reflux disease PLAN: -Patient can be discharge from surgical standpoint -Okay to resume Coumadin from surgical standpoint Physician Human Resource Assistant note has been reviewed by physician. Signing provider agrees with the documented findings, assessment, and plan of care. Objective - Vital Signs Vital signs: Vital Signs Temp 97.6 F 11/20/21 04:00 Pulse 74 11/20/21 04:00 Resp 18 11/20/21 04:00 BP 159/75 11/20/21 04:00 Pulse Ox 93 L 11/20/21 04:00 FiO2 Intake & Output 11/19/21 11/20/21 11/20/21 18:59 06:59 18:59 Intake Total 980 Output Total 5 Balance 975 Weight 62.5 kg Intake: IV 800 Oral 180 Output: Urine 0 Estimated Blood Loss 5 Other: Voiding Method Toilet # Voids 3 1 - Labs CBC & Chem 7: 11/20/21 08:17 11/20/21 08:17 Labs: Abnormal Lab Results - Last 24 Hours (Table) 11/20/21 Range/Units 08:17 MCHC 30.7 L (31.0-37.0) g/dL
[2021-11-20 13:54] VITALS: BP 167/78; PULSE 60; RESP 18; TEMP 97.8
--- NOTE | 2021-11-21 22:23 | P.DS ---
Providers Date of admission: 11/14/21 15:40 Attending physician: Nik Geronimo Consults: 11/14/21 15:38 Consult Physician Urgent Consulting Provider: Deann Roy Consult Reason/Comments: possible diverticulitis, persistent LLQ pain Do you want consulting provider notified?: Yes 11/15/21 10:55 Consult Physician Routine Consulting Provider: Artemio Zhang Consult Reason/Comments: cardiac risk assessment Do you want consulting provider notified?: Yes Primary care physician: Physician Nonstaff Hospital Course: Diagnosis -Abdominal pain secondary to cholelithiasis -Postoperative day #1 robotic assisted cholecystecomy -Chronic kidney disease stage III -Coronary Artery Disease post PCI in the past -Chronic Heart Failure with preserved EF -Gastroesophageal reflux disease -Hypothyroidism -History of paroxysmal atrial fibrillation maintained on coumadin outpatient -Hypertension currently low normal blood pressure -Hyperlipidemia -Asymptomatic bacteriurea Full Code Discharge Disposition Patient stable for discharge. She is postoperative day #1 laproscopic cholecystectomy. Patient will follow up with primary care provider on follow up recommend for 2 to 3 days. Patient has follow up appointment scheduled with Dr Roy on november 27 and also has follow up appointment with Dr Orozco on December 07. Patient will be resumed on home coumadin dosing and INR on day of discharge 1.5. Script for repeat INR in 2 days provided to patient prior to discharge. Hospital Course This is an 86 year old female with medical history of hypertension, hyperlipidemia, hypothyroidism, GERD, chronic diastolic heart failure, post cardiac stenting, chronic kidney disease. Patient also has chronic back pain. History of paroxysmal atrial fibrillation maintained on coumadin outpatient. Patient presents to the emergency room with complaint of epigastric and right upper quadrant abdominal pain and also lower left quadrant pain. She has pulsing sensation to lower back and epigastric pain present for the last 1 to 2 days. Denies nausea vomiting, she has also been constipated and using milk of magnesia. No chest pain, no fever or chills. No shortness of breath. Abdominal pelvis CT showing left sided colonic diverticulosis and possible mild acute diverticulitis and mild inflammation along distal sigmoid colon. There is small to moderate hiatal hernia, numerous renal cortical lesions, suspect cysts with varying degrees of internal hemorrhage or proteinaceous debris. Gallstone found. There is also mild pelvic free fluid. Patient received fluid bolus in EC and was started on empiric antibiotic coverage with augmentin. Patient admitted and general surgery placed on consultation. On admission BUN 20, creatinine 1.42, glucose 100. Troponin elevation at 0.081, 0.077, 0.084. AST mildly elevated at 41. Urinalysis showing turbid urine, 1+ protein, small leukocyte esterase, rare bacteria. Urine culture negative. Patient had gallbladder ultrasound done showing gallbladder sludge and also large gallstone, HIDA scan shows no evidence for acute cholecystitis. Recommended for gall bladder removal and cardiology was asked to see patient in consultation and she was cleared for surgery with benefit outweighing risk. 11/20/2021 Patient evaluated today sitting up in chair with family at bedside. Postoperative day #1 robotic assisted laproscopic cholecystectomy with Dr. Roy. She reports no abdominal pain, no chest pain, no shortness of breath. Her main complaint is no bowel movement. She did have loose BM on the 7th. Patient is given discharge instructions of using miralax and also lactulose has been sent if miralax does not illicit a bowel movement. Her abdomen shows approximated laproscopic incisions, abdomen is soft, normoactive bowl sounds. She is tolerating diet, no nausea or vomiting. Labs today showing white count 7.5, hgb stable at 12.6, INR 1.5, sodium 136, BUN 15, creatinine 1.03. Blood glucose normal at 92 and also AST is 57 which had initially improved. Albumin 3.0. Patient is afebrile, heart rate 60, blood pressure 167/78, hydralazine had initially been placed on hold for low normal blood pressure which we will resume on discharge. She is 94% on room air and using incentive spirometer appropriately. She is ambulating without difficulty and has been evaluated by physical therapy. She had follow up chest xray prior to surgey which shows stable findings negative for acute cardiopulmonary process. Lungs are clear, S1 S2 auscultated, she is in normal sinus rhythm. INR 1.5 today, coumadin resumed. Please see medication reconciliation for a list of current medication. Thank you for allowing us to participate in the care of this patient. Total time taken in discharge planning greater than 35 minutes. The impression and plan of care has been dictated by Norma Szymanski, Nurse Practitioner as directed. Dr. Yakov MD I have performed a history and physical examination and medical decision making of this patient, discussed the same with the dictator, and agree with the dictators assessment and plan as written, documented as a scribe. Based on total visit time, I have performed more than 50% of this visit. Patient Condition at Discharge: Good Plan - Discharge Summary Discharge Rx Participant: No New Discharge Prescriptions: New Famotidine [Pepcid] 20 mg PO DAILY #30 tab hydrALAZINE HCL 100 mg PO BID #60 tablet Lactulose 20 gm PO DAILY PRN #160 ml PRN Reason: Constipation Continue Timolol 0.25% Ophth Soln [Timoptic 0.25% Ophth Soln] 1 drop BOTH EYES DAILY Prednisolone Acetate/Pf [Prednisolone Acet 1% Eye Drop] 1 drop RIGHT EYE DAILY Levothyroxine Sodium [Synthroid] 75 mcg PO DAILY Warfarin [Coumadin] 0.5 mg PO SUTUTHSA Morphine Sulfate [Morphine Sulfate ER] 15 mg PO BID Metoprolol Tartrate [Lopressor] 100 mg PO BID Aspirin EC [Ecotrin Low Dose] 81 mg PO DAILY Furosemide [Lasix] 20 mg PO DAILY Isosorbide Mononitrate ER [Imdur] 30 mg PO DAILY #30 tab Ferrous Sulfate [Iron (65 MG Elemental)] 325 mg PO DAILY Magnesium Hydroxide [Milk of Magnesia] 2,400 mg PO DAILY Discontinued hydrALAZINE HCL [Apresoline] 100 mg PO BID Discharge Medication List Timolol 0.25% Ophth Soln [Timoptic 0.25% Ophth Soln] 1 drop BOTH EYES DAILY 11/04/19 [History] Aspirin EC [Ecotrin Low Dose] 81 mg PO DAILY 08/25/21 [History] Furosemide [Lasix] 20 mg PO DAILY 08/25/21 [History] Levothyroxine Sodium [Synthroid] 75 mcg PO DAILY 08/25/21 [History] Metoprolol Tartrate [Lopressor] 100 mg PO BID 08/25/21 [History] Prednisolone Acetate/Pf [Prednisolone Acet 1% Eye Drop] 1 drop RIGHT EYE DAILY 08/25/21 [History] Isosorbide Mononitrate ER [Imdur] 30 mg PO DAILY #30 tab 08/27/21 [Rx] Ferrous Sulfate [Iron (65 MG Elemental)] 325 mg PO DAILY 11/14/21 [History] Magnesium Hydroxide [Milk of Magnesia] 2,400 mg PO DAILY 11/14/21 [History] Morphine Sulfate [Morphine Sulfate ER] 15 mg PO BID 11/14/21 [History] Warfarin [Coumadin] 0.5 mg PO SUTUTHSA 11/14/21 [History] Famotidine [Pepcid] 20 mg PO DAILY #30 tab 11/20/21 [Rx] Lactulose 20 gm PO DAILY PRN #160 ml 11/20/21 [Rx] hydrALAZINE HCL 100 mg PO BID #60 tablet 11/20/21 [Rx] Follow up Appointment(s)/Referral(s): Kirk Orozco DO [STAFF PHYSICIAN] - 12/07/21 1:30 pm Deann Roy MD [STAFF PHYSICIAN] - 11/27/21 Nonstaff,Physician [Primary Care Provider] - 1-2 days Ambulatory/Diagnostic Orders: Basic Metabolic Panel [LAB.AMB] Time Frame: 3 Days, Location: None Selected Prothrombin Time INR [LAB.AMB] Time Frame: 2 Days, Location: None Selected Patient Instructions/Handouts: Diverticulitis (DC) Activity/Diet/Wound Care/Special Instructions: Telephone Follow up visit with Dr. Roy next Friday Repeat INR in 2 days Use miralax for constipation if that does not work than use lactulose Lactulose dosing is 20mg/30 ml take 30 ml daily, 8 doses have been sent to pharmacy Recommmend to see Primary care in 2 to 3 days outpatient Please make appointment before discharging Discharge Disposition: HOME WITH HOME HEALTH SERVICES
== END 2021-11-20 15:08 | disposition home health service (06) | DRG 418 ==
LOC: EC 09:38 → 3SCARD 15:40
PROVIDERS: ADMIT Hospitalist; ATTEND Hospitalist
PROC: 8E0W4CZ Robotic Assisted Procedure of Trunk Region, Percutaneous Endoscopic Approach (ICD-10-PCS; 2021-11-19)
PROC: 0FT44ZZ Resection of Gallbladder, Percutaneous Endoscopic Approach (ICD-10-PCS; principal; 2021-11-19 15:20)
DX: K80.12 Calculus of gallbladder with acute and chronic cholecystitis without obstruction (principal); I13.0 Hypertensive heart and chronic kidney disease with heart failure and stage 1 through stage 4 chronic kidney disease, or unspecified chronic kidney disease; I50.32 Chronic diastolic (congestive) heart failure; K57.32 Diverticulitis of large intestine without perforation or abscess without bleeding; I48.0 Paroxysmal atrial fibrillation; I25.10 Atherosclerotic heart disease of native coronary artery without angina pectoris; E03.9 Hypothyroidism, unspecified; E11.22 Type 2 diabetes mellitus with diabetic chronic kidney disease; E78.5 Hyperlipidemia, unspecified; G89.29 Other chronic pain; H40.9 Unspecified glaucoma; I25.2 Old myocardial infarction; R82.71 Bacteriuria; I25.5 Ischemic cardiomyopathy; I45.10 Unspecified right bundle-branch block; I08.3 Combined rheumatic disorders of mitral, aortic and tricuspid valves; K21.9 Gastro-esophageal reflux disease without esophagitis; K59.00 Constipation, unspecified; M19.041 Primary osteoarthritis, right hand; M19.042 Primary osteoarthritis, left hand; N18.30 Chronic kidney disease, stage 3 unspecified; R79.1 Abnormal coagulation profile; Z79.01 Long term (current) use of anticoagulants; Z79.2 Long term (current) use of antibiotics; Z79.82 Long term (current) use of aspirin; Z79.890 Hormone replacement therapy; Z79.899 Other long term (current) drug therapy; Z82.49 Family history of ischemic heart disease and other diseases of the circulatory system; Z87.442 Personal history of urinary calculi; Z94.7 Corneal transplant status; Z95.5 Presence of coronary angioplasty implant and graft; Z98.42 Cataract extraction status, left eye; Z96.1 Presence of intraocular lens; Z87.81 Personal history of (healed) traumatic fracture
CPT/HCPCS: 36415; 71045; 71046; 74176; 76705; 78226; 80053; 81001; 82150; 83690; 84484; 85025; 85027; 85610; 87086; 88304; 93005; 94760; 96360; 99285

== ENCOUNTER 2024-04-04 17:43 | Emergency (ER) | payer MEDICARE, BC ==
--- NOTE | 2024-04-04 18:31 | ED ---
Lower Extremity Injury HPI - General Chief Complaint: Extremity Injury, Lower Stated Complaint: Fall/L knee pain Time Seen by Provider: 04/04/24 18:30 Source: patient, family, RN notes reviewed Mode of arrival: wheelchair Limitations: physical limitation - History of Present Illness Initial Comments: 88-year-old female presented to the ER for evaluation of left knee injury. Patient states she walked out to get the mail this morning and while walking in her garage she accidentally slipped causing her her to fall landing on her bottom. She denies any head injury, loss of consciousness, dizziness or lightheadedness. Patient is on Coumadin. Patient was reporting most pain to left knee with edema. She denies limited range of motion and states it is difficult to ambulate due to the pain. Patient does report mild paresthesias to medial carbajal. Has not taken anything for pain at this time. No other injuries or complaints. - Related Data Home Medications Medication Instructions Recorded Confirmed Timolol 0.25% Ophth Soln [Timoptic 1 drop BOTH EYES DAILY 11/04/19 11/14/21 0.25% Ophth Soln] Aspirin EC [Ecotrin Low Dose] 81 mg PO DAILY 08/25/21 11/14/21 Furosemide [Lasix] 20 mg PO DAILY 08/25/21 11/14/21 Levothyroxine Sodium [Synthroid] 75 mcg PO DAILY 08/25/21 11/14/21 Metoprolol Tartrate [Lopressor] 100 mg PO BID 08/25/21 11/14/21 Prednisolone Acetate/Pf 1 drop RIGHT EYE DAILY 08/25/21 11/14/21 [Prednisolone Acet 1% Eye Drop] Ferrous Sulfate [Iron (65 MG 325 mg PO DAILY 11/14/21 11/14/21 Elemental)] Magnesium Hydroxide [Milk of 2,400 mg PO DAILY 11/14/21 11/14/21 Magnesia] Morphine Sulfate [Morphine Sulfate 15 mg PO BID 11/14/21 11/14/21 ER] Warfarin [Coumadin] 0.5 mg PO SUTUTHSA 11/14/21 11/14/21 Previous Rx's Medication Instructions Recorded Isosorbide Mononitrate ER [Imdur] 30 mg PO DAILY #30 tab 08/27/21 Famotidine [Pepcid] 20 mg PO DAILY #30 tab 11/20/21 Lactulose 20 gm PO DAILY PRN #160 ml 11/20/21 hydrALAZINE HCL 100 mg PO BID #60 tablet 11/20/21 Allergies Allergy/AdvReac Type Severity Reaction Status Date / Time No Known Allergies Allergy Verified 04/04/24 18:01 Review of Systems ROS Statement: Those systems with pertinent positive or pertinent negative responses have been documented in the HPI. ROS Other: All systems not noted in ROS Statement are negative. Past Medical History Past Medical History: Coronary Artery Disease (CAD), Diabetes Mellitus, Eye Disorder, GERD/Reflux, Hyperlipidemia, Hypertension, Myocardial Infarction ([place]), Osteoarthritis (OA), Thyroid Disorder Additional Past Medical History / Comment(s): NIDDM type II, R eye-sees shadows only, hiatal hernia, arthritis bilateral hands, insomnia. Last Myocardial Infarction Date:: 2015 History of Any Multi-Drug Resistant Organisms: None Reported Past Surgical History: Heart Catheterization With Stent, Orthopedic Surgery Additional Past Surgical History / Comment(s): PCIs with stents, L hip fracture with hemiarthroplasty, R foot fracture with bone graft, R eye corneal transplant, L eye cataract removal with lens implant. Past Anesthesia/Blood Transfusion Reactions: Postoperative Nausea & Vomiting (PONV) Date of Last Stent Placement:: 10/14/2015 Past Psychological History: No Psychological Hx Reported Smoking Status: Never smoker Past Alcohol Use History: None Reported Past Drug Use History: None Reported - Past Family History Mother Family Medical History: Cancer Father Family Medical History: Myocardial Infarction ([place]) Additional Family Medical History / Comment(s): Father from a [place] at the age of 57yrs. General Exam Limitations: physical limitation General appearance: alert, in no apparent distress Head exam: Present: atraumatic, normocephalic, normal inspection Respiratory exam: Present: normal lung sounds bilaterally. Absent: respiratory distress, wheezes, rales, rhonchi, stridor Cardiovascular Exam: Present: regular rate, normal rhythm, normal heart sounds. Absent: systolic murmur, diastolic murmur, rubs, gallop, clicks Extremities exam: Present: full ROM, tenderness (Distal femur and patella), joint swelling (Left knee. There is no overlying skin changes. ) Back exam: Present: normal inspection, full ROM Neurological exam: Present: alert, oriented X3, CN II-XII intact Skin exam: Present: warm, dry, intact, normal color. Absent: rash Course Vital Signs 04/04/24 04/04/24 18:02 19:10 Temperature 98.3 F 98.1 F Pulse Rate 77 76 Respiratory 18 20 Rate Blood Pressure 137/68 150/89 O2 Sat by Pulse 99 99 Oximetry Medical Decision Making - Medical Decision Making Was pt. sent in by a medical professional or institution (, CHRISTIAN, MANUFACTURING INSPECTOR, urgent care, hospital, or senior living...) When possible be specific @ -No Did you speak to anyone other than the patient for history (EMS, parent, family, police, friend...)? What history was obtained from this source @ -Family, at bedside, aiding in HPI and past medical history. Did you review nursing and triage notes (agree or disagree)? Why? @ -I reviewed and agree with nursing and triage notes Were old charts reviewed (outside hosp., previous admission, EMS record, old EKG, old radiological studies, urgent care reports/EKG's, senior living records)? Report findings @ -No old charts were reviewed Differential Diagnosis (chest pain, altered mental status, abdominal pain women, abdominal pain men, vaginal bleeding, weakness, fever, dyspnea, syncope, headache, dizziness, GI bleed, back pain, seizure, CVA, palpatations, mental health, musculoskeletal)? @ -Differential Musculoskeletal: Muscular strain, contusion, ligament sprain, fracture, arthritis, septic arthritis, bursitis, cellulitis, muscle spasm, nerve compression, DVT, arterial occlusion, herpes zoster, electrolyte abnormality, tumor.... This is not meant to be in all inclusive list EKG interpreted by me (3pts min.). @ -None done X-rays interpreted by me (1pt min.). @ -Left knee x-rays interpreted by me negative for acute osseous fractures or dislocations. CT interpreted by me (1pt min.). @ -None done U/S interpreted by me (1pt. min.). @ -None done What testing was considered but not performed or refused? (CT, X-rays, U/S, labs)? Why? @ -None What meds were considered but not given or refused? Why? @ -None Did you discuss the management of the patient with other professionals (professionals i.e. , CHRISTIAN, MANUFACTURING INSPECTOR, lab, RT, psych nurse, clinical social work aide, scientific glass blower, teacher, learning officer, case briefer)? Give summary @ -No Was smoking cessation discussed for >3mins.? @ -No Was critical care preformed (if so, how long)? @ -No Were there social determinants of health that impacted care today? How? (Homelessness, low income, unemployed, alcoholism, drug addiction, transportation, low edu. Level, literacy, decrease access to med. care, half-way, rehab)? @ -No Was there de-escalation of care discussed even if they declined (Discuss DNR or withdrawal of care, Hospice)? DNR status @ -No What co-morbidities impacted this encounter? (DM, HTN, Smoking, COPD, CAD, Cancer, CVA, ARF, Chemo, Hep., AIDS, mental health diagnosis, sleep apnea, morbid obesity)? @ -Patient is on Coumadin Was patient admitted / discharged? Hospital course, mention meds given and route, prescriptions, significant lab abnormalities, going to OR and other pertinent info. @ -Discharge. 88-year-old female presenting to the ER for evaluation of left knee injury. Patient denying any other injuries including head. History and physical exam completed. Vitals within normal limits. Patient in no signs of acute distress and and is neurovascularly intact. There is edema noted to left knee. Patient has full active range of motion. Patient given p.o. Tylenol for pain control in the ER along with ice placed over knee. X-rays obtained negative for acute process. Pain believed to be soft tissue in nature. I advised rest, ice, compression and elevation. I also advised [id number] Tylenol for pain control. Patient placed in an Marc wrap prior to discharge. Patient is stable for discharge upon reevaluation. Strict return parameters discussed. Patient discharged in stable condition with follow-up to PCP. Patient verbally expressed understanding and agreement with care plan. Case discussed with ED attending, Dr. Barber. Undiagnosed new problem with uncertain prognosis? @ -No Drug Therapy requiring intensive monitoring for toxicity (Heparin, Nitro, Insulin, Cardizem)? @ -No Were any procedures done? @ -No Diagnosis/symptom? @ -Knee sprain Acute, or Chronic, or Acute on Chronic? @ -Acute Uncomplicated (without systemic symptoms) or Complicated (systemic symptoms)? @ -Uncomplicated Side effects of treatment? @ -No Exacerbation, Progression, or Severe Exacerbation? @ -No Poses a threat to life or bodily function? How? (Chest pain, [place], [place], pneumonia, PE, COPD, DKA, ARF, appy, cholecystitis, CVA, Diverticulitis, Homicidal, Suicidal, threat to staff... and all critical care pts) @ -No - Radiology Data Radiology results: report reviewed, image reviewed Disposition Clinical Impression: Knee sprain Disposition: HOME SELF-CARE Condition: Stable Instructions (If sedation given, give patient instructions): Knee Sprain (ED) Additional Instructions: You may take [id number] Tylenol for symptom control. Continue to rest ice elevate and use compression. Follow-up with PCP. Return to the ER for any new or worsening concerns. Is patient prescribed a controlled substance at d/c from ED?: No Referrals: Nonstaff,Physician [Primary Care Provider] - 1-2 days Time of Disposition: 19:16
[2024-04-04] MEDS: ACETAMINOPHEN TAB 325 MG TAB PO STA (18:35)
--- NOTE | 2024-04-04 18:59 | XR ---
EXAMINATION TYPE: XR knee complete LT DATE OF EXAM: 04/04/2024 6:28 PM COMPARISON: None CLINICAL INDICATION: Female, 88 years old with history of pain sp/ slip and fall, pain TECHNIQUE: XR knee complete LT 3 views submitted. FINDINGS: No evidence of any acute osseous pathology, soft tissue swelling, or joint effusion is no nate. Tricompartmental osteophyte formation involving the femoral condyles, tibial plateau and patella . Mild joint space narrowing. Atherosclerosis of the arterial vasculature. IMPRESSION: 1. No acute osseous pathology. 2. Mild to moderate tricompartmental osteoarthritic changes. [facility], , 04/04/2024 6:57 PM
[2024-04-04 19:11] VITALS: RESP 20; TEMP 98.1
[2024-04-04 19:19] VITALS: BP 150/89; PULSE 76
== END 2024-04-04 19:19 | disposition home or self-care (01) ==
LOC: EC 17:43
DX: S83.92XA Sprain of unspecified site of left knee, initial encounter (principal); W01.0XXA Fall on same level from slipping, tripping and stumbling without subsequent striking against object, initial encounter; Y93.01 Activity, walking, marching and hiking
CPT/HCPCS: 99283

== ENCOUNTER 2024-10-20 17:35 | Emergency (ER) | payer MEDICARE, BC ==
[2024-10-20 17:57] VITALS: RESP 16
[2024-10-20 18:59] LABS: Basophils # (A) 0.06 10*3/uL (0.00-0.10); Basophils % (A) 0.8 %; Eosinophils # (A) 0.11 10*3/uL (0.04-0.35); Eosinophils % (A) 1.4 %; HCT 39.3 % (37.2-46.3); HGB 12.9 g/dL (12.0-15.0); Lymphocytes # (A) 2.40 10*3/uL (0.90-5.00); Lymphocytes % (A) 31.4 %; MCH 31.9 pg (27.0-32.0); MCHC 32.8 g/dL (32.0-37.0); MCV 97.0 fL (80.0-97.0); Monocytes # (A) 0.58 10*3/uL (0.20-1.00); Monocytes % (A) 7.6 %; Neutrophils # (A) 4.49 10*3/uL (1.80-7.70); Neutrophils % (A) 58.7 %; Platelet Count 239 10*3/uL (140-440); RBC 4.05 10*6/uL (4.10-5.20); RDW 12.3 % (11.5-14.5); WBC 7.65 10*3/uL (4.50-10.00)
[2024-10-20 19:08] LABS: INR 2.8 (<1.2); Partial Thromboplastin Time 33.7 sec (22.0-30.0); Prothrombin Time 27.9 sec (10.0-12.5)
--- NOTE | 2024-10-20 19:21 | ED ---
General Adult HPI - General Chief complaint: Vaginal Bleeding Stated complaint: vaginal bleeding Time Seen by Provider: 10/20/24 18:38 Source: patient, RN notes reviewed Mode of arrival: ambulatory Limitations: no limitations - History of Present Illness Initial comments: 89-year-old female presents emergency room with concerns of vaginal bleeding. Patient states that she was in the shower this evening when she noticed that she had bright red blood passed from her vagina. She is reporting for further evaluation. Patient states that she has a history of a total hysterectomy. She denies bright red blood per rectum, dark or tarry stools, abdominal pain, urinary complaints, hematuria. Patient is on a blood thinner. - Related Data Home Medications Medication Instructions Recorded Confirmed Timolol 0.25% Ophth Soln [Timoptic 1 drop BOTH EYES DAILY 11/04/19 11/14/21 0.25% Ophth Soln] Aspirin EC [Ecotrin Low Dose] 81 mg PO DAILY 08/25/21 11/14/21 Furosemide [Lasix] 20 mg PO DAILY 08/25/21 11/14/21 Levothyroxine Sodium [Synthroid] 75 mcg PO DAILY 08/25/21 11/14/21 Metoprolol Tartrate [Lopressor] 100 mg PO BID 08/25/21 11/14/21 Prednisolone Acetate/Pf 1 drop RIGHT EYE DAILY 08/25/21 11/14/21 [Prednisolone Acet 1% Eye Drop] Ferrous Sulfate [Iron (65 MG 325 mg PO DAILY 11/14/21 11/14/21 Elemental)] Magnesium Hydroxide [Milk of 2,400 mg PO DAILY 11/14/21 11/14/21 Magnesia] Morphine Sulfate [Morphine Sulfate 15 mg PO BID 11/14/21 11/14/21 ER] Warfarin [Coumadin] 0.5 mg PO SUTUTHSA 11/14/21 11/14/21 Previous Rx's Medication Instructions Recorded Isosorbide Mononitrate ER [Imdur] 30 mg PO DAILY #30 tab 08/27/21 Famotidine [Pepcid] 20 mg PO DAILY #30 tab 11/20/21 Lactulose 20 gm PO DAILY PRN #160 ml 11/20/21 hydrALAZINE HCL 100 mg PO BID #60 tablet 11/20/21 Allergies Allergy/AdvReac Type Severity Reaction Status Date / Time No Known Allergies Allergy Verified 04/04/24 18:01 Review of Systems ROS Statement: Those systems with pertinent positive or pertinent negative responses have been documented in the HPI. ROS Other: All systems not noted in ROS Statement are negative. Past Medical History Past Medical History: Coronary Artery Disease (CAD), Diabetes Mellitus, Eye D isorder, GERD/Reflux, Hyperlipidemia, Hypertension, Myocardial Infarction ([place]), Osteoarthritis ([place]), Thyroid Disorder Additional Past Medical History / Comment(s): NIDDM type II, R eye-sees shadows only, hiatal hernia, arthritis bilateral hands, insomnia. Last Myocardial Infarction Date:: 2015 History of Any Multi-Drug Resistant Organisms: None Reported Past Surgical History: Heart Catheterization With Stent, Orthopedic Surgery Additional Past Surgical History / Comment(s): PCIs with stents, L hip fracture with hemiarthroplasty, R foot fracture with bone graft, R eye corneal transplant, L eye cataract removal with lens implant. Past Anesthesia/Blood Transfusion Reactions: Postoperative Nausea & Vomiting (PONV) Date of Last Stent Placement:: 10/14/2015 Past Psychological History: No Psychological Hx Reported Smoking Status: Never smoker Past Alcohol Use History: None Reported Past Drug Use History: None Reported - Past Family History Mother Family Medical History: Cancer Father Family Medical History: Myocardial Infarction ([place]) Additional Family Medical History / Comment(s): Father from a [place] at the age of 57yrs. General Exam Limitations: no limitations Neck exam: Present: normal inspection. Absent: tenderness, meningismus, lymphadenopathy Respiratory exam: Present: normal lung sounds bilaterally. Absent: respiratory distress, wheezes, rales, rhonchi, stridor Cardiovascular Exam: Present: regular rate, normal rhythm, normal heart sounds. Absent: systolic murmur, diastolic murmur, rubs, gallop, clicks Rectal exam: Present: normal rectal tone. Absent: bloody stool, hemorrhoids Speculum exam: Present: normal speculum exam. Absent: erythema, vaginal discharge, vaginal bleeding Extremities exam: Present: normal inspection, full ROM, normal capillary refill. Absent: tenderness, pedal edema, joint swelling, calf tenderness Back exam: Present: normal inspection. Absent: CVA tenderness (R), CVA tenderness (L) Course Vital Signs 10/20/24 10/20/24 10/20/24 17:54 21:10 21:52 Temperature 97.9 F 98.2 F Pulse Rate 69 64 62 Respiratory 16 16 16 Rate Blood Pressure 177/92 165/80 162/70 O2 Sat by Pulse 98 96 97 Oximetry Medical Decision Making - Medical Decision Making Was pt. sent in by a medical professional or institution (CHRISTIAN Colon, CHEMICAL RECLAMATION EQUIPMENT OPERATOR, urgent care, hospital, or retirement...) When possible be specific @ -No Did you speak to anyone other than the patient for history (EMS, parent, family, police, friend...)? What history was obtained from this source @ -No Did you review nursing and triage notes (agree or disagree)? Why? @ -I reviewed and agree with nursing and triage notes Were old charts reviewed (outside hosp., previous admission, EMS record, old EKG, old radiological studies, urgent care reports/EKG's, retirement records)? Report findings @ -No old charts were reviewed Differential Diagnosis (chest pain, altered mental status, abdominal pain women, abdominal pain men, vaginal bleeding, weakness, fever, dyspnea, syncope, headache, dizziness, GI bleed, back pain, seizure, CVA, palpatations, mental health, musculoskeletal)? @ -Differential Vaginal Bleeding: Spontaneous , threatened , molar , ectopic , bloody show, incompetent cervix, abruptioplacenta, placenta previa, uterine rup ture, dysfunctional uterine bleeding, hemorrhage, uterine fibroids, this is not meant to be an all-inclusive list. EKG interpreted by me (3pts min.). @ -None X-rays interpreted by me (1pt min.). @ -None done CT interpreted by me (1pt min.). @ -None done U/S interpreted by me (1pt. min.). @ -Pelvic ultrasound completed which reveals a surgically absent uterus and ovaries with no organizing fluid collection or lymphadenopathy with no evidence for acute process What testing was considered but not performed or refused? (CT, X-rays, U/S, labs)? Why? @ -None What meds were considered but not given or refused? Why? @ -None Did you discuss the management of the patient with other professionals (professionals i.e. CHRISTIAN Colon, CHEMICAL RECLAMATION EQUIPMENT OPERATOR, lab, RT, psych nurse, social scientist, desk pen set assembler, teacher, commercial loan collection officer, caser in)? Give summary @ -No Was smoking cessation discussed for >3mins.? @ -No Was critical care preformed (if so, how long)? @ -No Were there social determinants of health that impacted care today? How? (Homelessness, low income, unemployed, alcoholism, drug addiction, transportation, low edu. Level, literacy, decrease access to med. care, penitentiary, rehab)? @ -No Was there de-escalation of care discussed even if they declined (Discuss DNR or withdrawal of care, Hospice)? DNR status @ -No What co-morbidities impacted this encounter? (DM, HTN, Smoking, COPD, CAD, Cancer, CVA, ARF, Chemo, Hep., AIDS, mental health diagnosis, sleep apnea, morbid obesity)? @ -None Was patient admitted / discharged? Hospital course, mention meds given and route, prescriptions, significant lab abnormalities, going to OR and other pertinent info. @ -Discharge. 89-year-old female presenting to the ER with concerns of vaginal bleeding. Overall patient is well-appearing. Pelvic examination completed with no signs of vaginal bleeding. Rectal exam reveals no hemorrhoids. Occult is negative. Hemoglobin is stable at 12.9. Urinalysis reveals no signs of blood. Ultrasound imaging of the pelvis is unremarkable. Patient is stable for discharge at this time recommend follow-up with primary care provider. Case discussed with Dr. Alvarado Undiagnosed new problem with uncertain prognosis? @ -No Drug Therapy requiring intensive monitoring for toxicity (Heparin, Nitro, Insulin, Cardizem)? @ -No Were any procedures done? @ -No Diagnosis/symptom? @ -Vaginal bleeding Acute, or Chronic, or Acute on Chronic? @ -Acute Uncomplicated (without systemic symptoms) or Complicated (systemic symptoms)? @ -Uncomplicated Side effects of treatment? @ -No Exacerbation, Progression, or Severe Exacerbation? @ -No Poses a threat to life or bodily function? How? (Chest pain, [place], [place], pneumonia, PE, COPD, DKA, ARF, appy, cholecystitis, CVA, Diverticulitis, Homicidal, Suicidal, threat to staff... and all critical care pts) @ -No - Lab Data Result diagrams: 10/20/24 18:50 10/20/24 18:50 Lab Results 10/20/24 10/20/24 10/20/24 Range/Units 18:50 18:50 18:50 WBC 7.65 (4.50-10.00) 10*3/uL RBC 4.05 L (4.10-5.20) 10*6/uL Hgb 12.9 (12.0-15.0) g/dL Hct 39.3 (37.2-46.3) % MCV 97.0 (80.0-97.0) fL MCH 31.9 (27.0-32.0) pg MCHC 32.8 (32.0-37.0) g/dL Plt Count 239 (140-440) 10*3/uL MPV 9.3 L (9.5-12.2) fL Immature Gran % (Auto) 0.1 % Neutrophils % 58.7 % Lymphocytes % 31.4 % Monocytes % 7.6 % Eosinophils % 1.4 % Basophils % 0.8 % Immature Gran # 0.01 (0.00-0.04) 10*3/uL Neutrophils # 4.49 (1.80-7.70) 10*3/uL Lymphocytes # 2.40 (0.90-5.00) 10*3/uL Monocytes # 0.58 (0.20-1.00) 10*3/uL Eosinophils # 0.11 (0.04-0.35) 10*3/uL Basophils # 0.06 (0.00-0.10) 10*3/uL PT 27.9 H (10.0-12.5) sec INR 2.8 H (<1.2) APTT 33.7 H (22.0-30.0) sec Sodium 142 (137-145) mmol/L Potassium 5.3 H (3.5-5.1) mmol/L Chloride 112 H (98-107) mmol/L Carbon Dioxide 17 L (22-30) mmol/L Anion Gap 13 mmol/L BUN 45 H (7-17) mg/dL Creatinine 1.55 H (0.52-1.04) mg/dL Est GFR (CKD-EPI)AfAm 34 (>60 ml/min/1.73 sqM) Est GFR (CKD-EPI)NonAf 30 (>60 ml/min/1.73 sqM) Glucose 104 H (74-99) mg/dL Calcium 10.3 H (8.4-10.2) mg/dL Total Bilirubin 0.7 (0.2-1.3) mg/dL AST 37 H (14-36) U/L ALT 17 (4-34) U/L Alkaline Phosphatase 93 (38-126) U/L Total Protein 7.4 (6.3-8.2) g/dL Albumin 4.3 (3.5-5.0) g/dL Urine Color Urine Appearance (Clear) Urine pH (5.0-8.0) Ur Specific [place] (1.001-1.035) Urine Protein (Negative) Urine Glucose (UA) (Negative) Urine Ketones (Negative) Urine Blood (Negative) Urine Nitrite (Negative) Urine Bilirubin (Negative) Urine Urobilinogen (<2.0) mg/dL Ur Leukocyte Esterase (Negative) Stool Occult Blood (Negative) Blood Type Blood Type Recheck Bld Type Recheck Status Antibody Screen Spec Expiration Date 10/20/24 10/20/24 10/20/24 Range/Units 18:53 19:22 20:19 WBC (4.50-10.00) 10*3/uL RBC (4.10-5.20) 10*6/uL Hgb (12.0-15.0) g/dL Hct (37.2-46.3) % MCV (80.0-97.0) fL MCH (27.0-32.0) pg MCHC (32.0-37.0) g/dL Plt Count (140-440) 10*3/uL MPV (9.5-12.2) fL Immature Gran % (Auto) % Neutrophils % % Lymphocytes % % Monocytes % % Eosinophils % % Basophils % % Immature Gran # (0.00-0.04) 10*3/uL Neutrophils # (1.80-7.70) 10*3/uL Lymphocytes # (0.90-5.00) 10*3/uL Monocytes # (0.20-1.00) 10*3/uL Eosinophils # (0.04-0.35) 10*3/uL Basophils # (0.00-0.10) 10*3/uL PT (10.0-12.5) sec INR (<1.2) APTT (22.0-30.0) sec Sodium (137-145) mmol/L Potassium (3.5-5.1) mmol/L Chloride (98-107) mmol/L Carbon Dioxide (22-30) mmol/L Anion Gap mmol/L BUN (7-17) mg/dL Creatinine (0.52-1.04) mg/dL Est GFR (CKD-EPI)AfAm (>60 ml/min/1.73 sqM) Est GFR (CKD-EPI)NonAf (>60 ml/min/1.73 sqM) Glucose (74-99) mg/dL Calcium (8.4-10.2) mg/dL Total Bilirubin (0.2-1.3) mg/dL AST (14-36) U/L ALT (4-34) U/L Alkaline Phosphatase (38-126) U/L Total Protein (6.3-8.2) g/dL Albumin (3.5-5.0) g/dL Urine Color Colorless Urine Appearance Clear (Clear) Urine pH 5.5 (5.0-8.0) Ur Specific [place] 1.012 (1.001-1.035) Urine Protein Negative (Negative) Urine Glucose (UA) Negative (Negative) Urine Ketones Negative (Negative) Urine Blood Negative (Negative) Urine Nitrite Negative (Negative) Urine Bilirubin Negative (Negative) Urine Urobilinogen <2.0 (<2.0) mg/dL Ur Leukocyte Esterase Negative (Negative) Stool Occult Blood Negative (Negative) Blood Type O Positive Blood Type Recheck O Pos Bld Type Recheck Status No Antibody Screen NEGATIVE Spec Expiration Date 10/23/20242352 Disposition Clinical Impression: Vaginal bleeding Disposition: HOME SELF-CARE Condition: Good Instructions (If sedation given, give patient instructions): Abnormal (Dysfunctional) Uterine Bleeding (ED) Additional Instructions: Please return to the Emergency Department if symptoms worsen or any other concerns. Is patient prescribed a controlled substance at d/c from ED?: No Referrals: Louis Barkley MD [Primary Care Provider] - 1-2 days Time of Disposition: 21:38
[2024-10-20 19:28] LABS: ALT 17 U/L (4-34); AST 37 U/L (14-36); African American GFR (CKD) 34 (>60 ml/min/1.73 sqM); Albumin 4.3 g/dL (3.5-5.0); Alkaline Phosphatase 93 U/L (38-126); Anion Gap 13 mmol/L; Blood Urea Nitrogen 45 mg/dL (7-17); Calcium 10.3 mg/dL (8.4-10.2); Carbon Dioxide 17 mmol/L (22-30); Chloride 112 mmol/L (98-107); Glucose 104 mg/dL (74-99); Non-African American GFR(CKD) 30 (>60 ml/min/1.73 sqM); Potassium 5.3 mmol/L (3.5-5.1); Sodium 142 mmol/L (137-145); Total Protein 7.4 g/dL (6.3-8.2)
--- NOTE | 2024-10-20 19:54 | US ---
EXAMINATION TYPE: US pelvic complete DATE OF EXAM: 10/20/2024 COMPARISON: CT 2021 CLINICAL INDICATION: Female, 89 years old with history of vaginal bleeding; patient states vag bleedi ng today. hx full hysterectomy TECHNIQUE: Transabdominal (TA). Transabdominal grayscale sonographic images of the pelvis were acquired. Patient denies TV imaging FINDINGS: Date of LMP: postmenopausal EXAM MEASUREMENTS: Uterus: Surgically absent cm Endometrial Stripe: Surgically absent cm Right Ovary: Surgically absent cm Left Ovary: Surgically absent cm 1. Uterus: Surgically absent 2. Endometrium: Surgically absent 3. Right Ovary: Surgically absent 4. Left Ovary: Surgically absent 5. Bilateral Adnexa: wnl as best seen 6. Posterior cul-de-sac: wnl IMPRESSION: No evidence for acute process. Surgically absent uterus and ovaries. No organizing fluid collection o r lymphadenopathy. [facility], , 10/20/2024 7:52 PM
[2024-10-20 20:58] LABS: Bilirubin,Urine Negative (Negative); Blood,Urine Negative (Negative); Color,Urine Colorless; Glucose,Urine (UA) Negative (Negative); Ketones,Urine Negative (Negative); Leukocyte Esterase,Urine Negative (Negative); Nitrite,Urine Negative (Negative); PH, Urine 5.5 (5.0-8.0); Protein,Urine Negative (Negative); Specific Gravity,Urine 1.012 (1.001-1.035); Urobilinogen,Urine <2.0 mg/dL (<2.0)
[2024-10-20 21:53] VITALS: BP 162/70; PULSE 62; TEMP 98.2
== END 2024-10-20 21:53 | disposition home or self-care (01) ==
LOC: EC 17:35
DX: N93.9 Abnormal uterine and vaginal bleeding, unspecified (principal)
CPT/HCPCS: 36415; 76856; 80053; 81003; 82272; 85025; 85610; 85730; 86850; 86900; 86901; 99284